=== PATIENT | female | born 1960 | race African-American/Black ===

== ENCOUNTER 2016-12-31 21:54 | Emergency (ER) | payer OTHER ==
[~2016-12-31] VITALS: Ht 167.6 cm; Wt 113.4 kg
[2016-12-31 22:03] VITALS: BP 159/115
--- NOTE | 2016-12-31 22:30 | PHYS DOC ---
Adult General Chief Complaint Chief Complaint: MECHANICAL FALL HPI HPI Patient is a 56 year old F who presents with a fall from a half-way. Patient has a history of cerebral palsy and schizophrenia and is legally blind and was up walking around without her walker trying to obtain a blanket and fell hitting the right side of her face on the ground. Patient states she had no loss of consciousness. Patient denies any chest pain or shortness breath. Patient denies any nausea/vomiting/diarrhea. Patient no other complaints. Review of Systems Review of Systems GEN: Denies fevers, chills, sweats HEENT: Denies blurred vision, sore throat CV: Denies chest pain RESP: Denies shortness of air, cough GI: Denies n/v/d NEURO: Headache MSK: Denies weakness, joint pain/swelling Allergies Allergies Allergies Coded Allergies Type Severity Reaction Last Updated Verified Penicillins Allergy Unknown HIVES 12/31/16 Yes Physical Exam Physical Exam GEN.: No apparent distress. Alert and oriented. HEENT: Head is normocephalic, atraumatic, tender to palpation over the right periorbital area with no obvious deformity NECK: Supple. LUNGS: CTAB. HEART: RRR, S1, S2 present. Peripheral pulses intact ABDOMEN: Soft, nontender. Positive bowel sounds. EXTREMITIES: Without any cyanosis. NEUROLOGIC: Normal speech, normal tone, cranial nerves II through XII are grossly intact no focal neurological deficits PSYCHIATRIC: Normal affect, normal mood. SKIN: No ulcerations EKG EKG [] Radiology/Procedures Radiology/Procedures CT scan of the head and C-spine NAD and no obvious fracture[] Course & Med Decision Making Course & Med Decision Making Pertinent Labs and Imaging studies reviewed. (See chart for details) ED course: Patient was seen and examined emergency room CT scan of the head and C-spine are ordered 2307: Updated patient on CT results and plan to discharge home. MDM: After reviewing the chart, CC/HPI/PMH, physical exam, [radiological results], I do not believe the patient has a intracranial process warranting further workup and/or admission at this time. On reexamination patient is asymptomatic. Patient has caregivers present at bedside. Patient stable for discharge. Additional verbal discharge instructions were provided to the patient and that if symptoms get worse or any new symptoms arise that are worrisome to the patient she is to return to the emergency room immediately [] [place]on Disclaimer Bebe Disclaimer This electronic medical record was generated, in whole or in part, using a voice recognition dictation system. Departure Departure Impression: Primary Impression: Closed head injury Additional Impression: Fall Disposition: 01 HOME, SELF-CARE Condition: IMPROVED Patient Instructions: Concussion and Brain Injury Additional Instructions: Please follow-up with your family physician in the next one to 2 days and return if symptoms increase Problem Qualifiers LIVIA DAWSON DO Dec 31, 2016 22:30
[2016-12-31] MEDS ORDERED: AMLO10TA2 PO (22:32)
[2016-12-31] MEDS ORDERED: TIOT18CA IH (22:33)
[2016-12-31] MEDS ORDERED: OMEP40CA5 PO (22:33)
[2016-12-31] MEDS ORDERED: SERT100T PO (22:34)
[2016-12-31] MEDS ORDERED: MULT1TAB52 PO (22:34)
[2016-12-31] MEDS ORDERED: SITA50TA PO (22:35)
[2016-12-31] MEDS ORDERED: GABA-586 PO (22:35)
[2016-12-31] MEDS ORDERED: LORA10TA68 PO (22:35)
[2016-12-31] MEDS ORDERED: LEVO125T PO (22:35)
[2016-12-31] MEDS ORDERED: DOCU100C28 PO (22:36)
[2016-12-31] MEDS ORDERED: FLUT1DIS5 IH (22:36)
[2016-12-31] MEDS ORDERED: FLUT9.9S NS (22:36)
[2016-12-31] MEDS ORDERED: HYDR50TA6 PO (22:37)
[2016-12-31] MEDS ORDERED: LAMO150T PO (22:37)
[2016-12-31] MEDS ORDERED: BRIM5DRO3 EACHEYE (22:38)
[2016-12-31] MEDS ORDERED: QUET100T4 PO (22:39)
--- NOTE | 2016-12-31 22:56 | RAD ---
CT head without intravenous contrast History: Fall, headache and neck pain. Comparison: None. Technique: Axial images are obtained of the head from the skull base through the vertex without IV contrast. Exposure: One or more of the following individualized dose reduction techniques were utilized for this examination: 1. Automated exposure control 2. Adjustment of the mA and/or kV according to patient size 3. Use of iterative reconstruction technique Findings: The ventricles are appropriate in size, shape, and location for the patient's age. No obvious intracranial mass, mass-effect, midline shift, hemorrhage or obvious acute infarction is identified. Basilar cisterns are patent. Bone windows demonstrate no acute calvarial abnormality. The visualized paranasal sinuses appear clear. Impression: 1. No acute intracranial process. CT cervical spine Technique: Noncontrast CT of the cervical spine was performed using helical technique. Axial, sagittal, coronal reconstructions were obtained. Exposure: One or more of the following individualized dose reduction techniques were utilized for this examination: 1. Automated exposure control 2. Adjustment of the mA and/or kV according to patient size 3. Use of iterative reconstruction technique Findings: There is no evidence of acute fracture or acute malalignment involving the cervical spine. No prevertebral soft tissue swelling is identified. Multilevel degeneration is seen with facet and uncovertebral hypertrophy as well as degenerative disc disease. Impression: 1. No evidence of acute traumatic injury involving the cervical spine. 2. Degeneration. Electronically signed by: Dinesh Clark MD (12/31/2016 10:53 PM) [facility]
== END 2016-12-31 23:39 | disposition home or self-care (01) ==
LOC: ER 21:54
DX: S09.90XA Unspecified injury of head, initial encounter (principal); F20.9 Schizophrenia, unspecified; Z88.0 Allergy status to penicillin; W18.09XA Striking against other object with subsequent fall, initial encounter; Y93.89 Activity, other specified; Y99.8 Other external cause status; Y92.89 Other specified places as the place of occurrence of the external cause
CPT/HCPCS: 70450; 72125; 99284-25

== ENCOUNTER 2018-12-19 13:35 | Emergency (ER) | payer MEDICAID, OTHER ==
[~2018-12-19] VITALS: Ht 149.9 cm; Wt 111.1 kg
[~2018-12-19 13:35] MED LIST: AMLO10TA8 PO; BRIM5DRO3 EACHEYE; DOCU100C28 PO; FLUT1DIS5 IH; FLUT9.9S NS; GABA300C18 PO; HYDR50TA6 PO; LAMO150T2 PO; LEVO125T PO; LORA10TA68 PO; MULT1TAB52 PO; OMEP40CA45 PO; QUET100T4 PO; SERT100T PO; SITA50TA PO; TIOT18CA IH
[2018-12-19] MEDS ORDERED: IV NORMAL SALINE 1000ML BAG 1,000 ML IV ONE (14:15)
[2018-12-19 14:50] LABS: BASO % 0 % (0-3); EOS # 0.1 x10^3/uL (0.0-0.7); EOS % 2 % (0-3); HEMATOCRIT 34.5 % (36.0-47.0); HEMOGLOBIN 11.5 g/dL (12.0-15.5); LYMPH # 0.7 x10^3/uL (1.0-4.8); LYMPH % 20 % (24-48); MEAN CORPUSCULAR HEMOGLOBIN 30 pg (25-35); MEAN CORPUSCULAR HGB CONC 33 g/dL (31-37); MEAN CORPUSCULAR VOLUME 91 fL (79-100); MONO # 0.2 x10^3/uL (0.0-1.1); MONO % 7 % (0-9); NEUT # 2.4 x10^3/uL (1.8-7.7); NEUT % 71 % (31-73); PLATELET COUNT 166 x10^3/uL (140-400); RED BLOOD COUNT 3.79 x10^6/uL (3.50-5.40); RED CELL DISTRIBUTION WIDTH 13.4 % (11.5-14.5); WHITE BLOOD COUNT 3.3 x10^3/uL (4.0-11.0)
[2018-12-19 14:58] LABS: PROTHROMBIN TIME PATIENT 14.3 SEC (11.7-14.0)
[2018-12-19 14:59] LABS: BARBITURATES NEG (NEG); BENZODIAZEPINES NEG (NEG); CANNABINOIDS NEG (NEG); COCAINE NEG (NEG); METHADONE NEG (NEG); OPIATES NEG (NEG); PHENCYCLIDINE NEG (NEG)
[2018-12-19 15:00] LABS: AMPHETAMINE/METHAMPHETAMINE NEG (NEG)
[2018-12-19 15:02] LABS: BILIRUBIN,URINE NEGATIVE (NEG); CLARITY,URINE CLOUDY; COLOR,URINE YELLOW; NITRITE,URINE POSITIVE (NEG); PH,URINE 5.5; PROTEIN,URINE NEGATIVE (NEG-TRACE)
[2018-12-19 15:06] LABS: CALCIUM 10.1 mg/dL (8.5-10.1); CREATININE 1.6 mg/dL (0.6-1.0); GFR 40.3; POTASSIUM 4.2 mmol/L (3.5-5.1)
[2018-12-19 15:13] LABS: ALBUMIN 3.9 g/dL (3.4-5.0); ALBUMIN/GLOBULIN RATIO 0.8 (1.0-1.7); MAGNESIUM 1.9 mg/dL (1.8-2.4); TOTAL BILIRUBIN 0.3 mg/dL (0.2-1.0); TOTAL PROTEIN 8.5 g/dL (6.4-8.2)
[2018-12-19 15:39] LABS: BACTERIA,URINE MANY /HPF (0-FEW); SQUAMOUS EPITHELIAL CELL,UR OCC /LPF; WBC,URINE TNTC /HPF (0-4)
--- NOTE | 2018-12-19 15:48 | PHYS DOC ---
Past Medical History Past Medical History: Anemia, Anxiety, Arthritis, Asthma, Bipolar, Bronchitis, CHF, Diabetes-Type II, Glaucoma, Hypertension, Seizure, Schizophrenia, UTI Additional Past Medical Histor: OBESITY,UNDIFF. SCHIZ, MR, LAST SEIZ 16',CHRON. RENAL FAILURE,OSTEO Additional Past Surgical Histo: CARPAL TUNNEL,RECTAL PROLAPSE REPAIR, Alcohol Use: None Drug Use: None Adult General Chief Complaint Chief Complaint: Sleeping a lot HPI HPI Patient is a 58 year old female with history of bipolar, diabetes mellitus, hypertension resident of a detention who presents via EMS with complaining of sleeping a lot. Patient states since last week she is a sleeping a lot and is not alert. Patient state she has had nasal congestion and cough without fever and chills, chest pain, shortness of breath, focal neuro deficit, head injury, nausea and vomiting, abdominal pain, urinary symptom and diarrhea and constipation. Patient denies using drugs, suicidal or homicidal ideation, hallucinations, history of the same problem. Review of Systems Review of Systems Constitutional: Denies fever or chills [] Eyes: Denies change in visual acuity, redness, or eye pain [] HENT: Denies sore throat , reports nasal congestion [] Respiratory: Denies shortness of breath, reports cough[] Cardiovascular: No additional information not addressed in HPI [] GI: Denies abdominal pain, nausea, vomiting, bloody stools or diarrhea [] : Denies dysuria or hematuria [] Musculoskeletal: Denies back pain or joint pain [] Integument: Denies rash or skin lesions [] Neurologic: Denies headache, focal weakness or sensory changes [] Endocrine: Denies polyuria or polydipsia [] All other systems were reviewed and found to be within normal limits, except as documented in this note. Current Medications Current Medications Current Medications Medications (Trade) Dose Ordered Sig/Gamal Start Time Stop Time Status Last Admin Dose Admin Ceftriaxone Sodium (Rocephin) 1 gm 1X ONCE 12/19/18 16:15 12/19/18 16:16 DC 12/19/18 17:05 1 GM Sodium Chloride 1,000 ml @ 1,000 mls/hr 1X ONCE 12/19/18 14:15 12/19/18 15:14 DC 12/19/18 16:02 1,000 MLS/HR Allergies Allergies Allergies Coded Allergies Type Severity Reaction Last Updated Verified Penicillins Allergy Unknown HIVES 12/31/16 Yes Physical Exam Physical Exam Constitutional: Well l nourished, mild distress, non-toxic appearance, lethargic with slow speech. [] HENT: Normocephalic, atraumatic. Eyes: PERRLA, EOMI, conjunctiva normal, no discharge. [] Neck: Normal range of motion, no tenderness, supple, no stridor. [] Cardiovascular:Heart rate regular rhythm, no murmur [] Lungs & Thorax: Bilateral breath sounds clear to auscultation [] Abdomen: Bowel sounds normal, soft, no tenderness, no masses, no pulsatile masses. [] Skin: Warm, dry, no erythema, no rash. [] Back: No tenderness, no CVA tenderness. [] Extremities: No tenderness, no cyanosis, no clubbing, ROM intact, no edema. [] Neurologic: Alert and oriented X 3 but lethargic, no focal deficits noted. [] Psychologic: Affect normal, mood normal. [] Current Patient Data Vital Signs Vital Signs Date Time Temp Pulse Resp B/P (MAP) Pulse Ox O2 Delivery O2 Flow Rate FiO2 12/19/18 17:08 68 20 115/98 (104) 100 Room Air 12/19/18 13:56 97.9 97.9 Lab Values Laboratory Tests Test 12/19/18 14:28 12/19/18 14:35 Urine Color Yellow Urine Clarity Cloudy Urine pH 5.5 Urine Specific [place] 1.015 Urine Protein Negative mg/dL (NEG-TRACE) Urine Glucose (UA) Negative mg/dL (NEG) Urine Ketones (Stick) Negative mg/dL (NEG) Urine Blood Moderate (NEG) Urine Nitrite Positive (NEG) Urine Bilirubin Negative (NEG) Urine Urobilinogen Dipstick 1.0 mg/dL (0.2 mg/dL) Urine Leukocyte Esterase Large (NEG) Urine RBC 3-5 /HPF (0-2) Urine WBC Tntc /HPF (0-4) Urine Squamous Epithelial Cells Occ /LPF Urine Bacteria Many /HPF (0-FEW) Urine Mucus Slight /LPF Urine Opiates Screen Neg (NEG) Urine Methadone Screen Neg (NEG) Urine Barbiturates Neg (NEG) Urine Phencyclidine Screen Neg (NEG) Urine Amphetamine/Methamphetamine Neg (NEG) Urine Benzodiazepines Screen Neg (NEG) Urine Cocaine Screen Neg (NEG) Urine Cannabinoids Screen Neg (NEG) Urine Ethyl Alcohol Neg (NEG) White Blood Count 3.3 x10^3/uL (4.0-11.0) L Red Blood Count 3.79 x10^6/uL (3.50-5.40) Hemoglobin 11.5 g/dL (12.0-15.5) L Hematocrit 34.5 % (36.0-47.0) L Mean Corpuscular Volume 91 fL (79-100) Mean Corpuscular Hemoglobin 30 pg (25-35) Mean Corpuscular Hemoglobin Concent 33 g/dL (31-37) Red Cell Distribution Width 13.4 % (11.5-14.5) Platelet Count 166 x10^3/uL (140-400) Neutrophils (%) (Auto) 71 % (31-73) Lymphocytes (%) (Auto) 20 % (24-48) L Monocytes (%) (Auto) 7 % (0-9) Eosinophils (%) (Auto) 2 % (0-3) Basophils (%) (Auto) 0 % (0-3) Neutrophils # (Auto) 2.4 x10^3/uL (1.8-7.7) Lymphocytes # (Auto) 0.7 x10^3/uL (1.0-4.8) L Monocytes # (Auto) 0.2 x10^3/uL (0.0-1.1) Eosinophils # (Auto) 0.1 x10^3/uL (0.0-0.7) Basophils # (Auto) 0.0 x10^3/uL (0.0-0.2) Prothrombin Time 14.3 SEC (11.7-14.0) H Prothrombin Time INR 1.1 (0.8-1.1) Sodium Level 145 mmol/L (136-145) Potassium Level 4.2 mmol/L (3.5-5.1) Chloride Level 106 mmol/L (98-107) Carbon Dioxide Level 28 mmol/L (21-32) Anion Gap 11 (6-14) Blood Urea Nitrogen 40 mg/dL (7-20) H Creatinine 1.6 mg/dL (0.6-1.0) H Estimated GFR (Cockcroft-Gault) 40.3 BUN/Creatinine Ratio 25 (6-20) H Glucose Level 73 mg/dL (70-99) Lactic Acid Level 0.9 mmol/L (0.4-2.0) Calcium Level 10.1 mg/dL (8.5-10.1) Magnesium Level 1.9 mg/dL (1.8-2.4) Total Bilirubin 0.3 mg/dL (0.2-1.0) Aspartate Amino Transferase (AST) 20 U/L (15-37) Alanine Aminotransferase (ALT) 16 U/L (14-59) Alkaline Phosphatase 85 U/L (46-116) Creatine Kinase 101 U/L (26-192) Troponin I Quantitative < 0.017 ng/mL (0.000-0.055) LN-Xlz-H-Type Natriuretic Peptide 279 pg/mL (0-124) H Total Protein 8.5 g/dL (6.4-8.2) H Albumin 3.9 g/dL (3.4-5.0) Albumin/Globulin Ratio 0.8 (1.0-1.7) L Ethyl Alcohol Level < 10 mg/dL (0-10) Laboratory Tests 12/19/18 14:35 Laboratory Tests 12/19/18 14:35 EKG EKG EKG interpreted by me. EKG at 1426 showed normal sinus rhythm at rate of 64, normal UT and QT interval, no acute ST and T-wave abnormalities. Radiology/Procedures Radiology/Procedures [][facility] [address] [place] [address] IMAGING REPORT Signed PATIENT: OMEGA ESQUIVEL DACCOUNT: [id number] : 1960 LOCATION: ER AGE: 58 SEX: F EXAM STATUS: REG ER ORD. PHYSICIAN: JAYSHREE HUNT MD REASON: lethargic. NOT READY FOR CT, LABS, EKG PROCEDURE: CT HEAD WO CONTRAST EXAM: Head CT without contrast. HISTORY: Lethargy. TECHNIQUE: Computed tomographic images of the head were obtained without contrast. *One or more of the following individualized dose reduction techniques were utilized for this examination: 1. Automated exposure control. 2. Adjustment of the mA and/or kV according to patient size. 3. Use of iterative reconstruction technique. COMPARISON: 12/31/2016. FINDINGS: There is no acute or subacute extra-axial or intraparenchymal hemorrhage. There is no mass effect or midline shift. There is no hydrocephalus. There are areas of decreased attenuation within the cerebral white matter, nonspecific and likely related to chronic small vessel disease. There is diffuse calvarial thickening. There is evidence of lens surgery. The visualized paranasal sinuses mastoid air cells are unremarkable. IMPRESSION: 1. No acute intracranial finding. Note is made that MRI is more sensitive for acute infarction. 2. Subtle areas of hypodensity within the cerebral white matter, the appearance of which favors changes due to chronic small vessel disease. This is advanced for patient age. Electronically signed by: Ellie Dial MD (12/19/2018 3:47 PM) [place] [id number] DICTATED and SIGNED BY: ELLIE DIAL MD DATE: 12/19/18 1547[facility] [address] [place] [address] IMAGING REPORT Signed PATIENT: OMEGA ESQUIVEL DACCOUNT: [id number] : 1960 LOCATION: ER AGE: 58 SEX: F EXAM STATUS: REG ER ORD. PHYSICIAN: JAYSHREE HUNT MD REASON: lethargic, soa PROCEDURE: PORTABLE CHEST 1V EXAM: Chest, single view. HISTORY: Lethargy. COMPARISON: 04/10/2005 FINDINGS: A frontal view of the chest is obtained. There is diffuse central predominant interstitial infiltrate. There is cardiomegaly with suspected small pleural effusions. There is no pneumothorax. There is chronic deformity of the left greater than right humeral heads and glenoid fossae. IMPRESSION: Diffuse central predominant infiltrate with small pleural effusions and cardiomegaly. The imaging appearance favors congestion. Electronically signed by: Ellie Dial MD (12/19/2018 3:45 PM) [facility] DICTATED and SIGNED BY: ELLIE DIAL MD DATE: 12/19/18 1545 Course & Med Decision Making Course & Med Decision Making Pertinent Labs and Imaging studies reviewed. (See chart for details) Evaluation of patient in ER showed 58-year-old female patient with psychiatric problem and resident of detention brought in by EMS because of . Patient caregiver presented to ER and she stated the patient usually stay awake until 0300 a.m. and asleep until late afternoon but the new caregiver today was not able to wake her up and called 911. Patient became alert and oriented while she was in ER and denied any problem. Labs showed UTI and patient treated with antibiotic. I've spoken with the patient and/or caregivers. I've explained the patient's condition, diagnosis and treatment plan based on information available to me at this time. I've answered the patient's and/or caregivers questions and addressed any concerns. The patient and/or caregivers have a good understanding the patient's diagnosis, condition and treatment plan as can be expected at this point. Vital signs have been stabilized. The patient's condition is stable for discharge from the emergency department. The patient will pursue further outpatient evaluation with her primary care provider or other designated consulting physician as outlined in the discharge instructions. Patient and/or caregivers are agreeable to this plan of care and follow-up instructions have been explained in detail. The patient and/or caregivers have received these instructions in written format and expressed understanding of these discharge instructions. The patient and her caregivers are aware that if any significant change in condition or worsening of symptoms should prompt him to immediately return to this of the closest emergency department. If an emergent department is not readily available I would enco urage him to call 911. Bebe Disclaimer Bebe Disclaimer This electronic medical record was generated, in whole or in part, using a voice recognition dictation system. Departure Departure Impression: Primary Impression: Urinary tract infection Additional Impressions: Renal insufficiency Somnolence Morbid obesity Bipolar disorder Disposition: HOME, SELF-CARE (at 1610) Condition: IMPROVED Referrals: UNKNOWN PCP NAME (PCP) Patient Instructions: Urinary Tract Infection Additional Instructions: Follow-up with your primary care physician in 3-5 days Return to ER if not getting better Scripts Ciprofloxacin Hcl (CIPRO) 250 Mg Tablet 1 TAB PO BID for infection, #14 TAB Prov: JAYSHREE HUNT MD 12/19/18 Problem Qualifiers Primary Impression: Urinary tract infection Urinary tract infection type: site unspecified Hematuria presence: without hematuria Qualified Codes: N39.0 - Urinary tract infection, site not specified Additional Impressions: Bipolar disorder Active/Remission status: remission status unspecified Qualified Codes: F31 .9 - Bipolar disorder, unspecified JAYSHREE HUNT MD Dec 19, 2018 15:48
--- NOTE | 2018-12-19 15:55 | EKG ---
[facility] [address] [place] [address] Test Date: 2018-12-19 Test Time: 14:27:28 Pat Name: OMEGA ESQUIVEL Department: Room: Gender: F Manager Training: : 1960 Requested By: JAYSHREE HUNT Order Number: [id number] Reading MD: Measurements Intervals [place] Rate: 64 P: 41 AL: 182 QRS: 31 QRSD: 84 T: 41 QT: 410 QTc: 423 Interpretive Statements SINUS RHYTHM NO SPECIFIC ECG ABNORMALITIES RI6.01 No previous ECG available for comparison
[2018-12-19] MEDS ORDERED: CIPR250T30 PO (16:13)
[2018-12-19] MEDS ORDERED: cefTRIAXone IV Push 1 GM VIAL. IVP ONE (16:15)
[2018-12-19 17:08] VITALS: BP 115/98
== END 2018-12-19 17:15 | disposition home or self-care (01) ==
LOC: ER 13:35
DX: N39.0 Urinary tract infection, site not specified (principal); F31.9 Bipolar disorder, unspecified; I13.0 Hypertensive heart and chronic kidney disease with heart failure and stage 1 through stage 4 chronic kidney disease, or unspecified chronic kidney disease; E11.22 Type 2 diabetes mellitus with diabetic chronic kidney disease; N18.9 Chronic kidney disease, unspecified; I50.9 Heart failure, unspecified; E66.01 Morbid (severe) obesity due to excess calories; Z68.42 Body mass index [BMI] 45.0-49.9, adult; R51 Headache; J45.909 Unspecified asthma, uncomplicated; F20.9 Schizophrenia, unspecified; E11.39 Type 2 diabetes mellitus with other diabetic ophthalmic complication; H40.9 Unspecified glaucoma; Z88.0 Allergy status to penicillin
CPT/HCPCS: 36415; 70450; 71045; 80053; 80307; 81001; 82550; 83605; 83735; 83880; 84484; 85025; 85610; 87086; 93005; 96374; 99285; G0480; J0696; J7030

== ENCOUNTER 2019-05-08 21:46 | Emergency (ER) | payer OTHER ==
[~2019-05-08] VITALS: Ht 157.5 cm; Wt 113.0 kg
[~2019-05-08 21:46] MED LIST changes: +CIPR250T30 PO; -LAMO150T2 PO; +LAMO150T4 PO
--- NOTE | 2019-05-08 22:11 | PHYS DOC ---
Past Medical History Past Medical History: Anemia, Anxiety, Arthritis, Asthma, Bipolar, Bronchitis, CHF, Diabetes-Type II, Glaucoma, Hypertension, Seizure, Schizophrenia, UTI Additional Past Medical Histor: OBESITY,UNDIFF. SCHIZ, MR, LAST SEIZ 16',CHRON. RENAL FAILURE,OSTEO Additional Past Surgical Histo: CARPAL TUNNEL,RECTAL PROLAPSE REPAIR, Smoking Status: Former Smoker Alcohol Use: None Drug Use: None Adult General Chief Complaint Chief Complaint: ABDOMINAL PAIN HPI HPI 58-year-old female presents to the emergency department with complaints of abdominal pain. Patient was apparently seen today by her primary care physician with reported concerns of worms in her stool. Patient had stool samples obtained. She was given medication for reflux. She has underlying history of hypertension, bipolar, schizophrenia, seizures. She complains of generalized abdominal pain on examination no focal tenderness. She as well reports nausea. Nothing makes her symptoms worse, nothing makes her symptoms better. Review of Systems Review of Systems Constitutional: Denies fever or chills [] Respiratory: Denies cough or shortness of breath [] Cardiovascular: No additional information not addressed in HPI [] GI: + abdominal pain, nausea, no vomiting, bloody stools or diarrhea [] : Denies dysuria or hematuria [] Musculoskeletal: Denies back pain or joint pain [] Integument: Denies rash or skin lesions [] Neurologic: Denies headache, focal weakness or sensory changes [] All other systems were reviewed and found to be within normal limits, except as documented in this note. Current Medications Current Medications Current Medications Medications (Trade) Dose Ordered Sig/Gamal Start Time Stop Time Status Last Admin Dose Admin Dicyclomine HCl (Bentyl) 10 mg 1X ONCE 05/08/19 23:30 05/08/19 23:31 DC 05/08/19 23:39 10 MG Sodium Chloride 1,000 ml @ 1,000 mls/hr Q1H 05/08/19 22:15 05/08/19 23:14 DC 05/08/19 23:05 1,000 MLS/HR Allergies Allergies Allergies Coded Allergies Type Severity Reaction Last Updated Verified Penicillins Allergy Unknown HIVES 12/31/16 Yes Physical Exam Physical Exam Constitutional: Well developed, well nourished, no acute distress, non-toxic a ppearance. [] HENT: Normocephalic, atraumatic, bilateral external ears normal, oropharynx moist, no oral exudates, nose normal. [] Eyes: PERRLA, EOMI, conjunctiva normal, no discharge. [] Cardiovascular:Heart rate regular rhythm, no murmur [] Lungs & Thorax: Bilateral breath sounds clear to auscultation [] Abdomen: Bowel sounds normal, soft, no tenderness, no masses, no pulsatile masses. [] Skin: Warm, dry, no erythema, no rash. [] Back: No tenderness, no CVA tenderness. [] Extremities: No tenderness, no edema. [] Neurologic: Alert and oriented X 3, no focal deficits noted. [] Psychologic: Affect normal, judgement normal, mood normal. [] Current Patient Data Vital Signs Vital Signs Date Time Temp Pulse Resp B/P (MAP) Pulse Ox O2 Delivery O2 Flow Rate FiO2 05/08/19 21:46 98.9 75 30 166/94 (118) 100 Room Air 98.9 Lab Values Laboratory Tests Test 05/08/19 23:00 05/08/19 23:12 05/08/19 23:28 White Blood Count 2.6 x10^3/uL (4.0-11.0) L Red Blood Count 3.20 x10^6/uL (3.50-5.40) L Hemoglobin 9.4 g/dL (12.0-15.5) L Hematocrit 28.3 % (36.0-47.0) L Mean Corpuscular Volume 89 fL (79-100) Mean Corpuscular Hemoglobin 29 pg (25-35) Mean Corpuscular Hemoglobin Concent 33 g/dL (31-37) Red Cell Distribution Width 13.5 % (11.5-14.5) Platelet Count 139 x10^3/uL (140-400) L Neutrophils (%) (Auto) 64 % (31-73) Lymphocytes (%) (Auto) 22 % (24-48) L Monocytes (%) (Auto) 11 % (0-9) H Eosinophils (%) (Auto) 2 % (0-3) Basophils (%) (Auto) 1 % (0-3) Neutrophils # (Auto) 1.7 x10^3/uL (1.8-7.7) L Lymphocytes # (Auto) 0.6 x10^3/uL (1.0-4.8) L Monocytes # (Auto) 0.3 x10^3/uL (0.0-1.1) Eosinophils # (Auto) 0.1 x10^3/uL (0.0-0.7) Basophils # (Auto) 0.0 x10^3/uL (0.0-0.2) Sodium Level 141 mmol/L (136-145) Potassium Level 4.3 mmol/L (3.5-5.1) Chloride Level 106 mmol/L (98-107) Carbon Dioxide Level 27 mmol/L (21-32) Anion Gap 8 (6-14) Blood Urea Nitrogen 41 mg/dL (7-20) H Creatinine 1.8 mg/dL (0.6-1.0) H Estimated GFR (Cockcroft-Gault) 35.2 BUN/Creatinine Ratio 23 (6-20) H Glucose Level 139 mg/dL (70-99) H Calcium Level 9.2 mg/dL (8.5-10.1) Total Bilirubin 0.2 mg/dL (0.2-1.0) Aspartate Amino Transferase (AST) 18 U/L (15-37) Alanine Aminotransferase (ALT) 13 U/L (14-59) L Alkaline Phosphatase 87 U/L (46-116) Troponin I Quantitative < 0.017 ng/mL (0.000-0.055) Total Protein 7.3 g/dL (6.4-8.2) Albumin 3.2 g/dL (3.4-5.0) L Albumin/Globulin Ratio 0.8 (1.0-1.7) L Lipase 167 U/L (73-393) Urine Collection Type Unknown Urine Color Yellow Urine Clarity Clear Urine pH 6.0 Urine Specific Gregory 1.010 Urine Protein Negative mg/dL (NEG-TRACE) Urine Glucose (UA) Negative mg/dL (NEG) Urine Ketones (Stick) Negative mg/dL (NEG) Urine Blood Negative (NEG) Urine Nitrite Positive (NEG) Urine Bilirubin Negative (NEG) Urine Urobilinogen Dipstick 0.2 mg/dL (0.2 mg/dL) Urine Leukocyte Esterase Large (NEG) Urine RBC Occ /HPF (0-2) Urine WBC 20-40 /HPF (0-4) Urine Squamous Epithelial Cells Few /LPF Urine Bacteria Many /HPF (0-FEW) Urine Mucus Slight /LPF Lactic Acid Level 1.6 mmol/L (0.4-2.0) Laboratory Tests 05/08/19 23:00 Laboratory Tests 05/08/19 23:00 EKG EKG EKG reviewed with NSR, 85, no STEMI, nml axis, interpretation time 2236[] Radiology/Procedures Radiology/Procedures [facility] [address] [place] [address] IMAGING REPORT Signed PATIENT: OMEGA ESQUIVEL DACCOUNT: [id number] : 1960 LOCATION: ER AGE: 58 SEX: F EXAM STATUS: REG ER ORD. PHYSICIAN: WYATT ZELAYA MD REASON: abdominal pain PROCEDURE: KUB Single view abdomen dated 05/08/2019. No comparison available. CLINICAL INDICATION: Abdominal pain. FINDINGS: 2 supine images submitted. Moderately distended gas-filled stomach. No signal small bowel dilation. There is moderate stool throughout the colon. Moderate spondylotic changes of the lumbar spine with scoliotic curvature. There is severe degenerative arthrosis of the left hip joint with mild degenerative changes at the right hip joint. IMPRESSION: 1. Nonobstructive bowel gas pattern. 2. Distended gas-filled stomach. Consider gastric outlet obstruction. 3. Degenerative changes as described. Electronically signed by: Dinesh Melendez MD (05/09/2019 12:01 AM) [id number] DICTATED and SIGNED BY: DINESH MELENDEZ MD DATE: 05/09/19 0001 [] Course & Med Decision Making Course & Med Decision Making Pertinent Labs and Imaging studies reviewed. (See chart for details) []58-year-old female presents to the emergency department with complaints of abdominal pain. Patient was apparently seen today by her primary care physician with reported concerns of worms in her stool. Patient had stool samples obtained. She was given medication for reflux. She has underlying history of hypertension, bipolar, schizophrenia, seizures. She complains of generalized abdominal pain on examination no focal tenderness. She as well reports nausea. Nothing makes her symptoms worse, nothing makes her symptoms better. Labs/Imaging reviewed Evidence of UTI KUB reviewed Rx for abx, zofran and bentyl Recommend dc home and follow up with PCP as needed Bebe Disclaimer Bebe Disclaimer This electronic medical record was generated, in whole or in part, using a voice recognition dictation system. Departure Departure Impression: Primary Impression: Abdominal pain Additional Impression: UTI (urinary tract infection) Disposition: 01 HOME, SELF-CARE Condition: IMPROVED Referrals: UNKNOWN PCP NAME (PCP) Patient Instructions: Abdominal Pain (Nonspecific), Urinary Tract Infection, [id number] Additional Instructions: Labs reviewed, evidence of UTI KUB (xray) without acute findings Recommend abx for UTI Recommend pain medication/anti-nausea medication upon discharge Return to the ER with worsening symptoms, fever, altered mental status Scripts Cephalexin (KEFLEX) 500 Mg Capsule 2 CAP PO Q12HR for 3 Days, #12 CAP Prov: WYATT ZELAYA MD 05/09/19 Dicyclomine Hcl (DICYCLOMINE HCL) 10 Mg Capsule 1 CAP PO TID PRN for PAIN for 5 Days, #15 CAP 11 Refills Prov: WYATT ZELAYA MD 05/09/19 Ondansetron Hcl (ZOFRAN) 4 Mg Tablet 1 TAB PO PRN Q6-8HRS PRN for NAUSEA, #12 TAB Prov: WYATT ZELAYA MD 05/09/19 Problem Qualifiers Primary Impression: Abdominal pain Abdominal location: generalized Qualified Codes: R10.84 - Generalized abdominal pain Additional Impression: UTI (urinary tract infection) Urinary tract infection type: site unspecified Hematuria presence: without hematuria Qualified Codes: N39.0 - Urinary tract infection, site not specified WYATT ZELAYA MD May 08, 2019 22:11
[2019-05-08] MEDS ORDERED: IV NORMAL SALINE 1000ML BAG 1,000 ML IV SCH (22:15)
[2019-05-08 23:05] LABS: BASO % 1 % (0-3); EOS # 0.1 x10^3/uL (0.0-0.7); EOS % 2 % (0-3); HEMATOCRIT 28.3 % (36.0-47.0); HEMOGLOBIN 9.4 g/dL (12.0-15.5); LYMPH # 0.6 x10^3/uL (1.0-4.8); LYMPH % 22 % (24-48); MEAN CORPUSCULAR HEMOGLOBIN 29 pg (25-35); MEAN CORPUSCULAR HGB CONC 33 g/dL (31-37); MEAN CORPUSCULAR VOLUME 89 fL (79-100); MONO # 0.3 x10^3/uL (0.0-1.1); MONO % 11 % (0-9); NEUT # 1.7 x10^3/uL (1.8-7.7); NEUT % 64 % (31-73); PLATELET COUNT 139 x10^3/uL (140-400); RED CELL DISTRIBUTION WIDTH 13.5 % (11.5-14.5); WHITE BLOOD COUNT 2.6 x10^3/uL (4.0-11.0)
[2019-05-08 23:13] LABS: CALCIUM 9.2 mg/dL (8.5-10.1); CREATININE 1.8 mg/dL (0.6-1.0); GFR 35.2; POTASSIUM 4.3 mmol/L (3.5-5.1)
[2019-05-08 23:19] LABS: BILIRUBIN,URINE NEGATIVE (NEG); CLARITY,URINE CLEAR; COLOR,URINE YELLOW; NITRITE,URINE POSITIVE (NEG); PROTEIN,URINE NEGATIVE (NEG-TRACE); UROBILINOGEN,URINE 0.2 mg/dL (0.2 mg/dL)
[2019-05-08 23:19] LABS: ALBUMIN 3.2 g/dL (3.4-5.0); ALBUMIN/GLOBULIN RATIO 0.8 (1.0-1.7); TOTAL BILIRUBIN 0.2 mg/dL (0.2-1.0); TOTAL PROTEIN 7.3 g/dL (6.4-8.2)
[2019-05-08] MEDS ORDERED: DICYCLOMINE 20 MG/2 ML VIAL. IM ONE (23:30)
[2019-05-08 23:35] LABS: SQUAMOUS EPITHELIAL CELL,UR FEW /LPF
[2019-05-08 23:36] LABS: BACTERIA,URINE MANY /HPF (0-FEW); RBC,URINE OCC /HPF (0-2); WBC,URINE 20-40 /HPF (0-4)
[2019-05-08 23:49] VITALS: BP 148/78
--- NOTE | 2019-05-09 00:04 | RAD ---
Single view abdomen dated 05/08/2019. No comparison available. CLINICAL INDICATION: Abdominal pain. FINDINGS: 2 supine images submitted. Moderately distended gas-filled stomach. No signal small bowel dilation. There is moderate stool throughout the colon. Moderate spondylotic changes of the lumbar spine with scoliotic curvature. There is severe degenerative arthrosis of the left hip joint with mild degenerative changes at the right hip joint. IMPRESSION: 1. Nonobstructive bowel gas pattern. 2. Distended gas-filled stomach. Consider gastric outlet obstruction. 3. Degenerative changes as described. Electronically signed by: Dinesh Melendez MD (05/09/2019 12:01 AM) [id number]
[2019-05-09] MEDS ORDERED: CEPH-264 PO (00:13)
[2019-05-09] MEDS ORDERED: ONDA4TAB7 PO (00:13)
[2019-05-09] MEDS ORDERED: DICY10CA3 PO (00:13)
--- NOTE | 2019-05-09 05:44 | EKG ---
[facility] [address] [place] [address] Test Date: 2019-05-08 Test Time: 22:35:06 Pat Name: OMEGA ESQUIVEL Department: Room: Gender: F Pipelaying Fitter: : 1960 Requested By: WYATT ZELAYA Order Number: [id number] Reading MD: Measurements Intervals [place] Rate: 84 P: 54 ME: 170 QRS: 23 QRSD: 86 T: -19 QT: 372 QTc: 442 Interpretive Statements SINUS RHYTHM T ABNORMALITY IN INFERIOR LEADS ABNORMAL ECG No previous ECG available for comparison
== END 2019-05-09 00:47 | disposition home or self-care (01) ==
LOC: ER 21:46
DX: N39.0 Urinary tract infection, site not specified (principal); F31.9 Bipolar disorder, unspecified; J45.909 Unspecified asthma, uncomplicated; E11.39 Type 2 diabetes mellitus with other diabetic ophthalmic complication; H40.9 Unspecified glaucoma; F20.9 Schizophrenia, unspecified; E11.22 Type 2 diabetes mellitus with diabetic chronic kidney disease; I13.0 Hypertensive heart and chronic kidney disease with heart failure and stage 1 through stage 4 chronic kidney disease, or unspecified chronic kidney disease; N18.9 Chronic kidney disease, unspecified; I50.9 Heart failure, unspecified; E66.9 Obesity, unspecified; Z68.42 Body mass index [BMI] 45.0-49.9, adult; Z87.891 Personal history of nicotine dependence
CPT/HCPCS: 36415; 74018; 80053; 81001; 83605; 83690; 84484; 85025; 87086; 93005; 96372; 99285; J0500; J7030

== ENCOUNTER 2019-05-23 00:04 | Emergency (ER) | payer OTHER ==
[~2019-05-23] VITALS: Ht 162.6 cm; Wt 77.3 kg
[~2019-05-23 00:04] MED LIST changes: +CEPH-264 PO; +DICY10CA3 PO; +ONDA4TAB7 PO
[2019-05-23] MEDS ORDERED: IPRATRPIUM/ALBUTEROL 0.5/2.5MG 3 ML NEBU. ONE (00:15)
[2019-05-23] MEDS ORDERED: IPRATRPIUM/ALBUTEROL 0.5/2.5MG 3 ML NEBU. NEB ONE (00:30)
[2019-05-23 00:44] LABS: BASO % 1 % (0-3); EOS % 1 % (0-3); HEMATOCRIT 32.9 % (36.0-47.0); LYMPH # 0.5 x10^3/uL (1.0-4.8); LYMPH % 14 % (24-48); MEAN CORPUSCULAR HEMOGLOBIN 29 pg (25-35); MEAN CORPUSCULAR HGB CONC 33 g/dL (31-37); MEAN CORPUSCULAR VOLUME 87 fL (79-100); MONO # 0.4 x10^3/uL (0.0-1.1); MONO % 12 % (0-9); NEUT # 2.8 x10^3/uL (1.8-7.7); NEUT % 74 % (31-73); PLATELET COUNT 145 x10^3/uL (140-400); RED BLOOD COUNT 3.77 x10^6/uL (3.50-5.40); RED CELL DISTRIBUTION WIDTH 13.4 % (11.5-14.5); WHITE BLOOD COUNT 3.8 x10^3/uL (4.0-11.0)
--- NOTE | 2019-05-23 00:51 | PHYS DOC ---
Past Medical History Past Medical History: Anemia, Anxiety, Arthritis, Asthma, Bipolar, Bronchitis, CHF, Diabetes-Type II, Glaucoma, Hypertension, Seizure, Schizophrenia, UTI Additional Past Medical Histor: OBESITY,UNDIFF. SCHIZ, MR, LAST SEIZ 16',CHRON. RENAL FAILURE,OSTEO Additional Past Surgical Histo: CARPAL TUNNEL,RECTAL PROLAPSE REPAIR, Smoking Status: Former Smoker Alcohol Use: None Drug Use: None Adult General Chief Complaint Chief Complaint: SHORTNESS OF BREATH HPI HPI 58-year-old female brought into the emergency department for the evaluation of generalized weakness. Patient state she has had diarrhea for the last several days. Prior arrival patient became short of breath--- Triage chief complaint of shortness breath. Caregiver transported patient to ER and states in route to hospital patient complained of shortness of breath. Prior to my examination patient received a duoneb breathing treatment. During my exam patient without any respiratory distress. Patient denies any abdominal pain nausea or vomiting. Review of Systems Review of Systems Constitutional: Denies fever or chills [] Eyes: Denies change in visual acuity, redness, or eye pain [] HENT: Denies nasal congestion or sore throat [] Respiratory: Denies cough or shortness of breath [] Cardiovascular: No additional information not addressed in HPI [] GI: Denies abdominal pain, nausea, vomiting, bloody stools positive diarrhea : Denies dysuria or hematuria [] Musculoskeletal: Denies back pain or joint pain [] Integument: Denies rash or skin lesions [] Neurologic: Denies headache, focal weakness or sensory changes [] Endocrine: Denies polyuria or polydipsia [] All other systems were reviewed and found to be within normal limits, except as documented in this note. Current Medications Current Medications Current Medications Medications (Trade) Dose Ordered Sig/Gamal Start Time Stop Time Status Last Admin Dose Admin Albuterol/ Ipratropium (Duoneb) 3 ml 1X ONCE 05/23/19 00:30 05/23/19 00:31 DC 05/23/19 00:20 3 ML Allergies Allergies Allergies Coded Allergies Type Severity Reaction Last Updated Verified Penicillins Allergy Intermediate HIVES 05/15/19 Yes I S O L A T I O N *CONTACT* Allergy Unknown 05/15/19 Yes Physical Exam Physical Exam Constitutional: Well developed, well nourished, no acute distress, non-toxic appearance. [] HENT: Normocephalic, atraumatic, bilateral external ears normal, oropharynx moist, no oral exudates, nose normal. [] Eyes: PERRLA, EOMI, conjunctiva normal, no discharge. [] Neck: Normal range of motion, no tenderness, supple, no stridor. [] Cardiovascular:Heart rate regular rhythm, no murmur [] Lungs & Thorax: Bilateral breath sounds clear to auscultation [] Abdomen: Bowel sounds normal, soft, no tenderness, no masses, no pulsatile masses. [] Skin: Warm, dry, no erythema, no rash. [] Back: No tenderness, no CVA tenderness. [] Extremities: No tenderness, no cyanosis, no clubbing, ROM intact, no edema. [] Neurologic: Alert and oriented X 3, normal motor function, normal sensory function, no focal deficits noted. [] Psychologic: Affect normal, judgement normal, mood normal. [] Current Patient Data Vital Signs Vital Signs Date Time Temp Pulse Resp B/P (MAP) Pulse Ox O2 Delivery O2 Flow Rate FiO2 05/23/19 00:17 99 Nasal Cannula 2.0 Lab Values Laboratory Tests Test 05/23/19 00:40 05/23/19 01:19 White Blood Count 3.8 x10^3/uL (4.0-11.0) L Red Blood Count 3.77 x10^6/uL (3.50-5.40) Hemoglobin 11.0 g/dL (12.0-15.5) L Hematocrit 32.9 % (36.0-47.0) L Mean Corpuscular Volume 87 fL (79-100) Mean Corpuscular Hemoglobin 29 pg (25-35) Mean Corpuscular Hemoglobin Concent 33 g/dL (31-37) Red Cell Distribution Width 13.4 % (11.5-14.5) Platelet Count 145 x10^3/uL (140-400) Neutrophils (%) (Auto) 74 % (31-73) H Lymphocytes (%) (Auto) 14 % (24-48) L Monocytes (%) (Auto) 12 % (0-9) H Eosinophils (%) (Auto) 1 % (0-3) Basophils (%) (Auto) 1 % (0-3) Neutrophils # (Auto) 2.8 x10^3/uL (1.8-7.7) Lymphocytes # (Auto) 0.5 x10^3/uL (1.0-4.8) L Monocytes # (Auto) 0.4 x10^3/uL (0.0-1.1) Eosinophils # (Auto) 0.0 x10^3/uL (0.0-0.7) Basophils # (Auto) 0.0 x10^3/uL (0.0-0.2) Sodium Level 136 mmol/L (136-145) Potassium Level 3.6 mmol/L (3.5-5.1) Chloride Level 103 mmol/L (98-107) Carbon Dioxide Level 23 mmol/L (21-32) Anion Gap 10 (6-14) Blood Urea Nitrogen 30 mg/dL (7-20) H Creatinine 1.6 mg/dL (0.6-1.0) H Estimated GFR (Cockcroft-Gault) 40.3 BUN/Creatinine Ratio 19 (6-20) Glucose Level 95 mg/dL (70-99) Calcium Level 9.1 mg/dL (8.5-10.1) Total Bilirubin 0.4 mg/dL (0.2-1.0) Aspartate Amino Transferase (AST) 24 U/L (15-37) Alanine Aminotransferase (ALT) 21 U/L (14-59) Alkaline Phosphatase 67 U/L (46-116) Troponin I Quantitative < 0.017 ng/mL (0.000-0.055) GL-Exc-I-Type Natriuretic Peptide 391 pg/mL (0-124) H Total Protein 8.1 g/dL (6.4-8.2) Albumin 3.5 g/dL (3.4-5.0) Albumin/Globulin Ratio 0.8 (1.0-1.7) L Laboratory Tests 05/23/19 00:40 Laboratory Tests 05/23/19 01:19 EKG EKG [] Radiology/Procedures Radiology/Procedures [] Course & Med Decision Making Course & Med Decision Making Pertinent Labs and Imaging studies reviewed. (See chart for details) [] Dragon Disclaimer Dragon Disclaimer This electronic medical record was generated, in whole or in part, using a voice recognition dictation system. Departure Departure Impression: Primary Impression: Diarrhea Additional Impressions: Dehydration Generalized weakness Disposition: HOME, SELF-CARE Condition: STABLE Referrals: UNKNOWN PCP NAME (PCP) Patient Instructions: Diarrhea Problem Qualifiers LAURA WHEELER DO May 23, 2019 00:51
--- NOTE | 2019-05-23 00:54 | RAD ---
AP chest. HISTORY: Short of breath AP view was taken of the chest. There is severe arthritis in both shoulders. Heart is mildly enlarged. Patient's taken a poor inspiration. There is no pleural effusion. There are no confluent infiltrates. IMPRESSION: 1. Poor inspiration. 2. No acute infiltrates. Electronically signed by: Alireza Castrejon MD (05/23/2019 12:51 AM) [id number]
[2019-05-23 01:40] LABS: CALCIUM 9.1 mg/dL (8.5-10.1); CREATININE 1.6 mg/dL (0.6-1.0); GFR 40.3; POTASSIUM 3.6 mmol/L (3.5-5.1)
[2019-05-23 01:46] LABS: ALBUMIN 3.5 g/dL (3.4-5.0); ALBUMIN/GLOBULIN RATIO 0.8 (1.0-1.7); TOTAL BILIRUBIN 0.4 mg/dL (0.2-1.0); TOTAL PROTEIN 8.1 g/dL (6.4-8.2)
[2019-05-23 06:34] VITALS: BP 176/112
== END 2019-05-23 04:00 | disposition home or self-care (01) ==
LOC: ER 00:04
DX: R19.7 Diarrhea, unspecified (principal); E86.0 Dehydration; R53.1 Weakness; R06.02 Shortness of breath; J45.909 Unspecified asthma, uncomplicated; F31.9 Bipolar disorder, unspecified; I13.0 Hypertensive heart and chronic kidney disease with heart failure and stage 1 through stage 4 chronic kidney disease, or unspecified chronic kidney disease; E11.22 Type 2 diabetes mellitus with diabetic chronic kidney disease; N18.9 Chronic kidney disease, unspecified; I50.9 Heart failure, unspecified; E11.39 Type 2 diabetes mellitus with other diabetic ophthalmic complication; H40.9 Unspecified glaucoma; F20.9 Schizophrenia, unspecified; E66.9 Obesity, unspecified; Z68.29 Body mass index [BMI] 29.0-29.9, adult; Z87.891 Personal history of nicotine dependence
CPT/HCPCS: 36415; 71045; 80053; 83880; 84484; 85025; 94640; 99284-25

== ENCOUNTER 2019-09-30 12:06 | Emergency (ER) | payer OTHER ==
[~2019-09-30] VITALS: Ht 157.5 cm; Wt 90.0 kg
[~2019-09-30 12:06] MED LIST changes: +MULT-445 PO; -MULT1TAB52 PO
--- NOTE | 2019-09-30 12:54 | PHYS DOC ---
Past Medical History Past Medical History: Anemia, Anxiety, Arthritis, Asthma, Bipolar, Bronchitis, CHF, Diabetes-Type II, Glaucoma, Hypertension, Seizure, Schizophrenia, UTI Additional Past Medical Histor: OBESITY,UNDIFF. SCHIZ, MR, LAST SEIZ 16',CHRON. RENAL FAILURE,OSTEO Additional Past Surgical Histo: CARPAL TUNNEL,RECTAL PROLAPSE REPAIR, Smoking Status: Former Smoker Alcohol Use: None Drug Use: None General Adult EDM: Chief Complaint: VAGINAL PROBLEM HPI: HPI: Patient is a 58 year old female who presents with patient is here from [facility] where she has 6 other house mates. Patient complains of low abdominal pain. She does have blood in her breif as she is incontinent. She is here with a health care personell from the [facility]. She states it hurt when she urinates. Patient rates her pain at a 10. Denies nausea, vomiting, fever, diarrhea, chest pain or soa. Review of Systems: Review of Systems: Constitutional: Denies fever or chills. [] Eyes: Denies change in visual acuity. [] HENT: Denies nasal congestion or sore throat. [] Respiratory: Denies cough or shortness of breath. [] Cardiovascular: Denies chest pain or edema. [] GI: Low mid abdominal pain, denies nausea, vomiting, bloody stools or diarrhea. [] : dysuria. Hematuria. [] Musculoskeletal: Denies back pain or joint pain. [] Integument: Denies rash. [] Neurologic: Denies headache, focal weakness or sensory changes. [] Endocrine: Denies polyuria or polydipsia. [] Lymphatic: Denies swollen glands. [] Psychiatric: Denies depression or anxiety. [] Heart Score: Risk Factors: Risk Factors: DM, Current or recent (<one month) smoker, HTN, HLP, family history of CAD, obesity. Risk Scores: Score 0 - 3: 2.5% MACE over next 6 weeks - Discharge Home Score 4 - 6: 20.3% MACE over next 6 weeks - Admit for Clinical Observation Score 7 - 10: 72.7% MACE over next 6 weeks - Early Invasive Strategies Allergies: Allergies: Allergies Coded Allergies Type Severity Reaction Last Updated Verified Penicillins Allergy Intermediate HIVES 05/15/19 Yes I S O L A T I O N *CONTACT* Allergy Unknown 05/15/19 Yes Physical Exam: PE: Constitutional: Well developed, well nourished, no acute distress, non-toxic appearance. [] HENT: Normocephalic, atraumatic, bilateral external ears normal, oropharynx moist, no oral exudates, nose normal. [] Eyes: PERRLA, EOMI, conjunctiva normal, no discharge. [] Neck: Normal range of motion, no tenderness, supple, no stridor. [] Cardiovascular:Heart rate regular rhythm, no murmur [] Lungs & Thorax: Bilateral breath sounds clear to auscultation [] Abdomen: Bowel sounds normal, soft, low mid tenderness, no masses, no pulsatile masses. [] Skin: Warm, dry, no erythema, no rash. vaginal yeast. [] Back: No tenderness, no CVA tenderness. [] Extremities: No tenderness, no cyanosis, no clubbing, ROM intact, no edema. [] Neurologic: Alert and oriented X 3, normal motor function, normal sensory function, no focal deficits noted. [] Psychologic: Affect normal, judgement normal, mood normal. [] EKG: EKG: [] Radiology/Procedures: Radiology/Procedures: [] Course & Med Decision Making: Course & Med Decision Making Pertinent Labs and Imaging studies reviewed. (See chart for details) Patient has never had sexual intercourse in her life time so I did not do a speculum exam as the patient would not tolerate it well. I did look at the exterior vaginal area and there is yeast present but no excoriation or sores. Patient denies itching or abdnormal discharge. Low mid abdomen pain. Patient is unable to tell me the quality of pain due to her mental health history. She states it just "hurts right there", pointing to low mid abdomen and states it hurts with urination. Abdomen is otherwise soft and nontender. No CVA tenderness. Patient has a history of chronic renal insufficiency, schizophrenia, diabetes type 2, CHF, bipolar, asthma, glaucoma, hypertension, seizures, UTI. She has a UTI and is given Rocephin. She will follow-up with her primary care provider. I will send her home with Keflex antibiotic. Afebrile and hemodynamically stable. [] Bebe Disclaimer: Bebe Disclaimer: This electronic medical record was generated, in whole or in part, using a voice recognition dictation system. Departure Departure Impression: Primary Impression: Urinary tract infection Qualified Codes: N39.0 - Urinary tract infection, site not specified; R31.9 - Hematuria, unspecified Additional Impression: Yeast infection Disposition: 01 HOME, SELF-CARE Condition: STABLE Referrals: THOMAS AGUILERA MD (PCP) Patient Instructions: Urinary Tract Infection, Yeast Infection of the Skin, [id number] Additional Instructions: Follow-up with your primary care physician in the next week. Take medication as prescribed and with food. Scripts Phenazopyridine Hcl (PYRIDIUM) 100 Mg Tablet 1 TAB PO TID for urinary discomfort for 2 Days, #6 TAB 0 Refills Prov: VIRAJ CRAVEN APRN 09/30/19 Cephalexin (KEFLEX) 500 Mg Capsule 1 CAP PO BID for 7 Days, #14 CAP 0 Refills Prov: VIRAJ CRAVEN APRN 09/30/19 Justicifation of Admission Dx: Justifications for Admission: Justification of Admission Dx: N/A VIRAJ CRAVEN APRN Sep 30, 2019 12:54
[2019-09-30 13:04] LABS: BILIRUBIN,URINE NEGATIVE (NEG); CLARITY,URINE TURBID; COLOR,URINE YELLOW; NITRITE,URINE NEGATIVE (NEG); PH,URINE 6.5 (<5.0-8.0); PROTEIN,URINE >=300 mg/dL (NEG-TRACE); UROBILINOGEN,URINE 0.2 mg/dL (0.2 mg/dL)
[2019-09-30 13:11] LABS: RBC,URINE 20-40 /HPF (0-2); SQUAMOUS EPITHELIAL CELL,UR FEW /LPF; WBC,URINE TNTC /HPF (0-4)
[2019-09-30 13:12] LABS: AMORPHOUS SEDIMENT,UR PRESENT /HPF; BACTERIA,URINE 0 /HPF (0-FEW)
[2019-09-30] MEDS ORDERED: fentaNYL PF VIAL 100 MCG/2 ML VIAL IVP ONE (13:15)
[2019-09-30 13:43] LABS: BASO % 0 % (0-3); EOS # 0.1 x10^3/uL (0.0-0.7); EOS % 1 % (0-3); HEMATOCRIT 30.9 % (36.0-47.0); HEMOGLOBIN 10.3 g/dL (12.0-15.5); LYMPH # 0.6 x10^3/uL (1.0-4.8); LYMPH % 11 % (24-48); MEAN CORPUSCULAR HEMOGLOBIN 29 pg (25-35); MEAN CORPUSCULAR HGB CONC 33 g/dL (31-37); MEAN CORPUSCULAR VOLUME 86 fL (79-100); MONO # 0.3 x10^3/uL (0.0-1.1); MONO % 5 % (0-9); NEUT # 4.6 x10^3/uL (1.8-7.7); NEUT % 82 % (31-73); PLATELET COUNT 175 x10^3/uL (140-400); RED BLOOD COUNT 3.58 x10^6/uL (3.50-5.40); RED CELL DISTRIBUTION WIDTH 15.3 % (11.5-14.5); WHITE BLOOD COUNT 5.6 x10^3/uL (4.0-11.0)
[2019-09-30 13:55] LABS: CALCIUM 9.3 mg/dL (8.5-10.1); CREATININE 1.7 mg/dL (0.6-1.0); GFR 37.6; POTASSIUM 4.9 mmol/L (3.5-5.1)
[2019-09-30] MEDS ORDERED: cefTRIAXone IV Push 1 GM VIAL. IVP ONE (14:00)
[2019-09-30 14:01] LABS: ALBUMIN 3.2 g/dL (3.4-5.0); ALBUMIN/GLOBULIN RATIO 0.7 (1.0-1.7); TOTAL BILIRUBIN 0.3 mg/dL (0.2-1.0)
[2019-09-30] MEDS ORDERED: PHEN100T82 PO (14:25)
[2019-09-30] MEDS ORDERED: CEPH-264 PO (14:25)
[2019-09-30] MEDS ORDERED: FLUCONAZOLE 100 MG TABLET. PO ONE (14:30)
[2019-09-30 14:32] VITALS: BP 169/116
== END 2019-09-30 15:05 | disposition home or self-care (01) ==
LOC: ER 12:06
DX: N39.0 Urinary tract infection, site not specified (principal); R31.9 Hematuria, unspecified; B37.3 Candidiasis of vulva and vagina; J45.909 Unspecified asthma, uncomplicated; F31.9 Bipolar disorder, unspecified; I11.0 Hypertensive heart disease with heart failure; I50.9 Heart failure, unspecified; F20.9 Schizophrenia, unspecified; E11.39 Type 2 diabetes mellitus with other diabetic ophthalmic complication; H40.9 Unspecified glaucoma; Z87.891 Personal history of nicotine dependence; Z88.0 Allergy status to penicillin; Z91.041 Radiographic dye allergy status
CPT/HCPCS: 36415; 80053; 81001; 83690; 85025; 87086; 96374; 96375; 99284; J0696; J3010

== ENCOUNTER 2020-01-03 20:57 | Emergency (ER) | payer OTHER ==
[~2020-01-03] VITALS: Ht 152.4 cm; Wt 90.1 kg
[~2020-01-03 20:57] MED LIST changes: +AMLO-187 PO; -AMLO10TA8 PO; +PHEN100T82 PO
--- NOTE | 2020-01-03 21:26 | PHYS DOC ---
Past Medical History Past Medical History: Asthma, Bipolar, GERD, Glaucoma, Hypertension, Hypo thyroid Additional Past Medical Histor: OBESITY,UNDIFF. SUJEY, , LAST SEIZ 16',CHRON. RENAL FAILURE,OSTEO Past Surgical History: Other Additional Past Surgical Histo: CARPAL TUNNEL,RECTAL PROLAPSE REPAIR, Smoking Status: Never Smoker Alcohol Use: None Drug Use: None General Adult EDM: Chief Complaint: NAUSEA/VOMITING/DIARRHA HPI: HPI: History obtained from patient. Patient is a 59-year-old female with history of schizophrenia, chronic kidney disease, obesity who presents with chief complaint of vomiting. Patient states her vomiting began 30 minutes prior to arrival after eating spaghetti dinner. She notes multiple signs of nonbloody nonbilious emesis. She also notes loose stool began at the same time. Denies any blood in stool. States she did receive a flu vaccine in her right upper extremity earlier today. Does note some mild diffuse abdominal discomfort. Does note some sore throat discomfort after vomiting. Denies fevers. Denies any previous abdominal surgeries. She denies dysuria, hematuria, or polyuria. Denies any recent antibiotics. Denies any recent travel, history of C. difficile colitis, exposure to well water. Denies any pets at home. Denies any known history of gastroparesis. No other complaints. Review of Systems: Review of Systems: Constitutional: Denies fever or chills. [] Eyes: Denies change in visual acuity. [] HENT: Denies nasal congestion or sore throat. [] Respiratory: Denies cough or shortness of breath. [] Cardiovascular: Denies chest pain or edema. [] GI: D positive for vomiting, diarrhea, abdominal pain : Denies dysuria. [] Musculoskeletal: Denies back pain or joint pain. [] Integument: Denies rash. [] Neurologic: Denies headache, focal weakness or sensory changes. [] Endocrine: Denies polyuria or polydipsia. [] Lymphatic: Denies swollen glands. [] Psychiatric: Denies depression or anxiety. [] Heart Score: Risk Factors: Risk Factors: DM, Current or recent (<one month) smoker, HTN, HLP, family history of CAD, obesity. Risk Scores: Score 0 - 3: 2.5% MACE over next 6 weeks - Discharge Home Score 4 - 6: 20.3% MACE over next 6 weeks - Admit for Clinical Observation Score 7 - 10: 72.7% MACE over next 6 weeks - Early Invasive Strategies Allergies: Allergies: Allergies Coded Allergies Type Severity Reaction Last Updated Verified Penicillins Allergy Intermediate HIVES 05/15/19 Yes I S O L A T I O N *CONTACT* Allergy Unknown 05/15/19 Yes Physical Exam: PE: Constitutional: Well developed, well nourished, no acute distress, non-toxic appearance. [] HENT: Normocephalic, atraumatic, bilateral external ears normal, oropharynx moist, no oral exudates, nose normal. [] Eyes: PERRLA, EOMI, conjunctiva normal, no discharge. [] Neck: Normal range of motion, no tenderness, supple, no stridor. [] Cardiovascular:Heart rate regular rhythm, no murmur [] Lungs & Thorax: Bilateral breath sounds clear to auscultation [] Abdomen: Bowel sounds normal, soft, no tenderness, no masses, no pulsatile masses. [] Skin: Warm, dry, no erythema, no rash. [] Back: No tenderness, no CVA tenderness. [] Extremities: No tenderness, no cyanosis, no clubbing, ROM intact, no edema. [] Neurologic: Alert and oriented X 3, normal motor function, normal sensory function, no focal deficits noted. [] Psychologic: Affect normal, judgement normal, mood normal. [] Current Patient Data: Labs: Laboratory Tests Test 01/03/20 21:36 01/03/20 22:45 01/03/20 22:54 White Blood Count 3.9 x10^3/uL Red Blood Count 3.80 x10^6/uL Hemoglobin 10.3 g/dL Hematocrit 32.1 % Mean Corpuscular Volume 85 fL Mean Corpuscular Hemoglobin 27 pg Mean Corpuscular Hemoglobin Concent 32 g/dL Red Cell Distribution Width 15.0 % Platelet Count 172 x10^3/uL Neutrophils (%) (Auto) 74 % Lymphocytes (%) (Auto) 15 % Monocytes (%) (Auto) 8 % Eosinophils (%) (Auto) 3 % Basophils (%) (Auto) 0 % Neutrophils # (Auto) 2.9 x10^3/uL Lymphocytes # (Auto) 0.6 x10^3/uL Monocytes # (Auto) 0.3 x10^3/uL Eosinophils # (Auto) 0.1 x10^3/uL Basophils # (Auto) 0.0 x10^3/uL Sodium Level 141 mmol/L Potassium Level 4.6 mmol/L Chloride Level 106 mmol/L Carbon Dioxide Level 22 mmol/L Anion Gap 13 Blood Urea Nitrogen 30 mg/dL Creatinine 1.6 mg/dL Estimated GFR (Cockcroft-Gault) 40.2 BUN/Creatinine Ratio 19 Glucose Level 120 mg/dL Calcium Level 9.4 mg/dL Magnesium Level 2.0 mg/dL Total Bilirubin 0.2 mg/dL Aspartate Amino Transf (AST/SGOT) 25 U/L Alanine Aminotransferase (ALT/SGPT) 18 U/L Alkaline Phosphatase 86 U/L Troponin I Quantitative < 0.017 ng/mL Total Protein 8.3 g/dL Albumin 3.3 g/dL Albumin/Globulin Ratio 0.7 Lipase 134 U/L Urine Collection Type U cath Urine Color Yellow Urine Clarity Clear Urine pH 5.5 Urine Specific [place] 1.010 Urine Protein Negative mg/dL Urine Glucose (UA) Negative mg/dL Urine Ketones (Stick) Negative mg/dL Urine Blood Trace Urine Nitrite Positive Urine Bilirubin Negative Urine Urobilinogen Dipstick 0.2 mg/dL Urine Leukocyte Esterase Large Urine RBC 1-2 /HPF Urine WBC 5-10 /HPF Urine Squamous Epithelial Cells Mod /LPF Urine Bacteria Many /HPF Urine Mucus Slight /LPF Bedside Urine HCG, Qualitative Hcg negative Current Medications Medications (Trade) Dose Ordered Sig/Gamal Route PRN Reason Start Time Stop Time Status Last Admin Dose Admin Iohexol (Omnipaque 300 Mg/ml) 60 ml 1X ONCE IV 01/03/20 22:30 01/03/20 22:31 DC Info (CONTRAST GIVEN -- Rx MONITORING) 1 each PRN DAILY PRN MC SEE COMMENTS 01/03/20 22:15 01/05/20 22:14 EKG: EKG: [] EKG consistent with normal sinus rhythm. Ventricular rate of 83 bpm. [place] normal. Intervals normal. Slight artifact noted. No acute ischemic changes identified. Radiology/Procedures: Radiology/Procedures: [facility] [address] [place], [place] [id number] IMAGING REPORT Signed PATIENT: OMEGA ESQUIVEL DACCOUNT: [id number] : 1960 LOCATION: ER AGE: 59 SEX: F EXAM STATUS: REG ER ORD. PHYSICIAN: SHIRLEY FAULKNER DO REASON: abdominal pain with vomiting PROCEDURE: CT ABDOMEN PELVIS WO CONTRAST Exam: CT of abdomen and pelvis without contrast INDICATION: Abdominal pain with vomiting TECHNIQUE: Sequential axial images through the abdomen and pelvis obtained without IV contrast. Sagittal and coronal reformatted images were reconstructed from the axial data and reviewed. Comparisons: None FINDINGS: Heart size is normal. No pericardial. Numerous calcified nodules noted at the lung bases. No pleural effusion. Evaluation of solid organs is limited secondary to noncontrast technique. Liver, spleen, pancreas and adrenals are unremarkable. Gallstones are within the gallbladder. No renal or ureteral calculi are identified. No perinephric inflammation or hydronephrosis. Bladder is partially distended and not well evaluated. Uterus is not enlarged. No abnormal adnexal mass. Large and small bowel are unremarkable. No free intra-abdominal air or fluid. No obstruction. Abdominal aorta has a normal course and caliber. No enlarged abdominal lymph nodes are identified. No suspicious osseous lesions or acute fractures. IMPRESSION: No acute process identified within the abdomen or pelvis. Exposure: One or more of the following in the visualized dose reduction techniques were utilized for this examination: 1. Automated exposure control 2. Adjustment of the MA and/or KV according to patient size 3. Use of iterative of reconstructive technique Electronically signed by: Jocy Arrieta MD (01/03/2020 10:31 PM) [facility] DICTATED and SIGNED BY: JOCY ARRIETA MD DATE: 01/03/202230 [] Course & Med Decision Making: Course & Med Decision Making Pertinent Labs and Imaging studies reviewed. (See chart for details) [] Patient is a well-appearing 59-year-old female who presents with complaint of nausea and vomiting that began 30 minutes prior to arrival. CT imaging grossly unremarkable. Laboratory analysis unremarkable. Urinalysis does show evidence of infection. She was given IV fluids and antiemetics. She did tolerate her first dose of oral antibiotics in the emergency department. Repeat examination she is sleeping comfortably. I do feel she is appropriate for discharge home. She will be given a short course of oral Keflex. Return precautions discussed and understood. Struck to follow-up with her primary care physician in the next 2 to 3 days. She is stable for discharge home. I provided verbal discharge instructions regarding their emergency department diagnosis. If you had any diagnostic studies ( Labs or Xray's, CAT scan, Ultrasound ) have your PCP (Primary Care Physician) review them with you since there may be results that require further follow up or investigation. Prognosis, expected clinical course, and return precautions were reviewed. I answered the patients questions and instructed them to return if any new or worsening symptoms develop. The patient expressed understanding of the instructions and reported that all of their questions had been answered. Dragon Disclaimer: [place] Disclaimer: This electronic medical record was generated, in whole or in part, using a voice recognition dictation system. Departure Departure Impression: Primary Impression: Urinary tract infection Qualified Codes: N39.0 - Urinary tract infection, site not specified Additional Impression: Nausea & vomiting Qualified Codes: R11.2 - Nausea with vomiting, unspecified Disposition: 01 DC HOME SELF CARE/HOMELESS Condition: STABLE Referrals: THOMAS AGUILERA MD (PCP) Patient Instructions: Urinary Tract Infection Additional Instructions: Discharge Abdominal Pain Re-Check Precautions: I'm unsure of the specific cause of your abdominal pain. However, at this point I feel that you are low risk for a life threatening emergency and that discharge from the Emergency Department is safe. There is a very small possibility that you are just too early in your clinical course for our physical exam/labs/imaging to ascertain whether or not you have an emergent condition that could potentially cause permanent disability or be life threatening. As such, it is very important that you follow up with your primary doctor or return to the Emergency Department in 12-24 hours for re-assessment and further fred luation if clinically indicated. If you develop new or worsening symptoms then you should return to the Emergency Department immediately. Home Care Instructions: Abdominal Pain Many things may cause abdominal pain. Your ER visit might not show the exact reason you are having pain. In some cases, additional time is needed to determine if the cause is serious. Therefore you may be told to go home and watch for any changes or worsening in your condition. Before that, we may not know if you need more testing, or if hospitalization or surgery is necessary. If its not something serious, the pain may go away without treatment or get better with simple things like avoiding certain foods or medications. In the ER, your doctor asks you questions, examines you and in some cases, may order tests. These help doctors decide if the pain is from something serious. Tests are not always done and may not provide a definite answer. There can still be a problem, even with normal test results. Abdominal pain may be caused by something serious (like appendicitis), which is not obvious right away. Because of this, another checkup is needed to make sure you are OK. It is VERY IMPORTANT to follow up for a repeat exam, especially if you have any symptoms that are not going away or are getting worse. We recommend that you RETURN TO THE EMERGENCY ROOM IN 8-12 HOURS to be rechecked. If you cannot, you may follow up with your primary care doctor or clinic. It is important that you follow all of the instructions below. RETURN TO THE EMERGENCY ROOM IMMEDIATELY IF: The pain does not go away or gets worse. You have a fever. You keep throwing up and cannot keep anything down. You pass bloody or black stools. You develop new symptoms. HOME CARE INSTRUCTIONS Come back to the ER (or see your doctor) in 8-12 hours. DO NOT take laxatives unless directed by your doctor. Avoid the use of alcohol Take pain medicine only as directed by your doctor. Only take [id number] or prescription medicine as directed by your doctor. Try a clear liquid diet (broth, tea, jello, water) for the next 12-24 hours. Slowly move to a bland diet as tolerated. Do not eat greasy, fatty or spicy foods. Once you start getting better, go back to a normal, healthy diet, slowly over a few days. DISCHARGE PT INSTRUCTIONS: YOU HAVE BEEN EVALUATED FOR ABDOMINAL PAIN. HOWEVER, WE ARE UNABLE TO PROVIDE A DEFINITE CAUSE OF YOUR SYMPTOMS. EVEN THOUGH YOUR TESTS MAY HAVE BEEN NORMAL, YOU STILL COULD HAVE A SERIOUS CAUSE FOR YOUR ABDOMINAL PAIN, INCLUDING APPENDICITIS. THE BEST TEST TO DETERMINE IF YOU HAVE A SERIOUS CAUSE IS RE-EXAMINATION OVER TIME. WE USED TO ADMIT PATIENTS TO THE HOSPITAL FOR THIS, BUT CAN NOW ALLOW YOU TO GO HOME, & RETURN TO OUR ER THE NEXT DAY FOR RE- EXAMINATION. THUS, WE WOULD LIKE YOU TO RETURN TO OUR ER TOMORROW FOR YOUR RE- EVALUATION. (IF YOUR SYMPTOMS HAVE GONE AWAY, THEN YOU DO NOT NEED TO RETURN.) IF YOUR SYMPTOMS GET WORSE BETWEEN NOW & THEN, YOU SHOULD RETURN IMMEDIATELY & NOT WAIT UNTIL TOMORROW. SYMPTOMS TO LOOK FOR WORSENING PAIN, HIGH FEVER, PERSISTENT VOMITING [NOT CONTROLLED BY MEDICINE], AND/OR OVERALL WORSENING OF YOUR CONDITION. Scripts Ondansetron Hcl (ZOFRAN) 4 Mg Tablet 4 MG PO PRN TID PRN for NAUSEA, #9 nausea/vomiting Prov: SHIRLEY FAULKNER DO 01/03/20 Cephalexin (KEFLEX) 500 Mg Capsule 1 CAP PO BID for 5 Days, #10 CAP 0 Refills Prov: SHIRLEY FAULKNER DO 01/03/20 SHIRLEY FAULKNER DO Jan 03, 2020 21:26
[2020-01-03 21:51] LABS: BASO % 0 % (0-3); EOS # 0.1 x10^3/uL (0.0-0.7); EOS % 3 % (0-3); HEMATOCRIT 32.1 % (36.0-47.0); HEMOGLOBIN 10.3 g/dL (12.0-15.5); LYMPH # 0.6 x10^3/uL (1.0-4.8); LYMPH % 15 % (24-48); MEAN CORPUSCULAR HEMOGLOBIN 27 pg (25-35); MEAN CORPUSCULAR HGB CONC 32 g/dL (31-37); MEAN CORPUSCULAR VOLUME 85 fL (79-100); MONO # 0.3 x10^3/uL (0.0-1.1); MONO % 8 % (0-9); NEUT # 2.9 x10^3/uL (1.8-7.7); NEUT % 74 % (31-73); PLATELET COUNT 172 x10^3/uL (140-400); WHITE BLOOD COUNT 3.9 x10^3/uL (4.0-11.0)
[2020-01-03 21:57] LABS: CALCIUM 9.4 mg/dL (8.5-10.1); CREATININE 1.6 mg/dL (0.6-1.0); GFR 40.2; POTASSIUM 4.6 mmol/L (3.5-5.1)
[2020-01-03 22:03] LABS: ALBUMIN 3.3 g/dL (3.4-5.0); ALBUMIN/GLOBULIN RATIO 0.7 (1.0-1.7); TOTAL BILIRUBIN 0.2 mg/dL (0.2-1.0); TOTAL PROTEIN 8.3 g/dL (6.4-8.2)
[2020-01-03] MEDS ORDERED: CONTRAST GIVEN. MC PRN (22:15)
[2020-01-03] MEDS ORDERED: IOHEXOL 300 MG/ML 100ML VIAL. IV ONE (22:30)
--- NOTE | 2020-01-03 22:34 | RAD ---
Exam: CT of abdomen and pelvis without contrast INDICATION: Abdominal pain with vomiting TECHNIQUE: Sequential axial images through the abdomen and pelvis obtained without IV contrast. Sagittal and coronal reformatted images were reconstructed from the axial data and reviewed. Comparisons: None FINDINGS: Heart size is normal. No pericardial. Numerous calcified nodules noted at the lung bases. No pleural effusion. Evaluation of solid organs is limited secondary to noncontrast technique. Liver, spleen, pancreas and adrenals are unremarkable. Gallstones are within the gallbladder. No renal or ureteral calculi are identified. No perinephric inflammation or hydronephrosis. Bladder is partially distended and not well evaluated. Uterus is not enlarged. No abnormal adnexal mass. Large and small bowel are unremarkable. No free intra-abdominal air or fluid. No obstruction. Abdominal aorta has a normal course and caliber. No enlarged abdominal lymph nodes are identified. No suspicious osseous lesions or acute fractures. IMPRESSION: No acute process identified within the abdomen or pelvis. Exposure: One or more of the following in the visualized dose reduction techniques were utilized for this examination: 1. Automated exposure control 2. Adjustment of the MA and/or KV according to patient size 3. Use of iterative of reconstructive technique Electronically signed by: Jocy Tucker MD (01/03/2020 10:31 PM) [facility]
[2020-01-03 22:55] LABS: BILIRUBIN,URINE NEGATIVE (NEG); CLARITY,URINE CLEAR; COLOR,URINE YELLOW; NITRITE,URINE POSITIVE (NEG); PH,URINE 5.5 (<5.0-8.0); PROTEIN,URINE NEGATIVE (NEG-TRACE); UROBILINOGEN,URINE 0.2 mg/dL (0.2 mg/dL)
[2020-01-03 23:04] LABS: BACTERIA,URINE MANY /HPF (0-FEW)
[2020-01-03] MEDS ORDERED: ONDA4TAB7 PO (23:15)
[2020-01-03] MEDS ORDERED: CEPH-264 PO (23:15)
[2020-01-03] MEDS ORDERED: CEPHALEXIN 250 MG CAPSULE. PO ONE (23:30)
[2020-01-04 00:30] VITALS: BP 172/78
== END 2020-01-04 01:21 | disposition home or self-care (01) ==
LOC: ER 20:57
DX: N39.0 Urinary tract infection, site not specified (principal); R11.2 Nausea with vomiting, unspecified; R19.7 Diarrhea, unspecified; K21.9 Gastro-esophageal reflux disease without esophagitis; I12.9 Hypertensive chronic kidney disease with stage 1 through stage 4 chronic kidney disease, or unspecified chronic kidney disease; N18.9 Chronic kidney disease, unspecified; J45.909 Unspecified asthma, uncomplicated; E03.9 Hypothyroidism, unspecified; F31.9 Bipolar disorder, unspecified; E66.9 Obesity, unspecified; Z68.38 Body mass index [BMI] 38.0-38.9, adult; Z88.0 Allergy status to penicillin; Z91.041 Radiographic dye allergy status
CPT/HCPCS: 36415; 74176; 80053; 81001; 81025; 83690; 83735; 84484; 85025; 87086; 93005; 99285-25

== ENCOUNTER 2020-06-29 05:39 | Inpatient (IN) | payer OTHER ==
[~2020-06-29] VITALS: Ht 162.6 cm; Wt 115.8 kg
[~2020-06-29 05:39] MED LIST changes: -HYDR50TA6 PO; +HYDR50TA9 PO
--- NOTE | 2020-06-29 06:28 | EKG ---
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
[2020-06-29 06:38] LABS: BASO % 0 % (0-3); EOS % 1 % (0-3); HEMATOCRIT 26.7 % (36.0-47.0); HEMOGLOBIN 8.2 g/dL (12.0-15.5); LYMPH # 0.4 x10^3/uL (1.0-4.8); LYMPH % 15 % (24-48); MEAN CORPUSCULAR HEMOGLOBIN 24 pg (25-35); MEAN CORPUSCULAR HGB CONC 31 g/dL (31-37); MEAN CORPUSCULAR VOLUME 78 fL (79-100); MONO # 0.2 x10^3/uL (0.0-1.1); MONO % 9 % (0-9); NEUT % 74 % (31-73); PLATELET COUNT 160 x10^3/uL (140-400); RED BLOOD COUNT 3.43 x10^6/uL (3.50-5.40); RED CELL DISTRIBUTION WIDTH 19.1 % (11.5-14.5); WHITE BLOOD COUNT 2.7 x10^3/uL (4.0-11.0)
[2020-06-29 06:55] LABS: CALCIUM 9.1 mg/dL (8.5-10.1); CREATININE 1.3 mg/dL (0.6-1.0); GFR 51.1; INFLUENZA A PATIENT NEGATIVE (NEGATIVE); INFLUENZA B PATIENT NEGATIVE (NEGATIVE); POTASSIUM 4.3 mmol/L (3.5-5.1)
--- NOTE | 2020-06-29 07:01 | RAD ---
XR CHEST 1V Clinical History: Reason: SHORTNESS OF BREATH / Spl. Instructions: / History: Technique: AP view of the chest was obtained at 06/29/2020 6:47 AM. Comparison: May 23, 2019. Findings: The heart is moderate to markedly enlarged. The pulmonary vessels are top normal limits in size. The study somewhat underpenetrated secondary large body habitus. The pleural margins are clear. Impression: Cardiomegaly. Stable appearance of the chest. Electronically signed by: Titus Mann III, MD (06/29/2020 6:59 AM) [facility]
[2020-06-29 07:03] LABS: ALBUMIN 3.2 g/dL (3.4-5.0); ALBUMIN/GLOBULIN RATIO 0.7 (1.0-1.7); TOTAL BILIRUBIN 0.2 mg/dL (0.2-1.0); TOTAL PROTEIN 7.6 g/dL (6.4-8.2)
[2020-06-29] MEDS ORDERED: MAGNESIUM SULFATE 2GM 50 ML IV ONE (07:30)
--- NOTE | 2020-06-29 08:40 | PHYS DOC ---
Past Medical History Past Medical History: Asthma, Bipolar, GERD, Glaucoma, Hypertension, Hypothyroid Additional Past Medical Histor: OBESITY,UNDIFF. SUJEY, , LAST SEIZ 16',CHRON. RENAL FAILURE,OSTEO Past Surgical History: Other Additional Past Surgical Histo: CARPAL TUNNEL,RECTAL PROLAPSE REPAIR, Smoking Status: Never Smoker Alcohol Use: None Drug Use: None General Adult EDM: Chief Complaint: SHORTNESS OF BREATH HPI: HPI: Patient is a 59 year old female who was brought here by EMS from home due to trouble breathing. Patient has history of sleep apnea, she somehow forgot to put her CPAP on last night. She woke up with trouble breathing, EMS were called. EMS report that M arrival to the home patient was found to be breathing labored sleeping with oxygen saturation 90% on room air. She had audible wheezing at the time, patient was given a DuoNeb treatment by EMS, patient feel much better, her oxygen saturation improved to 100%. Patient denies any cough or fever. Patient denies any chest pain. Patient had Covid vaccine in April of this year. Review of Systems: Review of Systems: Constitutional: Denies fever or chills. [] Eyes: Denies change in visual acuity. [] HENT: Denies nasal congestion or sore throat. [] Respiratory: Positive for trouble breathing, no cough Cardiovascular: Denies chest pain or edema. [] GI: Denies abdominal pain, nausea, vomiting, bloody stools or diarrhea. [] : Denies dysuria. [] Musculoskeletal: Denies back pain or joint pain. [] Integument: Denies rash. [] Neurologic: Denies headache, focal weakness or sensory changes. [] Endocrine: Denies polyuria or polydipsia. [] Lymphatic: Denies swollen glands. [] Psychiatric: Denies depression or anxiety. [] Heart Score: C/O Chest Pain: N/A Risk Factors: Risk Factors: DM, Current or recent (<one month) smoker, HTN, HLP, family history of CAD, obesity. Risk Scores: Score 0 - 3: 2.5% MACE over next 6 weeks - Discharge Home Score 4 - 6: 20.3% MACE over next 6 weeks - Admit for Clinical Observation Score 7 - 10: 72.7% MACE over next 6 weeks - Early Invasive Strategies Current Medications: Current Medications Medications (Trade) Dose Ordered Sig/Gamal Start Time Stop Time Status Last Admin Dose Admin Magnesium Sulfate 50 ml @ 25 mls/hr 1X ONCE 06/29/20 07:30 06/29/20 09:29 06/29/20 07:40 25 MLS/HR Allergies: Allergies: Allergies Coded Allergies Type Severity Reaction Last Updated Verified Penicillins Allergy Intermediate HIVES 05/15/19 Yes I S O L A T I O N *CONTACT* Allergy Unknown 05/15/19 Yes Physical Exam: PE: Constitutional: Well developed, well nourished, no acute distress, non-toxic appearance. [] HENT: Normocephalic, atraumatic, bilateral external ears normal, oropharynx moist, no oral exudates, nose normal. [] Eyes: PERRLA, EOMI, conjunctiva normal, no discharge. [] Neck: Normal range of motion, no tenderness, supple, no stridor. [] Cardiovascular:Heart rate regular rhythm, no murmur [] Lungs & Thorax: Bilateral breath sounds clear to auscultation [] Abdomen: Bowel sounds normal, soft, no tenderness, no masses, no pulsatile masses. [] Skin: Warm, dry, no erythema, no rash. [] Back: No tenderness, no CVA tenderness. [] Extremities: No tenderness, no cyanosis, no clubbing, ROM intact, no edema. [] Neurologic: Alert and oriented X 3, normal motor function, normal sensory function, no focal deficits noted. [] Psychologic: Affect normal, judgement normal, mood normal. [] Current Patient Data: Labs: Laboratory Tests Test 06/29/20 05:55 White Blood Count 2.7 x10^3/uL (4.0-11.0) L Red Blood Count 3.43 x10^6/uL (3.50-5.40) L Hemoglobin 8.2 g/dL (12.0-15.5) L Hematocrit 26.7 % (36.0-47.0) L Mean Corpuscular Volume 78 fL (79-100) L Mean Corpuscular Hemoglobin 24 pg (25-35) L Mean Corpuscular Hemoglobin Concent 31 g/dL (31-37) Red Cell Distribution Width 19.1 % (11.5-14.5) H Platelet Count 160 x10^3/uL (140-400) Neutrophils (%) (Auto) 74 % (31-73) H Lymphocytes (%) (Auto) 15 % (24-48) L Monocytes (%) (Auto) 9 % (0-9) Eosinophils (%) (Auto) 1 % (0-3) Basophils (%) (Auto) 0 % (0-3) Neutrophils # (Auto) 2.0 x10^3/uL (1.8-7.7) Lymphocytes # (Auto) 0.4 x10^3/uL (1.0-4.8) L Monocytes # (Auto) 0.2 x10^3/uL (0.0-1.1) Eosinophils # (Auto) 0.0 x10^3/uL (0.0-0.7) Basophils # (Auto) 0.0 x10^3/uL (0.0-0.2) Sodium Level 144 mmol/L (136-145) Potassium Level 4.3 mmol/L (3.5-5.1) Chloride Level 108 mmol/L (98-107) H Carbon Dioxide Level 32 mmol/L (21-32) Anion Gap 4 (6-14) L Blood Urea Nitrogen 15 mg/dL (7-20) Creatinine 1.3 mg/dL (0.6-1.0) H Estimated GFR (Cockcroft-Gault) 51.1 BUN/Creatinine Ratio 12 (6-20) Glucose Level 93 mg/dL (70-99) Calcium Level 9.1 mg/dL (8.5-10.1) Magnesium Level 1.7 mg/dL (1.8-2.4) L Total Bilirubin 0.2 mg/dL (0.2-1.0) Aspartate Amino Transferase (AST) 19 U/L (15-37) Alanine Aminotransferase (ALT) 16 U/L (14-59) Alkaline Phosphatase 53 U/L (46-116) Creatine Kinase 72 U/L (26-192) Troponin I Quantitative 0.021 ng/mL (0.000-0.055) AY-Yno-Z-Type Natriuretic Peptide 805 pg/mL (0-124) H Total Protein 7.6 g/dL (6.4-8.2) Albumin 3.2 g/dL (3.4-5.0) L Albumin/Globulin Ratio 0.7 (1.0-1.7) L Influenza Type A Antigen Negative (NEGATIVE) Influenza Type B Antigen Negative (NEGATIVE) Laboratory Tests 06/29/20 05:55 Laboratory Tests 06/29/20 05:55 Vital Signs: Vital Signs Date Time Temp Pulse Resp B/P (MAP) Pulse Ox O2 Delivery O2 Flow Rate FiO2 06/29/20 05:41 98.1 81 19 189/80 (116) 98 Room Air 98.1 EKG: EKG: EKG was done at 553, heart rate 84 bpm, sinus rhythm, no ST segment elevation, atrial premature complexes. Radiology/Procedures: Radiology/Procedures: [][facility] [address] [place] [address] IMAGING REPORT Signed PATIENT: OMEGA ESQUIVEL DACCOUNT: [id number] : 1960 LOCATION: ER AGE: 59 SEX: F EXAM STATUS: PRE ER ORD. PHYSICIAN: KARLY PATEL MD REASON: SHORTNESS OF BREATH PROCEDURE: PORTABLE CHEST 1V XR CHEST 1V Clinical History: Reason: SHORTNESS OF BREATH / Spl. Instructions: / History: Technique: AP view of the chest was obtained at 06/29/2020 6:47 AM. Comparison: May 23, 2019. Findings: The heart is moderate to markedly enlarged. The pulmonary vessels are top normal limits in size. The study somewhat underpenetrated secondary large body habitus. The pleural margins are clear. Impression: Cardiomegaly. Stable appearance of the chest. Electronically signed by: Makayla Liz III, MD (06/29/2020 6:59 AM) [facility] DICTATED and SIGNED BY: MAKAYLA LIZ III, MD DATE: 06/29/20 [id number] Course & Med Decision Making: Course & Med Decision Making Pertinent Labs and Imaging studies reviewed. (See chart for details) Patient is a 59-year-old female who was brought here by EMS from home due to trouble breathing. Patient was supposed to use her CPAP to sleep at night but she did not. Chest x-ray showed cardiomegaly, patient is doing much better now, her cardiac enzyme is trending up, still normal. We will admit her for observation Bebe Disclaimer: Bebe Disclaimer: This electronic medical record was generated, in whole or in part, using a voice recognition dictation system. Departure Departure Impression: Primary Impression: Acute dyspnea Additional Impression: Hypomagnesemia syndrome Disposition: ADMITTED INPATIENT Admitting Physician: BO (Dr. Key) Condition: STABLE Referrals: THOMAS AGUILERA MD (PCP) LARISSA DELATORRE DO Jun 29, 2020 08:40
[2020-06-29] MEDS ORDERED: IPRATRPIUM/ALBUTEROL 0.5/2.5MG 3 ML NEBU. NEB PRN (09:30)
[2020-06-29] MEDS ORDERED: ONDANSETRON PF 4 MG/2 ML VIAL. IV PRN ×2 (09:30→10:00)
--- NOTE | 2020-06-29 09:49 | PDOC1 ---
History and Physical Date of Admission Date of Admission DATE: 06/29/20 TIME: 09:48 Identification/Chief Complaint Chief Complaint SOA, WHEEZING, FORGOT TO USE CPAP LAST NIGHT History of Present Illness History of Present Illness seen in er with acute hypoxia, wheezing 59 year old female who was brought here by EMS from home due to trouble breathing. // history of sleep apnea, she somehow forgot to put her CPAP on last night. She woke up with trouble breathing, EMS were called. EMS report that prior arrival to the home patient was found to be breathing labored sleeping with oxygen saturation 90% on room air. had audible wheezing at the time, patient was given a DuoNeb treatment by EMS, patient feel much better, her oxygen saturation improved to 100%. Patient denie s any cough or fever. Past Medical History Past Medical History Past Medical History Past Medical History Past Medical History: Asthma, Bipolar, GERD, Glaucoma, Hypertension, Hypothyroid Additional Past Medical Histor: OBESITY,UNDIFF. SCHIZ, MR, LAST SEIZ 16',CHRON. RENAL FAILURE,OSTEO Past Surgical History: Other Additional Past Surgical Histo: CARPAL TUNNEL,RECTAL PROLAPSE REPAIR, Smoking Status: Never Smoker Alcohol Use: None Drug Use: None FHX OBESITY, HTN Cardiovascular: HTN, Hyperlipidemia Musculoskeletal: Osteoarthritis Family History Family History: Hypertension Social History Smoke: No ALCOHOL: none Drugs: None Current Problem List Problem List Problems Medical Problems: (1) Acute dyspnea Status: Acute (2) Hypomagnesemia syndrome Status: Acute Current Medications Current Medications Current Medications Magnesium Sulfate 50 ml @ 25 mls/hr 1X ONCE IV Last administered on 06/29/20at 07:40; Start 06/29/20 at 07:30; Stop 06/29/20 at 09:29; Status DC Ondansetron HCl (Zofran) 4 mg PRN Q8HRS PRN IV NAUSEA/VOMITING; Start 06/29/20 at 09:30; Stop 06/30/20 at 09:29 Albuterol/ Ipratropium (Duoneb) 3 ml PRN Q6HRS PRN NEB SHORTNESS OF AIR; Start 06/29/20 at 09:30 Active Scripts Active Zofran (Ondansetron Hcl) 4 Mg Tablet 4 Mg PO PRN TID PRN nausea/vomiting Keflex (Cephalexin) 500 Mg Capsule 1 Cap PO BID 5 Days Pyridium (Phenazopyridine Hcl) 100 Mg Tablet 1 Tab PO TID 2 Days Keflex (Cephalexin) 500 Mg Capsule 1 Cap PO BID 7 Days Keflex (Cephalexin) 500 Mg Capsule 2 Cap PO Q12HR 3 Days Dicyclomine Hcl 10 Mg Capsule 1 Cap PO TID PRN 5 Days Zofran (Ondansetron Hcl) 4 Mg Tablet 1 Tab PO PRN Q6-8HRS PRN Cipro (Ciprofloxacin Hcl) 250 Mg Tablet 1 Tab PO BID Reported Seroquel (Quetiapine Fumarate) 100 Mg Tablet 150 Mg PO HS Alphagan P (Brimonidine Tartrate) 5 Ml Drops 1 Drop EACHEYE BID Hydrochlorothiazide Tablet (Hydrochlorothiazide) 50 Mg Tablet 1 Tab PO DAILY Lamotrigine 150 Mg Tablet 1 Tab PO BID Docusate Sodium 100 Mg Capsule 100 Mg PO Advair 500-50 Diskus (Fluticasone/Salmeterol) 1 Each Disk.w.dev 1 Puff IH BID Flonase Allergy Relief (Fluticasone Propionate) 9.9 Ml [place].susp 2 Sprays NS DAILY Gabapentin (Gabapentin) 300 Mg Capsule 300 Mg PO TID Claritin (Loratadine) 10 Mg Tablet 1 Tab PO DAILY Januvia (Sitagliptin Phosphate) 50 Mg Tablet 1 Tab PO DAILY Synthroid (Levothyroxine Sodium) 125 Mcg Tablet 1 Tab PO DAILY Zoloft (Sertraline Hcl) 100 Mg Tablet 1 Tab PO DAILY Multivitamins (Multivitamin) 1 Each Tablet 1 Tab PO DAILY Spiriva (Tiotropium [place]) 18 Mcg Cap.w.dev 2 Inh IH DAILY Omeprazole 40 Mg Capsule.dr 1 Cap PO DAILY Amlodipine Besylate 10 Mg Tablet 10 Mg PO DAILY Allergies Allergies: Coded Allergies: Penicillins (Verified Allergy, Intermediate, HIVES, 05/15/19) I S O L A T I O N *CONTACT* (Verified Allergy, Unknown, 05/15/19) ESBL ROS Review of System 14 PT ROS OTHERWISE NEG General: YES: Fatigue, Malaise; No: Chills, Night Sweats, Appetite, Other PSYCHOLOGICAL ROS: YES: Anxiety, Depression, Irritablity; No: Behavioral Disorder, Concentration difficultie, Decreased libido, Disorientation, Hallucinations, Hostility, Memory difficulties, Mood Swings, Obsessive thoughts, Physical abuse, Sexual abuse, Sleep disturbances, Suicidal ideation, Other Eyes: Yes Decreased vision; No Blurry vision, No Double vision, No Dry eyes, No Excessive tearing, No Eye Pain, No Itchy Eyes, No Loss of vision, No Photophobia, No Scotomata, No Uses contacts, No Uses glasses, No Other HEENT: No: Heacaches, Visual Changes, Hearing change, Nasal congestion, Nasal discharge, Oral lesions, Sinus pain, Sore Throat, Epistaxis, Sneezing, Snoring, Tinnitus, Vertigo, Vocal changes, Other ALLERGY AND IMMUNOLOGY: YES: Hives; No: Insect Bite Sensitivity, Itchy/Watery Eyes, Nasal Congestion, Post Nasal Drip, Seasonal Allergies, Other Hematological and Lymphatic: No: Bleeding Problems, Blood Clots, Blood Transfusions, Brusing, Night Sweats, Pallor, Swollen Lymph Nodes, Other ENDOCRINE: No: Breast Changes, Galactorrhea, Hair Pattern Changes, Hot Flashes, Malaise/lethargy, Mood Swings, Palpitations, Polydipsia/polyuria, Skin Changes, Temperature Intolerance, Unexpected Weight Changes, Other Breast: No New/Changing Breast Lumps, No Nipple changes, No Nipple discharge, No Other Respiratory: YES: Shortness of breath, SOB with excertion; No: Cough, Hemoptysis, Orthopnea, Pleuritic Pain, Sputum Changes, Stridor, Tachypnea, Wheezing, Other Cardiovascular: yes Orthopnea, yes Paroxysmal Noc. Dyspnea; No Chest Pain, No Palpitations, No Edema, No Lt Headedness, No Other Gastrointestinal: No Nausea, No Vomiting, No Abdominal Pain, No Diarrhea, No Constipation, No Melena, No Hematochezia, No Other Genitourinary: No Dysuria, No Frequency, No Incontinence, No Hematuria, No Retention, No Discharge, No Urgency, No Pain, No Flank Pain, No Other, No , No , No , No , No , No , No Musculoskeletal: Yes Joint Stiffness; No Gait Disturbance, No Joint Pain, No Joint Swelling, No Muscle Pain, No Muscular Weakness, No Pain In:, No Swelling In:, No Other Neurological: No Behavorial Changes, No Bowel/Bladder ControlChng, No Confusion, No Dizziness, No Gait Disturbance, No Headaches, No Impaired Coord/balance, No Memory Loss, No Numbness/Tingling, No Seizures, No Speech Problems, No Tremors, No Visual Changes, No Weakness, No Other Skin: No Dry Skin, No Eczema, No Hair Changes, No Lumps, No Mole Changes, No Mottling, No Nail Changes, No Pruritus, No Rash, No Skin Lesion Changes, No Other, No Acne Physical Exam General: Alert, Oriented X3, Cooperative, No acute distress, mild distress HEENT: EOMI, Mucous membr. moist/pink Lungs: Other (EXP WHEEZING ) Heart: RRR Breasts: Not examined Abdomen: Normal bowel sounds, Soft, No tenderness, Other (VERY OBESE) Rectal Exam: not examined PELVIC: Examination not indicated Extremities: No cyanosis Skin: No breakdown Neuro: Strength at 5/5 X4 ext, Sensation intact, Cranial nerves 3-12 NL Psych/Mental Status: Mental status NL, Mood NL Vitals Vitals Vital Signs Date Time Temp Pulse Resp B/P (MAP) Pulse Ox O2 Delivery O2 Flow Rate FiO2 06/29/20 05:41 98.1 81 19 189/80 (116) 98 Room Air 98.1 Labs Labs Laboratory Tests Test 06/29/20 05:55 06/29/20 08:42 White Blood Count 2.7 x10^3/uL (4.0-11.0) Red Blood Count 3.43 x10^6/uL (3.50-5.40) Hemoglobin 8.2 g/dL (12.0-15.5) Hematocrit 26.7 % (36.0-47.0) Mean Corpuscular Volume 78 fL (79-100) Mean Corpuscular Hemoglobin 24 pg (25-35) Mean Corpuscular Hemoglobin Concent 31 g/dL (31-37) Red Cell Distribution Width 19.1 % (11.5-14.5) Platelet Count 160 x10^3/uL (140-400) Neutrophils (%) (Auto) 74 % (31-73) Lymphocytes (%) (Auto) 15 % (24-48) Monocytes (%) (Auto) 9 % (0-9) Eosinophils (%) (Auto) 1 % (0-3) Basophils (%) (Auto) 0 % (0-3) Neutrophils # (Auto) 2.0 x10^3/uL (1.8-7.7) Lymphocytes # (Auto) 0.4 x10^3/uL (1.0-4.8) Monocytes # (Auto) 0.2 x10^3/uL (0.0-1.1) Eosinophils # (Auto) 0.0 x10^3/uL (0.0-0.7) Basophils # (Auto) 0.0 x10^3/uL (0.0-0.2) Sodium Level 144 mmol/L (136-145) Potassium Level 4.3 mmol/L (3.5-5.1) Chloride Level 108 mmol/L (98-107) Carbon Dioxide Level 32 mmol/L (21-32) Anion Gap 4 (6-14) Blood Urea Nitrogen 15 mg/dL (7-20) Creatinine 1.3 mg/dL (0.6-1.0) Estimated GFR (Cockcroft-Gault) 51.1 BUN/Creatinine Ratio 12 (6-20) Glucose Level 93 mg/dL (70-99) Calcium Level 9.1 mg/dL (8.5-10.1) Magnesium Level 1.7 mg/dL (1.8-2.4) Total Bilirubin 0.2 mg/dL (0.2-1.0) Aspartate Amino Transf (AST/SGOT) 19 U/L (15-37) Alanine Aminotransferase (ALT/SGPT) 16 U/L (14-59) Alkaline Phosphatase 53 U/L (46-116) Creatine Kinase 72 U/L (26-192) Troponin I Quantitative 0.021 ng/mL (0.000-0.055) 0.026 ng/mL (0.000-0.055) UI-Tom-I-Type Natriuretic Peptide 805 pg/mL (0-124) Total Protein 7.6 g/dL (6.4-8.2) Albumin 3.2 g/dL (3.4-5.0) Albumin/Globulin Ratio 0.7 (1.0-1.7) Influenza Type A Antigen Negative (NEGATIVE) Influenza Type B Antigen Negative (NEGATIVE) Laboratory Tests Test 06/29/20 05:55 06/29/20 08:42 White Blood Count 2.7 x10^3/uL (4.0-11.0) Red Blood Count 3.43 x10^6/uL (3.50-5.40) Hemoglobin 8.2 g/dL (12.0-15.5) Hematocrit 26.7 % (36.0-47.0) Mean Corpuscular Volume 78 fL (79-100) Mean Corpuscular Hemoglobin 24 pg (25-35) Mean Corpuscular Hemoglobin Concent 31 g/dL (31-37) Red Cell Distribution Width 19.1 % (11.5-14.5) Platelet Count 160 x10^3/uL (140-400) Neutrophils (%) (Auto) 74 % (31-73) Lymphocytes (%) (Auto) 15 % (24-48) Monocytes (%) (Auto) 9 % (0-9) Eosinophils (%) (Auto) 1 % (0-3) Basophils (%) (Auto) 0 % (0-3) Neutrophils # (Auto) 2.0 x10^3/uL (1.8-7.7) Lymphocytes # (Auto) 0.4 x10^3/uL (1.0-4.8) Monocytes # (Auto) 0.2 x10^3/uL (0.0-1.1) Eosinophils # (Auto) 0.0 x10^3/uL (0.0-0.7) Basophils # (Auto) 0.0 x10^3/uL (0.0-0.2) Sodium Level 144 mmol/L (136-145) Potassium Level 4.3 mmol/L (3.5-5.1) Chloride Level 108 mmol/L (98-107) Carbon Dioxide Level 32 mmol/L (21-32) Anion Gap 4 (6-14) Blood Urea Nitrogen 15 mg/dL (7-20) Creatinine 1.3 mg/dL (0.6-1.0) Estimated GFR (Cockcroft-Gault) 51.1 BUN/Creatinine Ratio 12 (6-20) Glucose Level 93 mg/dL (70-99) Calcium Level 9.1 mg/dL (8.5-10.1) Magnesium Level 1.7 mg/dL (1.8-2.4) Total Bilirubin 0.2 mg/dL (0.2-1.0) Aspartate Amino Transf (AST/SGOT) 19 U/L (15-37) Alanine Aminotransferase (ALT/SGPT) 16 U/L (14-59) Alkaline Phosphatase 53 U/L (46-116) Creatine Kinase 72 U/L (26-192) Troponin I Quantitative 0.021 ng/mL (0.000-0.055) 0.026 ng/mL (0.000-0.055) LC-Mis-M-Type Natriuretic Peptide 805 pg/mL (0-124) Total Protein 7.6 g/dL (6.4-8.2) Albumin 3.2 g/dL (3.4-5.0) Albumin/Globulin Ratio 0.7 (1.0-1.7) Influenza Type A Antigen Negative (NEGATIVE) Influenza Type B Antigen Negative (NEGATIVE) Images Images Exam: CT of abdomen and pelvis without contrast INDICATION: Abdominal pain with vomiting TECHNIQUE: Sequential axial images through the abdomen and pelvis obtained without IV contrast. Sagittal and coronal reformatted images were reconstructed from the axial data and reviewed. Comparisons: None FINDINGS: Heart size is normal. No pericardial. Numerous calcified nodules noted at the lung bases. No pleural effusion. Evaluation of solid organs is limited secondary to noncontrast technique. Liver, spleen, pancreas and adrenals are unremarkable. Gallstones are within the gallbladder. No renal or ureteral calculi are identified. No perinephric inflammation or hydronephrosis. Bladder is partially distended and not well evaluated. Uterus is not enlarged. No abnormal adnexal mass. Large and small bowel are unremarkable. No free intra-abdominal air or fluid. No obstruction. Abdominal aorta has a normal course and caliber. No enlarged abdominal lymph nodes are identified. No suspicious osseous lesions or acute fractures. IMPRESSION: No acute process identified within the abdomen or pelvis. Exposure: One or more of the following in the visualized dose reduction techniques were utilized for this examination: 1. Automated exposure control 2. Adjustment of the MA and/or KV according to patient size 3. Use of iterative of reconstructive technique Electronically signed by: Jocy Arrieta MD (01/03/2020 10:31 PM) [facility] DICTATED and SIGNED BY: JOCY ARRIETA MD DATE: 01/03/202230 PATIENT: OMEGA ESQUIVELCOUNT: [id number] : 1960 LOCATION: ER AGE: 59 SEX: F EXAM STATUS: PRE ER ORD. PHYSICIAN: KARLY PATEL MD REASON: SHORTNESS OF BREATH PROCEDURE: PORTABLE CHEST 1V XR CHEST 1V Clinical History: Reason: SHORTNESS OF BREATH / Spl. Instructions: / History: Technique: AP view of the chest was obtained at 06/29/2020 6:47 AM. Comparison: May 23, 2019. Findings: The heart is moderate to markedly enlarged. The pulmonary vessels are top normal limits in size. The study somewhat underpenetrated secondary large body habitus. The pleural margins are clear. Impression: Cardiomegaly. Stable appearance of the chest. Electronically signed by: Makayla Liz III, MD (06/29/2020 6:59 AM) [facility] DICTATED and SIGNED BY: MAKAYLA LIZ III, MD DATE: 06/29/20 [id number] VTE Prophylaxis Ordered VTE Prophylaxis Devices: Contraindicated VTE Pharmacological Prophylaxi: Yes Assessment/Plan Assessment/Plan Impression: Cardiomegaly. SEVERE Morbid obesity Acute hypoxic resp failure JYOTI with noncompliance with CPAP Microcytic anemia, SUSPECT FE deficiency hypertension hx Schizoaffective disorder Diabetes Hypomagnesemia syndrome CKD STAGE 3 GERD reactive airway disease PLAN ADMIT CONSULT PULMONARY consult cardiology, abnormal cxr o2 support trend troponin i cvc bed dvt prophylaxis, SQ HEPARIN Home meds IV MG 1 GM FE PANEL CPAP HS Guiac stools t4 GI CONSULT retic 74 min pt exam, chart review, > 50% of time spent with exam, chart review, pt care coordination Justifications for Admission Other Justification SHANNAN WILDER MD Jun 29, 2020 09:49
[2020-06-29] MEDS ORDERED: ACETAMINOPHEN 650 MG SUPP.RECT. PR PRN (10:00)
[2020-06-29] MEDS ORDERED: guaiFENesin ORAL 200 MG/10 ML LIQUID. PO PRN (10:00)
[2020-06-29] MEDS ORDERED: 0.9 % SODIUM CHLORIDE 10 ML DISP.SYRIN. IV PRN (10:00)
[2020-06-29] MEDS ORDERED: ALBUTEROL SULFATE 2.5 MG/3 ML NEBU. NEB PRN (10:00)
[2020-06-29] MEDS ORDERED: MAG HYDROX/ALUMINUM HYD/SIMETH 30 ML ORAL.SUSP PO PRN (10:00)
[2020-06-29] MEDS ORDERED: DOCUSATE SODIUM 100 MG CAPSULE. PO PRN (10:00)
[2020-06-29] MEDS ORDERED: SODIUM PHOSPHATES 19/7GM 133 ML ENEMA. PR PRN (10:00)
[2020-06-29] MEDS ORDERED: ACETAMINOPHEN 325 MG TABLET. PO PRN (10:00)
[2020-06-29] MEDS ORDERED: MAGNESIUM SULFATE 1GM 100 ML IV ONE (10:15)
[2020-06-29] MEDS ORDERED: hydrALAZINE 20 MG/ML VIAL. IVP PRN (11:00)
[2020-06-29] MEDS: HEPARIN for SUB-Q USE 5,000 UNIT/ML VIAL. SQ SCH ×2 (14:12→22:14)
[2020-06-29 18:00] VITALS: BP 152/81
[2020-06-29 19:00] VITALS: BP 157/76
--- NOTE | 2020-06-29 19:38 | NUR ---
Verified with Dr Key to not give Mg 1 gm IV, already had 2 gms today.
[2020-06-29] MEDS: QUEtiapine 100 MG TABLET. PO SCH (20:27)
[2020-06-29] MEDS: lamoTRIgine 100 MG TABLET. PO SCH (20:27)
[2020-06-29] MEDS: GABAPENTIN 300 MG CAPSULE. PO SCH (20:27)
[2020-06-29] MEDS: DOCUSATE SODIUM 100 MG CAPSULE. PO SCH (20:28)
[2020-06-29] MEDS: IPRATRPIUM/ALBUTEROL 0.5/2.5MG 3 ML NEBU. NEB SCH (20:38)
[2020-06-29] MEDS: BUDESONIDE 0.5 MG/2 ML NEBU. NEB SCH (20:39)
[2020-06-29] MEDS: BRIMONIDINE 0.2% OPHTH SOLUTION 5ML BOTTLE. OU SCH (22:04)
[2020-06-29 23:07] VITALS: BP 142/59
[2020-06-30] VITALS (8 sets, daily range): BP systolic 109–183; BP diastolic 43–91
[2020-06-30 04:08] LABS: BASO % 0 % (0-3); EOS # 0.1 x10^3/uL (0.0-0.7); EOS % 2 % (0-3); HEMATOCRIT 25.1 % (36.0-47.0); HEMOGLOBIN 7.7 g/dL (12.0-15.5); LYMPH # 0.4 x10^3/uL (1.0-4.8); LYMPH % 14 % (24-48); MEAN CORPUSCULAR HEMOGLOBIN 24 pg (25-35); MEAN CORPUSCULAR HGB CONC 31 g/dL (31-37); MEAN CORPUSCULAR VOLUME 78 fL (79-100); MONO # 0.3 x10^3/uL (0.0-1.1); MONO % 11 % (0-9); NEUT % 73 % (31-73); PLATELET COUNT 155 x10^3/uL (140-400); RED BLOOD COUNT 3.21 x10^6/uL (3.50-5.40); RED CELL DISTRIBUTION WIDTH 19.1 % (11.5-14.5); WHITE BLOOD COUNT 2.8 x10^3/uL (4.0-11.0)
[2020-06-30 04:32] LABS: ALBUMIN 2.8 g/dL (3.4-5.0); ALBUMIN/GLOBULIN RATIO 0.7 (1.0-1.7); CALCIUM 8.7 mg/dL (8.5-10.1); CREATININE 1.2 mg/dL (0.6-1.0); TOTAL BILIRUBIN 0.2 mg/dL (0.2-1.0); TOTAL PROTEIN 6.7 g/dL (6.4-8.2)
[2020-06-30] MEDS: HEPARIN for SUB-Q USE 5,000 UNIT/ML VIAL. SQ SCH ×3 (05:46→21:40)
[2020-06-30] MEDS: IPRATRPIUM/ALBUTEROL 0.5/2.5MG 3 ML NEBU. NEB SCH ×4 (07:13→20:39)
[2020-06-30] MEDS: BUDESONIDE 0.5 MG/2 ML NEBU. NEB SCH ×2 (07:14→20:39)
--- NOTE | 2020-06-30 08:31 | PDOC2 ---
CONSULT Date of Consult Date of Consult DATE: 06/30/20 TIME: 08:31 Reason for Consult Reason for Consult: Cardiomegaly noted on chest x-ray Referring Physician Referring Physician: Dr. Key Identification/Chief Complaint Chief Complaint Shortness of breath Source Source: Chart review, Patient History of Present Illness Reason for Visit: 59-year-old female presented with shortness of breath and was found to be hypoxic and admitted for further management. She apparently has a history of sleep apnea and forgot to put her CPAP last night and woke up with dyspnea. Her symptoms improved significantly after she was given nebulizers upon admission. She denied any chest pain, palpitations or syncope. Chest x-ray showed cardiomegaly prompting cardiology consultation. Past Medical History Cardiovascular: HTN, Hyperlipidemia Musculoskeletal: Osteoarthritis Family History Family History: Hypertension Social History No ALCOHOL: none Drugs: None Current Problem List Problem List Problems Medical Problems: (1) Acute dyspnea Status: Acute (2) Hypomagnesemia syndrome Status: Acute Current Medications Current Medications Current Medications Magnesium Sulfate 50 ml @ 25 mls/hr 1X ONCE IV Last administered on 06/29/20at 07:40; Start 06/29/20 at 07:30; Stop 06/29/20 at 09:29; Status DC Ondansetron HCl (Zofran) 4 mg PRN Q8HRS PRN IV NAUSEA/VOMITING; Start 06/29/20 at 09:30; Stop 06/29/20 at 16:51; Status DC Albuterol/ Ipratropium (Duoneb) 3 ml PRN Q6HRS PRN NEB SHORTNESS OF AIR Last administered on 06/29/20at 12:45; Start 06/29/20 at 09:30; Stop 06/29/20 at 16:50; Status DC Amlodipine Besylate (Norvasc) 10 mg DAILY PO ; Start 06/30/20 at 09:00 Docusate Sodium (Colace) 100 mg BID PO Last administered on 06/29/20at 20:28; Start 06/29/20 at 21:00 Gabapentin (Neurontin) 300 mg TID PO Last administered on 06/29/20at 20:27; Start 06/29/20 at 14:00 Levothyroxine Sodium (Synthroid) 125 mcg DAILY PO ; Start 06/30/20 at 09:00 Quetiapine Fumarate (SEROquel) 150 mg HS PO Last administered on 06/29/20at 20:27; Start 06/29/20 at 21:00 Brimonidine Tartrate (Alphagan) 1 drop BID OU Last administered on 06/29/20at 22:04; Start 06/29/20 at 21:00 Fluticasone Propionate (Flonase) 2 spray DAILY NS ; Start 06/30/20 at 09:00 Budesonide (Pulmicort) 0.5 mg RTBID NEB Last administered on 06/30/20at 07:14; Start 06/29/20 at 20:00 Hydrochlorothiazide (Hydrodiuril) 50 mg DAILY PO ; Start 06/30/20 at 09:00 Lamotrigine (LaMICtal) 150 mg BID PO Last administered on 06/29/20at 20:27; Start 06/29/20 at 21:00 Cetirizine HCl (ZyrTEC) 10 mg DAILY PO ; Start 06/30/20 at 09:00 Multivitamins (Thera M Plus) 1 tab DAILY PO ; Start 06/30/20 at 09:00 Pantoprazole Sodium (Protonix) 40 mg DAILYAC PO ; Start 06/30/20 at 07:30 Sertraline HCl (Zoloft) 100 mg DAILY PO ; Start 06/30/20 at 09:00 Linagliptin (Tradjenta) 5 mg DAILY PO ; Start 06/30/20 at 09:00 Albuterol/ Ipratropium (Duoneb) 3 ml RTQID NEB Last administered on 06/30/20at 07:13; Start 06/29/20 at 20:00 Sodium Chloride (Normal Saline Flush) 3 ml QSHIFT PRN IV AFTER MEDS AND BLOOD DRAWS; Start 06/29/20 at 10:00 Ondansetron HCl (Zofran) 4 mg PRN Q4HRS PRN IV NAUSEA/VOMITING; Start 06/29/20 at 10:00 Acetaminophen (Tylenol) 650 mg PRN Q4HRS PRN PO TEMP OVER 100.4F OR MILD PAIN; Start 06/29/20 at 10:00 Acetaminophen (Tylenol Supp) 650 mg PRN Q4HRS PRN TX TEMP OVER 100.4F OR MILD PAIN; Start 06/29/20 at 10:00 Al Hydroxide/Mg Hydroxide (Mylanta Plus Xs) 30 ml PRN DAILY PRN PO HEARTBURN / GAS; Start 06/29/20 at 10:00 Sodium Monofluorophosphate (Fleet Adult) 133 ml PRN DAILY PRN TX CONSTIPATION; Start 06/29/20 at 10:00 Docusate Sodium (Colace) 100 mg PRN BID PRN PO HARD STOOLS; Start 06/29/20 at 10:00 Albuterol Sulfate (Ventolin Neb Soln) 2.5 mg PRN Q4HRS PRN NEB SHORTNESS OF BREATH; Start 06/29/20 at 10:00 Guaifenesin (Robitussin) 200 mg PRN Q4HRS PRN PO COUGH; Start 06/29/20 at 10:00 Heparin Sodium (Porcine) (Heparin Sodium) 5,000 unit Q8HRS SQ Last administered on 06/30/20at 05:46; Start 06/29/20 at 14:00 Magnesium Sulfate/ Dextrose 100 ml @ 100 mls/hr 1X ONCE IV ; Start 06/29/20 at 10:15; Stop 06/29/20 at 11:14; Status DC Hydralazine HCl (Apresoline Inj) 10 mg PRN Q4HRS PRN IVP ELEVATED BP, SEE COMMENTS; Start 06/29/20 at 11:00 Active Scripts Active Zofran (Ondansetron Hcl) 4 Mg Tablet 4 Mg PO PRN TID PRN nausea/vomiting Keflex (Cephalexin) 500 Mg Capsule 1 Cap PO BID 5 Days Pyridium (Phenazopyridine Hcl) 100 Mg Tablet 1 Tab PO TID 2 Days Keflex (Cephalexin) 500 Mg Capsule 1 Cap PO BID 7 Days Keflex (Cephalexin) 500 Mg Capsule 2 Cap PO Q12HR 3 Days Dicyclomine Hcl 10 Mg Capsule 1 Cap PO TID PRN 5 Days Zofran (Ondansetron Hcl) 4 Mg Tablet 1 Tab PO PRN Q6-8HRS PRN Cipro (Ciprofloxacin Hcl) 250 Mg Tablet 1 Tab PO BID Reported Seroquel (Quetiapine Fumarate) 100 Mg Tablet 150 Mg PO HS Alphagan P (Brimonidine Tartrate) 5 Ml Drops 1 Drop EACHEYE BID Hydrochlorothiazide Tablet (Hydrochlorothiazide) 50 Mg Tablet 1 Tab PO DAILY Lamotrigine 150 Mg Tablet 1 Tab PO BID Docusate Sodium 100 Mg Capsule 100 Mg PO Advair 500-50 Diskus (Fluticasone/Salmeterol) 1 Each Disk.w.dev 1 Puff IH BID Flonase Allergy Relief (Fluticasone Propionate) 9.9 Ml Eldena.susp 2 Sprays NS DAILY Gabapentin (Gabapentin) 300 Mg Capsule 300 Mg PO TID Claritin (Loratadine) 10 Mg Tablet 1 Tab PO DAILY Januvia (Sitagliptin Phosphate) 50 Mg Tablet 1 Tab PO DAILY Synthroid (Levothyroxine Sodium) 125 Mcg Tablet 1 Tab PO DAILY Zoloft (Sertraline Hcl) 100 Mg Tablet 1 Tab PO DAILY Multivitamins (Multivitamin) 1 Each Tablet 1 Tab PO DAILY Spiriva (Tiotropium Logan) 18 Mcg Cap.w.dev 2 Inh IH DAILY Omeprazole 40 Mg Capsule.dr 1 Cap PO DAILY Amlodipine Besylate 10 Mg Tablet 10 Mg PO DAILY Allergies Allergies: Coded Allergies: Penicillins (Verified Allergy, Intermediate, HIVES, 05/15/19) I S O L A T I O N *CONTACT* (Verified Allergy, Unknown, 05/15/19) ESBL ROS PSYCHOLOGICAL ROS: No: Hallucinations Eyes: No Loss of vision HEENT: No: Epistaxis Respiratory: YES: Shortness of breath; No: Hemoptysis Cardiovascular: No Chest Pain Gastrointestinal: No Vomiting, No Diarrhea Genitourinary: No Hematuria Neurological: No Seizures Skin: No Rash Physical Exam General: Other (Somnolent but comfortable) HEENT: Atraumatic Lungs: Clear to auscultation Heart: Regular rate Abdomen: Soft Extremities: No edema Neuro: Normal speech Psych/Mental Status: Mood NL Vitals VITALS Vital Signs Date Time Temp Pulse Resp B/P (MAP) Pulse Ox O2 Delivery O2 Flow Rate FiO2 06/30/20 07:14 100 Nasal Cannula 2.0 06/30/20 03:10 98.7 78 20 117/91 (100) 98.7 Labs Labs Laboratory Tests Test 06/29/20 05:55 06/29/20 08:42 06/29/20 16:50 06/30/20 03:00 White Blood Count 2.7 x10^3/uL (4.0-11.0) 2.8 x10^3/uL (4.0-11.0) Red Blood Count 3.43 x10^6/uL (3.50-5.40) 3.21 x10^6/uL (3.50-5.40) Hemoglobin 8.2 g/dL (12.0-15.5) 7.7 g/dL (12.0-15.5) Hematocrit 26.7 % (36.0-47.0) 25.1 % (36.0-47.0) Mean Corpuscular Volume 78 fL (79-100) 78 fL (79-100) Mean Corpuscular Hemoglobin 24 pg (25-35) 24 pg (25-35) Mean Corpuscular Hemoglobin Concent 31 g/dL (31-37) 31 g/dL (31-37) Red Cell Distribution Width 19.1 % (11.5-14.5) 19.1 % (11.5-14.5) Platelet Count 160 x10^3/uL (140-400) 155 x10^3/uL (140-400) Neutrophils (%) (Auto) 74 % (31-73) 73 % (31-73) Lymphocytes (%) (Auto) 15 % (24-48) 14 % (24-48) Monocytes (%) (Auto) 9 % (0-9) 11 % (0-9) Eosinophils (%) (Auto) 1 % (0-3) 2 % (0-3) Basophils (%) (Auto) 0 % (0-3) 0 % (0-3) Neutrophils # (Auto) 2.0 x10^3/uL (1.8-7.7) 2.0 x10^3/uL (1.8-7.7) Lymphocytes # (Auto) 0.4 x10^3/uL (1.0-4.8) 0.4 x10^3/uL (1.0-4.8) Monocytes # (Auto) 0.2 x10^3/uL (0.0-1.1) 0.3 x10^3/uL (0.0-1.1) Eosinophils # (Auto) 0.0 x10^3/uL (0.0-0.7) 0.1 x10^3/uL (0.0-0.7) Basophils # (Auto) 0.0 x10^3/uL (0.0-0.2) 0.0 x10^3/uL (0.0-0.2) Sodium Level 144 mmol/L (136-145) 148 mmol/L (136-145) Potassium Level 4.3 mmol/L (3.5-5.1) 5.0 mmol/L (3.5-5.1) Chloride Level 108 mmol/L (98-107) 108 mmol/L (98-107) Carbon Dioxide Level 32 mmol/L (21-32) 33 mmol/L (21-32) Anion Gap 4 (6-14) 7 (6-14) Blood Urea Nitrogen 15 mg/dL (7-20) 14 mg/dL (7-20) Creatinine 1.3 mg/dL (0.6-1.0) 1.2 mg/dL (0.6-1.0) Estimated GFR (Cockcroft-Gault) 51.1 56.0 BUN/Creatinine Ratio 12 (6-20) 12 (6-20) Glucose Level 93 mg/dL (70-99) 77 mg/dL (70-99) Calcium Level 9.1 mg/dL (8.5-10.1) 8.7 mg/dL (8.5-10.1) Magnesium Level 1.7 mg/dL (1.8-2.4) Iron Level 21 ug/dL (50-170) 25 ug/dL (50-170) Total Iron Binding Capacity 304 ug/dL (250-450) 282 ug/dL (250-450) Iron Saturation 7 % (15-34) 9 % (15-34) Total Bilirubin 0.2 mg/dL (0.2-1.0) 0.2 mg/dL (0.2-1.0) Aspartate Amino Transf (AST/SGOT) 19 U/L (15-37) 11 U/L (15-37) Alanine Aminotransferase (ALT/SGPT) 16 U/L (14-59) 15 U/L (14-59) Alkaline Phosphatase 53 U/L (46-116) 50 U/L (46-116) Creatine Kinase 72 U/L (26-192) Troponin I Quantitative 0.021 ng/mL (0.000-0.055) 0.026 ng/mL (0.000-0.055) 0.018 ng/mL (0.000-0.055) JC-Veo-S-Type Natriuretic Peptide 805 pg/mL (0-124) Total Protein 7.6 g/dL (6.4-8.2) 6.7 g/dL (6.4-8.2) Albumin 3.2 g/dL (3.4-5.0) 2.8 g/dL (3.4-5.0) Albumin/Globulin Ratio 0.7 (1.0-1.7) 0.7 (1.0-1.7) Free Thyroxine 0.79 ng/dL (0.76-1.46) Influenza Type A Antigen Negative (NEGATIVE) Influenza Type B Antigen Negative (NEGATIVE) Laboratory Tests Test 06/29/20 08:42 06/29/20 16:50 06/30/20 03:00 Troponin I Quantitative 0.026 ng/mL (0.000-0.055) 0.018 ng/mL (0.000-0.055) White Blood Count 2.8 x10^3/uL (4.0-11.0) Red Blood Count 3.21 x10^6/uL (3.50-5.40) Hemoglobin 7.7 g/dL (12.0-15.5) Hematocrit 25.1 % (36.0-47.0) Mean Corpuscular Volume 78 fL (79-100) Mean Corpuscular Hemoglobin 24 pg (25-35) Mean Corpuscular Hemoglobin Concent 31 g/dL (31-37) Red Cell Distribution Width 19.1 % (11.5-14.5) Platelet Count 155 x10^3/uL (140-400) Neutrophils (%) (Auto) 73 % (31-73) Lymphocytes (%) (Auto) 14 % (24-48) Monocytes (%) (Auto) 11 % (0-9) Eosinophils (%) (Auto) 2 % (0-3) Basophils (%) (Auto) 0 % (0-3) Neutrophils # (Auto) 2.0 x10^3/uL (1.8-7.7) Lymphocytes # (Auto) 0.4 x10^3/uL (1.0-4.8) Monocytes # (Auto) 0.3 x10^3/uL (0.0-1.1) Eosinophils # (Auto) 0.1 x10^3/uL (0.0-0.7) Basophils # (Auto) 0.0 x10^3/uL (0.0-0.2) Sodium Level 148 mmol/L (136-145) Potassium Level 5.0 mmol/L (3.5-5.1) Chloride Level 108 mmol/L (98-107) Carbon Dioxide Level 33 mmol/L (21-32) Anion Gap 7 (6-14) Blood Urea Nitrogen 14 mg/dL (7-20) Creatinine 1.2 mg/dL (0.6-1.0) Estimated GFR (Cockcroft-Gault) 56.0 BUN/Creatinine Ratio 12 (6-20) Glucose Level 77 mg/dL (70-99) Calcium Level 8.7 mg/dL (8.5-10.1) Iron Level 25 ug/dL (50-170) Total Iron Binding Capacity 282 ug/dL (250-450) Iron Saturation 9 % (15-34) Total Bilirubin 0.2 mg/dL (0.2-1.0) Aspartate Amino Transf (AST/SGOT) 11 U/L (15-37) Alanine Aminotransferase (ALT/SGPT) 15 U/L (14-59) Alkaline Phosphatase 50 U/L (46-116) Total Protein 6.7 g/dL (6.4-8.2) Albumin 2.8 g/dL (3.4-5.0) Albumin/Globulin Ratio 0.7 (1.0-1.7) Assessment/Plan Assessment/Plan 1. Acute hypoxic respiratory failure secondary to acute asthma exacerbation and untreated obstructive sleep apnea/hypopnea syndrome per pulmonary team. Symptoms improved after she received nebulizers. Her BNP level is slightly elevated but clinically she does not seem to be in congestive heart failure. Cardiac enzymes are negative. Chest x-ray showed cardiomegaly. We will check 2D echo to assess LV systolic function. 2. Hypertension: Better controlled since admission 3. Hypothyroidism: On levothyroxine 4. Diabetes mellitus type 2: Treat per IM 5. Morbid obesity, schizoaffective disorder, GERD: Per IM Thank you for your consultation ELMER CASTRO MD Jun 30, 2020 08:31
--- NOTE | 2020-06-30 09:16 | PDOC ---
[employer] PROGRESS NOTE Date of Service DOS: DATE: 06/30/20 TIME: 09:09 Chief Complaint Chief Complaint Cardiomegaly. SEVERE Morbid obesity Acute hypoxic resp failure JYOTI with noncompliance with CPAP Microcytic anemia, SUSPECT FE deficiency hypertension hx Schizoaffective disorder Diabetes Hypomagnesemia syndrome CKD STAGE 3 GERD reactive airway disease Plan: ADMIT CONSULT PULMONARY consult cardiology, abnormal cxr o2 support trend troponin i cvc bed dvt prophylaxis, SQ HEPARIN Home meds IV MG 1 GM FE PANEL CPAP HS Guiac stools t4 GI CONSULT retic History of Present Illness History of Present Illness seen in er with acute hypoxia, wheezing 59 year old female who was brought here by EMS from home due to trouble breathing. // history of sleep apnea, she somehow forgot to put her CPAP on last night. She woke up with trouble breathing, EMS were called. EMS report that prior arrival to the home patient was found to be breathing labored sleeping with oxygen saturation 90% on room air. had audible wheezing at the time, patient was given a DuoNeb treatment by EMS, patient feel much better, her oxygen saturation improved to 100%. Patient denies any cough or fever. 06/30/2020 Patient seen and evaluated. Afebrile, currently breathing on 2 L nasal cannula. Chest x-ray reviewed and essentially clear. Still complains of shortness of breath, worse with exertion. She is supposed to be wearing CPAP at night, and when asked why she is not wearing it she states that "they do not put it on me". I will order a 6-minute walk to assess for home oxygen requirement and plan for discharge tomorrow. Vitals/I&O Vitals/I&O: Vital Signs Date Time Temp Pulse Resp B/P (MAP) Pulse Ox O2 Delivery O2 Flow Rate FiO2 06/30/20 07:14 100 Nasal Cannula 2.0 06/30/20 03:10 98.7 78 20 117/91 (100) 98.7 I & O 06/29/20 06/29/20 06/30/20 15:00 23:00 07:00 Intake Total 50 ml Balance 50 ml Physical Exam General: Alert, Oriented X3, Cooperative, No acute distress Heart: Regular rate Lungs: Clear Abdomen: Normal bowel sounds, Soft, No tenderness, Other (VERY OBESE) Extremities: No cyanosis Skin: No breakdown Labs Labs: Laboratory Tests Test 06/29/20 16:50 06/30/20 03:00 Troponin I Quantitative 0.018 ng/mL (0.000-0.055) White Blood Count 2.8 x10^3/uL (4.0-11.0) Red Blood Count 3.21 x10^6/uL (3.50-5.40) Hemoglobin 7.7 g/dL (12.0-15.5) Hematocrit 25.1 % (36.0-47.0) Mean Corpuscular Volume 78 fL (79-100) Mean Corpuscular Hemoglobin 24 pg (25-35) Mean Corpuscular Hemoglobin Concent 31 g/dL (31-37) Red Cell Distribution Width 19.1 % (11.5-14.5) Platelet Count 155 x10^3/uL (140-400) Neutrophils (%) (Auto) 73 % (31-73) Lymphocytes (%) (Auto) 14 % (24-48) Monocytes (%) (Auto) 11 % (0-9) Eosinophils (%) (Auto) 2 % (0-3) Basophils (%) (Auto) 0 % (0-3) Neutrophils # (Auto) 2.0 x10^3/uL (1.8-7.7) Lymphocytes # (Auto) 0.4 x10^3/uL (1.0-4.8) Monocytes # (Auto) 0.3 x10^3/uL (0.0-1.1) Eosinophils # (Auto) 0.1 x10^3/uL (0.0-0.7) Basophils # (Auto) 0.0 x10^3/uL (0.0-0.2) Sodium Level 148 mmol/L (136-145) Potassium Level 5.0 mmol/L (3.5-5.1) Chloride Level 108 mmol/L (98-107) Carbon Dioxide Level 33 mmol/L (21-32) Anion Gap 7 (6-14) Blood Urea Nitrogen 14 mg/dL (7-20) Creatinine 1.2 mg/dL (0.6-1.0) Estimated GFR (Cockcroft-Gault) 56.0 BUN/Creatinine Ratio 12 (6-20) Glucose Level 77 mg/dL (70-99) Calcium Level 8.7 mg/dL (8.5-10.1) Iron Level 25 ug/dL (50-170) Total Iron Binding Capacity 282 ug/dL (250-450) Iron Saturation 9 % (15-34) Total Bilirubin 0.2 mg/dL (0.2-1.0) Aspartate Amino Transf (AST/SGOT) 11 U/L (15-37) Alanine Aminotransferase (ALT/SGPT) 15 U/L (14-59) Alkaline Phosphatase 50 U/L (46-116) Total Protein 6.7 g/dL (6.4-8.2) Albumin 2.8 g/dL (3.4-5.0) Albumin/Globulin Ratio 0.7 (1.0-1.7) Assessment and Plan Assessmemt and Plan Problems Medical Problems: (1) Acute dyspnea Status: Acute (2) Hypomagnesemia syndrome Status: Acute Goals of Care: Advance Care Planning: Total time spent [id number] with patient greater than 16 minutes in discussion with goals of care, comfort care, end-of-life care, pain management, code status Comment Review of Relevant I have reviewed the following items [email or web address] (where applicable) has been applied. Medications: Current Medications Medications (Trade) Dose Ordered Sig/Gamal Route PRN Reason Start Time Stop Time Status Last Admin Dose Admin Albuterol/ Ipratropium (Duoneb) 3 ml PRN Q6HRS PRN NEB SHORTNESS OF AIR 06/29/20 09:30 06/29/20 16:50 DC 06/29/20 12:45 Docusate Sodium (Colace) 100 mg BID PO 06/29/20 21:00 06/29/20 20:28 Gabapentin (Neurontin) 300 mg TID PO 06/29/20 14:00 06/29/20 20:27 Quetiapine Fumarate (SEROquel) 150 mg HS PO 06/29/20 21:00 06/29/20 20:27 Brimonidine Tartrate (Alphagan) 1 drop BID OU 06/29/20 21:00 06/29/20 22:04 Budesonide (Pulmicort) 0.5 mg RTBID NEB 06/29/20 20:00 06/30/20 07:14 Lamotrigine (LaMICtal) 150 mg BID PO 06/29/20 21:00 4/17/21 20:27 Albuterol/ Ipratropium (Duoneb) 3 ml RTQID NEB 06/29/20 20:00 06/30/20 07:13 Heparin Sodium (Porcine) (Heparin Sodium) 5,000 unit Q8HRS SQ 06/29/20 14:00 06/30/20 05:46 Justifications for Admission Other Justification acute hypoxic resp failure ODELL TAMEZ MD Jun 30, 2020 09:16
--- NOTE | 2020-06-30 10:10 | CONS ---
DATE OF CONSULTATION: 06/30/2020 I was asked to see this 59-year-old lady for asthma, obstructive sleep apnea-hypopnea syndrome. HISTORY OF PRESENT ILLNESS: Past medical history, she is a lifelong nonsmoker. She was brought to the Emergency Room via EMS due to shortness of breath. She does have sleep apnea. She did receive her CPAP machine on Wednesday, I am not sure she was able to use it, but she woke up with trouble breathing. EMS was called. She was given nebulizer treatment as she had wheezing, she improved. Her O2 saturation in the Emergency Room was 100%. She denies fever or chills. She has occasional cough. PAST MEDICAL HISTORY: Asthma, gastroesophageal reflux disease, glaucoma, hypertension, hypothyroidism, obstructive sleep apnea-hypopnea, carpal tunnel release. ALLERGIES: PENICILLIN. MEDICATIONS: Currently, she is on Tradjenta, Zoloft, Zyrtec, hydrochlorothiazide, Flonase, Synthroid, Norvasc, Protonix, Lamictal, Alphagan, Seroquel, Colace, DuoNeb, Pulmicort, heparin subQ. SOCIAL HISTORY: She is a lifelong nonsmoker. FAMILY HISTORY: Hypertension. REVIEW OF SYSTEMS: As mentioned as above, other systems are otherwise negative. PHYSICAL EXAMINATION: GENERAL: This is an obese lady. VITAL SIGNS: Her O2 saturation on 2 liters of oxygen is 100%, respiratory rate 20, heart rate 68, blood pressure 180/74, temperature 97.3. HEENT: Normocephalic, atraumatic. Pupils equal, round, reactive to light. Shallow oropharynx. Nose is clear. NECK: Short and thick. CARDIOVASCULAR: Regular rate and rhythm. CHEST: Inspection is normal. There is bilateral diminished breath sounds. ABDOMEN: Obese. LOWER EXTREMITIES: There is no edema. LYMPHATICS: There is no lymphadenopathy. SKIN: Chronic changes. NEUROLOGIC: She is alert. LABORATORY DATA: Chest x-ray shows increased vascular marking. Sodium 148, potassium 5, chloride 108, CO2 of 33, BUN 14, creatinine 1.2. Troponin 0.026, 0.018. BNP 805. WBC 2.8, hemoglobin 7.7, platelet 155. Influenza A and B negative. IMPRESSION: 1. Acute respiratory failure secondary to acute exacerbation of asthma, acute congestive heart failure, suspect diastolic, untreated obstructive sleep apnea-hypopnea syndrome. 2. Abnormal chest x-ray. 3. Acute exacerbation of asthma. 4. Acute diastolic congestive heart failure. 5. Obstructive sleep apnea-hypopnea syndrome. 6. Obesity. 7. Hypertension. 8. Hypothyroidism. PLAN AND RECOMMENDATIONS: 1. Titrate FiO2 to keep O2 saturation 92%. 2. Continue bronchodilator. 3. Continue inhaled corticosteroid. 4. May require systemic steroid. 5. I will start on CPAP during sleep. 6. Heparin for DVT prophylaxis. 7. Cardiology is consulted. 8. I do recommend an echocardiogram. 9. I have advised her to lose weight. 10. 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 Thank you very much for allowing me to participate in care of this very nice lady. BONITA ROA M.D. DR: Nura JOB#: [id number] / [id number]
[2020-06-30] MEDS: LINAGLIPTIN 5 MG TABLET PO SCH (10:28)
[2020-06-30] MEDS: LEVOTHYROXINE 125 MCG TABLET PO SCH (10:28)
[2020-06-30] MEDS: PANTOPRAZOLE 40 MG TABLET.DR. PO SCH (10:29)
[2020-06-30] MEDS: DOCUSATE SODIUM 100 MG CAPSULE. PO SCH ×2 (10:29→20:56)
[2020-06-30] MEDS: GABAPENTIN 300 MG CAPSULE. PO SCH ×3 (10:29→20:56)
[2020-06-30] MEDS: SERTRALINE 50 MG TABLET. PO SCH (10:29)
[2020-06-30] MEDS: MULTIVITAMIN with MINERAL TABLET. PO SCH (10:29)
[2020-06-30] MEDS: CETIRIZINE HCL 10 MG TABLET. PO SCH (10:30)
[2020-06-30] MEDS: hydroCHLOROthiazide 25 MG TABLET PO SCH (10:30)
[2020-06-30] MEDS: amLODIPine BESYLATE 10 MG TABLET PO SCH (10:30)
[2020-06-30] MEDS: lamoTRIgine 100 MG TABLET. PO SCH ×2 (10:30→20:56)
[2020-06-30] MEDS: BRIMONIDINE 0.2% OPHTH SOLUTION 5ML BOTTLE. OU SCH ×2 (10:36→20:55)
--- NOTE | 2020-06-30 12:44 | PDOC2 ---
GI CONSULT Reason For Consult: anemia HPI: HPI: 59 year old female who was brought here by EMS from home due to trouble breathing. // history of sleep apnea, she somehow forgot to put her CPAP on last night. She woke up with trouble breathing, EMS were called. EMS report that prior arrival to the home patient was found to be breathing labored sleeping with oxygen saturation 90% on room air. Her Hgb is 7.7 with MCV 78. Inron is low at 25, and percent saturation is low at 9 She thinks that she has had an EGD/Colon in the past when she was in the alf PMH: PMH: Past Medical History: Asthma, Bipolar, GERD, Glaucoma, Hypertension, Hypothyroid Additional Past Medical Histor: OBESITY,UNDIFF. SCHIZ, MR, LAST SEIZ 16',CHRON. RENAL FAILURE,OSTEO Past Surgical History: Other Additional Past Surgical Histo: CARPAL TUNNEL,RECTAL PROLAPSE REPAIR, Smoking Status: Never Smoker Alcohol Use: None Drug Use: None FHX OBESITY, HTN Cardiovascular: HTN, Hyperlipidemia Musculoskeletal: Osteoarthritis Family History Family History: Hypertension Social History Smoke: No ALCOHOL: none Drugs: None C Current Medications Current Medications Current Medications Magnesium Sulfate 50 ml @ 25 mls/hr 1X ONCE IV Last administered on 06/29/20at 07:40; Start 06/29/20 at 07:30; Stop 06/29/20 at 09:29; Status DC Ondansetron HCl (Zofran) 4 mg PRN Q8HRS PRN IV NAUSEA/VOMITING; Start 06/29/20 at 09:30; Stop 06/30/20 at 09:29 Albuterol/ Ipratropium (Duoneb) 3 ml PRN Q6HRS PRN NEB SHORTNESS OF AIR; Start 06/29/20 at 09:30 Active Scripts Active Zofran (Ondansetron Hcl) 4 Mg Tablet 4 Mg PO PRN TID PRN nausea/vomiting Keflex (Cephalexin) 500 Mg Capsule 1 Cap PO BID 5 Days Pyridium (Phenazopyridine Hcl) 100 Mg Tablet 1 Tab PO TID 2 Days Keflex (Cephalexin) 500 Mg Capsule 1 Cap PO BID 7 Days Keflex (Cephalexin) 500 Mg Capsule 2 Cap PO Q12HR 3 Days Dicyclomine Hcl 10 Mg Capsule 1 Cap PO TID PRN 5 Days Zofran (Ondansetron Hcl) 4 Mg Tablet 1 Tab PO PRN Q6-8HRS PRN Cipro (Ciprofloxacin Hcl) 250 Mg Tablet 1 Tab PO BID Reported Seroquel (Quetiapine Fumarate) 100 Mg Tablet 150 Mg PO HS Alphagan P (Brimonidine Tartrate) 5 Ml Drops 1 Drop EACHEYE BID Hydrochlorothiazide Tablet (Hydrochlorothiazide) 50 Mg Tablet 1 Tab PO DAILY Lamotrigine 150 Mg Tablet 1 Tab PO BID Docusate Sodium 100 Mg Capsule 100 Mg PO Advair 500-50 Diskus (Fluticasone/Salmeterol) 1 Each Disk.w.dev 1 Puff IH BID Flonase Allergy Relief (Fluticasone Propionate) 9.9 Ml [place].susp 2 Sprays NS DAILY Gabapentin (Gabapentin) 300 Mg Capsule 300 Mg PO TID Claritin (Loratadine) 10 Mg Tablet 1 Tab PO DAILY Januvia (Sitagliptin Phosphate) 50 Mg Tablet 1 Tab PO DAILY Synthroid (Levothyroxine Sodium) 125 Mcg Tablet 1 Tab PO DAILY Zoloft (Sertraline Hcl) 100 Mg Tablet 1 Tab PO DAILY Multivitamins (Multivitamin) 1 Each Tablet 1 Tab PO DAILY Spiriva (Tiotropium [place]) 18 Mcg Cap.w.dev 2 Inh IH DAILY Omeprazole 40 Mg Capsule.dr 1 Cap PO DAILY Amlodipine Besylate 10 Mg Tablet 10 Mg PO DAILY Allergies Allergies: Coded Allergies: Penicillins (Verified Allergy, Intermediate, HIVES, 05/15/19) I S O L A T I O N *CONTACT* (Verified Allergy, Unknown, 05/15/19) ESBL Social History: Smoke: No ALCOHOL: none Drugs: None ROS: General: YES: Fatigue, Malaise; No: Chills, Night Sweats, Appetite, Other PSYCHOLOGICAL ROS: YES: Anxiety, Depression, Irritablity; No: Behavioral Disorder, Concentration difficultie, Decreased libido, Disorientation, Hallucinations, Hostility, Memory difficulties, Mood Swings, Obsessive thoughts, Physical abuse, Sexual abuse, Sleep disturbances, Suicidal ideation, Other Eyes: Yes Decreased vision; No Blurry vision, No Double vision, No Dry eyes, No Excessive tearing, No Eye Pain, No Itchy Eyes, No Loss of vision, No Photophobia, No Scotomata, No Uses contacts, No Uses glasses, No Other HEENT: No: Heacaches, Visual Changes, Hearing change, Nasal congestion, Nasal discharge, Oral lesions, Sinus pain, Sore Throat, Epistaxis, Sneezing, Snoring, Tinnitus, Vertigo, Vocal changes, Other ALLERGY AND IMMUNOLOGY: YES: Hives; No: Insect Bite Sensitivity, Itchy/Watery Eyes, Nasal Congestion, Post Nasal Drip, Seasonal Allergies, Other Hematological and Lymphatic: No: Bleeding Problems, Blood Clots, Blood Transfusions, Brusing, Night Sweats, Pallor, Swollen Lymph Nodes, Other ENDOCRINE: No: Breast Changes, Galactorrhea, Hair Pattern Changes, Hot Flashes, Malaise/lethargy, Mood Swings, Palpitations, Polydipsia/polyuria, Skin Changes, Temperature Intolerance, Unexpected Weight Changes, Other Breast: No New/Changing Breast Lumps, No Nipple changes, No Nipple discharge, No Other Respiratory: YES: Shortness of breath, SOB with excertion; No: Cough, Hemoptysis, Orthopnea, Pleuritic Pain, Sputum Changes, Stridor, Tachypnea, Wheezing, Other Cardiovascular: yes Orthopnea, yes Paroxysmal Noc. Dyspnea; No Chest Pain, No Palpitations, No Edema, No Lt Headedness, No Other Gastrointestinal: No Nausea, No Vomiting, No Abdominal Pain, No Diarrhea, No Constipation, No Melena, No Hematochezia, No Other Genitourinary: No Dysuria, No Frequency, No Incontinence, No Hematuria, No R etention, No Discharge, No Urgency, No Pain, No Flank Pain, No Other, No , No , No , No , No , No , No Musculoskeletal: Yes Joint Stiffness; No Gait Disturbance, No Joint Pain, No Joint Swelling, No Muscle Pain, No Muscular Weakness, No Pain In:, No Swelling In:, No Other Neurological: No Behavorial Changes, No Bowel/Bladder ControlChng, No Confusion, No Dizziness, No Gait Disturbance, No Headaches, No Impaired Coord/balance, No Memory Loss, No Numbness/Tingling, No Seizures, No Speech Problems, No Tremors, No Visual Changes, No Weakness, No Other Skin: No Dry Skin, No Eczema, No Hair Changes, No Lumps, No Mole Changes, No Mottling, No Nail Changes, No Pruritus, No Rash, No Skin Lesion Changes, No Other, No Acne VItals: Vitals: Vital Signs Date Time Temp Pulse Resp B/P (MAP) Pulse Ox O2 Delivery O2 Flow Rate FiO2 06/30/20 11:13 100 Nasal Cannula 2.0 06/30/20 11:00 97.7 75 20 154/74 (100) 97.7 Labs: Labs: Laboratory Tests Test 06/29/20 16:50 06/30/20 03:00 Troponin I Quantitative 0.018 ng/mL (0.000-0.055) White Blood Count 2.8 x10^3/uL (4.0-11.0) Red Blood Count 3.21 x10^6/uL (3.50-5.40) Hemoglobin 7.7 g/dL (12.0-15.5) Hematocrit 25.1 % (36.0-47.0) Mean Corpuscular Volume 78 fL (79-100) Mean Corpuscular Hemoglobin 24 pg (25-35) Mean Corpuscular Hemoglobin Concent 31 g/dL (31-37) Red Cell Distribution Width 19.1 % (11.5-14.5) Platelet Count 155 x10^3/uL (140-400) Neutrophils (%) (Auto) 73 % (31-73) Lymphocytes (%) (Auto) 14 % (24-48) Monocytes (%) (Auto) 11 % (0-9) Eosinophils (%) (Auto) 2 % (0-3) Basophils (%) (Auto) 0 % (0-3) Neutrophils # (Auto) 2.0 x10^3/uL (1.8-7.7) Lymphocytes # (Auto) 0.4 x10^3/uL (1.0-4.8) Monocytes # (Auto) 0.3 x10^3/uL (0.0-1.1) Eosinophils # (Auto) 0.1 x10^3/uL (0.0-0.7) Basophils # (Auto) 0.0 x10^3/uL (0.0-0.2) Sodium Level 148 mmol/L (136-145) Potassium Level 5.0 mmol/L (3.5-5.1) Chloride Level 108 mmol/L (98-107) Carbon Dioxide Level 33 mmol/L (21-32) Anion Gap 7 (6-14) Blood Urea Nitrogen 14 mg/dL (7-20) Creatinine 1.2 mg/dL (0.6-1.0) Estimated GFR (Cockcroft-Gault) 56.0 BUN/Creatinine Ratio 12 (6-20) Glucose Level 77 mg/dL (70-99) Calcium Level 8.7 mg/dL (8.5-10.1) Iron Level 25 ug/dL (50-170) Total Iron Binding Capacity 282 ug/dL (250-450) Iron Saturation 9 % (15-34) Total Bilirubin 0.2 mg/dL (0.2-1.0) Aspartate Amino Transf (AST/SGOT) 11 U/L (15-37) Alanine Aminotransferase (ALT/SGPT) 15 U/L (14-59) Alkaline Phosphatase 50 U/L (46-116) Total Protein 6.7 g/dL (6.4-8.2) Albumin 2.8 g/dL (3.4-5.0) Albumin/Globulin Ratio 0.7 (1.0-1.7) Imaging: Imaging: [facility] [address] [place] [address] IMAGING REPORT Signed PATIENT: OMEGA ESQUIVEL DACCOUNT: [id number] : 1960 LOCATION: ER AGE: 59 SEX: F EXAM STATUS: PRE ER ORD. PHYSICIAN: KARLY PATEL MD REASON: SHORTNESS OF BREATH PROCEDURE: PORTABLE CHEST 1V XR CHEST 1V Clinical History: Reason: SHORTNESS OF BREATH / Spl. Instructions: / History: Technique: AP view of the chest was obtained at 06/29/2020 6:47 AM. Comparison: May 23, 2019. Findings: The heart is moderate to markedly enlarged. The pulmonary vessels are top normal limits in size. The study somewhat underpenetrated secondary large body habitus. The pleural margins are clear. Impression: Cardiomegaly. Stable appearance of the chest. Electronically signed by: Makayla Liz III, MD (06/29/2020 6:59 AM) [facility] DICTATED and SIGNED BY: MAKAYLA LIZ III, MD DATE: 06/29/20 [id number] PE: Physical Exam General: Alert, Oriented X3, Cooperative, No acute distress, mild distress HEENT: EOMI, Mucous membr. moist/pink Lungs: Other (EXP WHEEZING ) Heart: RRR Breasts: Not examined Abdomen: Normal bowel sounds, Soft, No tenderness, Other (VERY OBESE) Rectal Exam: not examined PELVIC: Examination not indicated Extremities: No cyanosis Skin: No breakdown Neuro: Strength at 5/5 X4 ext, Sensation intact, Cranial nerves 3-12 NL Psych/Mental Status: Mental status NL, Mood NL A/P: A/P: A&P 1) Iron deficiency anemia: Favor iron infusion. Consider CT A/P. DEZ PEDERSON MD Jun 30, 2020 12:44
[2020-06-30] MEDS ORDERED: IOHEXOL 240 MG/ML 50ML VIAL. PO ONE (13:15)
[2020-06-30] MEDS ORDERED: IOHEXOL 300 MG/ML 100ML VIAL. IV ONE (13:15)
[2020-06-30] MEDS ORDERED: IRON SUCROSE COMPLEX 200 MG in IV NORMAL SALINE 100ML 100 ML IV ONE (14:00)
[2020-06-30] MEDS: FLUTICASONE 50MCG/NASAL SPRAY 16GM BOTTLE. NS SCH (14:56)
[2020-06-30] MEDS: QUEtiapine 100 MG TABLET. PO SCH (20:56)
[2020-07-01 03:00] VITALS: BP 150/68
[2020-07-01] MEDS: HEPARIN for SUB-Q USE 5,000 UNIT/ML VIAL. SQ SCH ×3 (05:27→21:06)
--- NOTE | 2020-07-01 05:47 | RAD ---
Study: CT abdomen/pelvis with intravenous contrast Indication: Iron deficiency anemia. Comparison: 01/03/2020 Technique: Helical CT imaging performed of the abdomen and pelvis after the intravenous administratio n of 60 cc Omnipaque 300 contrast. 50 cc oral Omnipaque 240 administered as well. Sagittal and pepper l reformats were obtained. One or more of the following individualized dose reduction techniques were utilized for this examinat ion: 1. Automated exposure control 2. Adjustment of the mA and/or kV according to patient size 3. Use of iterative reconstruction technique. Findings: Limited exam on account of patient body habitus. Unchanged small/moderate hiatal hernia. There is again circumferential thickening of the distal esoph ageal wall. It is difficult to discern if reticulonodular densities at both lung bases are entirely o n account of atelectasis or relayed in part to infiltrates. Presumed hepatic steatosis. Limited assessment for any focal parenchymal abnormality. Gallstone fille d gallbladder. The gallbladder wall appears to be mildly thickened and there is faint haziness of the pericholecystic fat at the fundal region however similar findings were present previously. No appare nt biliary ductal dilatation. No peripancreatic inflammation. Incomplete assessment of the parenchyma . No adrenal gland mass. Upper limits of normal size of the spleen measuring just over 13 cm cranioca udal. Areas of renal cortical scarring bilaterally with kidney morphology unchanged from the prior. No hydr onephrosis. Circumferential wall thickening of the urinary bladder. Unchanged uterus. No adnexal mass . No localized colonic wall thickening or pericolonic inflammation. Mild degree of constipation. Normal appendix. Distended stomach with ingested material and gas. No gastric wall emphysema. No definitive mucosal mass. Nonobstructed small bowel. Scattered calcific atherosclerosis with particularly dense calcifications at the celiac origin but un changed. Similar mild enlargement of inguinal lymph nodes. No free fluid or pneumoperitoneum. Scatter ed body wall edema. No complex body wall hernia. Probable injection-related changes at the ventral lo wer abdomen. End-stage arthrosis at the left hip. Moderate arthrosis at the right hip. Lumbar levocurvature. Fusio n across the right aspect of the L4-L5 disc space. Transitional lumbosacral anatomy with partial lumb arization of S1. The most pronounced osseous neural foraminal stenosis is on the right at L4-L5. Poor ly evaluated central canal by both technique and related to patient body habitus. No acute abnormalit y is apparent. Impression: 1. Limited study due to patient body habitus. 2. No abnormality seen to involve the small or large bowel to explain the patient's anemia. [place] tration of a small/moderate hiatal hernia as well as circumferential wall thickening of the distal es ophagus. Recommend correlation for a history of reflux. 3. Gallstone filled gallbladder. The gallbladder wall appears mildly thickened but a similar appeara nce was seen on the 01/03/2020 comparison. Recommend correlation for any right upper quadrant pain. 4. Circumferential wall thickening of the urinary bladder. This may be chronic but urinalysis could be performed to exclude cystitis. 5. Reticulonodular densities at the lower lungs indeterminant for atelectasis or potentially mild in fectious or inflammatory infiltrates. 6. Hepatic steatosis. Mild enlargement of the spleen. 7. End-stage left hip arthrosis. Multilevel thoracolumbar spondylosis with the greatest degree of ne ural foraminal stenosis on the right at L4-L5. Presumed central canal stenosis at the lower lumbar sp ine but incompletely characterized. Electronically signed by: MISHEL SCHAEFFER MD (07/01/2020 5:44 AM) [facility]
[2020-07-01 07:00] VITALS: BP 176/85
--- NOTE | 2020-07-01 07:24 | NUR ---
IP: Pt has a hx of EXBL in urine on 05/08/19. P to be in contact precautions until urine culture is negative.
[2020-07-01] MEDS: IPRATRPIUM/ALBUTEROL 0.5/2.5MG 3 ML NEBU. NEB SCH ×4 (07:34→19:48)
[2020-07-01] MEDS: BUDESONIDE 0.5 MG/2 ML NEBU. NEB SCH ×2 (07:35→19:49)
--- NOTE | 2020-07-01 08:40 | PDOC ---
PULMONARY PROGRESS NOTES DATE: 07/01/20 TIME: 08:40 Subjective Patient feels "not too good" no wheezing Vitals Vital Signs Date Time Temp Pulse Resp B/P (MAP) Pulse Ox O2 Delivery O2 Flow Rate FiO2 07/01/20 07:35 100 Nasal Cannula 1.0 07/01/20 03:00 97.8 68 18 150/68 (95) 97.8 ROS: No Nausea, No Chest Pain, No Abdominal Pain, No Increase Cough General: Alert Lungs: Clear Cardiovascular: S1, S2 Abdomen: Soft, Other (Obese) Neuro Exam: Alert Extremities: No Edema Skin: Warm Labs Laboratory Tests Test 06/29/20 08:42 06/29/20 16:50 06/30/20 03:00 Troponin I Quantitative 0.026 ng/mL (0.000-0.055) 0.018 ng/mL (0.000-0.055) White Blood Count 2.8 x10^3/uL (4.0-11.0) Red Blood Count 3.21 x10^6/uL (3.50-5.40) Hemoglobin 7.7 g/dL (12.0-15.5) Hematocrit 25.1 % (36.0-47.0) Mean Corpuscular Volume 78 fL (79-100) Mean Corpuscular Hemoglobin 24 pg (25-35) Mean Corpuscular Hemoglobin Concent 31 g/dL (31-37) Red Cell Distribution Width 19.1 % (11.5-14.5) Platelet Count 155 x10^3/uL (140-400) Neutrophils (%) (Auto) 73 % (31-73) Lymphocytes (%) (Auto) 14 % (24-48) Monocytes (%) (Auto) 11 % (0-9) Eosinophils (%) (Auto) 2 % (0-3) Basophils (%) (Auto) 0 % (0-3) Neutrophils # (Auto) 2.0 x10^3/uL (1.8-7.7) Lymphocytes # (Auto) 0.4 x10^3/uL (1.0-4.8) Monocytes # (Auto) 0.3 x10^3/uL (0.0-1.1) Eosinophils # (Auto) 0.1 x10^3/uL (0.0-0.7) Basophils # (Auto) 0.0 x10^3/uL (0.0-0.2) Sodium Level 148 mmol/L (136-145) Potassium Level 5.0 mmol/L (3.5-5.1) Chloride Level 108 mmol/L (98-107) Carbon Dioxide Level 33 mmol/L (21-32) Anion Gap 7 (6-14) Blood Urea Nitrogen 14 mg/dL (7-20) Creatinine 1.2 mg/dL (0.6-1.0) Estimated GFR (Cockcroft-Gault) 56.0 BUN/Creatinine Ratio 12 (6-20) Glucose Level 77 mg/dL (70-99) Calcium Level 8.7 mg/dL (8.5-10.1) Iron Level 25 ug/dL (50-170) Total Iron Binding Capacity 282 ug/dL (250-450) Iron Saturation 9 % (15-34) Total Bilirubin 0.2 mg/dL (0.2-1.0) Aspartate Amino Transf (AST/SGOT) 11 U/L (15-37) Alanine Aminotransferase (ALT/SGPT) 15 U/L (14-59) Alkaline Phosphatase 50 U/L (46-116) Total Protein 6.7 g/dL (6.4-8.2) Albumin 2.8 g/dL (3.4-5.0) Albumin/Globulin Ratio 0.7 (1.0-1.7) Medications Active Scripts Medications Dose Route/Sig Max Daily Dose Days Date Category Dose Instructions Zofran (Ondansetron Hcl) 4 Mg Tablet 4 Mg PO PRN TID PRN 01/03/20 Rx nausea/vomiting Keflex (Cephalexin) 500 Mg Capsule 1 Cap PO BID 5 01/03/20 Rx Pyridium (Phenazopyridine Hcl) 100 Mg Tablet 1 Tab PO TID 2 09/30/19 Rx Keflex (Cephalexin) 500 Mg Capsule 1 Cap PO BID 7 09/30/19 Rx Keflex (Cephalexin) 500 Mg Capsule 2 Cap PO Q12HR 3 05/09/19 Rx Dicyclomine Hcl 10 Mg Capsule 1 Cap PO TID PRN 5 05/09/19 Rx Zofran (Ondansetron Hcl) 4 Mg Tablet 1 Tab PO PRN Q6-8HRS PRN 05/09/19 Rx Cipro (Ciprofloxacin Hcl) 250 Mg Tablet 1 Tab PO BID 10/7/19 Rx Seroquel (Quetiapine Fumarate) 100 Mg Tablet 150 Mg PO HS 12/31/16 Reported Alphagan P (Brimonidine Tartrate) 5 Ml Drops 1 Drop EACHEYE BID 12/31/16 Reported Hydrochlorothiazide Tablet (Hydrochlorothiazide) 50 Mg Tablet 1 Tab PO DAILY 12/31/16 Reported Lamotrigine 150 Mg Tablet 1 Tab PO BID 12/31/16 Reported Docusate Sodium 100 Mg Capsule 100 Mg PO 12/31/16 Reported Advair 500-50 Diskus (Fluticasone/Salmeterol) 1 Each Disk.w.dev 1 Puff IH BID 12/31/16 Reported Flonase Allergy Relief (Fluticasone Propionate) 9.9 Ml [place].susp 2 Sprays NS DAILY 12/31/16 Reported Gabapentin (Gabapentin) 300 Mg Capsule 300 Mg PO TID 12/31/16 Reported Claritin (Loratadine) 10 Mg Tablet 1 Tab PO DAILY 12/31/16 Reported Januvia (Sitagliptin Phosphate) 50 Mg Tablet 1 Tab PO DAILY 12/31/16 Reported Synthroid (Levothyroxine Sodium) 125 Mcg Tablet 1 Tab PO DAILY 12/31/16 Reported Zoloft (Sertraline Hcl) 100 Mg Tablet 1 Tab PO DAILY 12/31/16 Reported Multivitamins (Multivitamin) 1 Each Tablet 1 Tab PO DAILY 12/31/16 Reported Spiriva (Tiotropium [place]) 18 Mcg Cap.w.dev 2 Inh IH DAILY 12/31/16 Reported Omeprazole 40 Mg Capsule.dr 1 Cap PO DAILY 12/31/16 Reported Amlodipine Besylate 10 Mg Tablet 10 Mg PO DAILY 12/31/16 Reported Impression . IMPRESSION: 1. Acute respiratory failure secondary to acute exacerbation of asthma, acute congestive heart failure, suspect diastolic, untreated obstructive sleep apnea-hypopnea syndrome. 2. Abnormal chest x-ray. 3. Acute exacerbation of asthma. 4. Acute diastolic congestive heart failure. 5. Obstructive sleep apnea-hypopnea syndrome. 6. Obesity. 7. Hypertension. 8. Hypothyroidism. 9. Bacteremia, cultures pending. Plan . UPDATED 07/01 Continue oxygen to maintain sats above 92% Continue nebulized steroids Antibiotics per ID, final cultures on blood cultures are pending PLAN AND RECOMMENDATIONS: 1. Titrate FiO2 to keep O2 saturation 92%. 2. Continue bronchodilator. 3. Continue inhaled corticosteroid. 4. May require systemic steroid. 5. I will start on CPAP during sleep. 6. Heparin for DVT prophylaxis. 7. Cardiology is consulted. 8. I do recommend an echocardiogram. 9. I have advised her to lose weight. 10. I have discussed obstructive sleep apnea-hypopnea syndrome, the importance of treatment, if untreated increased cardiovascular and [employer] morbidity or mortality. SYBIL ALVAREZ MD Jul 01, 2020 08:40
--- NOTE | 2020-07-01 08:42 | PDOC ---
PROGRESS NOTES Date of Service: DATE: 07/01/20 TIME: 08:42 Chief Complaint Chief Complaint impression Cardiomegaly. SEVERE Morbid obesity Acute hypoxic resp failure SEVERE HYPERCAPNIC RESP FAILURE JYOTI with noncompliance with CPAP Microcytic anemia, SUSPECT FE deficiency hypertension hx Schizoaffective disorder Diabetes Hypomagnesemia syndrome CKD STAGE 3 GERD reactive airway disease Plan: ADMIT CONSULT PULMONARY consult cardiology, abnormal cxr o2 support trend troponin i cvc bed dvt prophylaxis, SQ HEPARIN Home meds IV MG 1 GM x 1 FE PANEL CPAP HS Guiac stools t4 GI CONSULT Should consider schroeder-endoscopy pending improvement. retic BLOOD CULTURE Final GRAM POSITIVE COCCI IN CLUSTERS, SUGGESTIVE OF STAPH, IN 1 OF 4 BOTTLES, TWO SETS DRAWN. 38 MIN PT EXAM, CHART REVIEW, > 50% OF TIME SPENT WITH EXAM, CHART REVIEW, PT CARE COORDINATION History of Present Illness History of Present Illness seen in er with acute hypoxia, wheezing 59 year old female who was brought here by EMS from home due to trouble breathing. // history of sleep apnea, she somehow forgot to put her CPAP on last night. She woke up with trouble breathing, EMS were called. EMS report that prior arrival to the home patient was found to be breathing labored sleeping with oxygen saturation 90% on room air. had audible wheezing at the time, patient was given a DuoNeb treatment by EMS, patient feel much better, her oxygen saturation improved to 100%. Patient denies any cough or fever. Gallstone filled gallbladder. The gallbladder wall appears mildly thickened 07/01/2020 small/moderate hiatal hernia as well as circumferential wall thickening of the distal esophagus. correlation for a history of reflux. Patient seen and evaluated. Afebrile, currently breathing on 2 L nasal cannula. Chest x-ray reviewed and essentially clear. Still complains of shortness of breath, worse with exertion. She is supposed to be wearing CPAP at night, and when asked why she is not wearing it she states that "they do not put it on me". 6-minute walk to assess for home oxygen requirement on d/c gi consulted Should consider schroeder-endoscopy pending improvement. repeat blood cult, ID CONSULT, IV DAPTOMYCIN START 07-01 BLOOD CULTURE Final GRAM POSITIVE COCCI IN CLUSTERS, SUGGESTIVE OF STAPH, IN 1 OF 4 BOTTLES, TWO SETS DRAWN. BLOOD CULTURE Final GRAM POSITIVE COCCI IN CLUSTERS, SUGGESTIVE OF STAPH, IN 1 OF 4 BOTTLES, TWO SETS DRAWN. 38 MIN PT EXAM, CHART REVIEW, > 50% OF TIME SPENT WITH EXAM, CHART REVIEW, PT CARE COORDINATION 06/30/2020 Patient seen and evaluated. Afebrile, currently breathing on 2 L nasal cannula. Chest x-ray reviewed and essentially clear. Still complains of shortness of breath, worse with exertion. She is supposed to be wearing CPAP at night, and when asked why she is not wearing it she states that "they do not put it on me". I will order a 6-minute walk to assess for home oxygen requirement and plan for discharge tomorrow. Vitals Vitals Vital Signs Date Time Temp Pulse Resp B/P (MAP) Pulse Ox O2 Delivery O2 Flow Rate FiO2 07/01/20 07:35 100 Nasal Cannula 1.0 07/01/20 03:00 97.8 68 18 150/68 (95) 97.8 Physical Exam Physical Exam General: Alert, Oriented X3, Cooperative, No acute distress Heart: Regular rate Lungs: Clear Abdomen: Normal bowel sounds, Soft, No tenderness, Other (VERY OBESE) Extremities: No cyanosis Skin: No breakdown General: Cooperative, No acute distress, Other (Somnolent but comfortable) Heart: Regular rate Lungs: Clear Abdomen: Normal bowel sounds, Soft Extremities: No edema Skin: No breakdown Labs LABS LARISSA DELATORRE DO ORDERED: BCULT Procedure Result - BLOOD CULTURE Final GRAM POSITIVE COCCI IN CLUSTERS, SUGGESTIVE OF STAPH, IN 1 OF 4 BOTTLES, TWO SETS DRAWN. CALLED TO ANTONIO POOLE RN ON 6S AT 8:10 ON 07/01/20 DW MT SENT TO [facility] FOR FURTHER WORKUP. Study: CT abdomen/pelvis with intravenous contrast Indication: Iron deficiency anemia. Comparison: 01/03/2020 Technique: Helical CT imaging performed of the abdomen and pelvis after the intravenous administration of 60 cc Omnipaque 300 contrast. 50 cc oral Omnipaque 240 administered as well. Sagittal and coronal reformats were obtained. One or more of the following individualized dose reduction techniques were utilized for this examination: 1. Automated exposure control 2. Adjustment of the mA and/or kV according to patient size 3. Use of iterative reconstruction technique. Findings: Limited exam on account of patient body habitus. Unchanged small/moderate hiatal hernia. There is again circumferential thickening of the distal esophageal wall. It is difficult to discern if reticulonodular densities at both lung bases are entirely on account of atelectasis or relayed in part to infiltrates. Presumed hepatic steatosis. Limited assessment for any focal parenchymal abnormality. Gallstone filled gallbladder. The gallbladder wall appears to be mildly thickened and there is faint haziness of the pericholecystic fat at the fundal region however similar findings were present previously. No apparent biliary ductal dilatation. No peripancreatic inflammation. Incomplete assessment of the parenchyma. No adrenal gland mass. Upper limits of normal size of the spleen measuring just over 13 cm craniocaudal. Areas of renal cortical scarring bilaterally with kidney morphology unchanged from the prior. No hydronephrosis. Circumferential wall thickening of the urinary bladder. Unchanged uterus. No adnexal mass. No localized colonic wall thickening or pericolonic inflammation. Mild degree of constipation. Normal appendix. Distended stomach with ingested material and gas. No gastric wall emphysema. No definitive mucosal mass. Nonobstructed small bowel. Scattered calcific atherosclerosis with particularly dense calcifications at the celiac origin but unchanged. Similar mild enlargement of inguinal lymph nodes. No free fluid or pneumoperitoneum. Scattered body wall edema. No complex body wall hernia. Probable injection-related changes at the ventral lower abdomen. End-stage arthrosis at the left hip. Moderate arthrosis at the right hip. Lumbar levocurvature. Fusion across the right aspect of the L4-L5 disc space. Transitional lumbosacral anatomy with partial lumbarization of S1. The most pronounced osseous neural foraminal stenosis is on the right at L4-L5. Poorly evaluated central canal by both technique and related to patient body habitus. No acute abnormality is apparent. Impression: 1. Limited study due to patient body habitus. 2. No abnormality seen to involve the small or large bowel to explain the patient's anemia. Redemonstration of a small/moderate hiatal hernia as well as circumferential wall thickening of the distal esophagus. Recommend correlation for a history of reflux. 3. Gallstone filled gallbladder. The gallbladder wall appears mildly thickened but a similar appearance was seen on the 01/03/2020 comparison. Recommend correlation for any right upper quadrant pain. 4. Circumferential wall thickening of the urinary bladder. This may be chronic but urinalysis could be performed to exclude cystitis. 5. Reticulonodular densities at the lower lungs indeterminant for atelectasis or potentially mild infectious or inflammatory infiltrates. 6. Hepatic steatosis. Mild enlargement of the spleen. 7. End-stage left hip arthrosis. Multilevel thoracolumbar spondylosis with the greatest degree of neural foraminal stenosis on the right at L4-L5. Presumed central canal stenosis at the lower lumbar spine but incompletely characterized. Electronically signed by: MISHEL SCHAEFFER MD (07/01/2020 5:44 AM) [facility] DICTATED and SIGNED BY: MISHEL SCHAEFFER MD DATE: 07/01/20 [id number] Assessment and Plan Assessmemt and Plan Problems Medical Problems: (1) Acute dyspnea Status: Acute (2) Hypomagnesemia syndrome Status: Acute Comment Review of Relevant I have reviewed the following items joseluis (where applicable) has been applied. Labs Laboratory Tests Test 06/29/20 16:50 06/30/20 03:00 Troponin I Quantitative 0.018 ng/mL (0.000-0.055) White Blood Count 2.8 x10^3/uL (4.0-11.0) Red Blood Count 3.21 x10^6/uL (3.50-5.40) Hemoglobin 7.7 g/dL (12.0-15.5) Hematocrit 25.1 % (36.0-47.0) Mean Corpuscular Volume 78 fL (79-100) Mean Corpuscular Hemoglobin 24 pg (25-35) Mean Corpuscular Hemoglobin Concent 31 g/dL (31-37) Red Cell Distribution Width 19.1 % (11.5-14.5) Platelet Count 155 x10^3/uL (140-400) Neutrophils (%) (Auto) 73 % (31-73) Lymphocytes (%) (Auto) 14 % (24-48) Monocytes (%) (Auto) 11 % (0-9) Eosinophils (%) (Auto) 2 % (0-3) Basophils (%) (Auto) 0 % (0-3) Neutrophils # (Auto) 2.0 x10^3/uL (1.8-7.7) Lymphocytes # (Auto) 0.4 x10^3/uL (1.0-4.8) Monocytes # (Auto) 0.3 x10^3/uL (0.0-1.1) Eosinophils # (Auto) 0.1 x10^3/uL (0.0-0.7) Basophils # (Auto) 0.0 x10^3/uL (0.0-0.2) Sodium Level 148 mmol/L (136-145) Potassium Level 5.0 mmol/L (3.5-5.1) Chloride Level 108 mmol/L (98-107) Carbon Dioxide Level 33 mmol/L (21-32) Anion Gap 7 (6-14) Blood Urea Nitrogen 14 mg/dL (7-20) Creatinine 1.2 mg/dL (0.6-1.0) Estimated GFR (Cockcroft-Gault) 56.0 BUN/Creatinine Ratio 12 (6-20) Glucose Level 77 mg/dL (70-99) Calcium Level 8.7 mg/dL (8.5-10.1) Iron Level 25 ug/dL (50-170) Total Iron Binding Capacity 282 ug/dL (250-450) Iron Saturation 9 % (15-34) Total Bilirubin 0.2 mg/dL (0.2-1.0) Aspartate Amino Transf (AST/SGOT) 11 U/L (15-37) Alanine Aminotransferase (ALT/SGPT) 15 U/L (14-59) Alkaline Phosphatase 50 U/L (46-116) Total Protein 6.7 g/dL (6.4-8.2) Albumin 2.8 g/dL (3.4-5.0) Albumin/Globulin Ratio 0.7 (1.0-1.7) Microbiology 06/29/20 Blood Culture - Preliminary, Resulted NO GROWTH AFTER 1 DAY Medications Current Medications Magnesium Sulfate 50 ml @ 25 mls/hr 1X ONCE IV Last administered on 06/29/20at 07:40; Start 06/29/20 at 07:30; Stop 06/29/20 at 09:29; Status DC Ondansetron HCl (Zofran) 4 mg PRN Q8HRS PRN IV NAUSEA/VOMITING; Start 06/29/20 at 09:30; Stop 06/29/20 at 16:51; Status DC Albuterol/ Ipratropium (Duoneb) 3 ml PRN Q6HRS PRN NEB SHORTNESS OF AIR Last administered on 06/29/20at 12:45; Start 06/29/20 at 09:30; Stop 06/29/20 at 16:50; Status DC Amlodipine Besylate (Norvasc) 10 mg DAILY PO Last administered on 06/30/20at 10:30; Start 06/30/20 at 09:00 Docusate Sodium (Colace) 100 mg BID PO Last administered on 06/30/20at 20:56; Start 06/29/20 at 21:00 Gabapentin (Neurontin) 300 mg TID PO Last administered on 06/30/20at 20:56; Start 06/29/20 at 14:00 Levothyroxine Sodium (Synthroid) 125 mcg DAILY PO Last administered on 06/30/20at 10:28; Start 06/30/20 at 09:00 Quetiapine Fumarate (SEROquel) 150 mg HS PO Last administered on 06/30/20at 20:56; Start 06/29/20 at 21:00 Brimonidine Tartrate (Alphagan) 1 drop BID OU Last administered on 06/30/20at 20:55; Start 06/29/20 at 21:00 Fluticasone Propionate (Flonase) 2 spray DAILY NS Last administered on 06/30/20at 14:56; Start 06/30/20 at 09:00 Budesonide (Pulmicort) 0.5 mg RTBID NEB Last administered on 07/01/20at 07:35; Start 06/29/20 at 20:00 Hydrochlorothiazide (Hydrodiuril) 50 mg DAILY PO Last administered on 06/30/20at 10:30; Start 06/30/20 at 09:00 Lamotrigine (LaMICtal) 150 mg BID PO Last administered on 06/30/20at 20:56; Start 06/29/20 at 21:00 Cetirizine HCl (ZyrTEC) 10 mg DAILY PO Last administered on 06/30/20at 10:30; Start 06/30/20 at 09:00 Multivitamins (Thera M Plus) 1 tab DAILY PO Last administered on 06/30/20at 1 0:29; Start 06/30/20 at 09:00 Pantoprazole Sodium (Protonix) 40 mg DAILYAC PO Last administered on 06/30/20at 10:29; Start 06/30/20 at 07:30 Sertraline HCl (Zoloft) 100 mg DAILY PO Last administered on 06/30/20at 10:29; Start 06/30/20 at 09:00 Linagliptin (Tradjenta) 5 mg DAILY PO Last administered on 06/30/20at 10:28; Start 06/30/20 at 09:00 Albuterol/ Ipratropium (Duoneb) 3 ml RTQID NEB Last administered on 07/01/20at 07:34; Start 06/29/20 at 20:00 Sodium Chloride (Normal Saline Flush) 3 ml QSHIFT PRN IV AFTER MEDS AND BLOOD DRAWS; Start 06/29/20 at 10:00 Ondansetron HCl (Zofran) 4 mg PRN Q4HRS PRN IV NAUSEA/VOMITING; Start 06/29/20 at 10:00 Acetaminophen (Tylenol) 650 mg PRN Q4HRS PRN PO TEMP OVER 100.4F OR MILD PAIN; Start 06/29/20 at 10:00 Acetaminophen (Tylenol Supp) 650 mg PRN Q4HRS PRN [place] TEMP OVER 100.4F OR MILD PAIN; Start 06/29/20 at 10:00 Al Hydroxide/Mg Hydroxide (Mylanta Plus Xs) 30 ml PRN DAILY PRN PO HEARTBURN / GAS; Start 06/29/20 at 10:00 Sodium Monofluorophosphate (Fleet Adult) 133 ml PRN DAILY PRN [place] CONSTIPATION; Start 06/29/20 at 10:00 Docusate Sodium (Colace) 100 mg PRN BID PRN PO HARD STOOLS; Start 06/29/20 at 10:00 Albuterol Sulfate (Ventolin Neb Soln) 2.5 mg PRN Q4HRS PRN NEB SHORTNESS OF BREATH; Start 06/29/20 at 10:00 Guaifenesin (Robitussin) 200 mg PRN Q4HRS PRN PO COUGH; Start 06/29/20 at 10:00 Heparin Sodium (Porcine) (Heparin Sodium) 5,000 unit Q8HRS SQ Last administered on 07/01/20at 05:27; Start 06/29/20 at 14:00 Magnesium Sulfate/ Dextrose 100 ml @ 100 mls/hr 1X ONCE IV ; Start 06/29/20 at 10:15; Stop 06/29/20 at 11:14; Status DC Hydralazine HCl (Apresoline Inj) 10 mg PRN Q4HRS PRN IVP ELEVATED BP, SEE COMMENTS; Start 06/29/20 at 11:00 Iron Sucrose 200 mg/Sodium Chloride 110 ml @ 55 mls/hr 1X ONCE IV Last admini stered on 06/30/20at 17:08; Start 06/30/20 at 14:00; Stop 06/30/20 at 15:59; Status DC Iohexol (Omnipaque 300 Mg/ml) 75 ml 1X ONCE IV Last administered on 06/30/20at 13:15; Start 06/30/20 at 13:15; Stop 06/30/20 at 13:29; Status DC Iohexol (Omnipaque 240 Mg/ml) 50 ml 1X ONCE PO Last administered on 06/30/20at 13:15; Start 06/30/20 at 13:15; Stop 06/30/20 at 13:29; Status DC Levofloxacin/ Dextrose 100 ml @ 100 mls/hr 1X ONCE IV ; Start 07/01/20 at 09:00; Stop 07/01/20 at 09:59 Active Scripts Active Zofran (Ondansetron Hcl) 4 Mg Tablet 4 Mg PO PRN TID PRN nausea/vomiting Keflex (Cephalexin) 500 Mg Capsule 1 Cap PO BID 5 Days Pyridium (Phenazopyridine Hcl) 100 Mg Tablet 1 Tab PO TID 2 Days Keflex (Cephalexin) 500 Mg Capsule 1 Cap PO BID 7 Days Keflex (Cephalexin) 500 Mg Capsule 2 Cap PO Q12HR 3 Days Dicyclomine Hcl 10 Mg Capsule 1 Cap PO TID PRN 5 Days Zofran (Ondansetron Hcl) 4 Mg Tablet 1 Tab PO PRN Q6-8HRS PRN Cipro (Ciprofloxacin Hcl) 250 Mg Tablet 1 Tab PO BID Reported Seroquel (Quetiapine Fumarate) 100 Mg Tablet 150 Mg PO HS Alphagan P (Brimonidine Tartrate) 5 Ml Drops 1 Drop EACHEYE BID Hydrochlorothiazide Tablet (Hydrochlorothiazide) 50 Mg Tablet 1 Tab PO DAILY Lamotrigine 150 Mg Tablet 1 Tab PO BID Docusate Sodium 100 Mg Capsule 100 Mg PO Advair 500-50 Diskus (Fluticasone/Salmeterol) 1 Each Disk.w.dev 1 Puff IH BID Flonase Allergy Relief (Fluticasone Propionate) 9.9 Ml Mccune.susp 2 Sprays NS DAILY Gabapentin (Gabapentin) 300 Mg Capsule 300 Mg PO TID Claritin (Loratadine) 10 Mg Tablet 1 Tab PO DAILY Januvia (Sitagliptin Phosphate) 50 Mg Tablet 1 Tab PO DAILY Synthroid (Levothyroxine Sodium) 125 Mcg Tablet 1 Tab PO DAILY Zoloft (Sertraline Hcl) 100 Mg Tablet 1 Tab PO DAILY Multivitamins (Multivitamin) 1 Each Tablet 1 Tab PO DAILY Spiriva (Tiotropium Delcambre) 18 Mcg Cap.w.dev 2 Inh IH DAILY Omeprazole 40 Mg Capsule.dr 1 Cap PO DAILY Amlodipine Besylate 10 Mg Tablet 10 Mg PO DAILY Vitals/I & O Vital Sign - Last 24 Hours 06/30/20 06/30/20 06/30/20 06/30/20 10:30 11:00 11:13 15:00 Temp 97.7 98.0 97.7 98.0 Pulse 68 75 71 Resp 20 18 B/P (MAP) 183/74 154/74 (100) 183/91 (121) Pulse Ox 100 100 100 O2 Delivery Nasal Cannula Nasal Cannula Nasal Cannula O2 Flow Rate 3.0 2.0 3.0 06/30/20 06/30/20 06/30/20 06/30/20 17:12 17:27 19:00 20:00 Temp 97.2 97.0 97.1 97.2 97.0 97.1 Pulse 73 71 70 Resp 20 20 18 B/P (MAP) 144/60 (88) 132/72 (92) 126/46 (72) Pulse Ox 98 97 100 O2 Delivery Nasal Cannula Nasal Cannula Nasal Cannula Nasal Cannula O2 Flow Rate 2.0 2.0 2.0 2.0 06/30/20 06/30/20 06/30/20 07/01/20 20:41 23:00 23:53 00:29 Temp 98.3 98.3 Pulse 66 Resp 20 B/P (MAP) 109/43 (65) Pulse Ox 96 98 92 95 O2 Delivery Nasal Cannula Nasal Cannula BiPAP/CPAP BiPAP/CPAP O2 Flow Rate 1.0 1.0 07/01/20 07/01/20 07/01/20 07/01/20 03:00 03:16 05:23 07:35 Temp 97.8 97.8 Pulse 68 Resp 18 B/P (MAP) 150/68 (95) Pulse Ox 96 92 99 100 O2 Delivery Nasal Cannula BiPAP/CPAP BiPAP/CPAP Nasal Cannula O2 Flow Rate 1.0 1.0 Intake and Output 06/30/20 06/30/20 07/01/20 15:00 23:00 07:00 Intake Total 120 ml Balance 120 ml Justicifation of Admission Dx: Justifications for Admission: Justification of Admission Dx: N/A SHANNAN WILDER MD Jul 01, 2020 08:42
[2020-07-01] MEDS: BRIMONIDINE 0.2% OPHTH SOLUTION 5ML BOTTLE. OU SCH ×2 (09:33→21:04)
[2020-07-01] MEDS: LINAGLIPTIN 5 MG TABLET PO SCH (09:34)
[2020-07-01] MEDS: FLUTICASONE 50MCG/NASAL SPRAY 16GM BOTTLE. NS SCH (09:34)
[2020-07-01] MEDS: LEVOTHYROXINE 125 MCG TABLET PO SCH (09:34)
[2020-07-01] MEDS: MULTIVITAMIN with MINERAL TABLET. PO SCH (09:34)
[2020-07-01] MEDS: CETIRIZINE HCL 10 MG TABLET. PO SCH (09:34)
[2020-07-01] MEDS: SERTRALINE 50 MG TABLET. PO SCH (09:35)
[2020-07-01] MEDS: PANTOPRAZOLE 40 MG TABLET.DR. PO SCH (09:35)
[2020-07-01] MEDS: GABAPENTIN 300 MG CAPSULE. PO SCH ×3 (09:35→21:04)
[2020-07-01] MEDS: lamoTRIgine 100 MG TABLET. PO SCH ×2 (09:35→21:04)
[2020-07-01] MEDS: hydroCHLOROthiazide 25 MG TABLET PO SCH (09:36)
[2020-07-01] MEDS: DOCUSATE SODIUM 100 MG CAPSULE. PO SCH ×2 (09:36→21:04)
[2020-07-01] MEDS: amLODIPine BESYLATE 10 MG TABLET PO SCH (09:36)
--- NOTE | 2020-07-01 10:40 | PDOC ---
Date of Service: DATE: 07/01/20 TIME: 10:33 Subjective: Subjective: Staff present - ate breakfast by herself but now needing help drinking coffee? Pt denies abd pain, hasn't stooled in a couple days. No n/v. Tells me she doesn't know if she had scopes. Breathing is "like it always is." Objective: Vital Signs: Vital Signs Date Time Temp Pulse Resp B/P (MAP) Pulse Ox O2 Delivery O2 Flow Rate FiO2 07/01/20 09:36 63 176/85 07/01/20 07:35 100 Nasal Cannula 1.0 07/01/20 07:00 96.1 26 96.1 Imaging: CT A/P Impression: 1. Limited study due to patient body habitus. 2. No abnormality seen to involve the small or large bowel to explain the patient's anemia. Redemonstration of a small/moderate hiatal hernia as well as circumferential wall thickening of the distal esophagus. Recommend correlation for a history of reflux. 3. Gallstone filled gallbladder. The gallbladder wall appears mildly thickened but a similar appearance was seen on the 01/03/2020 comparison. Recommend correlation for any right upper quadrant pain. 4. Circumferential wall thickening of the urinary bladder. This may be chronic but urinalysis could be performed to exclude cystitis. 5. Reticulonodular densities at the lower lungs indeterminant for atelectasis or potentially mild infectious or inflammatory infiltrates. 6. Hepatic steatosis. Mild enlargement of the spleen. 7. End-stage left hip arthrosis. Multilevel thoracolumbar spondylosis with the greatest degree of neural foraminal stenosis on the right at L4-L5. Presumed central canal stenosis at the lower lumbar spine but incompletely characterized. PE: GEN: NAD LUNGS: coarse, NC 1L HEART: RRR ABD: quiet BS, soft, non-tender, large NEURO/PSYCH: A & O, forgetful A/P: Resp failure, ?GPC bacteremia Leukopenia, DAYNE (received IV iron) Hiatal hernia, thickening of distal esophagus Cholelithiasis Hepatic steatosis, mild splenomegaly -- Agree w/ PPI. Continue iron in some form. Monitor Hgb. Monitor stooling. Not an ideal endoscopy candidate - ?done in past? - could consider as outpt. Justicifation of Admission Dx: Justifications for Admission: Justification of Admission Dx: N/A LAXMI KAMINSKI Jul 01, 2020 10:40
[2020-07-01 11:00] VITALS: BP 144/76
[2020-07-01] MEDS ORDERED: DAPTOmycin (GENERIC) IVPB 480 MG in IV NORMAL SALINE 50ML 50 ML IV SCH (12:15)
--- NOTE | 2020-07-01 12:24 | PDOC2 ---
CONSULT Date of Consult Date of Consult DATE: 07/01/20 TIME: 12:14 Reason for Consult Reason for Consult: GPC bacteremia Referring Physician Referring Physician: Dr Kinsey Identification/Chief Complaint Chief Complaint 59 year old female who was brought here by EMS to [facility] ED for trouble breathing. She has history of JYOTI and forgot to put her CPAP at night prior to admission. She woke up with trouble breathing. EMS was called. Patient was hypoxic and had wheezing.. Patient remained afebrile. White count was low at 2.7. Creatinine was 1.3...She was given nebulizer treatment She denies fever or chills. She has occasional cough. She denies any chest pain, nausea, vomiting, headache, sore throat, difficulty swallowing, symptoms. Cultures revealed 1 out of 4 bottles for GPC. So ID consultation has been requested for antibiotic management. Past Medical History Cardiovascular: HTN, Hyperlipidemia Pulmonary: Asthma Heme/Onc: Anemia NOS Musculoskeletal: Osteoarthritis Renal/: Chronic renal insuff Family History Family History: Hypertension Social History No ALCOHOL: none Drugs: None Current Problem List Problem List Problems Medical Problems: (1) Acute dyspnea Status: Acute (2) Hypomagnesemia syndrome Status: Acute Current Medications Current Medications Current Medications Magnesium Sulfate 50 ml @ 25 mls/hr 1X ONCE IV Last administered on 06/29/20at 07:40; Start 06/29/20 at 07:30; Stop 06/29/20 at 09:29; Status DC Ondansetron HCl (Zofran) 4 mg PRN Q8HRS PRN IV NAUSEA/VOMITING; Start 06/29/20 at 09:30; Stop 06/29/20 at 16:51; Status DC Albuterol/ Ipratropium (Duoneb) 3 ml PRN Q6HRS PRN NEB SHORTNESS OF AIR Last administered on 06/29/20at 12:45; Start 06/29/20 at 09:30; Stop 06/29/20 at 16:50; Status DC Amlodipine Besylate (Norvasc) 10 mg DAILY PO Last administered on 07/01/20at 09:36; Start 06/30/20 at 09:00 Docusate Sodium (Colace) 100 mg BID PO Last administered on 07/01/20at 09:36; Start 06/29/20 at 21:00 Gabapentin (Neurontin) 300 mg TID PO Last administered on 07/01/20 09:35; Start 06/29/20 at 14:00 Levothyroxine Sodium (Synthroid) 125 mcg DAILY PO Last administered on 07/01/20 09:34; Start 06/30/20 at 09:00 Quetiapine Fumarate (SEROquel) 150 mg HS PO Last administered on 06/30/20 20:56; Start 06/29/20 at 21:00 Brimonidine Tartrate (Alphagan) 1 drop BID OU Last administered on 07/01/20 09:33; Start 06/29/20 at 21:00 Fluticasone Propionate (Flonase) 2 spray DAILY NS Last administered on 07/01/20 09:34; Start 06/30/20 at 09:00 Budesonide (Pulmicort) 0.5 mg RTBID NEB Last administered on 07/01/20 07:35; Start 06/29/20 at 20:00 Hydrochlorothiazide (Hydrodiuril) 50 mg DAILY PO Last administered on 07/01/20 09:36; Start 06/30/20 at 09:00 Lamotrigine (LaMICtal) 150 mg BID PO Last administered on 07/01/20 09:35; Start 06/29/20 at 21:00 Cetirizine HCl (ZyrTEC) 10 mg DAILY PO Last administered on 07/01/20 09:34; Start 06/30/20 at 09:00 Multivitamins (Thera M Plus) 1 tab DAILY PO Last administered on 07/01/20 09 :34; Start 06/30/20 at 09:00 Pantoprazole Sodium (Protonix) 40 mg DAILYAC PO Last administered on 07/01/20 09:35; Start 06/30/20 at 07:30 Sertraline HCl (Zoloft) 100 mg DAILY PO Last administered on 07/01/20 09:35; Start 06/30/20 at 09:00 Linagliptin (Tradjenta) 5 mg DAILY PO Last administered on 07/01/20 09:34; Start 06/30/20 at 09:00 Albuterol/ Ipratropium (Duoneb) 3 ml RTQID NEB Last administered on 4/19/21at 12:11; Start 06/29/20 at 20:00 Sodium Chloride (Normal Saline Flush) 3 ml QSHIFT PRN IV AFTER MEDS AND BLOOD DRAWS; Start 06/29/20 at 10:00 Ondansetron HCl (Zofran) 4 mg PRN Q4HRS PRN IV NAUSEA/VOMITING; Start 06/29/20 at 10:00 Acetaminophen (Tylenol) 650 mg PRN Q4HRS PRN PO TEMP OVER 100.4F OR MILD PAIN; Start 06/29/20 at 10:00 Acetaminophen (Tylenol Supp) 650 mg PRN Q4HRS PRN IN TEMP OVER 100.4F OR MILD PAIN; Start 06/29/20 at 10:00 Al Hydroxide/Mg Hydroxide (Mylanta Plus Xs) 30 ml PRN DAILY PRN PO HEARTBURN / GAS; Start 06/29/20 at 10:00 Sodium Monofluorophosphate (Fleet Adult) 133 ml PRN DAILY PRN IN CONSTIPATION; Start 06/29/20 at 10:00 Docusate Sodium (Colace) 100 mg PRN BID PRN PO HARD STOOLS; Start 06/29/20 at 10:00 Albuterol Sulfate (Ventolin Neb Soln) 2.5 mg PRN Q4HRS PRN NEB SHORTNESS OF BREATH; Start 06/29/20 at 10:00 Guaifenesin (Robitussin) 200 mg PRN Q4HRS PRN PO COUGH; Start 06/29/20 at 10:00 Heparin Sodium (Porcine) (Heparin Sodium) 5,000 unit Q8HRS SQ Last administered on 07/01/20at 05:27; Start 06/29/20 at 14:00 Magnesium Sulfate/ Dextrose 100 ml @ 100 mls/hr 1X ONCE IV ; Start 06/29/20 at 10:15; Stop 06/29/20 at 11:14; Status DC Hydralazine HCl (Apresoline Inj) 10 mg PRN Q4HRS PRN IVP ELEVATED BP, SEE COMMENTS; Start 06/29/20 at 11:00 Iron Sucrose 200 mg/Sodium Chloride 110 ml @ 55 mls/hr 1X ONCE IV Last administered on 06/30/20at 17:08; Start 06/30/20 at 14:00; Stop 06/30/20 at 15:59; Status DC Iohexol (Omnipaque 300 Mg/ml) 75 ml 1X ONCE IV Last administered on 06/30/20at 13:15; Start 06/30/20 at 13:15; Stop 06/30/20 at 13:29; Status DC Iohexol (Omnipaque 240 Mg/ml) 50 ml 1X ONCE PO Last administered on 06/30/20at 13:15; Start 06/30/20 at 13:15; Stop 06/30/20 at 13:29; Status DC Levofloxacin/ Dextrose 100 ml @ 100 mls/hr 1X ONCE IV Last administered on 07/01/20at 10:25; Start 07/01/20 at 09:00; Stop 07/01/20 at 09:59; Status DC Active Scripts Active Zofran (Ondansetron Hcl) 4 Mg Tablet 4 Mg PO PRN TID PRN nausea/vomiting Keflex (Cephalexin) 500 Mg Capsule 1 Cap PO BID 5 Days Pyridium (Phenazopyridine Hcl) 100 Mg Tablet 1 Tab PO TID 2 Days Keflex (Cephalexin) 500 Mg Capsule 1 Cap PO BID 7 Days Keflex (Cephalexin) 500 Mg Capsule 2 Cap PO Q12HR 3 Days Dicyclomine Hcl 10 Mg Capsule 1 Cap PO TID PRN 5 Days Zofran (Ondansetron Hcl) 4 Mg Tablet 1 Tab PO PRN Q6-8HRS PRN Cipro (Ciprofloxacin Hcl) 250 Mg Tablet 1 Tab PO BID Reported Seroquel (Quetiapine Fumarate) 100 Mg Tablet 150 Mg PO HS Alphagan P (Brimonidine Tartrate) 5 Ml Drops 1 Drop EACHEYE BID Hydrochlorothiazide Tablet (Hydrochlorothiazide) 50 Mg Tablet 1 Tab PO DAILY Lamotrigine 150 Mg Tablet 1 Tab PO BID Docusate Sodium 100 Mg Capsule 100 Mg PO Advair 500-50 Diskus (Fluticasone/Salmeterol) 1 Each Disk.w.dev 1 Puff IH BID Flonase Allergy Relief (Fluticasone Propionate) 9.9 Ml [place].susp 2 Sprays NS DAILY Gabapentin (Gabapentin) 300 Mg Capsule 300 Mg PO TID Claritin (Loratadine) 10 Mg Tablet 1 Tab PO DAILY Januvia (Sitagliptin Phosphate) 50 Mg Tablet 1 Tab PO DAILY Synthroid (Levothyroxine Sodium) 125 Mcg Tablet 1 Tab PO DAILY Zoloft (Sertraline Hcl) 100 Mg Tablet 1 Tab PO DAILY Multivitamins (Multivitamin) 1 Each Tablet 1 Tab PO DAILY Spiriva (Tiotropium [place]) 18 Mcg Cap.w.dev 2 Inh IH DAILY Omeprazole 40 Mg Capsule.dr 1 Cap PO DAILY Amlodipine Besylate 10 Mg Tablet 10 Mg PO DAILY Allergies Allergies: Coded Allergies: Penicillins (Verified Allergy, Intermediate, HIVES, 05/15/19) I S O L A T I O N *CONTACT* (Verified Allergy, Unknown, 05/15/19) ESBL Physical Exam Physical Exam General morbidly obese alert oriented x3 female appears weak in no acute distress on O2 HEENT normocephalic atraumatic anicteric Neck supple Lungs wheezing present Heart S1-S2 no murmurs Abdomen morbidly obese bowel sounds present nontender nondistended Extremities no edema no cyanosis Derm warm dry no generalized rash DIRECTOR SPECIALTY alert oriented x3 grossly nonfocal has weakness Peripheral IV looks clean Vitals VITALS Vital Signs Date Time Temp Pulse Resp B/P (MAP) Pulse Ox O2 Delivery O2 Flow Rate FiO2 07/01/20 09:36 63 176/85 07/01/20 07:35 100 Nasal Cannula 1.0 07/01/20 07:00 96.1 26 96.1 Labs Labs Laboratory Tests Test 06/29/20 16:50 06/30/20 03:00 07/01/20 09:15 Troponin I Quantitative 0.018 ng/mL (0.000-0.055) White Blood Count 2.8 x10^3/uL (4.0-11.0) Red Blood Count 3.21 x10^6/uL (3.50-5.40) Hemoglobin 7.7 g/dL (12.0-15.5) Hematocrit 25.1 % (36.0-47.0) Mean Corpuscular Volume 78 fL (79-100) Mean Corpuscular Hemoglobin 24 pg (25-35) Mean Corpuscular Hemoglobin Concent 31 g/dL (31-37) Red Cell Distribution Width 19.1 % (11.5-14.5) Platelet Count 155 x10^3/uL (140-400) Neutrophils (%) (Auto) 73 % (31-73) Lymphocytes (%) (Auto) 14 % (24-48) Monocytes (%) (Auto) 11 % (0-9) Eosinophils (%) (Auto) 2 % (0-3) Basophils (%) (Auto) 0 % (0-3) Neutrophils # (Auto) 2.0 x10^3/uL (1.8-7.7) Lymphocytes # (Auto) 0.4 x10^3/uL (1.0-4.8) Monocytes # (Auto) 0.3 x10^3/uL (0.0-1.1) Eosinophils # (Auto) 0.1 x10^3/uL (0.0-0.7) Basophils # (Auto) 0.0 x10^3/uL (0.0-0.2) Sodium Level 148 mmol/L (136-145) Potassium Level 5.0 mmol/L (3.5-5.1) Chloride Level 108 mmol/L (98-107) Carbon Dioxide Level 33 mmol/L (21-32) Anion Gap 7 (6-14) Blood Urea Nitrogen 14 mg/dL (7-20) Creatinine 1.2 mg/dL (0.6-1.0) Estimated GFR (Cockcroft-Gault) 56.0 BUN/Creatinine Ratio 12 (6-20) Glucose Level 77 mg/dL (70-99) Calcium Level 8.7 mg/dL (8.5-10.1) Iron Level 25 ug/dL (50-170) Total Iron Binding Capacity 282 ug/dL (250-450) Iron Saturation 9 % (15-34) Total Bilirubin 0.2 mg/dL (0.2-1.0) Aspartate Amino Transf (AST/SGOT) 11 U/L (15-37) Alanine Aminotransferase (ALT/SGPT) 15 U/L (14-59) Alkaline Phosphatase 50 U/L (46-116) Total Protein 6.7 g/dL (6.4-8.2) Albumin 2.8 g/dL (3.4-5.0) Albumin/Globulin Ratio 0.7 (1.0-1.7) Lactic Acid Level 0.8 mmol/L (0.4-2.0) Laboratory Tests Test 07/01/20 09:15 Lactic Acid Level 0.8 mmol/L (0.4-2.0) Images Images PATIENT: OMEGA ESQUIVELUNT: [id number] : 1960 LOCATION: ER AGE: 59 SEX: F EXAM STATUS: PRE ER ORD. PHYSICIAN: KARLY PATEL MD REASON: SHORTNESS OF BREATH PROCEDURE: PORTABLE CHEST 1V XR CHEST 1V Clinical History: Reason: SHORTNESS OF BREATH / Spl. Instructions: / History: Technique: AP view of the chest was obtained at 06/29/2020 6:47 AM. Comparison: May 23, 2019. Findings: The heart is moderate to markedly enlarged. The pulmonary vessels are top normal limits in size. The study somewhat underpenetrated secondary large body habitus. The pleural margins are clear. Impression: Cardiomegaly. Stable appearance of the chest. CT A/P Findings: Limited exam on account of patient body habitus. Unchanged small/moderate hiatal hernia. There is again circumferential thickening of the distal esophageal wall. It is difficult to discern if reticulonodular densities at both lung bases are entirely on account of atelectasis or relayed in part to infiltrates. Presumed hepatic steatosis. Limited assessment for any focal parenchymal abnormality. Gallstone filled gallbladder. The gallbladder wall appears to be mildly thickened and there is faint haziness of the pericholecystic fat at the fundal region however similar findings were present previously. No apparent biliary ductal dilatation. No peripancreatic inflammation. Incomplete assessment of the parenchyma. No adrenal gland mass. Upper limits of normal size of the spleen measuring just over 13 cm craniocaudal. Areas of renal cortical scarring bilaterally with kidney morphology unchanged from the prior. No hydronephrosis. Circumferential wall thickening of the urinary bladder. Unchanged uterus. No adnexal mass. No localized colonic wall thickening or pericolonic inflammation. Mild degree of constipation. Normal appendix. Distended stomach with ingested material and gas. No gastric wall emphysema. No definitive mucosal mass. Nonobstructed small bowel. CT abdomen and pelvis Scattered calcific atherosclerosis with particularly dense calcifications at the celiac origin but unchanged. Similar mild enlargement of inguinal lymph nodes. No free fluid or pneumoperitoneum. Scattered body wall edema. No complex body wall hernia. Probable injection-related changes at the ventral lower abdomen. End-stage arthrosis at the left hip. Moderate arthrosis at the right hip. Lumbar levocurvature. Fusion across the right aspect of the L4-L5 disc space. Transitional lumbosacral anatomy with partial lumbarization of S1. The most pronounced osseous neural foraminal stenosis is on the right at L4-L5. Poorly evaluated central canal by both technique and related to patient body habitus. No acute abnormality is apparent. Impression: 1. Limited study due to patient body habitus. 2. No abnormality seen to involve the small or large bowel to explain the patient's anemia. Redemonstration of a small/moderate hiatal hernia as well as circumferential wall thickening of the distal esophagus. Recommend correlation for a history of reflux. 3. Gallstone filled gallbladder. The gallbladder wall appears mildly thickened but a similar appearance was seen on the 01/03/2020 comparison. Recommend correlation for any right upper quadrant pain. 4. Circumferential wall thickening of the urinary bladder. This may be chronic but urinalysis could be performed to exclude cystitis. 5. Reticulonodular densities at the lower lungs indeterminant for atelectasis or potentially mild infectious or inflammatory infiltrates. 6. Hepatic steatosis. Mild enlargement of the spleen. 7. End-stage left hip arthrosis. Multilevel thoracolumbar spondylosis with the greatest degree of neural foraminal stenosis on the right at L4-L5. Presumed central canal stenosis at the lower lumbar spine but incompletely characterized. Assessment/Plan Assessment/Plan Acute hypoxic respiratory failure JYOTI on CPAP at home History of asthma Bacteremia present on admission 1 out of 4 bottles could be a contaminant Leukopenia Anemia Gallstones CR Morbid obesity Bipolar disorder Recommendations Dose Dapto once today Follow-up blood culture results Continue aspiration precaution Continue supportive care Thank you Dr. Key for consulting infectious disease to participate in this patient's care. If you have any questions do not hesitate to contact me. Discussed with nursing staff SISI MITCHELL MD Jul 01, 2020 12:24
[2020-07-01] MEDS ORDERED: DAPTOmycin (GENERIC) IVPB 480 MG in IV NORMAL SALINE 50ML 50 ML IV ONE ×2 (12:30→14:00)
[2020-07-01 12:54] LABS: BASE EXCESS ABG 7 mmol/L (-3-3); HCO3 ABG 33 mmol/L (21-28); PO2 ABG 61 mmHg (75-108); SAT O2 ABG 91 % (92-99)
[2020-07-01 13:04] LABS: PCO2 ABG 62 mmHg (35-46)
[2020-07-01 13:05] LABS: FIO2 ABG Room Air
--- NOTE | 2020-07-01 13:16 | PDOC ---
LUIS ARMANDO MCKEON SENIOR INFORMATICA DEVELOPER 07/01/20 1316: CARDIO Progress Notes Date and Time Date of Service 07/01/20 Time of Evaluation 1315 Subjective Subjective: No Chest Pain, No shortness of breath, No Palpitations Vitals Vitals Vital Signs Date Time Temp Pulse Resp B/P (MAP) Pulse Ox O2 Delivery O2 Flow Rate FiO2 07/01/20 12:11 100 Nasal Cannula 1.0 07/01/20 11:00 97.3 71 24 144/76 (98) 97.3 Weight Weight [ ] Input and Output Intake and Output Intake and Output 07/01/20 06:59 Intake Total 120 ml Balance 120 ml Intake Oral 120 ml # Voids 2 Laboratory Labs Laboratory Tests Test 07/01/20 09:15 07/01/20 13:00 Lactic Acid Level 0.8 mmol/L (0.4-2.0) O2 Saturation 91 % (92-99) Arterial Blood pH 7.35 (7.35-7.45) Arterial Blood pCO2 at Patient Temp 62 mmHg (35-46) Arterial Blood pO2 at Patient Temp 61 mmHg (75-108) Arterial Blood HCO3 33 mmol/L (21-28) Arterial Blood Base Excess 7 mmol/L (-3-3) FiO2 Room air Microbiology Micro Microbiology 06/29/20 Blood Culture - Preliminary, Resulted NO GROWTH AFTER 1 DAY Physical Exam HEENT: Neck Supple W Full Motion Chest: Symmetric LUNGS: Other (diminished bases) Heart: RRR Abdomen: Soft N/T, Other (obese) Extremities: No Edema Neurology: alert, follow commands Assessment Assessment 1. Acute hypoxic respiratory failure secondary to acute asthma exacerbation and untreated obstructive sleep apnea/hypopnea syndrome Symptoms improved after she received nebulizers. Her BNP level is slightly elevated but clinically she does not seem to be in congestive heart failure. Cardiac enzymes are negative. Chest x-ray showed cardiomegaly. We will check 2D echo to assess LV systolic function. 2. Hypertension; controlled 3. Hypothyroidism: On levothyroxine 4. Diabetes mellitus type 2: Treat per IM 5. Morbid obesity, schizoaffective disorder, GERD: Per IM Justicifation of Admission Dx: Justifications for Admission: Justification of Admission Dx: N/A ELMER CASTRO MD 07/02/20 1006: CARDIO Progress Notes Assessment Assessment Patient seen and examined 07/01/2020. Agree with SCHEDULING ADMINISTRATOR's assessment and plan. Acute respiratory failure secondary to acute asthma exacerbation, improved with nebulizers No clinical evidence for congestive heart failure Check 2D echo to further evaluate cardiomegaly noted on chest x-ray LUIS ARMANDO MCKEON APRN Jul 01, 2020 13:16 ELMER CASTRO MD Jul 02, 2020 10:06
--- NOTE | 2020-07-01 14:01 | NUR ---
NANETTE following for discharge planning. Spoke with RN and reviewed chart. SW consulted as pt stating she does not want to go back to her [place] [facility]. Pt from [facility] in . NANETTE coordinated care with pt's medical coordinator Trudy Chu ([phone]) and pt's CM Nicole Wheeler ([phone]). NANETTE faxed records to [facility] ([phone]) to coordinate care. Pt has [place] [employer]. PT recommendation is SNU. Pt on 1l 02. 6 min walk ordered. Spoke with RT. Pt not able to participate in 6 min walk, blood gas ordered. SW reviewed results of blood gas which were not below 55 to qualify for 02. NANETTE met with pt. Pt requesting referral for SNU to [facility] at [place], (phone), (fax). Pt choice of vendor form completed. Referral faxed. ID consulted per positive blood cultures. Pt not ready for discharge. SW following.
[2020-07-01 15:00] VITALS: BP 131/80
[2020-07-01 19:50] VITALS: BP 154/71
[2020-07-01] MEDS: QUEtiapine 100 MG TABLET. PO SCH (21:04)
[2020-07-01] MEDS: LACTOBACILLUS RHAMNOSUS GG 1 CAPSULE. PO SCH (21:04)
[2020-07-01 23:13] VITALS: BP 137/65
[2020-07-02 03:25] VITALS: BP 139/71
[2020-07-02 04:47] LABS: HEMATOCRIT 25.3 % (36.0-47.0); HEMOGLOBIN 7.7 g/dL (12.0-15.5); RED BLOOD COUNT 3.19 x10^6/uL (3.50-5.40); RED CELL DISTRIBUTION WIDTH 19.2 % (11.5-14.5); WHITE BLOOD COUNT 2.9 x10^3/uL (4.0-11.0)
[2020-07-02] MEDS: HEPARIN for SUB-Q USE 5,000 UNIT/ML VIAL. SQ SCH ×3 (05:59→20:54)
[2020-07-02 07:00] VITALS: BP 146/71
[2020-07-02] MEDS: BUDESONIDE 0.5 MG/2 ML NEBU. NEB SCH ×2 (07:33→19:43)
[2020-07-02] MEDS: IPRATRPIUM/ALBUTEROL 0.5/2.5MG 3 ML NEBU. NEB SCH ×4 (07:33→19:43)
--- NOTE | 2020-07-02 08:26 | PDOC ---
PROGRESS NOTES Date of Service: DATE: 07/02/20 TIME: 08:25 Chief Complaint Chief Complaint impression Cardiomegaly. SEVERE Morbid obesity Acute hypoxic resp failure SEVERE HYPERCAPNIC RESP FAILURE JYOTI with noncompliance with CPAP Microcytic anemia, SUSPECT FE deficiency hypertension hx Schizoaffective disorder Diabetes Hypomagnesemia syndrome CKD STAGE 3 GERD reactive airway disease Bacteremia present on admission 1 out of 4 bottles could be a contaminant Leukopenia Plan: ADMIT CONSULT PULMONARY consult cardiology, abnormal cxr o2 support trend troponin i cvc bed dvt prophylaxis, SQ HEPARIN Home meds IV MG 1 GM x 1 FE PANEL CPAP HS Guiac stools t4 GI CONSULT Should consider schroeder-endoscopy pending improvement. retic HEMATOLOGY CONSULT BLOOD CULTURE Final GRAM POSITIVE COCCI IN CLUSTERS, SUGGESTIVE OF STAPH, IN 1 OF 4 BOTTLES, TWO SETS DRAWN. 38 MIN PT EXAM, CHART REVIEW, > 50% OF TIME SPENT WITH EXAM, CHART REVIEW, PT CARE COORDINATION History of Present Illness History of Present Illness seen in er with acute hypoxia, wheezing 59 year old female who was brought here by EMS from home due to trouble breathing. // history of sleep apnea, she somehow forgot to put her CPAP on last night. She woke up with trouble breathing, EMS were called. EMS report that prior arrival to the home patient was found to be breathing labored sleeping with oxygen saturation 90% on room air. had audible wheezing at the time, patient was given a DuoNeb treatment by EMS, patient feel much better, her oxygen saturation improved to 100%. Patient denies any cough or fever. Gallstone filled gallbladder. The gallbladder wall appears mildly thickened 07/02 small/moderate hiatal hernia as well as circumferential wall thickening of the distal esophagus. correlation for a history of reflux. Patient seen and evaluated. Afebrile, currently breathing on 2 L nasal cannula. Chest x-ray reviewed and essentially clear. Still complains of shortness of breath, worse with exertion. She is supposed to be wearing CPAP at night, and when asked why she is not wearing it she states that "they do not put it on me". 6-minute walk to assess for home oxygen requirement on d/c gi consulted Should consider schroeder-endoscopy pending improvement. repeat blood cult, ID CONSULT, IV DAPTOMYCIN START 4-19 chk procalcitonin BLOOD CULTURE Final GRAM POSITIVE COCCI IN CLUSTERS, SUGGESTIVE OF STAPH, IN 1 OF 4 BOTTLES, TWO SETS DRAWN. BLOOD CULTURE Final GRAM POSITIVE COCCI IN CLUSTERS, SUGGESTIVE OF STAPH, IN 1 OF 4 BOTTLES, TWO SETS DRAWN. 38 MIN PT EXAM, CHART REVIEW, > 50% OF TIME SPENT WITH EXAM, CHART REVIEW, PT CARE COORDINATION Gallstone filled gallbladder. The gallbladder wall appears mildly thickened 07/01/2020 small/moderate hiatal hernia as well as circumferential wall thickening of the distal esophagus. correlation for a history of reflux. Patient seen and evaluated. Afebrile, currently breathing on 2 L nasal cannula. Chest x-ray reviewed and essentially clear. Still complains of shortness of breath, worse with exertion. She is supposed to be wearing CPAP at night, and when asked why she is not wearing it she states that "they do not put it on me". 6-minute walk to assess for home oxygen requirement on d/c gi consulted Should consider schroeder-endoscopy pending improvement. repeat blood cult, ID CONSULT, IV DAPTOMYCIN START 07-01 BLOOD CULTURE Final GRAM POSITIVE COCCI IN CLUSTERS, SUGGESTIVE OF STAPH, IN 1 OF 4 BOTTLES, TWO SETS DRAWN. BLOOD CULTURE Final GRAM POSITIVE COCCI IN CLUSTERS, SUGGESTIVE OF STAPH, IN 1 OF 4 BOTTLES, TWO SETS DRAWN. 38 MIN PT EXAM, CHART REVIEW, > 50% OF TIME SPENT WITH EXAM, CHART REVIEW, PT CARE COORDINATION 06/30/2020 Patient seen and evaluated. Afebrile, currently breathing on 2 L nasal cannula. Chest x-ray reviewed and essentially clear. Still complains of shortness of breath, worse with exertion. She is supposed to be wearing CPAP at night, and when asked why she is not wearing it she states that "they do not put it on me". I will order a 6-minute walk to assess for home oxygen requirement and plan for discharge tomorrow. Vitals Vitals Vital Signs Date Time Temp Pulse Resp B/P (MAP) Pulse Ox O2 Delivery O2 Flow Rate FiO2 07/02/20 07:36 93 Room Air 07/02/20 03:25 69 18 139/71 (93) 07/01/20 20:00 1.0 07/01/20 19:50 98.8 98.8 Physical Exam Physical Exam General: Alert, Oriented X3, Cooperative, No acute distress Heart: Regular rate Lungs: Clear Abdomen: Normal bowel sounds, Soft, No tenderness, Other (VERY OBESE) Extremities: No cyanosis Skin: No breakdown General: Alert, Oriented X3, Cooperative, No acute distress, Other (Somnolent but comfortable) Heart: Regular rate, No murmurs Lungs: Clear Abdomen: Normal bowel sounds, Soft Extremities: No edema Skin: No breakdown Labs LABS SPEC #: [id number] MARY: 06/29/20 STATUS: RES REQ #: [id number] RECD: 06/29/[address]: SHANNAN WILDER MD SOURCE: BLOOD ENTR: 06/29/[address]: THOMAS AGUILERA MD SPDESC: BONITA ROA MD, VENKAT R MD PHAN, PETER T DO ORDERED: BCULT Procedure Result BLOOD CULTURE Preliminary NO GROWTH AFTER 2 DAYS Procedure Result BLOOD CULTURE LC Final Final GRAM POSITIVE COCCI FINAL ID= [STAPHYLOCOCCUS EPIDERMIDIS] Growth of organism in only one of multiple sets; isolation does not necessarily indicate infection. Contact Microbiology Lab if further testing is clinically warranted. STAPHYLOCOCCUS EPIDERMIDIS Unless otherwise specified, Testing Performed by: [address] [address] For Inquires, the Physician may contact the Microbiology department at [phone] Laboratory Tests Test 07/01/20 09:15 07/01/20 13:00 07/02/20 04:00 Lactic Acid Level 0.8 mmol/L (0.4-2.0) O2 Saturation 91 % (92-99) Arterial Blood pH 7.35 (7.35-7.45) Arterial Blood pCO2 at Patient Temp 62 mmHg (35-46) Arterial Blood pO2 at Patient Temp 61 mmHg (75-108) Arterial Blood HCO3 33 mmol/L (21-28) Arterial Blood Base Excess 7 mmol/L (-3-3) FiO2 Room air White Blood Count 2.9 x10^3/uL (4.0-11.0) Red Blood Count 3.19 x10^6/uL (3.50-5.40) Hemoglobin 7.7 g/dL (12.0-15.5) Hematocrit 25.3 % (36.0-47.0) Mean Corpuscular Volume 79 fL (79-100) Mean Corpuscular Hemoglobin 24 pg (25-35) Mean Corpuscular Hemoglobin Concent 30 g/dL (31-37) Red Cell Distribution Width 19.2 % (11.5-14.5) Platelet Count 148 x10^3/uL (140-400) Assessment and Plan Assessmemt and Plan Problems Medical Problems: (1) Acute dyspnea Status: Acute (2) Hypomagnesemia syndrome Status: Acute Comment Review of Relevant I have reviewed the following items joseluis (where applicable) has been applied. Labs Laboratory Tests Test 07/01/20 09:15 07/01/20 13:00 07/02/20 04:00 Lactic Acid Level 0.8 mmol/L (0.4-2.0) O2 Saturation 91 % (92-99) Arterial Blood pH 7.35 (7.35-7.45) Arterial Blood pCO2 at Patient Temp 62 mmHg (35-46) Arterial Blood pO2 at Patient Temp 61 mmHg (75-108) Arterial Blood HCO3 33 mmol/L (21-28) Arterial Blood Base Excess 7 mmol/L (-3-3) FiO2 Room air White Blood Count 2.9 x10^3/uL (4.0-11.0) Red Blood Count 3.19 x10^6/uL (3.50-5.40) Hemoglobin 7.7 g/dL (12.0-15.5) Hematocrit 25.3 % (36.0-47.0) Mean Corpuscular Volume 79 fL (79-100) Mean Corpuscular Hemoglobin 24 pg (25-35) Mean Corpuscular Hemoglobin Concent 30 g/dL (31-37) Red Cell Distribution Width 19.2 % (11.5-14.5) Platelet Count 148 x10^3/uL (140-400) Laboratory Tests Test 07/01/20 09:15 07/01/20 13:00 07/02/20 04:00 Lactic Acid Level 0.8 mmol/L (0.4-2.0) O2 Saturation 91 % (92-99) Arterial Blood pH 7.35 (7.35-7.45) Arterial Blood pCO2 at Patient Temp 62 mmHg (35-46) Arterial Blood pO2 at Patient Temp 61 mmHg (75-108) Arterial Blood HCO3 33 mmol/L (21-28) Arterial Blood Base Excess 7 mmol/L (-3-3) FiO2 Room air White Blood Count 2.9 x10^3/uL (4.0-11.0) Red Blood Count 3.19 x10^6/uL (3.50-5.40) Hemoglobin 7.7 g/dL (12.0-15.5) Hematocrit 25.3 % (36.0-47.0) Mean Corpuscular Volume 79 fL (79-100) Mean Corpuscular Hemoglobin 24 pg (25-35) Mean Corpuscular Hemoglobin Concent 30 g/dL (31-37) Red Cell Distribution Width 19.2 % (11.5-14.5) Platelet Count 148 x10^3/uL (140-400) Microbiology 06/29/20 Blood Culture - Preliminary, Resulted NO GROWTH AFTER 2 DAYS Medications Current Medications Magnesium Sulfate 50 ml @ 25 mls/hr 1X ONCE IV Last administered on 06/29/20at 07:40; Start 06/29/20 at 07:30; Stop 06/29/20 at 09:29; Status DC Ondansetron HCl (Zofran) 4 mg PRN Q8HRS PRN IV NAUSEA/VOMITING; Start 06/29/20 at 09:30; Stop 06/29/20 at 16:51; Status DC Albuterol/ Ipratropium (Duoneb) 3 ml PRN Q6HRS PRN NEB SHORTNESS OF AIR Last administered on 06/29/20at 12:45; Start 06/29/20 at 09:30; Stop 06/29/20 at 16:50; Status DC Amlodipine Besylate (Norvasc) 10 mg DAILY PO Last administered on 07/01/20at 09:36; Start 06/30/20 at 09:00 Docusate Sodium (Colace) 100 mg BID PO Last administered on 07/01/20at 21:04; Start 06/29/20 at 21:00 Gabapentin (Neurontin) 300 mg TID PO Last administered on 07/01/20at 21:04; Start 06/29/20 at 14:00 Levothyroxine Sodium (Synthroid) 125 mcg DAILY PO Last administered on 1at 09:34; Start 06/30/20 at 09:00 Quetiapine Fumarate (SEROquel) 150 mg HS PO Last administered on 07/01/20 21:04; Start 06/29/20 at 21:00 Brimonidine Tartrate (Alphagan) 1 drop BID OU Last administered on 07/01/20 21:04; Start 06/29/20 at 21:00 Fluticasone Propionate (Flonase) 2 spray DAILY NS Last administered on 07/01/20 09:34; Start 06/30/20 at 09:00 Budesonide (Pulmicort) 0.5 mg RTBID NEB Last administered on 07/02/20 07:33; Start 06/29/20 at 20:00 Hydrochlorothiazide (Hydrodiuril) 50 mg DAILY PO Last administered on 07/01/20 09:36; Start 06/30/20 at 09:00 Lamotrigine (LaMICtal) 150 mg BID PO Last administered on 07/01/20 21:04; Start 06/29/20 at 21:00 Cetirizine HCl (ZyrTEC) 10 mg DAILY PO Last administered on 07/01/20 09:34; Start 06/30/20 at 09:00 Multivitamins (Thera M Plus) 1 tab DAILY PO Last administered on 07/01/20 09:34; Start 06/30/20 at 09:00 Pantoprazole Sodium (Protonix) 40 mg DAILYAC PO Last administered on 07/01/20 09:35; Start 06/30/20 at 07:30 Sertraline HCl (Zoloft) 100 mg DAILY PO Last administered on 07/01/20 09:35; Start 06/30/20 at 09:00 Linagliptin (Tradjenta) 5 mg DAILY PO Last administered on 07/01/20 09:34; Start 06/30/20 at 09:00 Albuterol/ Ipratropium (Duoneb) 3 ml RTQID NEB Last administered on 07/02/20at 07:33; Start 06/29/20 at 20:00 Sodium Chloride (Normal Saline Flush) 3 ml QSHIFT PRN IV AFTER MEDS AND BLOOD DRAWS; Start 06/29/20 at 10:00 Ondansetron HCl (Zofran) 4 mg PRN Q4HRS PRN IV NAUSEA/VOMITING; Start 06/29/20 at 10:00 Acetaminophen (Tylenol) 650 mg PRN Q4HRS PRN PO TEMP OVER 100.4F OR MILD PAIN; Start 06/29/20 at 10:00 Acetaminophen (Tylenol Supp) 650 mg PRN Q4HRS PRN VT TEMP OVER 100.4F OR MILD PAIN; Start 06/29/20 at 10:00 Al Hydroxide/Mg Hydroxide (Mylanta Plus Xs) 30 ml PRN DAILY PRN PO HEARTBURN / GAS; Start 06/29/20 at 10:00 Sodium Monofluorophosphate (Fleet Adult) 133 ml PRN DAILY PRN VT CONSTIPATION; Start 06/29/20 at 10:00 Docusate Sodium (Colace) 100 mg PRN BID PRN PO HARD STOOLS; Start 06/29/20 at 10:00 Albuterol Sulfate (Ventolin Neb Soln) 2.5 mg PRN Q4HRS PRN NEB SHORTNESS OF BREATH; Start 06/29/20 at 10:00 Guaifenesin (Robitussin) 200 mg PRN Q4HRS PRN PO COUGH; Start 06/29/20 at 10:00 Heparin Sodium (Porcine) (Heparin Sodium) 5,000 unit Q8HRS SQ Last administered on 07/02/20at 05:59; Start 06/29/20 at 14:00 Magnesium Sulfate/ Dextrose 100 ml @ 100 mls/hr 1X ONCE IV ; Start 06/29/20 at 10:15; Stop 06/29/20 at 11:14; Status DC Hydralazine HCl (Apresoline Inj) 10 mg PRN Q4HRS PRN IVP ELEVATED BP, SEE COMMENTS; Start 06/29/20 at 11:00 Iron Sucrose 200 mg/Sodium Chloride 110 ml @ 55 mls/hr 1X ONCE IV Last administered on 06/30/20at 17:08; Start 06/30/20 at 14:00; Stop 06/30/20 at 15:59; Status DC Iohexol (Omnipaque 300 Mg/ml) 75 ml 1X ONCE IV Last administered on 06/30/20at 13:15; Start 06/30/20 at 13:15; Stop 06/30/20 at 13:29; Status DC Iohexol (Omnipaque 240 Mg/ml) 50 ml 1X ONCE PO Last administered on 06/30/20at 13:15; Start 06/30/20 at 13:15; Stop 06/30/20 at 13:29; Status DC Levofloxacin/ Dextrose 100 ml @ 100 mls/hr 1X ONCE IV Last administered on 07/01/20at 10:25; Start 07/01/20 at 09:00; Stop 07/01/20 at 09:59; Status DC Daptomycin 480 mg/ Sodium Chloride 50 ml @ 100 mls/hr ONCE IV ; Start 07/01/20 at 12:15; Stop 07/01/20 at 12:25; Status DC Daptomycin 480 mg/ Sodium Chloride 50 ml @ 100 mls/hr ONCE ONCE IV ; Start 07/01/20 at 12:30; Stop 07/01/20 at 12:59; Status Cancel Daptomycin 480 mg/ Sodium Chloride 50 ml @ 100 mls/hr ONCE ONCE IV Last administered on 07/01/20at 14:58; Start 07/01/20 at 14:00; Stop 07/01/20 at 14:29; Status DC Lactobacillus Rhamnosus (Culturelle) 1 cap BID PO Last administered on 07/01/20at 21:04; Start 07/01/20 at 21:00 Active Scripts Active Zofran (Ondansetron Hcl) 4 Mg Tablet 4 Mg PO PRN TID PRN nausea/vomiting Keflex (Cephalexin) 500 Mg Capsule 1 Cap PO BID 5 Days Pyridium (Phenazopyridine Hcl) 100 Mg Tablet 1 Tab PO TID 2 Days Keflex (Cephalexin) 500 Mg Capsule 1 Cap PO BID 7 Days Keflex (Cephalexin) 500 Mg Capsule 2 Cap PO Q12HR 3 Days Dicyclomine Hcl 10 Mg Capsule 1 Cap PO TID PRN 5 Days Zofran (Ondansetron Hcl) 4 Mg Tablet 1 Tab PO PRN Q6-8HRS PRN Cipro (Ciprofloxacin Hcl) 250 Mg Tablet 1 Tab PO BID Reported Seroquel (Quetiapine Fumarate) 100 Mg Tablet 150 Mg PO HS Alphagan P (Brimonidine Tartrate) 5 Ml Drops 1 Drop EACHEYE BID Hydrochlorothiazide Tablet (Hydrochlorothiazide) 50 Mg Tablet 1 Tab PO DAILY Lamotrigine 150 Mg Tablet 1 Tab PO BID Docusate Sodium 100 Mg Capsule 100 Mg PO Advair 500-50 Diskus (Fluticasone/Salmeterol) 1 Each Disk.w.dev 1 Puff IH BID Flonase Allergy Relief (Fluticasone Propionate) 9.9 Ml [place].susp 2 Sprays NS DAILY Gabapentin (Gabapentin) 300 Mg Capsule 300 Mg PO TID Claritin (Loratadine) 10 Mg Tablet 1 Tab PO DAILY Januvia (Sitagliptin Phosphate) 50 Mg Tablet 1 Tab PO DAILY Synthroid (Levothyroxine Sodium) 125 Mcg Tablet 1 Tab PO DAILY Zoloft (Sertraline Hcl) 100 Mg Tablet 1 Tab PO DAILY Multivitamins (Multivitamin) 1 Each Tablet 1 Tab PO DAILY Spiriva (Tiotropium [place]) 18 Mcg Cap.w.dev 2 Inh IH DAILY Omeprazole 40 Mg Capsule.dr 1 Cap PO DAILY Amlodipine Besylate 10 Mg Tablet 10 Mg PO DAILY Vitals/I & O Vital Sign - Last 24 Hours 07/01/20 07/01/20 07/01/20 07/01/20 09:36 11:00 12:11 15:00 Temp 97.3 97.8 97.3 97.8 Pulse 63 71 75 Resp 24 24 B/P (MAP) 176/85 144/76 (98) 131/80 (97) Pulse Ox 100 100 92 O2 Delivery Nasal Cannula Nasal Cannula Nasal Cannula O2 Flow Rate 1.0 1.0 1.0 07/01/20 07/01/20 07/01/20 07/01/20 15:53 19:50 19:52 20:00 Temp 98.8 98.8 Pulse 90 Resp 16 B/P (MAP) 154/71 (98) Pulse Ox 91 93 92 O2 Delivery Room Air Room Air Room Air Nasal Cannula O2 Flow Rate 1.0 07/01/20 07/01/20 07/02/20 07/02/20 22:57 23:13 01:22 03:00 Pulse 76 Resp 20 B/P (MAP) 137/65 (89) Pulse Ox 100 98 95 100 O2 Delivery BiPAP/CPAP BiPAP/CPAP BiPAP/CPAP BiPAP/CPAP 07/02/20 07/02/20 07/02/20 07/02/20 03:25 05:00 07:33 07:36 Pulse 69 Resp 18 B/P (MAP) 139/71 (93) Pulse Ox 100 100 93 93 O2 Delivery BiPAP/CPAP BiPAP/CPAP Room Air Room Air Intake and Output 07/01/20 07/01/20 07/02/20 15:00 23:00 07:00 Intake Total 100 ml 0 ml Output Total 1210 ml 700 ml 1200 ml Balance -1210 ml -600 ml -1200 ml Justicifation of Admission Dx: Justifications for Admission: Justification of Admission Dx: N/A SHANNAN WILDER MD Jul 02, 2020 08:26
--- NOTE | 2020-07-02 08:47 | PDOC ---
Infectious Disease Note Subjective: Subjective Patient feels better Shortness of breath and cough are improved Currently on room air Denies fever, nausea, vomiting, diarrhea Per team still has weakness Vital Signs: Vital Signs Vital Signs Date Time Temp Pulse Resp B/P (MAP) Pulse Ox O2 Delivery O2 Flow Rate FiO2 07/02/20 07:36 93 Room Air 07/02/20 03:25 69 18 139/71 (93) 07/01/20 20:00 1.0 07/01/20 19:50 98.8 98.8 Physical Exam: PHYSICAL EXAM General: Alert, Oriented X3, Cooperative, No acute distress Heart: Regular rate Lungs: Clear Abdomen: Normal bowel sounds, Soft, No tenderness, Other (VERY OBESE) Extremities: No cyanosis Skin: No breakdown Medications: Inpatient Meds: Medications reviewed. Labs: Lab Laboratory Tests Test 07/01/20 09:15 07/01/20 13:00 07/02/20 04:00 Lactic Acid Level 0.8 mmol/L (0.4-2.0) O2 Saturation 91 % (92-99) Arterial Blood pH 7.35 (7.35-7.45) Arterial Blood pCO2 at Patient Temp 62 mmHg (35-46) Arterial Blood pO2 at Patient Temp 61 mmHg (75-108) Arterial Blood HCO3 33 mmol/L (21-28) Arterial Blood Base Excess 7 mmol/L (-3-3) FiO2 Room air White Blood Count 2.9 x10^3/uL (4.0-11.0) Red Blood Count 3.19 x10^6/uL (3.50-5.40) Hemoglobin 7.7 g/dL (12.0-15.5) Hematocrit 25.3 % (36.0-47.0) Mean Corpuscular Volume 79 fL (79-100) Mean Corpuscular Hemoglobin 24 pg (25-35) Mean Corpuscular Hemoglobin Concent 30 g/dL (31-37) Red Cell Distribution Width 19.2 % (11.5-14.5) Platelet Count 148 x10^3/uL (140-400) Objective: Assessment: Acute hypoxic respiratory failure JYOTI on CPAP at home History of asthma Bacteremia present on admission 1 out of 4 bottles could be a contaminant, ID still pending Leukopenia Anemia Gallstones CR Morbid obesity Bipolar disorder Generalized weakness Plan: Plan of Care Dose Dapto once today pending blood culture results Follow-up blood culture results Continue aspiration precaution Continue supportive care Discussed with SISI AU MD Jul 02, 2020 08:47
--- NOTE | 2020-07-02 08:52 | PDOC ---
CARDIO Progress Notes Date and Time Date of Service 07/02/20 Time of Evaluation 1300 Subjective Subjective: No Chest Pain, No Palpitations, Other (wheezy this am- improved with breathing treatment ) Vitals Vitals Vital Signs Date Time Temp Pulse Resp B/P (MAP) Pulse Ox O2 Delivery O2 Flow Rate FiO2 07/02/20 07:36 93 Room Air 07/02/20 03:25 69 18 139/71 (93) 07/01/20 20:00 1.0 07/01/20 19:50 98.8 98.8 Weight Weight [ ] Input and Output Intake and Output Intake and Output 07/02/20 07:00 Intake Total 100 ml Output Total 3110 ml Balance -3010 ml Intake Oral 100 ml Output Urine Total 3110 ml # Voids 2 Laboratory Labs Laboratory Tests Test 07/01/20 09:15 07/01/20 13:00 07/02/20 04:00 Lactic Acid Level 0.8 mmol/L (0.4-2.0) O2 Saturation 91 % (92-99) Arterial Blood pH 7.35 (7.35-7.45) Arterial Blood pCO2 at Patient Temp 62 mmHg (35-46) Arterial Blood pO2 at Patient Temp 61 mmHg (75-108) Arterial Blood HCO3 33 mmol/L (21-28) Arterial Blood Base Excess 7 mmol/L (-3-3) FiO2 Room air White Blood Count 2.9 x10^3/uL (4.0-11.0) Red Blood Count 3.19 x10^6/uL (3.50-5.40) Hemoglobin 7.7 g/dL (12.0-15.5) Hematocrit 25.3 % (36.0-47.0) Mean Corpuscular Volume 79 fL (79-100) Mean Corpuscular Hemoglobin 24 pg (25-35) Mean Corpuscular Hemoglobin Concent 30 g/dL (31-37) Red Cell Distribution Width 19.2 % (11.5-14.5) Platelet Count 148 x10^3/uL (140-400) Microbiology Micro Microbiology 06/29/20 Blood Culture - Preliminary, Resulted NO GROWTH AFTER 2 DAYS Physical Exam HEENT: Neck Supple W Full Motion Chest: Symmetric LUNGS: Other (diminished bases) Heart: RRR Abdomen: Soft N/T, Other (obese) Extremities: No Edema Neurology: alert, oriented, follow commands Assessment Assessment 1. Acute hypoxic respiratory failure secondary with acute asthma exacerbation and untreated JYOTI/hypopnea syndrome. Symptoms improve with nebulizers. NT Pro BNP mildly elevated, but CXR without vascular congestion. Echo pending. 2. Hypertension; controlled 3. Hypothyroidism; on levothyroxine 4. Diabetes, II 5. Schizoaffective disorder; as per IM 6. Morbid obesity, 7. Leukopenia Justicifation of Admission Dx: Justifications for Admission: Justification of Admission Dx: N/A LUIS ARMANDO MCKEON APRN Jul 02, 2020 08:52
[2020-07-02] MEDS: FLUTICASONE 50MCG/NASAL SPRAY 16GM BOTTLE. NS SCH (09:05)
[2020-07-02] MEDS: PANTOPRAZOLE 40 MG TABLET.DR. PO SCH (09:06)
[2020-07-02] MEDS: hydroCHLOROthiazide 25 MG TABLET PO SCH (09:06)
[2020-07-02] MEDS: LINAGLIPTIN 5 MG TABLET PO SCH (09:06)
[2020-07-02] MEDS: SERTRALINE 50 MG TABLET. PO SCH (09:06)
[2020-07-02] MEDS: LACTOBACILLUS RHAMNOSUS GG 1 CAPSULE. PO SCH ×2 (09:06→20:52)
[2020-07-02] MEDS: BRIMONIDINE 0.2% OPHTH SOLUTION 5ML BOTTLE. OU SCH ×2 (09:06→20:53)
[2020-07-02] MEDS: DOCUSATE SODIUM 100 MG CAPSULE. PO SCH ×2 (09:07→20:52)
[2020-07-02] MEDS: CETIRIZINE HCL 10 MG TABLET. PO SCH (09:07)
[2020-07-02] MEDS: GABAPENTIN 300 MG CAPSULE. PO SCH ×3 (09:07→20:52)
[2020-07-02] MEDS: amLODIPine BESYLATE 10 MG TABLET PO SCH (09:07)
--- NOTE | 2020-07-02 09:21 | PDOC ---
PULMONARY PROGRESS NOTES DATE: 07/02/20 TIME: 09:21 Subjective PT. feeling better today no increased SOA or cough remains on 3 liters Vitals Vital Signs Date Time Temp Pulse Resp B/P (MAP) Pulse Ox O2 Delivery O2 Flow Rate FiO2 07/02/20 09:07 69 139/71 07/02/20 07:36 93 Room Air 07/02/20 03:25 18 07/01/20 20:00 1.0 07/01/20 19:50 98.8 98.8 ROS: No Nausea, No Chest Pain, No Abdominal Pain, No Increase Cough General: Alert, Oriented X4 Lungs: Clear Cardiovascular: S1, S2 Abdomen: Soft, Other (Obese) Neuro Exam: Alert Extremities: No Edema Skin: Warm Labs Laboratory Tests Test 07/01/20 09:15 07/01/20 13:00 07/02/20 04:00 Lactic Acid Level 0.8 mmol/L (0.4-2.0) O2 Saturation 91 % (92-99) Arterial Blood pH 7.35 (7.35-7.45) Arterial Blood pCO2 at Patient Temp 62 mmHg (35-46) Arterial Blood pO2 at Patient Temp 61 mmHg (75-108) Arterial Blood HCO3 33 mmol/L (21-28) Arterial Blood Base Excess 7 mmol/L (-3-3) FiO2 Room air White Blood Count 2.9 x10^3/uL (4.0-11.0) Red Blood Count 3.19 x10^6/uL (3.50-5.40) Hemoglobin 7.7 g/dL (12.0-15.5) Hematocrit 25.3 % (36.0-47.0) Mean Corpuscular Volume 79 fL (79-100) Mean Corpuscular Hemoglobin 24 pg (25-35) Mean Corpuscular Hemoglobin Concent 30 g/dL (31-37) Red Cell Distribution Width 19.2 % (11.5-14.5) Platelet Count 148 x10^3/uL (140-400) Laboratory Tests Test 07/01/20 13:00 07/02/20 04:00 O2 Saturation 91 % (92-99) Arterial Blood pH 7.35 (7.35-7.45) Arterial Blood pCO2 at Patient Temp 62 mmHg (35-46) Arterial Blood pO2 at Patient Temp 61 mmHg (75-108) Arterial Blood HCO3 33 mmol/L (21-28) Arterial Blood Base Excess 7 mmol/L (-3-3) FiO2 Room air White Blood Count 2.9 x10^3/uL (4.0-11.0) Red Blood Count 3.19 x10^6/uL (3.50-5.40) Hemoglobin 7.7 g/dL (12.0-15.5) Hematocrit 25.3 % (36.0-47.0) Mean Corpuscular Volume 79 fL (79-100) Mean Corpuscular Hemoglobin 24 pg (25-35) Mean Corpuscular Hemoglobin Concent 30 g/dL (31-37) Red Cell Distribution Width 19.2 % (11.5-14.5) Platelet Count 148 x10^3/uL (140-400) Medications Active Scripts Medications Dose Route/Sig Max Daily Dose Days Date Category Dose Instructions Zofran (Ondansetron Hcl) 4 Mg Tablet 4 Mg PO PRN TID PRN 01/03/20 Rx nausea/vomiting Keflex (Cephalexin) 500 Mg Capsule 1 Cap PO BID 5 01/03/20 Rx Pyridium (Phenazopyridine Hcl) 100 Mg Tablet 1 Tab PO TID 2 09/30/19 Rx Keflex (Cephalexin) 500 Mg Capsule 1 Cap PO BID 7 09/30/19 Rx Keflex (Cephalexin) 500 Mg Capsule 2 Cap PO Q12HR 3 05/09/19 Rx Dicyclomine Hcl 10 Mg Capsule 1 Cap PO TID PRN 5 05/09/19 Rx Zofran (Ondansetron Hcl) 4 Mg Tablet 1 Tab PO PRN Q6-8HRS PRN 05/09/19 Rx Cipro (Ciprofloxacin Hcl) 250 Mg Tablet 1 Tab PO BID 12/19/18 Rx Seroquel (Quetiapine Fumarate) 100 Mg Tablet 150 Mg PO HS 12/31/16 Reported Alphagan P (Brimonidine Tartrate) 5 Ml Drops 1 Drop EACHEYE BID 12/31/16 Reported Hydrochlorothiazide Tablet (Hydrochlorothiazide) 50 Mg Tablet 1 Tab PO DAILY 12/31/16 Reported Lamotrigine 150 Mg Tablet 1 Tab PO BID 12/31/16 Reported Docusate Sodium 100 Mg Capsule 100 Mg PO 12/31/16 Reported Advair 500-50 Diskus (Fluticasone/Salmeterol) 1 Each Disk.w.dev 1 Puff IH BID 12/31/16 Reported Flonase Allergy Relief (Fluticasone Propionate) 9.9 Ml [place].susp 2 Sprays NS DAILY 12/31/16 Reported Gabapentin (Gabapentin) 300 Mg Capsule 300 Mg PO TID 12/31/16 Reported Claritin (Loratadine) 10 Mg Tablet 1 Tab PO DAILY 12/31/16 Reported Januvia (Sitagliptin Phosphate) 50 Mg Tablet 1 Tab PO DAILY 12/31/16 Reported Synthroid (Levothyroxine Sodium) 125 Mcg Tablet 1 Tab PO DAILY 12/31/16 Reported Zoloft (Sertraline Hcl) 100 Mg Tablet 1 Tab PO DAILY 12/31/16 Reported Multivitamins (Multivitamin) 1 Each Tablet 1 Tab PO DAILY 12/31/16 Reported Spiriva (Tiotropium [place]) 18 Mcg Cap.w.dev 2 Inh IH DAILY 12/31/16 Reported Omeprazole 40 Mg Capsule.dr 1 Cap PO DAILY 12/31/16 Reported Amlodipine Besylate 10 Mg Tablet 10 Mg PO DAILY 12/31/16 Reported Impression . IMPRESSION: 1. Acute respiratory failure secondary to acute exacerbation of asthma, acute congestive heart failure, suspect diastolic, untreated obstructive sleep apnea-hypopnea syndrome. 2. Abnormal chest x-ray. 3. Acute exacerbation of asthma. 4. Acute diastolic congestive heart failure. 5. Obstructive sleep apnea-hypopnea syndrome. 6. Obesity. 7. Hypertension. 8. Hypothyroidism. 9. Bacteremia, cultures pending. Plan . Updated 07/02 Continue oxygen to maintain sats above 92%, currently on 3 liters NC Continue NEB sand pulmicort Antibiotics per ID, bacteremia on admit, contamination? repeat BC NGTD Continue CPAP at HS Follow Cardiology rec-- ECHO pending DVT/GI PPX D/W RN UPDATED 07/01 Continue oxygen to maintain sats above 92% Continue nebulized steroids Antibiotics per ID, final cultures on blood cultures are pending PLAN AND RECOMMENDATIONS: 1. Titrate FiO2 to keep O2 saturation 92%. 2. Continue bronchodilator. 3. Continue inhaled corticosteroid. 4. May require systemic steroid. 5. I will start on CPAP during sleep. 6. Heparin for DVT prophylaxis. 7. Cardiology is consulted. 8. I do recommend an echocardiogram. 9. I have advised her to lose weight. 10. I have discussed obstructive sleep apnea-hypopnea syndrome, the importance of treatment, if untreated increased cardiovascular and [employer] morbidity or mortality. SYBIL ALVAREZ MD Jul 02, 2020 09:21
--- NOTE | 2020-07-02 10:01 | NUR ---
NANETTE following for discharge planning. Spoke with RN and reviewed chart. Pt continues to use BIPAP at night. Pt on IV Daptomycin. Positive blood cultures. Not ready for discharge. Spoke with Emili from [facility] and they are reviewing referral but won't accept pt on either IV daptomycin or IV Micafungin. NANETTE informed ID of the 2 abx that [facility] will not accept per cost. Possible discharge tomorrow, 07/03. NANETTE following. Addendum: 07/02/20 at 1448 by MERLY FITZPATRICK NANETTE called Emili back this afternoon to check on status of referral. Pt denied per insurance. Pt has [employer]. NANETTE confirmed with Nicole from pt's intermediate that pt's only insurance is [employer]. NANETTE met with pt. Pt stated she wants a referral sent to a SNU provider in [facility] and stated no preference in provider. Referral phoned and faxed to Emerita at [facility]. Patient choice of vendor form completed. NANETTE tried to explain to pt that with [employer] as her only insurance that SNU placement might not be an option. Pt's sister called ([phone]) and pt gave SW permission to talk with her. Pt's sister asked about 24 hour care in pt's home through Medicaid HCBS. SW explained that HCBS is not usually approved for 24 hour care and that she would need to call [facility] to ask about increasing pt's PD hours. Pt's sister was emphatic that she knows people who have 24 hour care in the home through HCBS. NANETTE again directed her to call [facility] [employer] as they would be the ones to authorize any increase in PD hours. SW also tried to explain to pt's sister that SNU might not be possible since pt's only insurance is [employer]. Pt's sister stated pt recently discharged from [facility]. SW explained twice that a referral was sent and pt was declined per Emili. Pt's sister asked that this SW call Anthony Raymundo at [phone]. SW called and the voicemail box said the number was for a Debora Brown and SW unable to leave VM as the VM box full. SW also not sure who Debora Brown is so no VM left.
[2020-07-02] MEDS: lamoTRIgine 100 MG TABLET. PO SCH ×2 (10:21→20:55)
[2020-07-02] MEDS: MULTIVITAMIN with MINERAL TABLET. PO SCH (10:21)
[2020-07-02] MEDS: LEVOTHYROXINE 125 MCG TABLET PO SCH (10:21)
[2020-07-02 11:00] VITALS: BP 134/80
[2020-07-02] MEDS ORDERED: DAPTOmycin (GENERIC) IVPB 480 MG in IV NORMAL SALINE 50ML 50 ML IV ONE (12:00)
[2020-07-02 12:26] LABS: LACTATE DEHYDROGENASE 197 U/L (81-234)
--- NOTE | 2020-07-02 13:11 | PDOC ---
Date of Service: DATE: 07/02/20 TIME: 13:06 Subjective: Subjective: Wants to lay down in bed, is tired. No GI complaints. Objective: Vital Signs: Vital Signs Date Time Temp Pulse Resp B/P (MAP) Pulse Ox O2 Delivery O2 Flow Rate FiO2 07/02/20 11:43 96 Room Air 07/02/20 11:00 98.1 82 19 134/80 (98) 3.0 98.1 Labs: Laboratory Tests Test 07/02/20 04:00 White Blood Count 2.9 x10^3/uL Red Blood Count 3.21 x10^6/uL Hemoglobin 7.7 g/dL Hematocrit 25.3 % Mean Corpuscular Volume 79 fL Mean Corpuscular Hemoglobin 24 pg Mean Corpuscular Hemoglobin Concent 30 g/dL Red Cell Distribution Width 19.2 % Platelet Count 148 x10^3/uL Absolute Reticulocyte Count 0.057 x10^6/uL Percent Reticulocyte Count 1.8 % Immature Reticulocyte Fraction 0.54 Iron Level 145 ug/dL Total Iron Binding Capacity 286 ug/dL Iron Saturation 51 % Ferritin 142 ng/mL Lactate Dehydrogenase 197 U/L PE: GEN: NAD LUNGS: wet/coarse HEART: RRR ABD:S/ND/NT NEURO/PSYCH: awake and alert A/P: Resp failure, GPC bacteremia DAYNE (received IV iron) Hiatal hernia, thickening of distal esophagus on CT - on PPI -- IV out and on the floor - alerted nursing. Continue iron and PPI. Outpt scopes. Justicifation of Admission Dx: Justifications for Admission: Justification of Admission Dx: N/A LAXMI KAMINSKI Jul 02, 2020 13:11
[2020-07-02 15:00] VITALS: BP 172/69
[2020-07-02 19:00] VITALS: BP 142/66
[2020-07-02] MEDS: QUEtiapine 100 MG TABLET. PO SCH (20:52)
[2020-07-02 23:03] VITALS: BP 127/56
[2020-07-03 02:32] VITALS: BP 106/52
[2020-07-03] MEDS: HEPARIN for SUB-Q USE 5,000 UNIT/ML VIAL. SQ SCH ×3 (06:37→22:13)
[2020-07-03] MEDS: IPRATRPIUM/ALBUTEROL 0.5/2.5MG 3 ML NEBU. NEB SCH ×3 (07:50→15:22)
[2020-07-03] MEDS: BUDESONIDE 0.5 MG/2 ML NEBU. NEB SCH (07:50)
[2020-07-03 07:52] VITALS: BP 166/75
--- NOTE | 2020-07-03 07:55 | PDOC ---
Infectious Disease Note Subjective: Subjective Patient feels better Shortness of breath and cough are improved Currently on room air, eating breakfast Vital Signs: Vital Signs Vital Signs Date Time Temp Pulse Resp B/P (MAP) Pulse Ox O2 Delivery O2 Flow Rate FiO2 07/03/20 07:52 98.0 68 20 166/75 (105) 97 Nasal Cannula 3.0 98.0 Physical Exam: PHYSICAL EXAM General: Alert, Oriented X3, Cooperative, No acute distress Heart: Regular rate Lungs: Clear Abdomen: Normal bowel sounds, Soft, No tenderness, Other (VERY OBESE) Extremities: No cyanosis Skin: No breakdown Medications: Inpatient Meds: Medications reviewed. Labs: Lab Laboratory Tests Test 07/02/20 12:55 Haptoglobin 196 mg/dL (33-346) Procalcitonin < 0.10 ng/mL (0.00-0.10) Objective: Assessment: Acute hypoxic respiratory failure improved JYOTI on CPAP at home History of asthma Coagulase-negative staph bacteremia present on admission 1 out of 4 bottles likely contaminant Leukopenia Anemia Gallstones CR Morbid obesity Bipolar disorder Generalized weakness Plan: Plan of Care Patient does not need any further antimicrobial therapy Follow-up blood culture results negative so far Patient can be discharged from ID standpoint Discussed with SISI AU MD Jul 03, 2020 07:55
[2020-07-03] MEDS: hydroCHLOROthiazide 25 MG TABLET PO SCH (08:53)
[2020-07-03] MEDS: SERTRALINE 50 MG TABLET. PO SCH (08:53)
[2020-07-03] MEDS: lamoTRIgine 100 MG TABLET. PO SCH ×2 (08:53→22:05)
[2020-07-03] MEDS: MULTIVITAMIN with MINERAL TABLET. PO SCH (08:53)
[2020-07-03] MEDS: BRIMONIDINE 0.2% OPHTH SOLUTION 5ML BOTTLE. OU SCH ×2 (08:54→22:05)
[2020-07-03] MEDS: PANTOPRAZOLE 40 MG TABLET.DR. PO SCH (08:54)
[2020-07-03] MEDS: LACTOBACILLUS RHAMNOSUS GG 1 CAPSULE. PO SCH ×2 (08:54→22:04)
[2020-07-03] MEDS: DOCUSATE SODIUM 100 MG CAPSULE. PO SCH ×2 (08:54→22:04)
[2020-07-03] MEDS: CETIRIZINE HCL 10 MG TABLET. PO SCH (08:54)
[2020-07-03] MEDS: FLUTICASONE 50MCG/NASAL SPRAY 16GM BOTTLE. NS SCH (08:54)
[2020-07-03] MEDS: GABAPENTIN 300 MG CAPSULE. PO SCH ×3 (08:54→22:04)
[2020-07-03] MEDS: LEVOTHYROXINE 125 MCG TABLET PO SCH (08:55)
[2020-07-03] MEDS: amLODIPine BESYLATE 10 MG TABLET PO SCH (08:55)
[2020-07-03] MEDS: LINAGLIPTIN 5 MG TABLET PO SCH (08:55)
--- NOTE | 2020-07-03 09:20 | PDOC ---
PULMONARY PROGRESS NOTES DATE: 07/03/20 TIME: 09:20 Subjective Patient awake, on not complaining of being short of breath. Vitals Vital Signs Date Time Temp Pulse Resp B/P (MAP) Pulse Ox O2 Delivery O2 Flow Rate FiO2 07/03/20 08:55 68 166/75 07/03/20 07:52 98.0 20 97 Nasal Cannula 3.0 98.0 ROS: No Nausea, No Chest Pain, No Abdominal Pain, No Increase Cough General: Alert, Oriented X4 Lungs: Clear Cardiovascular: S1, S2 Abdomen: Soft, Other (Obese) Neuro Exam: Alert Extremities: No Edema Skin: Warm Labs Laboratory Tests Test 07/01/20 13:00 07/02/20 04:00 07/02/20 12:55 O2 Saturation 91 % (92-99) Arterial Blood pH 7.35 (7.35-7.45) Arterial Blood pCO2 at Patient Temp 62 mmHg (35-46) Arterial Blood pO2 at Patient Temp 61 mmHg (75-108) Arterial Blood HCO3 33 mmol/L (21-28) Arterial Blood Base Excess 7 mmol/L (-3-3) FiO2 Room air White Blood Count 2.9 x10^3/uL (4.0-11.0) Red Blood Count 3.21 x10^6/uL (3.50-5.70) Hemoglobin 7.7 g/dL (12.0-15.5) Hematocrit 25.3 % (36.0-47.0) Mean Corpuscular Volume 79 fL (79-100) Mean Corpuscular Hemoglobin 24 pg (25-35) Mean Corpuscular Hemoglobin Concent 30 g/dL (31-37) Red Cell Distribution Width 19.2 % (11.5-14.5) Platelet Count 148 x10^3/uL (140-400) Absolute Reticulocyte Count 0.057 x10^6/uL (0.020-0.120) Percent Reticulocyte Count 1.8 % (0.5-2.3) Immature Reticulocyte Fraction 0.54 (0.20-0.60) Iron Level 145 ug/dL (50-170) Total Iron Binding Capacity 286 ug/dL (250-450) Iron Saturation 51 % (15-34) Ferritin 142 ng/mL (8-252) Lactate Dehydrogenase 197 U/L (81-234) Haptoglobin 196 mg/dL (33-346) Procalcitonin < 0.10 ng/mL (0.00-0.10) Laboratory Tests Test 07/02/20 12:55 Haptoglobin 196 mg/dL (33-346) Procalcitonin < 0.10 ng/mL (0.00-0.10) Medications Active Scripts Medications Dose Route/Sig Max Daily Dose Days Date Category Dose Instructions Zofran (Ondansetron Hcl) 4 Mg Tablet 4 Mg PO PRN TID PRN 01/03/20 Rx nausea/vomiting Keflex (Cephalexin) 500 Mg Capsule 1 Cap PO BID 5 01/03/20 Rx Pyridium (Phenazopyridine Hcl) 100 Mg Tablet 1 Tab PO TID 2 09/30/19 Rx Keflex (Cephalexin) 500 Mg Capsule 1 Cap PO BID 7 09/30/19 Rx Keflex (Cephalexin) 500 Mg Capsule 2 Cap PO Q12HR 3 05/09/19 Rx Dicyclomine Hcl 10 Mg Capsule 1 Cap PO TID PRN 5 05/09/19 Rx Zofran (Ondansetron Hcl) 4 Mg Tablet 1 Tab PO PRN Q6-8HRS PRN 05/09/19 Rx Cipro (Ciprofloxacin Hcl) 250 Mg Tablet 1 Tab PO BID 12/19/18 Rx Seroquel (Quetiapine Fumarate) 100 Mg Tablet 150 Mg PO HS 12/31/16 Reported Alphagan P (Brimonidine Tartrate) 5 Ml Drops 1 Drop EACHEYE BID 12/31/16 Reported Hydrochlorothiazide Tablet (Hydrochlorothiazide) 50 Mg Tablet 1 Tab PO DAILY 12/31/16 Reported Lamotrigine 150 Mg Tablet 1 Tab PO BID 12/31/16 Reported Docusate Sodium 100 Mg Capsule 100 Mg PO 12/31/16 Reported Advair 500-50 Diskus (Fluticasone/Salmeterol) 1 Each Disk.w.dev 1 Puff IH BID 12/31/16 Reported Flonase Allergy Relief (Fluticasone Propionate) 9.9 Ml [place].susp 2 Sprays NS DAILY 12/31/16 Reported Gabapentin (Gabapentin) 300 Mg Capsule 300 Mg PO TID 12/31/16 Reported Claritin (Loratadine) 10 Mg Tablet 1 Tab PO DAILY 12/31/16 Reported Januvia (Sitagliptin Phosphate) 50 Mg Tablet 1 Tab PO DAILY 12/31/16 Reported Synthroid (Levothyroxine Sodium) 125 Mcg Tablet 1 Tab PO DAILY 12/31/16 Reported Zoloft (Sertraline Hcl) 100 Mg Tablet 1 Tab PO DAILY 12/31/16 Reported Multivitamins (Multivitamin) 1 Each Tablet 1 Tab PO DAILY 12/31/16 Reported Spiriva (Tiotropium [place]) 18 Mcg Cap.w.dev 2 Inh IH DAILY 12/31/16 Reported Omeprazole 40 Mg Capsule.dr 1 Cap PO DAILY 12/31/16 Reported Amlodipine Besylate 10 Mg Tablet 10 Mg PO DAILY 12/31/16 Reported Impression . IMPRESSION: 1. Acute respiratory failure secondary to acute exacerbation of asthma, acute congestive heart failure, suspect diastolic, untreated obstructive sleep apnea-hypopnea syndrome. 2. Abnormal chest x-ray. 3. Acute exacerbation of asthma. 4. Acute diastolic congestive heart failure. 5. Obstructive sleep apnea-hypopnea syndrome. 6. Obesity. 7. Hypertension. 8. Hypothyroidism. 9. Bacteremia, cultures pending. Plan . Updated 07/03 Continue oxygen supplementation Antibiotics per ID PT OT updated 07/02 Continue oxygen to maintain sats above 92%, currently on 3 liters NC Continue NEB sand pulmicort Antibiotics per ID, bacteremia on admit, contamination? repeat BC NGTD Continue CPAP at HS Follow Cardiology rec-- ECHO pending DVT/GI PPX D/W RN UPDATED 07/01 Continue oxygen to maintain sats above 92% Continue nebulized steroids Antibiotics per ID, final cultures on blood cultures are pending SYBIL ALVAREZ MD Jul 03, 2020 09:20
--- NOTE | 2020-07-03 10:01 | PDOC ---
Date of Service: DATE: 07/03/20 TIME: 09:58 Objective: Vital Signs: Vital Signs Date Time Temp Pulse Resp B/P (MAP) Pulse Ox O2 Delivery O2 Flow Rate FiO2 07/03/20 08:55 68 166/75 07/03/20 07:52 98.0 20 97 Nasal Cannula 3.0 98.0 Labs: Laboratory Tests Test 07/02/20 12:55 Haptoglobin 196 mg/dL Erythropoietin Pending Total Protein (PEP) Pending Albumin (PEP) Pending Globulin Pending Albumin/Globulin Ratio Pending [id number] Pending [id number] Pending Beta Globulins Pending Gamma Globulins Pending Protein Electrophoresis M-Ranjan Pending Protein Electrophoresis Comment Pending Procalcitonin < 0.10 ng/mL Immunoglobulin [place]/Lambda Ratio Pending Free [place] Light Chains Pending Free L[place] Light Chains Pending BLOOD CULTURE Preliminary NO GROWTH AFTER 3 DAYS PE: GEN: chronically ill - shaquille crackers and peanut butter all over bedside table LUNGS: NC 3L HEART: RR ABD obese NEURO/PSYCH: sleeping, not awakened A/P: Resp failure, GPC bacteremia DAYNE (received IV iron) - looks like hematology following as well Hiatal hernia, thickening of distal esophagus on CT - on PPI -- Continue PPI. Outpt scopes. Justicifation of Admission Dx: Justifications for Admission: Justification of Admission Dx: N/A LAXMI KAMINSKI Jul 03, 2020 10:00
--- NOTE | 2020-07-03 10:19 | PDOC ---
PROGRESS NOTES Date of Service: DATE: 07/03/20 TIME: 10:19 Chief Complaint Chief Complaint impression Cardiomegaly. SEVERE Morbid obesity Acute hypoxic resp failure SEVERE HYPERCAPNIC RESP FAILURE JYOTI with noncompliance with CPAP Microcytic anemia, SUSPECT FE deficiency hypertension hx Schizoaffective disorder Diabetes Hypomagnesemia syndrome CKD STAGE 3 GERD reactive airway disease Bacteremia present on admission 1 out of 4 bottles could be a contaminant Leukopenia Plan: ADMIT CONSULT PULMONARY consult cardiology, abnormal cxr o2 support trend troponin i cvc bed dvt prophylaxis, SQ HEPARIN Home meds IV MG 1 GM x 1 FE PANEL CPAP HS Guiac stools t4 GI CONSULT Should consider schroeder-endoscopy pending improvement. retic HEMATOLOGY CONSULT BLOOD CULTURE Final GRAM POSITIVE COCCI IN CLUSTERS, SUGGESTIVE OF STAPH, IN 1 OF 4 BOTTLES, TWO SETS DRAWN. 38 MIN PT EXAM, CHART REVIEW, > 50% OF TIME SPENT WITH EXAM, CHART REVIEW, PT CARE COORDINATION History of Present Illness History of Present Illness seen in er with acute hypoxia, wheezing 59 year old female who was brought here by EMS from home due to trouble breathing. // history of sleep apnea, she somehow forgot to put her CPAP on last night. She woke up with trouble breathing, EMS were called. EMS report that prior arrival to the home patient was found to be breathing labored sleeping with oxygen saturation 90% on room air. had audible wheezing at the time, patient was given a DuoNeb treatment by EMS, patient feel much better, her oxygen saturation improved to 100%. Patient denies any cough or fever. Gallstone filled gallbladder. The gallbladder wall appears mildly thickened 07/02 small/moderate hiatal hernia as well as circumferential wall thickening of the distal esophagus. correlation for a history of reflux. Patient seen and evaluated. Afebrile, currently breathing on 2 L nasal cannula. Chest x-ray reviewed and essentially clear. Still complains of shortness of breath, worse with exertion. She is supposed to be wearing CPAP at night, and when asked why she is not wearing it she states that "they do not put it on me". 6-minute walk to assess for home oxygen requirement on d/c gi consulted Should consider schroeder-endoscopy pending improvement. repeat blood cult, ID CONSULT, IV DAPTOMYCIN START 4-19 chk procalcitonin BLOOD CULTURE Final GRAM POSITIVE COCCI IN CLUSTERS, SUGGESTIVE OF STAPH, IN 1 OF 4 BOTTLES, TWO SETS DRAWN. BLOOD CULTURE Final GRAM POSITIVE COCCI IN CLUSTERS, SUGGESTIVE OF STAPH, IN 1 OF 4 BOTTLES, TWO SETS DRAWN. 38 MIN PT EXAM, CHART REVIEW, > 50% OF TIME SPENT WITH EXAM, CHART REVIEW, PT CARE COORDINATION Gallstone filled gallbladder. The gallbladder wall appears mildly thickened 07/01/2020 small/moderate hiatal hernia as well as circumferential wall thickening of the distal esophagus. correlation for a history of reflux. Patient seen and evaluated. Afebrile, currently breathing on 2 L nasal cannula. Chest x-ray reviewed and essentially clear. Still complains of shortness of breath, worse with exertion. She is supposed to be wearing CPAP at night, and when asked why she is not wearing it she states that "they do not put it on me". 6-minute walk to assess for home oxygen requirement on d/c gi consulted Should consider schroeder-endoscopy pending improvement. repeat blood cult, ID CONSULT, IV DAPTOMYCIN START 07-01 BLOOD CULTURE Final GRAM POSITIVE COCCI IN CLUSTERS, SUGGESTIVE OF STAPH, IN 1 OF 4 BOTTLES, TWO SETS DRAWN. BLOOD CULTURE Final GRAM POSITIVE COCCI IN CLUSTERS, SUGGESTIVE OF STAPH, IN 1 OF 4 BOTTLES, TWO SETS DRAWN. 38 MIN PT EXAM, CHART REVIEW, > 50% OF TIME SPENT WITH EXAM, CHART REVIEW, PT CARE COORDINATION 06/30/2020 Patient seen and evaluated. Afebrile, currently breathing on 2 L nasal cannula. Chest x-ray reviewed and essentially clear. Still complains of shortness of breath, worse with exertion. She is supposed to be wearing CPAP at night, and when asked why she is not wearing it she states that "they do not put it on me". I will order a 6-minute walk to assess for home oxygen requirement and plan for discharge tomorrow. Vitals Vitals Vital Signs Date Time Temp Pulse Resp B/P (MAP) Pulse Ox O2 Delivery O2 Flow Rate FiO2 07/03/20 08:55 68 166/75 07/03/20 07:52 98.0 20 97 Nasal Cannula 3.0 98.0 Physical Exam Physical Exam General: Alert, Oriented X3, Cooperative, No acute distress Heart: Regular rate Lungs: Clear Abdomen: Normal bowel sounds, Soft, No tenderness, Other (VERY OBESE) Extremities: No cyanosis Skin: No breakdown General: Alert, Oriented X3, Cooperative, No acute distress, Other (Somnolent but comfortable) Heart: Regular rate, No murmurs Lungs: Clear Abdomen: Normal bowel sounds, Soft Extremities: No edema Skin: No breakdown Labs LABS Laboratory Tests Test 07/02/20 12:55 Haptoglobin 196 mg/dL (33-346) Procalcitonin < 0.10 ng/mL (0.00-0.10) Assessment and Plan Assessmemt and Plan Problems Medical Problems: (1) Acute dyspnea Status: Acute (2) Hypomagnesemia syndrome Status: Acute Comment Review of Relevant I have reviewed the following items joseluis (where applicable) has been applied. Labs Laboratory Tests Test 07/01/20 13:00 07/02/20 04:00 07/02/20 12:55 O2 Saturation 91 % (92-99) Arterial Blood pH 7.35 (7.35-7.45) Arterial Blood pCO2 at Patient Temp 62 mmHg (35-46) Arterial Blood pO2 at Patient Temp 61 mmHg (75-108) Arterial Blood HCO3 33 mmol/L (21-28) Arterial Blood Base Excess 7 mmol/L (-3-3) FiO2 Room air White Blood Count 2.9 x10^3/uL (4.0-11.0) Red Blood Count 3.21 x10^6/uL (3.50-5.70) Hemoglobin 7.7 g/dL (12.0-15.5) Hematocrit 25.3 % (36.0-47.0) Mean Corpuscular Volume 79 fL (79-100) Mean Corpuscular Hemoglobin 24 pg (25-35) Mean Corpuscular Hemoglobin Concent 30 g/dL (31-37) Red Cell Distribution Width 19.2 % (11.5-14.5) Platelet Count 148 x10^3/uL (140-400) Absolute Reticulocyte Count 0.057 x10^6/uL (0.020-0.120) Percent Reticulocyte Count 1.8 % (0.5-2.3) Immature Reticulocyte Fraction 0.54 (0.20-0.60) Iron Level 145 ug/dL (50-170) Total Iron Binding Capacity 286 ug/dL (250-450) Iron Saturation 51 % (15-34) Ferritin 142 ng/mL (8-252) Lactate Dehydrogenase 197 U/L (81-234) Haptoglobin 196 mg/dL (33-346) Procalcitonin < 0.10 ng/mL (0.00-0.10) Laboratory Tests Test 07/02/20 12:55 Haptoglobin 196 mg/dL (33-346) Procalcitonin < 0.10 ng/mL (0.00-0.10) Microbiology 07/01/20 Blood Culture - Preliminary, Resulted NO GROWTH AFTER 2 DAYS Medications Current Medications Magnesium Sulfate 50 ml @ 25 mls/hr 1X ONCE IV Last administered on 06/29/20at 07:40; Start 06/29/20 at 07:30; Stop 06/29/20 at 09:29; Status DC Ondansetron HCl (Zofran) 4 mg PRN Q8HRS PRN IV NAUSEA/VOMITING; Start 06/29/20 at 09:30; Stop 06/29/20 at 16:51; Status DC Albuterol/ Ipratropium (Duoneb) 3 ml PRN Q6HRS PRN NEB SHORTNESS OF AIR Last administered on 06/29/20at 12:45; Start 06/29/20 at 09:30; Stop 06/29/20 at 16:50; Status DC Amlodipine Besylate (Norvasc) 10 mg DAILY PO Last administered on 07/03/20at 08:55; Start 06/30/20 at 09:00 Docusate Sodium (Colace) 100 mg BID PO Last administered on 07/03/20at 08:54; Start 06/29/20 at 21:00 Gabapentin (Neurontin) 300 mg TID PO Last administered on 07/03/20at 08:54; Start 06/29/20 at 14:00 Levothyroxine Sodium (Synthroid) 125 mcg DAILY PO Last administered on 07/03/20at 08:55; Start 06/30/20 at 09:00 Quetiapine Fumarate (SEROquel) 150 mg HS PO Last administered on 07/02/20at 20:52; Start 06/29/20 at 21:00 Brimonidine Tartrate (Alphagan) 1 drop BID OU Last administered on 07/03/20at 08:54; Start 06/29/20 at 21:00 Fluticasone Propionate (Flonase) 2 spray DAILY NS Last administered on 07/03/20at 08:54; Start 06/30/20 at 09:00 Budesonide (Pulmicort) 0.5 mg RTBID NEB Last administered on 07/03/20at 07:50; Start 06/29/20 at 20:00 Hydrochlorothiazide (Hydrodiuril) 50 mg DAILY PO Last administered on 07/03/20 08:53; Start 06/30/20 at 09:00 Lamotrigine (LaMICtal) 150 mg BID PO Last administered on 07/03/20 08:53; Start 06/29/20 at 21:00 Cetirizine HCl (ZyrTEC) 10 mg DAILY PO Last administered on 07/03/20 08:54; Start 06/30/20 at 09:00 Multivitamins (Thera M Plus) 1 tab DAILY PO Last administered on 07/03/20 08: 53; Start 06/30/20 at 09:00 Pantoprazole Sodium (Protonix) 40 mg DAILYAC PO Last administered on 07/03/20at 08:54; Start 06/30/20 at 07:30 Sertraline HCl (Zoloft) 100 mg DAILY PO Last administered on 07/03/20 08:53; Start 06/30/20 at 09:00 Linagliptin (Tradjenta) 5 mg DAILY PO Last administered on 07/03/20at 08:55; Start 06/30/20 at 09:00 Albuterol/ Ipratropium (Duoneb) 3 ml RTQID NEB Last administered on 07/03/20at 07:50; Start 06/29/20 at 20:00 Sodium Chloride (Normal Saline Flush) 3 ml QSHIFT PRN IV AFTER MEDS AND BLOOD DRAWS; Start 06/29/20 at 10:00 Ondansetron HCl (Zofran) 4 mg PRN Q4HRS PRN IV NAUSEA/VOMITING; Start 06/29/20 at 10:00 Acetaminophen (Tylenol) 650 mg PRN Q4HRS PRN PO TEMP OVER 100.4F OR MILD PAIN; Start 06/29/20 at 10:00 Acetaminophen (Tylenol Supp) 650 mg PRN Q4HRS PRN SD TEMP OVER 100.4F OR MILD PAIN; Start 06/29/20 at 10:00 Al Hydroxide/Mg Hydroxide (Mylanta Plus Xs) 30 ml PRN DAILY PRN PO HEARTBURN / GAS; Start 06/29/20 at 10:00 Sodium Monofluorophosphate (Fleet Adult) 133 ml PRN DAILY PRN SD CONSTIPATION; Start 06/29/20 at 10:00 Docusate Sodium (Colace) 100 mg PRN BID PRN PO HARD STOOLS; Start 06/29/20 at 10:00 Albuterol Sulfate (Ventolin Neb Soln) 2.5 mg PRN Q4HRS PRN NEB SHORTNESS OF BREATH; Start 06/29/20 at 10:00 Guaifenesin (Robitussin) 200 mg PRN Q4HRS PRN PO COUGH; Start 06/29/20 at 10:00 Heparin Sodium (Porcine) (Heparin Sodium) 5,000 unit Q8HRS SQ Last administered on 07/03/20at 06:37; Start 06/29/20 at 14:00 Magnesium Sulfate/ Dextrose 100 ml @ 100 mls/hr 1X ONCE IV ; Start 06/29/20 at 10:15; Stop 06/29/20 at 11:14; Status DC Hydralazine HCl (Apresoline Inj) 10 mg PRN Q4HRS PRN IVP ELEVATED BP, SEE COMMENTS; Start 06/29/20 at 11:00 Iron Sucrose 200 mg/Sodium Chloride 110 ml @ 55 mls/hr 1X ONCE IV Last administered on 06/30/20at 17:08; Start 06/30/20 at 14:00; Stop 06/30/20 at 15:59; Status DC Iohexol (Omnipaque 300 Mg/ml) 75 ml 1X ONCE IV Last administered on 06/30/20at 13:15; Start 06/30/20 at 13:15; Stop 06/30/20 at 13:29; Status DC Iohexol (Omnipaque 240 Mg/ml) 50 ml 1X ONCE PO Last administered on 06/30/20at 13:15; Start 06/30/20 at 13:15; Stop 06/30/20 at 13:29; Status DC Levofloxacin/ Dextrose 100 ml @ 100 mls/hr 1X ONCE IV Last administered on 07/01/20at 10:25; Start 07/01/20 at 09:00; Stop 07/01/20 at 09:59; Status DC Daptomycin 480 mg/ Sodium Chloride 50 ml @ 100 mls/hr ONCE IV ; Start 07/01/20 at 12:15; Stop 07/01/20 at 12:25; Status DC Daptomycin 480 mg/ Sodium Chloride 50 ml @ 100 mls/hr ONCE ONCE IV ; Start 07/01/20 at 12:30; Stop 07/01/20 at 12:59; Status Cancel Daptomycin 480 mg/ Sodium Chloride 50 ml @ 100 mls/hr ONCE ONCE IV Last administered on 07/01/20at 14:58; Start 07/01/20 at 14:00; Stop 07/01/20 at 14:29; Status DC Lactobacillus Rhamnosus (Culturelle) 1 cap BID PO Last administered on 07/03/20at 08:54; Start 07/01/20 at 21:00 Daptomycin 480 mg/ Sodium Chloride 50 ml @ 100 mls/hr 1X ONCE IV Last admi nistered on 07/02/20at 11:59; Start 07/02/20 at 12:00; Stop 07/02/20 at 12:29; Status DC Active Scripts Active Zofran (Ondansetron Hcl) 4 Mg Tablet 4 Mg PO PRN TID PRN nausea/vomiting Keflex (Cephalexin) 500 Mg Capsule 1 Cap PO BID 5 Days Pyridium (Phenazopyridine Hcl) 100 Mg Tablet 1 Tab PO TID 2 Days Keflex (Cephalexin) 500 Mg Capsule 1 Cap PO BID 7 Days Keflex (Cephalexin) 500 Mg Capsule 2 Cap PO Q12HR 3 Days Dicyclomine Hcl 10 Mg Capsule 1 Cap PO TID PRN 5 Days Zofran (Ondansetron Hcl) 4 Mg Tablet 1 Tab PO PRN Q6-8HRS PRN Cipro (Ciprofloxacin Hcl) 250 Mg Tablet 1 Tab PO BID Reported Seroquel (Quetiapine Fumarate) 100 Mg Tablet 150 Mg PO HS Alphagan P (Brimonidine Tartrate) 5 Ml Drops 1 Drop EACHEYE BID Hydrochlorothiazide Tablet (Hydrochlorothiazide) 50 Mg Tablet 1 Tab PO DAILY Lamotrigine 150 Mg Tablet 1 Tab PO BID Docusate Sodium 100 Mg Capsule 100 Mg PO Advair 500-50 Diskus (Fluticasone/Salmeterol) 1 Each Disk.w.dev 1 Puff IH BID Flonase Allergy Relief (Fluticasone Propionate) 9.9 Ml [place].susp 2 Sprays NS DAILY Gabapentin (Gabapentin) 300 Mg Capsule 300 Mg PO TID Claritin (Loratadine) 10 Mg Tablet 1 Tab PO DAILY Januvia (Sitagliptin Phosphate) 50 Mg Tablet 1 Tab PO DAILY Synthroid (Levothyroxine Sodium) 125 Mcg Tablet 1 Tab PO DAILY Zoloft (Sertraline Hcl) 100 Mg Tablet 1 Tab PO DAILY Multivitamins (Multivitamin) 1 Each Tablet 1 Tab PO DAILY Spiriva (Tiotropium Plaza) 18 Mcg Cap.w.dev 2 Inh IH DAILY Omeprazole 40 Mg Capsule.dr 1 Cap PO DAILY Amlodipine Besylate 10 Mg Tablet 10 Mg PO DAILY Vitals/I & O Vital Sign - Last 24 Hours 07/02/20 07/02/20 07/02/20 07/02/20 11:00 11:43 15:00 15:18 Temp 98.1 98.0 98.1 98.0 Pulse 82 82 Resp 19 19 B/P (MAP) 134/80 (98) 172/69 (103) Pulse Ox 91 96 94 93 O2 Delivery Nasal Cannula Room Air Nasal Cannula Room Air O2 Flow Rate 3.0 3.0 07/02/20 07/02/20 07/02/20 07/02/20 19:00 19:45 20:00 23:03 Temp 98.3 98.5 98.3 98.5 Pulse 92 80 Resp 20 18 B/P (MAP) 142/66 (91) 127/56 (79) Pulse Ox 91 93 94 O2 Delivery Nasal Cannula Room Air Room Air Nasal Cannula O2 Flow Rate 3.0 3.0 3.0 07/03/20 07/03/20 07/03/20 07/03/20 00:20 02:29 02:32 05:30 Temp 97.2 97.2 Pulse 73 Resp 18 B/P (MAP) 106/52 (70) Pulse Ox 100 100 100 100 O2 Delivery BiPAP/CPAP BiPAP/CPAP BiPAP/CPAP BiPAP/CPAP 07/03/20 07/03/20 07/03/20 07:50 07:52 08:55 Temp 98.0 98.0 Pulse 68 68 Resp 20 B/P (MAP) 166/75 (105) 166/75 Pulse Ox 94 97 O2 Delivery Room Air Nasal Cannula O2 Flow Rate 3.0 Intake and Output 07/02/20 07/02/20 07/03/20 15:00 23:00 07:00 Intake Total 1300 ml 600 ml 100 ml Output Total 1550 ml 2700 ml 900 ml Balance -250 ml -2100 ml -800 ml Justicifation of Admission Dx: Justifications for Admission: Justification of Admission Dx: N/A SHANNAN WILDER MD Jul 03, 2020 10:19
[2020-07-03 11:36] VITALS: BP 124/65
[2020-07-03 15:34] VITALS: BP 165/72
--- NOTE | 2020-07-03 15:56 | NUR ---
SW following for discharge planning. Spoke with RN and reviewed chart. SW met with pt who continues to report that SW can coordinate care with her sister Karishma. SW coordinated care with Karishma today, 07/03 ([phone]). Karishma gets off work around 1500 daily per her report. Pt and pt's sister requesting referral to [facility] for acute rehab as pt was there last month. Patient choice of vendor form completed. Referral phoned and faxed. Waldo from [facility] to come assess patient. Pt was denied at [facility]. Pt's sister would like [facility] to send referrals to [place] providers in the [facility] area. Karishma stated she lives near [place] and does not want pt at this facility. Referrals faxed to [facility], [facility], and [facility]. Davina from [facility] to come assess patient tomorrow, 07/04, Blood cultures remain pending, not ready for discharge. Pt on IV Micafungin. SW following.
[2020-07-03 16:15] LABS: KAPPA FREE 80.4 mg/L (3.3-19.4); KAPPA LAMBDA RATIO 2.13 (0.26-1.65); LAMBDA FREE 37.8 mg/L (5.7-26.3)
[2020-07-03 19:00] VITALS: BP 101/47
[2020-07-03] MEDS: QUEtiapine 100 MG TABLET. PO SCH (22:05)
[2020-07-03 23:24] VITALS: BP 134/58
[2020-07-04 03:20] VITALS: BP 136/45
[2020-07-04] MEDS: HEPARIN for SUB-Q USE 5,000 UNIT/ML VIAL. SQ SCH ×3 (05:39→21:13)
[2020-07-04 07:00] VITALS: BP 163/67
[2020-07-04] MEDS: IPRATRPIUM/ALBUTEROL 0.5/2.5MG 3 ML NEBU. NEB SCH ×4 (07:31→19:30)
[2020-07-04] MEDS: BUDESONIDE 0.5 MG/2 ML NEBU. NEB SCH ×3 (07:31→19:30)
[2020-07-04] MEDS: PANTOPRAZOLE 40 MG TABLET.DR. PO SCH (07:51)
--- NOTE | 2020-07-04 08:54 | PDOC ---
PROGRESS NOTES Date of Service: DATE: 07/04/20 TIME: 08:53 Chief Complaint Chief Complaint impression Cardiomegaly. SEVERE Morbid obesity Acute hypoxic resp failure SEVERE HYPERCAPNIC RESP FAILURE JYOTI with noncompliance with CPAP Microcytic anemia, SUSPECT FE deficiency hypertension hx Schizoaffective disorder Diabetes Hypomagnesemia syndrome CKD STAGE 3 GERD reactive airway disease Bacteremia present on admission 1 out of 4 bottles could be a contaminant Leukopenia Plan: ADMIT CONSULT PULMONARY consult cardiology, abnormal cxr o2 support trend troponin i cvc bed dvt prophylaxis, SQ HEPARIN Home meds IV MG 1 GM x 1 FE PANEL CPAP HS Guiac stools t4 GI CONSULT Should consider schroeder-endoscopy pending improvement. retic HEMATOLOGY CONSULT Patient does not need further antimicrobial therapy Follow-up blood culture results negative so far d/c to snf BLOOD CULTURE Final GRAM POSITIVE COCCI IN CLUSTERS, SUGGESTIVE OF STAPH, IN 1 OF 4 BOTTLES, TWO SETS DRAWN. 38 MIN PT EXAM, CHART REVIEW, > 50% OF TIME SPENT WITH EXAM, CHART REVIEW, PT CARE COORDINATION History of Present Illness History of Present Illness seen in er with acute hypoxia, wheezing 59 year old female who was brought here by EMS from home due to trouble breathing. // history of sleep apnea, she somehow forgot to put her CPAP on last night. She woke up with trouble breathing, EMS were called. EMS report that prior arrival to the home patient was found to be breathing labored sleeping with oxygen saturation 90% on room air. had audible wheezing at the time, patient was given a DuoNeb treatment by EMS, patient feel much better, her oxygen saturation improved to 100%. Patient denies any cough or fever. 07-04 d/c to snf bed Patient seen and evaluated. Afebrile, currently breathing on 2 L nasal cannula. Chest x-ray reviewed and essentially clear. d/c planning 33 min Gallstone filled gallbladder. The gallbladder wall appears mildly thickened 07/02 small/moderate hiatal hernia as well as circumferential wall thickening of the distal esophagus. correlation for a history of reflux. Patient seen and evaluated. Afebrile, currently breathing on 2 L nasal cannula. Chest x-ray reviewed and essentially clear. Still complains of shortness of breath, worse with exertion. She is supposed to be wearing CPAP at night, and when asked why she is not wearing it she states that "they do not put it on me". 6-minute walk to assess for home oxygen requirement on d/c gi consulted Should consider schroeder-endoscopy pending improvement. repeat blood cult, ID CONSULT, IV DAPTOMYCIN START 4-19 chk procalcitonin BLOOD CULTURE Final GRAM POSITIVE COCCI IN CLUSTERS, SUGGESTIVE OF STAPH, IN 1 OF 4 BOTTLES, TWO SETS DRAWN. BLOOD CULTURE Final GRAM POSITIVE COCCI IN CLUSTERS, SUGGESTIVE OF STAPH, IN 1 OF 4 BOTTLES, TWO SETS DRAWN. 38 MIN PT EXAM, CHART REVIEW, > 50% OF TIME SPENT WITH EXAM, CHART REVIEW, PT CARE COORDINATION Gallstone filled gallbladder. The gallbladder wall appears mildly thickened 07/01/2020 small/moderate hiatal hernia as well as circumferential wall thickening of the distal esophagus. correlation for a history of reflux. Patient seen and evaluated. Afebrile, currently breathing on 2 L nasal cannula. Chest x-ray reviewed and essentially clear. Still complains of shortness of breath, worse with exertion. She is supposed to be wearing CPAP at night, and when asked why she is not wearing it she states that "they do not put it on me". 6-minute walk to assess for home oxygen requirement on d/c gi consulted Should consider schroeder-endoscopy pending improvement. repeat blood cult, ID CONSULT, IV DAPTOMYCIN START 07-01 BLOOD CULTURE Final GRAM POSITIVE COCCI IN CLUSTERS, SUGGESTIVE OF STAPH, IN 1 OF 4 BOTTLES, TWO SETS DRAWN. BLOOD CULTURE Final GRAM POSITIVE COCCI IN CLUSTERS, SUGGESTIVE OF STAPH, IN 1 OF 4 BOTTLES, TWO SETS DRAWN. 38 MIN PT EXAM, CHART REVIEW, > 50% OF TIME SPENT WITH EXAM, CHART REVIEW, PT CARE COORDINATION 06/30/2020 Patient seen and evaluated. Afebrile, currently breathing on 2 L nasal cannula. Chest x-ray reviewed and essentially clear. Still complains of shortness of breath, worse with exertion. She is supposed to be wearing CPAP at night, and when asked why she is not wearing it she states that "they do not put it on me". I will order a 6-minute walk to assess for home oxygen requirement and plan for discharge tomorrow. Vitals Vitals Vital Signs Date Time Temp Pulse Resp B/P (MAP) Pulse Ox O2 Delivery O2 Flow Rate FiO2 07/04/20 08:00 Nasal Cannula 2.0 07/04/20 07:33 100 07/04/20 07:00 98.4 73 18 163/67 (99) 98.4 Physical Exam Physical Exam General: Alert, Oriented X3, Cooperative, No acute distress Heart: Regular rate Lungs: Clear Abdomen: Normal bowel sounds, Soft, No tenderness, Other (VERY OBESE) Extremities: No cyanosis Skin: No breakdown General: Alert, Oriented X3, Cooperative, No acute distress, Other (Somnolent but comfortable) Heart: Regular rate, Normal S1, No murmurs Lungs: Clear Abdomen: Normal bowel sounds, Soft Extremities: No cyanosis, No edema Skin: No breakdown Assessment and Plan Assessmemt and Plan Problems Medical Problems: (1) Acute dyspnea Status: Acute (2) Hypomagnesemia syndrome Status: Acute Comment Review of Relevant I have reviewed the following items joseluis (where applicable) has been applied. Labs Laboratory Tests Test 07/02/20 12:55 Haptoglobin 196 mg/dL (33-346) Erythropoietin 114.8 mIU/mL (2.6-18.5) Procalcitonin < 0.10 ng/mL (0.00-0.10) Immunoglobulin [place]/Lambda Ratio 2.13 (0.26-1.65) Free [place] Light Chains 80.4 mg/L (3.3-19.4) Free [place] Light Chains 37.8 mg/L (5.7-26.3) Microbiology 07/01/20 Blood Culture - Preliminary, Resulted NO GROWTH AFTER 2 DAYS Medications Current Medications Magnesium Sulfate 50 ml @ 25 mls/hr 1X ONCE IV Last administered on 06/29/20at 07:40; Start 06/29/20 at 07:30; Stop 06/29/20 at 09:29; Status DC Ondansetron HCl (Zofran) 4 mg PRN Q8HRS PRN IV NAUSEA/VOMITING; Start 06/29/20 at 09:30; Stop 06/29/20 at 16:51; Status DC Albuterol/ Ipratropium (Duoneb) 3 ml PRN Q6HRS PRN NEB SHORTNESS OF AIR Last administered on 06/29/20at 12:45; Start 06/29/20 at 09:30; Stop 06/29/20 at 16:50; Status DC Amlodipine Besylate (Norvasc) 10 mg DAILY PO Last administered on 07/03/20 08:55; Start 06/30/20 at 09:00 Docusate Sodium (Colace) 100 mg BID PO Last administered on 07/03/20 22:04; S tart 06/29/20 at 21:00 Gabapentin (Neurontin) 300 mg TID PO Last administered on 07/03/20 22:04; Start 06/29/20 at 14:00 Levothyroxine Sodium (Synthroid) 125 mcg DAILY PO Last administered on 07/03/20 08:55; Start 06/30/20 at 09:00 Quetiapine Fumarate (SEROquel) 150 mg HS PO Last administered on 07/03/20 22:05; Start 06/29/20 at 21:00 Brimonidine Tartrate (Alphagan) 1 drop BID OU Last administered on 07/03/20 22:05; Start 06/29/20 at 21:00 Fluticasone Propionate (Flonase) 2 spray DAILY NS Last administered on 07/03/20 08:54; Start 06/30/20 at 09:00 Budesonide (Pulmicort) 0.5 mg RTBID NEB Last administered on 07/04/20 07:31; Start 06/29/20 at 20:00 Hydrochlorothiazide (Hydrodiuril) 50 mg DAILY PO Last administered on 07/03/20 08:53; Start 06/30/20 at 09:00 Lamotrigine (LaMICtal) 150 mg BID PO Last administered on 07/03/20 22:05; Start 06/29/20 at 21:00 Cetirizine HCl (ZyrTEC) 10 mg DAILY PO Last administered on 07/03/20 08:54; Start 06/30/20 at 09:00 Multivitamins (Thera M Plus) 1 tab DAILY PO Last administered on 07/03/20 08:53; Start 06/30/20 at 09:00 Pantoprazole Sodium (Protonix) 40 mg DAILYAC PO Last administered on 07/04/20 07:51; Start 06/30/20 at 07:30 Sertraline HCl (Zoloft) 100 mg DAILY PO Last administered on 07/03/20 08:53; Start 06/30/20 at 09:00 Linagliptin (Tradjenta) 5 mg DAILY PO Last administered on 07/03/20at 08:55; Start 06/30/20 at 09:00 Albuterol/ Ipratropium (Duoneb) 3 ml RTQID NEB Last administered on 07/04/20at 07:31; Start 06/29/20 at 20:00 Sodium Chloride (Normal Saline Flush) 3 ml QSHIFT PRN IV AFTER MEDS AND BLOOD DRAWS; Start 06/29/20 at 10:00 Ondansetron HCl (Zofran) 4 mg PRN Q4HRS PRN IV NAUSEA/VOMITING; Start 06/29/20 at 10:00 Acetaminophen (Tylenol) 650 mg PRN Q4HRS PRN PO TEMP OVER 100.4F OR MILD PAIN; Start 06/29/20 at 10:00 Acetaminophen (Tylenol Supp) 650 mg PRN Q4HRS PRN NE TEMP OVER 100.4F OR MILD PAIN; Start 06/29/20 at 10:00 Al Hydroxide/Mg Hydroxide (Mylanta Plus Xs) 30 ml PRN DAILY PRN PO HEARTBURN / GAS; Start 06/29/20 at 10:00 Sodium Monofluorophosphate (Fleet Adult) 133 ml PRN DAILY PRN NE CONSTIPATION; Start 06/29/20 at 10:00 Docusate Sodium (Colace) 100 mg PRN BID PRN PO HARD STOOLS; Start 06/29/20 at 10:00 Albuterol Sulfate (Ventolin Neb Soln) 2.5 mg PRN Q4HRS PRN NEB SHORTNESS OF BREATH; Start 06/29/20 at 10:00 Guaifenesin (Robitussin) 200 mg PRN Q4HRS PRN PO COUGH; Start 06/29/20 at 10:00 Heparin Sodium (Porcine) (Heparin Sodium) 5,000 unit Q8HRS SQ Last administered on 07/04/20at 05:39; Start 06/29/20 at 14:00 Magnesium Sulfate/ Dextrose 100 ml @ 100 mls/hr 1X ONCE IV ; Start 06/29/20 at 10:15; Stop 06/29/20 at 11:14; Status DC Hydralazine HCl (Apresoline Inj) 10 mg PRN Q4HRS PRN IVP ELEVATED BP, SEE COMMENTS; Start 06/29/20 at 11:00 Iron Sucrose 200 mg/Sodium Chloride 110 ml @ 55 mls/hr 1X ONCE IV Last administered on 06/30/20at 17:08; Start 06/30/20 at 14:00; Stop 06/30/20 at 15:59; Status DC Iohexol (Omnipaque 300 Mg/ml) 75 ml 1X ONCE IV Last administered on 06/30/20at 13:15; Start 06/30/20 at 13:15; Stop 06/30/20 at 13:29; Status DC Iohexol (Omnipaque 240 Mg/ml) 50 ml 1X ONCE PO Last administered on 06/30/20at 13:15; Start 06/30/20 at 13:15; Stop 06/30/20 at 13:29; Status DC Levofloxacin/ Dextrose 100 ml @ 100 mls/hr 1X ONCE IV Last administered on 07/01/20at 10:25; Start 07/01/20 at 09:00; Stop 07/01/20 at 09:59; Status DC Daptomycin 480 mg/ Sodium Chloride 50 ml @ 100 mls/hr ONCE IV ; Start 07/01/20 at 12:15; Stop 07/01/20 at 12:25; Status DC Daptomycin 480 mg/ Sodium Chloride 50 ml @ 100 mls/hr ONCE ONCE IV ; Start 07/01/20 at 12:30; Stop 07/01/20 at 12:59; Status Cancel Daptomycin 480 mg/ Sodium Chloride 50 ml @ 100 mls/hr ONCE ONCE IV Last administered on 07/01/20at 14:58; Start 07/01/20 at 14:00; Stop 07/01/20 at 14:29; Status DC Lactobacillus Rhamnosus (Culturelle) 1 cap BID PO Last administered on 07/03/20at 22:04; Start 07/01/20 at 21:00 Daptomycin 480 mg/ Sodium Chloride 50 ml @ 100 mls/hr 1X ONCE IV Last administered on 07/02/20at 11:59; Start 07/02/20 at 12:00; Stop 07/02/20 at 12:29; Status DC Active Scripts Active Zofran (Ondansetron Hcl) 4 Mg Tablet 4 Mg PO PRN TID PRN nausea/vomiting Keflex (Cephalexin) 500 Mg Capsule 1 Cap PO BID 5 Days Pyridium (Phenazopyridine Hcl) 100 Mg Tablet 1 Tab PO TID 2 Days Keflex (Cephalexin) 500 Mg Capsule 1 Cap PO BID 7 Days Keflex (Cephalexin) 500 Mg Capsule 2 Cap PO Q12HR 3 Days Dicyclomine Hcl 10 Mg Capsule 1 Cap PO TID PRN 5 Days Zofran (Ondansetron Hcl) 4 Mg Tablet 1 Tab PO PRN Q6-8HRS PRN Cipro (Ciprofloxacin Hcl) 250 Mg Tablet 1 Tab PO BID Reported Seroquel (Quetiapine Fumarate) 100 Mg Tablet 150 Mg PO HS Alphagan P (Brimonidine Tartrate) 5 Ml Drops 1 Drop EACHEYE BID Hydrochlorothiazide Tablet (Hydrochlorothiazide) 50 Mg Tablet 1 Tab PO DAILY Lamotrigine 150 Mg Tablet 1 Tab PO BID Docusate Sodium 100 Mg Capsule 100 Mg PO Advair 500-50 Diskus (Fluticasone/Salmeterol) 1 Each Disk.w.dev 1 Puff IH BID Flonase Allergy Relief (Fluticasone Propionate) 9.9 Ml [place].susp 2 Sprays NS DAILY Gabapentin (Gabapentin) 300 Mg Capsule 300 Mg PO TID Claritin (Loratadine) 10 Mg Tablet 1 Tab PO DAILY Januvia (Sitagliptin Phosphate) 50 Mg Tablet 1 Tab PO DAILY Synthroid (Levothyroxine Sodium) 125 Mcg Tablet 1 Tab PO DAILY Zoloft (Sertraline Hcl) 100 Mg Tablet 1 Tab PO DAILY Multivitamins (Multivitamin) 1 Each Tablet 1 Tab PO DAILY Spiriva (Tiotropium [place]) 18 Mcg Cap.w.dev 2 Inh IH DAILY Omeprazole 40 Mg Capsule.dr 1 Cap PO DAILY Amlodipine Besylate 10 Mg Tablet 10 Mg PO DAILY Vitals/I & O Vital Sign - Last 24 Hours 07/03/20 07/03/20 07/03/20 07/03/20 08:55 11:34 11:36 15:23 Temp 98.6 98.6 Pulse 68 84 Resp 18 B/P (MAP) 166/75 124/65 (84) Pulse Ox 97 O2 Delivery Room Air Nasal Cannula Room Air O2 Flow Rate 3.0 07/03/20 07/03/20 07/03/20 07/03/20 15:34 19:00 20:00 23:24 Temp 98.8 98.8 98.9 98.8 98.8 98.9 Pulse 90 98 93 Resp 20 20 20 B/P (MAP) 165/72 (103) 101/47 (65) 134/58 (83) Pulse Ox 94 90 92 O2 Delivery Nasal Cannula Nasal Cannula Room Air Nasal Cannula O2 Flow Rate 3.0 3.0 3.0 07/04/20 07/04/20 07/04/20 07/04/20 00:37 02:02 03:20 04:40 Temp 98.5 98.5 Pulse 77 Resp 20 B/P (MAP) 136/45 (75) Pulse Ox 100 100 98 97 O2 Delivery BiPAP/CPAP BiPAP/CPAP BiPAP/CPAP BiPAP/CPAP 07/04/20 07/04/20 07/04/20 07:00 07:33 08:00 Temp 98.4 98.4 Pulse 73 Resp 18 B/P (MAP) 163/67 (99) Pulse Ox 100 100 O2 Delivery Nasal Cannula Room Air Nasal Cannula O2 Flow Rate 3.0 2.0 Intake and Output 07/03/20 07/03/20 07/04/20 15:00 23:00 07:00 Intake Total 500 ml 500 ml 0 ml Output Total 1000 ml Balance 500 ml -500 ml 0 ml Justicifation of Admission Dx: Justifications for Admission: Justification of Admission Dx: N/A SHANNAN WILDER MD Jul 04, 2020 08:54
[2020-07-04] MEDS: BRIMONIDINE 0.2% OPHTH SOLUTION 5ML BOTTLE. OU SCH ×2 (09:22→20:50)
[2020-07-04] MEDS: FLUTICASONE 50MCG/NASAL SPRAY 16GM BOTTLE. NS SCH (09:23)
[2020-07-04] MEDS: LACTOBACILLUS RHAMNOSUS GG 1 CAPSULE. PO SCH ×2 (09:23→20:49)
[2020-07-04] MEDS: GABAPENTIN 300 MG CAPSULE. PO SCH ×3 (09:24→20:49)
[2020-07-04] MEDS: lamoTRIgine 100 MG TABLET. PO SCH ×2 (09:24→20:49)
[2020-07-04] MEDS: hydroCHLOROthiazide 25 MG TABLET PO SCH (09:24)
[2020-07-04] MEDS: CETIRIZINE HCL 10 MG TABLET. PO SCH (09:24)
[2020-07-04] MEDS: MULTIVITAMIN with MINERAL TABLET. PO SCH (09:24)
[2020-07-04] MEDS: DOCUSATE SODIUM 100 MG CAPSULE. PO SCH ×2 (09:25→20:49)
[2020-07-04] MEDS: SERTRALINE 50 MG TABLET. PO SCH (09:25)
[2020-07-04] MEDS: amLODIPine BESYLATE 10 MG TABLET PO SCH (09:25)
[2020-07-04] MEDS: LINAGLIPTIN 5 MG TABLET PO SCH (09:25)
[2020-07-04] MEDS: LEVOTHYROXINE 125 MCG TABLET PO SCH (09:25)
--- NOTE | 2020-07-04 09:43 | PDOC ---
Infectious Disease Note Subjective: Subjective Patient feels better Shortness of breath and cough have improved Back on nasal O2 Vital Signs: Vital Signs Vital Signs Date Time Temp Pulse Resp B/P (MAP) Pulse Ox O2 Delivery O2 Flow Rate FiO2 07/04/20 09:25 73 163/67 07/04/20 08:00 Nasal Cannula 2.0 07/04/20 07:33 100 07/04/20 07:00 98.4 18 98.4 Physical Exam: PHYSICAL EXAM General: Alert, Oriented X3, Cooperative, No acute distress Heart: Regular rate Lungs: Clear Abdomen: Normal bowel sounds, Soft, No tenderness, Other (VERY OBESE) Extremities: No cyanosis Skin: No breakdown Medications: Inpatient Meds: Medications reviewed. Objective: Assessment: Acute hypoxic respiratory failure improved JYOTI on CPAP at home History of asthma Coagulase-negative staph bacteremia present on admission 1 out of 4 bottles likely contaminant Leukopenia Anemia Gallstones CR Morbid obesity Bipolar disorder Generalized weakness Plan: Plan of Care Patient does not need any further antimicrobial therapy Follow-up blood culture results negative so far Discussed with SISI AU MD Jul 04, 2020 09:43
--- NOTE | 2020-07-04 09:44 | PDOC ---
PULMONARY PROGRESS NOTES DATE: 07/04/20 TIME: 09:44 Subjective Patient utilizing BiPAP at nighttime Not short of air. Vitals Vital Signs Date Time Temp Pulse Resp B/P (MAP) Pulse Ox O2 Delivery O2 Flow Rate FiO2 07/04/20 09:25 73 163/67 07/04/20 08:00 Nasal Cannula 2.0 07/04/20 07:33 100 07/04/20 07:00 98.4 18 98.4 ROS: No Nausea, No Chest Pain, No Abdominal Pain, No Increase Cough General: Alert, Oriented X4 Lungs: Clear Cardiovascular: S1, S2 Abdomen: Soft, Other (Obese) Neuro Exam: Alert Extremities: No Edema Skin: Warm Labs Laboratory Tests Test 07/02/20 12:55 Haptoglobin 196 mg/dL (33-346) Erythropoietin 114.8 mIU/mL (2.6-18.5) Procalcitonin < 0.10 ng/mL (0.00-0.10) Immunoglobulin [place]/Lambda Ratio 2.13 (0.26-1.65) Free [place] Light Chains 80.4 mg/L (3.3-19.4) Free [place] Light Chains 37.8 mg/L (5.7-26.3) Medications Active Scripts Medications Dose Route/Sig Max Daily Dose Days Date Category Dose Instructions Zofran (Ondansetron Hcl) 4 Mg Tablet 4 Mg PO PRN TID PRN 01/03/20 Rx nausea/vomiting Keflex (Cephalexin) 500 Mg Capsule 1 Cap PO BID 5 01/03/20 Rx Pyridium (Phenazopyridine Hcl) 100 Mg Tablet 1 Tab PO TID 2 09/30/19 Rx Keflex (Cephalexin) 500 Mg Capsule 1 Cap PO BID 7 09/30/19 Rx Keflex (Cephalexin) 500 Mg Capsule 2 Cap PO Q12HR 3 05/09/19 Rx Dicyclomine Hcl 10 Mg Capsule 1 Cap PO TID PRN 5 05/09/19 Rx Zofran (Ondansetron Hcl) 4 Mg Tablet 1 Tab PO PRN Q6-8HRS PRN 05/09/19 Rx Cipro (Ciprofloxacin Hcl) 250 Mg Tablet 1 Tab PO BID 12/19/18 Rx Seroquel (Quetiapine Fumarate) 100 Mg Tablet 150 Mg PO HS 12/31/16 Reported Alphagan P (Brimonidine Tartrate) 5 Ml Drops 1 Drop EACHEYE BID 12/31/16 Reported Hydrochlorothiazide Tablet (Hydrochlorothiazide) 50 Mg Tablet 1 Tab PO DAILY 12/31/16 Reported Lamotrigine 150 Mg Tablet 1 Tab PO BID 12/31/16 Reported Docusate Sodium 100 Mg Capsule 100 Mg PO 12/31/16 Reported Advair 500-50 Diskus (Fluticasone/Salmeterol) 1 Each Disk.w.dev 1 Puff IH BID 12/31/16 Reported Flonase Allergy Relief (Fluticasone Propionate) 9.9 Ml [place].susp 2 Sprays NS DAILY 12/31/16 Reported Gabapentin (Gabapentin) 300 Mg Capsule 300 Mg PO TID 12/31/16 Reported Claritin (Loratadine) 10 Mg Tablet 1 Tab PO DAILY 12/31/16 Reported Januvia (Sitagliptin Phosphate) 50 Mg Tablet 1 Tab PO DAILY 12/31/16 Reported Synthroid (Levothyroxine Sodium) 125 Mcg Tablet 1 Tab PO DAILY 12/31/16 Reported Zoloft (Sertraline Hcl) 100 Mg Tablet 1 Tab PO DAILY 12/31/16 Reported Multivitamins (Multivitamin) 1 Each Tablet 1 Tab PO DAILY 12/31/16 Reported Spiriva (Tiotropium [place]) 18 Mcg Cap.w.dev 2 Inh IH DAILY 12/31/16 Reported Omeprazole 40 Mg Capsule.dr 1 Cap PO DAILY 12/31/16 Reported Amlodipine Besylate 10 Mg Tablet 10 Mg PO DAILY 12/31/16 Reported Impression . IMPRESSION: 1. Acute respiratory failure secondary to acute exacerbation of asthma, acute congestive heart failure, suspect diastolic, untreated obstructive sleep apnea-hypopnea syndrome. 2. Abnormal chest x-ray. 3. Acute exacerbation of asthma. 4. Acute diastolic congestive heart failure. 5. Obstructive sleep apnea-hypopnea syndrome. 6. Obesity. 7. Hypertension. 8. Hypothyroidism. 9. Bacteremia, per ID Plan . Updated 07/04 Respiratory status compensated, okay to discharge updated 07/03 Continue oxygen supplementation Antibiotics per ID PT OT updated 07/02 Continue oxygen to maintain sats above 92%, currently on 3 liters [place] Continue NEB sand pulmicort Antibiotics per ID, bacteremia on admit, contamination? repeat BC NGTD Continue CPAP at HS Follow Cardiology rec-- ECHO pending DVT/GI PPX D/W SYBIL PADILAL MD Jul 04, 2020 09:44
--- NOTE | 2020-07-04 10:14 | PDOC2 ---
CONSULT Date of Consult Date of Consult DATE: 07/04/20 TIME: 10:00 Reason for Consult Reason for Consult: Anemia Referring Physician Referring Physician: Dr. Key Identification/Chief Complaint Chief Complaint Shortness of breath Source Source: Chart review, Patient History of Present Illness Reason for Visit: Nilsa Gutierrez is a 59 year-old female who presented to the hospital with shortness of breath. Patient has a medical history that is pertinent for obesity and associated obstructive sleep apnea and obesity hypoventilation. She typically uses CPAP at bedtime but had apparently forgotten to use it and subsequently developed shortness of breath. She came into the hospital for further evaluation and management. Her breathing improved significantly with use of supplemental oxygen, bronchodilator nebulization. Blood cultures were drawn at the time of her hospital admission and 1/4 bottles has grown GPC. ID consultation has been sought. The patient blood work during her hospital stay has also shown microcytic anemia. Hematology consultation has been requested for further evaluation and management. Patient has no clinical evidence of bleeding. Past Medical History Cardiovascular: HTN, Hyperlipidemia Pulmonary: Asthma Heme/Onc: Anemia NOS Musculoskeletal: Osteoarthritis Renal/: Chronic renal insuff Family History Family History: Hypertension Social History No ALCOHOL: none Drugs: None Current Problem List Problem List Problems Medical Problems: (1) Acute dyspnea Status: Acute (2) Hypomagnesemia syndrome Status: Acute Current Medications Current Medications Current Medications Magnesium Sulfate 50 ml @ 25 mls/hr 1X ONCE IV Last administered on 06/29/20at 07:40; Start 06/29/20 at 07:30; Stop 06/29/20 at 09:29; Status DC Ondansetron HCl (Zofran) 4 mg PRN Q8HRS PRN IV NAUSEA/VOMITING; Start 06/29/20 at 09:30; Stop 06/29/20 at 16:51; Status DC Albuterol/ Ipratropium (Duoneb) 3 ml PRN Q6HRS PRN NEB SHORTNESS OF AIR Last administered on 06/29/20at 12:45; Start 06/29/20 at 09:30; Stop 06/29/20 at 16:50; Status DC Amlodipine Besylate (Norvasc) 10 mg DAILY PO Last administered on 07/04/20at 09:25; Start 06/30/20 at 09:00 Docusate Sodium (Colace) 100 mg BID PO Last administered on 07/04/20 09:25; Start 06/29/20 at 21:00 Gabapentin (Neurontin) 300 mg TID PO Last administered on 07/04/20 09:24; Start 06/29/20 at 14:00 Levothyroxine Sodium (Synthroid) 125 mcg DAILY PO Last administered on 07/04/20 09:25; Start 06/30/20 at 09:00 Quetiapine Fumarate (SEROquel) 150 mg HS PO Last administered on 07/03/20 22 :05; Start 06/29/20 at 21:00 Brimonidine Tartrate (Alphagan) 1 drop BID OU Last administered on 07/04/20 09:22; Start 06/29/20 at 21:00 Fluticasone Propionate (Flonase) 2 spray DAILY NS Last administered on 07/04/20 09:23; Start 06/30/20 at 09:00 Budesonide (Pulmicort) 0.5 mg RTBID NEB Last administered on 07/04/20 07:31; Start 06/29/20 at 20:00 Hydrochlorothiazide (Hydrodiuril) 50 mg DAILY PO Last administered on 07/04/20 09:24; Start 06/30/20 at 09:00 Lamotrigine (LaMICtal) 150 mg BID PO Last administered on 07/04/20 09:24; Start 06/29/20 at 21:00 Cetirizine HCl (ZyrTEC) 10 mg DAILY PO Last administered on 07/04/20 09:24; Start 06/30/20 at 09:00 Multivitamins (Thera M Plus) 1 tab DAILY PO Last administered on 07/04/20 09:24; Start 06/30/20 at 09:00 Pantoprazole Sodium (Protonix) 40 mg DAILYAC PO Last administered on 07/04/20 07:51; Start 06/30/20 at 07:30 Sertraline HCl (Zoloft) 100 mg DAILY PO Last administered on 07/04/20 09:25; Start 06/30/20 at 09:00 Linagliptin (Tradjenta) 5 mg DAILY PO Last administered on 07/04/20 09:25; Start 06/30/20 at 09:00 Albuterol/ Ipratropium (Duoneb) 3 ml RTQID NEB Last administered on 07/04/20at 07:31; Start 06/29/20 at 20:00 Sodium Chloride (Normal Saline Flush) 3 ml QSHIFT PRN IV AFTER MEDS AND BLOOD D RAWS; Start 06/29/20 at 10:00 Ondansetron HCl (Zofran) 4 mg PRN Q4HRS PRN IV NAUSEA/VOMITING; Start 06/29/20 at 10:00 Acetaminophen (Tylenol) 650 mg PRN Q4HRS PRN PO TEMP OVER 100.4F OR MILD PAIN; Start 06/29/20 at 10:00 Acetaminophen (Tylenol Supp) 650 mg PRN Q4HRS PRN AR TEMP OVER 100.4F OR MILD PAIN; Start 06/29/20 at 10:00 Al Hydroxide/Mg Hydroxide (Mylanta Plus Xs) 30 ml PRN DAILY PRN PO HEARTBURN / GAS; Start 06/29/20 at 10:00 Sodium Monofluorophosphate (Fleet Adult) 133 ml PRN DAILY PRN AR CONSTIPATION; Start 06/29/20 at 10:00 Docusate Sodium (Colace) 100 mg PRN BID PRN PO HARD STOOLS; Start 06/29/20 at 10:00 Albuterol Sulfate (Ventolin Neb Soln) 2.5 mg PRN Q4HRS PRN NEB SHORTNESS OF BREATH; Start 06/29/20 at 10:00 Guaifenesin (Robitussin) 200 mg PRN Q4HRS PRN PO COUGH; Start 06/29/20 at 10:00 Heparin Sodium (Porcine) (Heparin Sodium) 5,000 unit Q8HRS SQ Last administered on 07/04/20at 05:39; Start 06/29/20 at 14:00 Magnesium Sulfate/ Dextrose 100 ml @ 100 mls/hr 1X ONCE IV ; Start 06/29/20 at 10:15; Stop 06/29/20 at 11:14; Status DC Hydralazine HCl (Apresoline Inj) 10 mg PRN Q4HRS PRN IVP ELEVATED BP, SEE COMMENTS; Start 06/29/20 at 11:00 Iron Sucrose 200 mg/Sodium Chloride 110 ml @ 55 mls/hr 1X ONCE IV Last administered on 06/30/20at 17:08; Start 06/30/20 at 14:00; Stop 06/30/20 at 15:59; Status DC Iohexol (Omnipaque 300 Mg/ml) 75 ml 1X ONCE IV Last administered on 06/30/20at 13:15; Start 06/30/20 at 13:15; Stop 06/30/20 at 13:29; Status DC Iohexol (Omnipaque 240 Mg/ml) 50 ml 1X ONCE PO Last administered on 06/30/20at 13:15; Start 06/30/20 at 13:15; Stop 06/30/20 at 13:29; Status DC Levofloxacin/ Dextrose 100 ml @ 100 mls/hr 1X ONCE IV Last administered on 07/01/20at 10:25; Start 07/01/20 at 09:00; Stop 07/01/20 at 09:59; Status DC Daptomycin 480 mg/ Sodium Chloride 50 ml @ 100 mls/hr ONCE IV ; Start 07/01/20 at 12:15; Stop 07/01/20 at 12:25; Status DC Daptomycin 480 mg/ Sodium Chloride 50 ml @ 100 mls/hr ONCE ONCE IV ; Start 07/01/20 at 12:30; Stop 07/01/20 at 12:59; Status Cancel Daptomycin 480 mg/ Sodium Chloride 50 ml @ 100 mls/hr ONCE ONCE IV Last administered on 07/01/20at 14:58; Start 07/01/20 at 14:00; Stop 07/01/20 at 14:29; Status DC Lactobacillus Rhamnosus (Culturelle) 1 cap BID PO Last administered on 07/04/20at 09:23; Start 07/01/20 at 21:00 Daptomycin 480 mg/ Sodium Chloride 50 ml @ 100 mls/hr 1X ONCE IV Last administered on 07/02/20at 11:59; Start 07/02/20 at 12:00; Stop 07/02/20 at 12:29; Status DC Active Scripts Active Zofran (Ondansetron Hcl) 4 Mg Tablet 4 Mg PO PRN TID PRN nausea/vomiting Keflex (Cephalexin) 500 Mg Capsule 1 Cap PO BID 5 Days Pyridium (Phenazopyridine Hcl) 100 Mg Tablet 1 Tab PO TID 2 Days Keflex (Cephalexin) 500 Mg Capsule 1 Cap PO BID 7 Days Keflex (Cephalexin) 500 Mg Capsule 2 Cap PO Q12HR 3 Days Dicyclomine Hcl 10 Mg Capsule 1 Cap PO TID PRN 5 Days Zofran (Ondansetron Hcl) 4 Mg Tablet 1 Tab PO PRN Q6-8HRS PRN Cipro (Ciprofloxacin Hcl) 250 Mg Tablet 1 Tab PO BID Reported Seroquel (Quetiapine Fumarate) 100 Mg Tablet 150 Mg PO HS Alphagan P (Brimonidine Tartrate) 5 Ml Drops 1 Drop EACHEYE BID Hydrochlorothiazide Tablet (Hydrochlorothiazide) 50 Mg Tablet 1 Tab PO DAILY Lamotrigine 150 Mg Tablet 1 Tab PO BID Docusate Sodium 100 Mg Capsule 100 Mg PO Advair 500-50 Diskus (Fluticasone/Salmeterol) 1 Each Disk.w.dev 1 Puff IH BID Flonase Allergy Relief (Fluticasone Propionate) 9.9 Ml [place].susp 2 Sprays NS DAILY Gabapentin (Gabapentin) 300 Mg Capsule 300 Mg PO TID Claritin (Loratadine) 10 Mg Tablet 1 Tab PO DAILY Januvia (Sitagliptin Phosphate) 50 Mg Tablet 1 Tab PO DAILY Synthroid (Levothyroxine Sodium) 125 Mcg Tablet 1 Tab PO DAILY Zoloft (Sertraline Hcl) 100 Mg Tablet 1 Tab PO DAILY Multivitamins (Multivitamin) 1 Each Tablet 1 Tab PO DAILY Spiriva (Tiotropium [place]) 18 Mcg Cap.w.dev 2 Inh IH DAILY Omeprazole 40 Mg Capsule.dr 1 Cap PO DAILY Amlodipine Besylate 10 Mg Tablet 10 Mg PO DAILY Allergies Allergies: Coded Allergies: Penicillins (Verified Allergy, Intermediate, HIVES, 05/15/19) I S O L A T I O N *CONTACT* (Verified Allergy, Unknown, 05/15/19) ESBL ROS Review of System Negative unless stated otherwise Physical Exam Physical Exam General: Awake, alert, no distress, obese body habitus Head: Atraumatic, no conjunctival icterus, normal oral cavity mucosa Neck: Supple, no lymphadenopathy Chest: No trauma noted Cardiovascular: Regular rhythm, normal rate, no murmurs Respiratory: Bilateral air entry noted, lungs clear to auscultation bilaterally. No accessory muscle use Abdominal: Abdomen is soft, nontender, nondistended. Bowel sounds were normal. No hepatomegaly or splenomegaly Musculoskeletal: No deformity noted Extremities: No edema noted Skin: No rash or lesions Neurologic: Alert and oriented x3, no grossly evident neurologic deficits noted. Full neurological exam was not performed Psychiatric: Appropriate mood and affect Vitals VITALS Vital Signs Date Time Temp Pulse Resp B/P (MAP) Pulse Ox O2 Delivery O2 Flow Rate FiO2 07/04/20 09:25 73 163/67 07/04/20 08:00 Nasal Cannula 2.0 07/04/20 07:33 100 07/04/20 07:00 98.4 18 98.4 Labs Labs Laboratory Tests Test 07/02/20 12:55 Haptoglobin 196 mg/dL (33-346) Erythropoietin 114.8 mIU/mL (2.6-18.5) Procalcitonin < 0.10 ng/mL (0.00-0.10) Immunoglobulin [place]/Lambda Ratio 2.13 (0.26-1.65) Free [place] Light Chains 80.4 mg/L (3.3-19.4) Free Lambda Light Chains 37.8 mg/L (5.7-26.3) Assessment/Plan Assessment/Plan Assessment: Microcytic anemia, secondary to iron deficiency Acute respiratory failure Asthma exacerbation Obstructive sleep apnea Obesity hypoventilation syndrome Obesity GPC bacteremia Acute diastolic heart failure Recommendations: -Recommended and requested iron studies, B12, reticulocyte count, LDH, haptoglobin, SPEP and free light chains for further evaluation of anemia -Iron studies iron deficiency anemia. Recommend IV iron replacement while inpatient -Recommend GI evaluation bleeding. Can be pursued as outpatient -We will arrange outpatient follow-up for additional intravenous iron treatments -Management of acute respiratory failure per pulmonology service. -Management of suspected GPC bacteremia per infectious diseases service -Rest per Dr. Shahid Orozco MD Medical Oncology/Hematology Ph: [phone] LIAM OROZCO MD Jul 04, 2020 10:13
[2020-07-04] MEDS ORDERED: PERFLUTREN PROTEIN-A MICROSPHR 0.22 MG/ML 3 ML VIAL. IV ONE ×2 (10:29→11:00)
[2020-07-04 11:00] VITALS: BP 134/66
--- NOTE | 2020-07-04 11:18 | PDOC ---
Date of Service: DATE: 07/04/20 TIME: 11:15 Subjective: Subjective: Feels better. Objective: Objective: No GI concerns per nurse - was constipated but resolved - possible DC soon. Vital Signs: Vital Signs Date Time Temp Pulse Resp B/P (MAP) Pulse Ox O2 Delivery O2 Flow Rate FiO2 07/04/20 09:25 73 163/67 07/04/20 08:00 Nasal Cannula 2.0 07/04/20 07:33 100 07/04/20 07:00 98.4 18 98.4 Labs: BLOOD CULTURE Preliminary NO GROWTH AFTER 4 DAYS PE: GEN: NAD LUNGS: NC 2L HEART: RRR ABD: obese, non-tender NEURO/PSYCH: was asleep again w/ snack on tray - did awaken but drowsy A/P: Resp failure (better), ?GPC bacteremia DAYNE Hiatal hernia, thickening of distal esophagus on CT -- DC per primary on PPI and iron. Outpt scopes. Justicifation of Admission Dx: Justifications for Admission: Justification of Admission Dx: N/A LAXMI KAMINSKI Jul 04, 2020 11:18
--- NOTE | 2020-07-04 11:45 | NUR ---
NANETTE following for discharge planning. Spoke with RN and reviewed chart. Pt remains on room air. Blood cultures back, negative. No further abx treatment needed per ID. Umesh with [facility] submitted insurance authorization early this morning, 07/04. NANETTE met with Davina from [facility] who came to [facility] to meet with pt today. Possible discharge today. NANETTE updated pt's sister. NANETTE following. Addendum: 07/04/20 at 1329 by MERLY FITZPATRICK Discharge orders faxed. Awaiting insurance authorization. Addendum: 07/04/20 at 1406 by MERLY FITZPATRICK Met with pt again today. Pt hoping for insurance approval to [facility]. NANETTE also sent referral with discharge orders to [facility] for LTC at request of patient. Pt's sister had declined referral to [facility] prior. Pt able to make her own decisions. Pt accepted at [facility] but pt would really prefer [facility]. 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 Addendum: 07/04/20 at 1619 by MERLY FITZPATRICK Spoke with Majo from [facility] and they are reviewing the clinicals but can't accept pt today. Majo to complete onsite assessment tomorrow, 07/05. Spoke with pt's sister. Authorization for acute rehab remains pending. Pt's sister hoping pt will be accepted at [facility] with the plan to then transition to [facility].
--- NOTE | 2020-07-04 12:06 | PDOC3 ---
Discharge Summary Date of Admission: Jun 29, 2020 Date of Discharge: Jul 04, 2020 Follow-Up: 1-2 days Admitting Diagnosis comment: Chief Complaint Chief Complaint [facility] HPI History of Present Illness History of Present Illness seen in er with acute hypoxia, wheezing 59 year old female who was brought here by EMS from home due to trouble breathing. // history of sleep apnea, she somehow forgot to put her CPAP on last night. She woke up with trouble breathing, EMS were called. EMS report that prior arrival to the home patient was found to be breathing labored sleeping with oxygen saturation 90% on room air. had audible wheezing at the time, patient was given a DuoNeb treatment by EMS, patient feel much better, her oxygen saturation improved to 100%. Patient denies any cough or fever. D/C MEDS SEE MAY D/C CONDITION GOOD COMPLICATIONS NONE CONSULTS PULM, ID, GI F/U PCP AT [facility] TODAY PROGNOSIS GUARDED, NEEDS TO USE CPAP Q HS DISCHARGE DX untreated obstructive sleep apnea-hypopnea syndrome. Cardiomegaly. SEVERE Morbid obesity Acute hypoxic resp failure SEVERE HYPERCAPNIC RESP FAILURE JYOTI with noncompliance with CPAP Microcytic anemia, SUSPECT FE deficiency hypertension hx Schizoaffective disorder Diabetes Hypomagnesemia syndrome CKD STAGE 3 GERD reactive airway disease Bacteremia present on admission 1 out of 4 bottles could be a contaminant Leukopenia Hiatal hernia, thickening of distal esophagus on CT Plan: ADMIT CONSULT PULMONARY consult cardiology, abnormal cxr o2 support trend troponin i cvc bed dvt prophylaxis, SQ HEPARIN Home meds IV MG 1 GM x 1 FE PANEL CPAP HS Guiac stools t4 GI CONSULT Should consider schroeder-endoscopy pending improvement. retic HEMATOLOGY CONSULT Patient does not need further antimicrobial therapy Follow-up blood culture results negative so far cpap with all sleep d/c to snf BLOOD CULTURE Final GRAM POSITIVE COCCI IN CLUSTERS, SUGGESTIVE OF STAPH, IN 1 OF 4 BOTTLES, TWO SETS DRAWN. 38 MIN PT EXAM, CHART REVIEW, > 50% OF TIME SPENT WITH EXAM, CHART REVIEW, PT CARE COORDINATION History of Present Illness History of Present Illness seen in er with acute hypoxia, wheezing 59 year old female who was brought here by EMS from home due to trouble breathing. // history of sleep apnea, she somehow forgot to put her CPAP on last night. She woke up with trouble breathing, EMS were called. EMS report that prior arrival to the home patient was found to be breathing labored sleeping with oxygen saturation 90% on room air. had audible wheezing at the time, patient was given a DuoNeb treatment by EMS, patient feel much better, her oxygen saturation improved to 100%. Patient d enies any cough or fever. Hiatal hernia, thickening of distal esophagus on CT - d/c to snf bed Patient seen and evaluated. Afebrile, currently breathing on 2 L nasal cannula. Chest x-ray reviewed and essentially clear. Hiatal hernia, thickening of distal esophagus on CT d/c planning 33 min Gallstone filled gallbladder. The gallbladder wall appears mildly thickened 07/02 small/moderate hiatal hernia as well as circumferential wall thickening of the distal esophagus. correlation for a history of reflux. Patient seen and evaluated. Afebrile, currently breathing on 2 L nasal cannula. Chest x-ray reviewed and essentially clear. Still complains of shortness of breath, worse with exertion. She is supposed to be wearing CPAP at night, and when asked why she is not wearing it she states that "they do not put it on me". 6-minute walk to assess for home oxygen requirement on d/c gi consulted Should consider schroeder-endoscopy pending improvement. repeat blood cult, ID CONSULT, IV DAPTOMYCIN START 4-19 chk procalcitonin BLOOD CULTURE Final GRAM POSITIVE COCCI IN CLUSTERS, SUGGESTIVE OF STAPH, IN 1 OF 4 BOTTLES, TWO SETS DRAWN. BLOOD CULTURE Final GRAM POSITIVE COCCI IN CLUSTERS, SUGGESTIVE OF STAPH, IN 1 OF 4 BOTTLES, TWO SETS DRAWN. 38 MIN PT EXAM, CHART REVIEW, > 50% OF TIME SPENT WITH EXAM, CHART REVIEW, PT CARE COORDINATION Gallstone filled gallbladder. The gallbladder wall appears mildly thickened 07/01/2020 small/moderate hiatal hernia as well as circumferential wall thickening of the distal esophagus. correlation for a history of reflux. Patient seen and evaluated. Afebrile, currently breathing on 2 L nasal cannula. Chest x-ray reviewed and essentially clear. Still complains of shortness of breath, worse with exertion. She is supposed to be wearing CPAP at night, and when asked why she is not wearing it she states that "they do not put it on me". 6-minute walk to assess for home oxygen requirement on d/c gi consulted Should consider schroeder-endoscopy pending improvement. repeat blood cult, ID CONSULT, IV DAPTOMYCIN START 07-01 BLOOD CULTURE Final GRAM POSITIVE COCCI IN CLUSTERS, SUGGESTIVE OF STAPH, IN 1 OF 4 BOTTLES, TWO SETS DRAWN. BLOOD CULTURE Final GRAM POSITIVE COCCI IN CLUSTERS, SUGGESTIVE OF STAPH, IN 1 OF 4 BOTTLES, TWO SETS DRAWN. 38 MIN PT EXAM, CHART REVIEW, > 50% OF TIME SPENT WITH EXAM, CHART REVIEW, PT CARE COORDINATION 06/30/2020 Patient seen and evaluated. Afebrile, currently breathing on 2 L nasal cannula. Chest x-ray reviewed and essentially clear. Still complains of shortness of breath, worse with exertion. She is supposed to be wearing CPAP at night, and when asked why she is not wearing it she states that "they do not put it on me". I will order a 6-minute walk to assess for home oxygen requirement and plan for discharge tomorrow. Vitals Vitals Vital Signs Date Time Temp Pulse Resp B/P (MAP) Pulse Ox O2 Delivery O2 Flow Rate FiO2 07/04/20 08:00 Nasal Cannula 2.0 07/04/20 07:33 100 07/04/20 07:00 98.4 73 18 163/67 (99) 98.4 Physical Exam Physical Exam General: Alert, Oriented X3, Cooperative, No acute distress Heart: Regular rate Lungs: Clear Abdomen: Normal bowel sounds, Soft, No tenderness, Other (VERY OBESE) Extremities: No cyanosis Skin: No breakdown General: Alert, Oriented X3, Cooperative, No acute distress, Other (Somnolent but comfortable) Heart: Regular rate, Normal S1, No murmurs Lungs: Clear Abdomen: Normal bowel sounds, Soft Extremities: No cyanosis, No edema Skin: No breakdown FINAL DIAGNOSIS Problems Medical Problems: (1) Acute dyspnea Status: Acute (2) Hypomagnesemia syndrome Status: Acute Brief Hospital Course Ms. Gutierrez is a 59 old [sex] who presented with [ ] Discharge Medications Current Medications Magnesium Sulfate 50 ml @ 25 mls/hr 1X ONCE IV Last administered on 06/29/20at 07:40; Start 06/29/20 at 07:30; Stop 06/29/20 at 09:29; Status DC Ondansetron HCl (Zofran) 4 mg PRN Q8HRS PRN IV NAUSEA/VOMITING; Start 06/29/20 at 09:30; Stop 06/29/20 at 16:51; Status DC Albuterol/ Ipratropium (Duoneb) 3 ml PRN Q6HRS PRN NEB SHORTNESS OF AIR Last administered on 06/29/20at 12:45; Start 06/29/20 at 09:30; Stop 06/29/20 at 16:50; Status DC Amlodipine Besylate (Norvasc) 10 mg DAILY PO Last administered on 07/04/20 09:25; Start 06/30/20 at 09:00 Docusate Sodium (Colace) 100 mg BID PO Last administered on 07/04/20 09:25; Start 06/29/20 at 21:00 Gabapentin (Neurontin) 300 mg TID PO Last administered on 07/04/20 09:24; Start 06/29/20 at 14:00 Levothyroxine Sodium (Synthroid) 125 mcg DAILY PO Last administered on 07/04/20 09:25; Start 06/30/20 at 09:00 Quetiapine Fumarate (SEROquel) 150 mg HS PO Last administered on 07/03/20 22:05; Start 06/29/20 at 21:00 Brimonidine Tartrate (Alphagan) 1 drop BID OU Last administered on 07/04/20 09:22; Start 06/29/20 at 21:00 Fluticasone Propionate (Flonase) 2 spray DAILY NS Last administered on 07/04/20 09:23; Start 06/30/20 at 09:00 Budesonide (Pulmicort) 0.5 mg RTBID NEB Last administered on 07/04/20 07:33; Start 06/29/20 at 20:00 Hydrochlorothiazide (Hydrodiuril) 50 mg DAILY PO Last administered on 07/04/20 09:24; Start 06/30/20 at 09:00 Lamotrigine (LaMICtal) 150 mg BID PO Last administered on 07/04/20 09:24; Start 06/29/20 at 21:00 Cetirizine HCl (ZyrTEC) 10 mg DAILY PO Last administered on 07/04/20 09:24; Start 06/30/20 at 09:00 Multivitamins (Thera M Plus) 1 tab DAILY PO Last administered on 07/04/20at 09:24; Start 06/30/20 at 09:00 Pantoprazole Sodium (Protonix) 40 mg DAILYAC PO Last administered on 07/04/20at 07:51; Start 06/30/20 at 07:30 Sertraline HCl (Zoloft) 100 mg DAILY PO Last administered on 07/04/20at 09:25; Start 06/30/20 at 09:00 Linagliptin (Tradjenta) 5 mg DAILY PO Last administered on 07/04/20at 09:25; Start 06/30/20 at 09:00 Albuterol/ Ipratropium (Duoneb) 3 ml RTQID NEB Last administered on 07/04/20at 11:35; Start 06/29/20 at 20:00 Sodium Chloride (Normal Saline Flush) 3 ml QSHIFT PRN IV AFTER MEDS AND BLOOD DRAWS; Start 06/29/20 at 10:00 Ondansetron HCl (Zofran) 4 mg PRN Q4HRS PRN IV NAUSEA/VOMITING; Start 06/29/20 at 10:00 Acetaminophen (Tylenol) 650 mg PRN Q4HRS PRN PO TEMP OVER 100.4F OR MILD PAIN; Start 06/29/20 at 10:00 Acetaminophen (Tylenol Supp) 650 mg PRN Q4HRS PRN MI TEMP OVER 100.4F OR MILD PAIN; Start 06/29/20 at 10:00 Al Hydroxide/Mg Hydroxide (Mylanta Plus Xs) 30 ml PRN DAILY PRN PO HEARTBURN / GAS; Start 06/29/20 at 10:00 Sodium Monofluorophosphate (Fleet Adult) 133 ml PRN DAILY PRN MI CONSTIPATION; Start 06/29/20 at 10:00 Docusate Sodium (Colace) 100 mg PRN BID PRN PO HARD STOOLS; Start 06/29/20 at 10:00 Albuterol Sulfate (Ventolin Neb Soln) 2.5 mg PRN Q4HRS PRN NEB SHORTNESS OF BREATH; Start 06/29/20 at 10:00 Guaifenesin (Robitussin) 200 mg PRN Q4HRS PRN PO COUGH; Start 06/29/20 at 10:00 Heparin Sodium (Porcine) (Heparin Sodium) 5,000 unit Q8HRS SQ Last administered on 07/04/20at 05:39; Start 06/29/20 at 14:00 Magnesium Sulfate/ Dextrose 100 ml @ 100 mls/hr 1X ONCE IV ; Start 06/29/20 at 10:15; Stop 06/29/20 at 11:14; Status DC Hydralazine HCl (Apresoline Inj) 10 mg PRN Q4HRS PRN IVP ELEVATED BP, SEE COMMENTS; Start 06/29/20 at 11:00 Iron Sucrose 200 mg/Sodium Chloride 110 ml @ 55 mls/hr 1X ONCE IV Last administered on 06/30/20at 17:08; Start 06/30/20 at 14:00; Stop 06/30/20 at 15:59; Status DC Iohexol (Omnipaque 300 Mg/ml) 75 ml 1X ONCE IV Last administered on 06/30/20at 13:15; Start 06/30/20 at 13:15; Stop 06/30/20 at 13:29; Status DC Iohexol (Omnipaque 240 Mg/ml) 50 ml 1X ONCE PO Last administered on 06/30/20at 13:15; Start 06/30/20 at 13:15; Stop 06/30/20 at 13:29; Status DC Levofloxacin/ Dextrose 100 ml @ 100 mls/hr 1X ONCE IV Last administered on 07/01/20at 10:25; Start 07/01/20 at 09:00; Stop 07/01/20 at 09:59; Status DC Daptomycin 480 mg/ Sodium Chloride 50 ml @ 100 mls/hr ONCE IV ; Start 07/01/20 at 12:15; Stop 07/01/20 at 12:25; Status DC Daptomycin 480 mg/ Sodium Chloride 50 ml @ 100 mls/hr ONCE ONCE IV ; Start 07/01/20 at 12:30; Stop 07/01/20 at 12:59; Status Cancel Daptomycin 480 mg/ Sodium Chloride 50 ml @ 100 mls/hr ONCE ONCE IV Last administered on 07/01/20at 14:58; Start 07/01/20 at 14:00; Stop 07/01/20 at 14:29; Status DC Lactobacillus Rhamnosus (Culturelle) 1 cap BID PO Last administered on 07/04/20at 09:23; Start 07/01/20 at 21:00 Daptomycin 480 mg/ Sodium Chloride 50 ml @ 100 mls/hr 1X ONCE IV Last administered on 07/02/20at 11:59; Start 07/02/20 at 12:00; Stop 07/02/20 at 12:29; Status DC Perflutren Protein Type A Microsphe (Optison) 0.66 mg STK-MED ONCE IV ; Start 07/04/20 at 10:29; Stop 07/04/20 at 10:29; Status DC Perflutren Protein Type A Microsphe (Optison) 0.66 mg 1X ONCE IV Last administered on 07/04/20at 11:00; Start 07/04/20 at 11:00; Stop 07/04/20 at 11:01; Status DC Active Scripts Active Zofran (Ondansetron Hcl) 4 Mg Tablet 4 Mg PO PRN TID PRN nausea/vomiting Keflex (Cephalexin) 500 Mg Capsule 1 Cap PO BID 5 Days Pyridium (Phenazopyridine Hcl) 100 Mg Tablet 1 Tab PO TID 2 Days Keflex (Cephalexin) 500 Mg Capsule 1 Cap PO BID 7 Days Keflex (Cephalexin) 500 Mg Capsule 2 Cap PO Q12HR 3 Days Dicyclomine Hcl 10 Mg Capsule 1 Cap PO TID PRN 5 Days Zofran (Ondansetron Hcl) 4 Mg Tablet 1 Tab PO PRN Q6-8HRS PRN Cipro (Ciprofloxacin Hcl) 250 Mg Tablet 1 Tab PO BID Reported Seroquel (Quetiapine Fumarate) 100 Mg Tablet 150 Mg PO HS Alphagan P (Brimonidine Tartrate) 5 Ml Drops 1 Drop EACHEYE BID Hydrochlorothiazide Tablet (Hydrochlorothiazide) 50 Mg Tablet 1 Tab PO DAILY Lamotrigine 150 Mg Tablet 1 Tab PO BID Docusate Sodium 100 Mg Capsule 100 Mg PO Advair 500-50 Diskus (Fluticasone/Salmeterol) 1 Each Disk.w.dev 1 Puff IH BID Flonase Allergy Relief (Fluticasone Propionate) 9.9 Ml [place].susp 2 Sprays NS DAILY Gabapentin (Gabapentin) 300 Mg Capsule 300 Mg PO TID Claritin (Loratadine) 10 Mg Tablet 1 Tab PO DAILY Januvia (Sitagliptin Phosphate) 50 Mg Tablet 1 Tab PO DAILY Synthroid (Levothyroxine Sodium) 125 Mcg Tablet 1 Tab PO DAILY Zoloft (Sertraline Hcl) 100 Mg Tablet 1 Tab PO DAILY Multivitamins (Multivitamin) 1 Each Tablet 1 Tab PO DAILY Spiriva (Tiotropium [place]) 18 Mcg Cap.w.dev 2 Inh IH DAILY Omeprazole 40 Mg Capsule.dr 1 Cap PO DAILY Amlodipine Besylate 10 Mg Tablet 10 Mg PO DAILY Vital Signs Vital Signs Date Time Temp Pulse Resp B/P (MAP) Pulse Ox O2 Delivery O2 Flow Rate FiO2 07/04/20 11:36 100 Room Air 07/04/20 09:25 73 163/67 07/04/20 08:00 2.0 07/04/20 07:00 98.4 18 98.4 Labs Laboratory Tests Test 07/02/20 12:55 Haptoglobin 196 mg/dL (33-346) Erythropoietin 114.8 mIU/mL (2.6-18.5) Procalcitonin < 0.10 ng/mL (0.00-0.10) Immunoglobulin [place]/Lambda Ratio 2.13 (0.26-1.65) Free [place] Light Chains 80.4 mg/L (3.3-19.4) Free Lambda Light Chains 37.8 mg/L (5.7-26.3) Allergies Allergies Coded Allergies Type Severity Reaction Last Updated Verified Penicillins Allergy Intermediate HIVES 05/15/19 Yes I S O L A T I O N *CONTACT* Allergy Unknown 05/15/19 Yes Disposition/Orders: Other (D/C TO SNF REHAB) Justicifation of Admission Dx: Justifications for Admission: Justification of Admission Dx: N/A SHANNAN WILDER MD Jul 04, 2020 12:06
[2020-07-04] MEDS ORDERED: ALBU2.5V8 NEB (12:14)
[2020-07-04] MEDS ORDERED: MAG30ORA2 PO (12:14)
[2020-07-04] MEDS ORDERED: ACET325T21 PO (12:14)
[2020-07-04] MEDS ORDERED: LACT1CAP19 PO (12:14)
--- NOTE | 2020-07-04 12:15 | SNU/HH DC ---
DISCHARGE ORDERS DISCHARGE INFORMATION: DISCHARGE DATE: Jul 04, 2020 FINAL DIAGNOSIS Problems Medical Problems: (1) Acute dyspnea Status: Acute (2) Hypomagnesemia syndrome Status: Acute CONDITION ON DISCHARGE: Stable CODE STATUS: Code Status: Full CARE HOME: SNF STAY <30 DAYS: Yes HOSPICE: HOSPICE: No HOSPICE EVAL & TREAT: No LTAC: ADMIT TO LTAC: No POST DISCHARGE ORDERS: ACTIVITY ORDERS: Activity as tolerated DIET AFTER DISCHARGE: ADA CHECKS AFTER DISCHARGE: CHECKS AFTER DISCHARGE: Check blood press - daily FOLLOW-UP: PHYSICIAN FOLLOW-UP: pcp at snf today TREATMENT/EQUIPMENT ORDERS: ADAPTIVE EQUIPMENT NEEDED: Front wheeled walker RESPIRATORY EQUIPMENT NEEDED: Oxygen, Nebulizer, CPAP Physical Therapy For: Evalulation/Treatment Occupational Therapy For: Evaluation/Treatment Speech Language Pathology For: Evaluation/Treatment DISCHARGE MEDICATIONS: Home Meds Active Scripts Lactobacillus Rhamnosus Gg (CULTURELLE) 1 Each Cap.sprink, 1 CAP PO BID for supplement for 30 Days, #60 CAP Prov:SHANNAN WILDER MD 07/04/20 Mag Hydrox/Al Hydrox/Simeth (MAG-AL PLUS XS SUSPENSION) 30 Ml Oral.susp, 30 ML PO PRN DAILY PRN for HEARTBURN / GAS for 14 Days, #120 MISC Prov:SHANNAN WILDER MD 07/04/20 Acetaminophen (ACETAMINOPHEN) 325 Mg Tablet, 650 MG PO PRN Q4HRS PRN for TEMP OVER 100.4F OR MILD PAIN for 30 Days, #90 TAB Prov:SHANNAN WILDER MD 07/04/20 Albuterol Sulfate (Proair Hfa) 8.5 Gm Hfa.aer.ad, 2.5 MG NEB PRN Q4HRS PRN for SHORTNESS OF BREATH for 30 Days, #2 INHALER Prov:SHANNAN WILDER MD 07/04/20 Ondansetron Hcl (ZOFRAN) 4 Mg Tablet, 4 MG PO PRN TID PRN for NAUSEA, #9 nausea/vomiting Prov:SHIRLEY FAULKNER DO 01/03/20 Dicyclomine Hcl (DICYCLOMINE HCL) 10 Mg Capsule, 1 CAP PO TID PRN for PAIN for 5 Days, #15 CAP 11 Refills Prov:WYATT ZELAYA MD 05/09/19 Ondansetron Hcl (ZOFRAN) 4 Mg Tablet, 1 TAB PO PRN Q6-8HRS PRN for NAUSEA, #12 TAB Prov:WYATT ZELAYA MD 05/09/19 Reported Medications Quetiapine Fumarate (SEROQUEL) 100 Mg Tablet, 150 MG PO HS, TAB 12/31/16 Brimonidine Tartrate (ALPHAGAN P) 5 Ml Drops, 1 DROP EACHEYE BID, #15 ML 3 Refills 12/31/16 Hydrochlorothiazide (HYDROCHLOROTHIAZIDE TABLET) 50 Mg Tablet, 1 TAB PO DAILY, #30 TAB 5 Refills 12/31/16 Lamotrigine (LAMOTRIGINE) 150 Mg Tablet, 1 TAB PO BID, #60 TAB 1 Refill 12/31/16 Docusate Sodium (DOCUSATE SODIUM) 100 Mg Capsule, 100 MG PO, CAP 12/31/16 Fluticasone/Salmeterol (ADVAIR 500-50 DISKUS) 1 Each Disk.w.dev, 1 PUFF IH BID, #1 INHALER 5 Refills 12/31/16 Fluticasone Propionate (Flonase Allergy Relief) 9.9 Ml English.susp, 2 SPRAYS NS DAILY, BOTTLE 12/31/16 Gabapentin (GABAPENTIN ) 300 Mg Capsule, 300 MG PO TID, CAP 12/31/16 Loratadine (CLARITIN) 10 Mg Tablet, 1 TAB PO DAILY, #30 TAB 5 Refills 12/31/16 Sitagliptin Phosphate (JANUVIA) 50 Mg Tablet, 1 TAB PO DAILY, #30 TAB 5 Refills 12/31/16 Levothyroxine Sodium (SYNTHROID) 125 Mcg Tablet, 1 TAB PO DAILY, #30 TAB 5 Refills 12/31/16 Sertraline Hcl (ZOLOFT) 100 Mg Tablet, 1 TAB PO DAILY, #30 TAB 5 Refills 12/31/16 Multivitamin (MULTIVITAMINS) 1 Each Tablet, 1 TAB PO DAILY, #90 TAB 3 Refills 12/31/16 Tiotropium [place] (SPIRIVA) 18 Mcg Cap.w.dev, 2 INH IH DAILY, #1 INH 0 Refills 12/31/16 Omeprazole (OMEPRAZOLE) 40 Mg Capsule.dr, 1 CAP PO DAILY, #30 CAP 3 Refills 12/31/16 Amlodipine Besylate (AMLODIPINE BESYLATE) 10 Mg Tablet, 10 MG PO DAILY, TAB 12/31/16 Discontinued Scripts Cephalexin (KEFLEX) 500 Mg Capsule, 1 CAP PO BID for 5 Days, #10 CAP 0 Refills Prov:SHIRLEY FAULKNER DO 01/03/20 Phenazopyridine Hcl (PYRIDIUM) 100 Mg Tablet, 1 TAB PO TID for urinary discomfort for 2 Days, #6 TAB 0 Refills Prov:VIRAJ CRAVEN APRN 09/30/19 Cephalexin (KEFLEX) 500 Mg Capsule, 1 CAP PO BID for 7 Days, #14 CAP 0 Refills Prov:VIRAJ CRAVEN APRN 09/30/19 Cephalexin (KEFLEX) 500 Mg Capsule, 2 CAP PO Q12HR for 3 Days, #12 CAP Prov:WYATT ZELAYA MD 05/09/19 Ciprofloxacin Hcl (CIPRO) 250 Mg Tablet, 1 TAB PO BID for infection, #14 TAB Prov:JAYSHREE HUNT MD 12/19/18 SHANNAN WILDER MD Jul 04, 2020 12:15
[2020-07-04 13:13] LABS: ALBUM 3.1 g/dL (2.9-4.4); ALPHA 1 0.3 g/dL (0.0-0.4); ALPHA 2 0.7 g/dL (0.4-1.0); BETA 1.2 g/dL (0.7-1.3); GAMMA 1.2 g/dL (0.4-1.8); PROTEIN TOTAL 6.5 g/dL (6.0-8.5); SPEP AG RATIO 0.9 (0.7-1.7)
--- NOTE | 2020-07-04 13:48 | CARD ---
MR#: [id number] Date of Study: 07/04/2020 Ordering Physician: SHANNAN WILDER, Referring Physician: SHANNAN WILDER Tech: Nilsa Sosa [facility] APPROVED REPORT EXAM: Two-dimensional and M-mode echocardiogram with Doppler and color Doppler. Other Information Quality : Technically LimitedHR: 84bpm Rhythm : NSRTechnically limited study due to body habitus, position INDICATION Congestive Heart Failure Echo Enhancing Agent Indication: Endocardial border delineation Agent/Amount Used: Optison 3mL RISK FACTORS Hypertension Obesity Hyperlipidemia Diabetes 2D DIMENSIONS Left Atrium(2D)3.4 (1.6-4.0cm)IVSd1.5 (0.7-1.1cm) Aortic Root(2D)2.7 (2.0-3.7cm)LVDd3.6 (3.9-5.9cm) LVOT Diameter2.0 (1.8-2.4cm)PWd1.3 (0.7-1.1cm) LVDs2.2 (2.5-4.0cm)FS (%) 37.6 % SV37.2 mlLVEF(%)68.7 (>50%) Aortic Valve AoV Peak Arturo.225.2cm/sAoV VTI47.1cm AO Peak GR.20.3mmHgLVOT Peak Arturo.109.3cm/s AO Mean GR.10mmHgAVA (VMAX)1.49cm2 Mitral Valve MV E Dlznjvyh516.4cm/sMV DECEL [id number] MV A Ataymgzu12.5cm/sE/A Ratio1.3 Pulmonary Valve PV Peak Xaftemap743.5cm/s LEFT VENTRICLE The left ventricle is normal size. There is mild concentric left ventricular hypertrophy. The left ve ntricular systolic function is normal and the ejection fraction is within normal range. Estimated eje ction fraction 60-65%. There is normal LV segmental wall motion. Tissue Doppler imaging reveals moder ate left ventricular diastolic dysfunction. No left ventricle thrombus noted on this study. RIGHT VENTRICLE The right ventricle is normal size. There is normal right ventricular wall thickness. The right ventr icular systolic function is normal. ATRIA The left atrium size is normal. The right atrium size is normal. The interatrial septum is intact wit h no evidence for an atrial septal defect or patent foramen ovale as noted on 2-D or Doppler imaging. AORTIC VALVE Not well visualized. Doppler and Color Flow revealed no significant aortic regurgitation. There is no significant aortic valvular stenosis. MITRAL VALVE The mitral valve is normal in structure and function. There is no evidence of mitral valve prolapse. There is no mitral valve stenosis. Doppler and Color Flow revealed no mitral valve regurgitation note d. TRICUSPID VALVE Not well visualized. Doppler and Color Flow revealed no tricuspid valve regurgitation noted. There is no tricuspid valve stenosis. PULMONIC VALVE Doppler and Color Flow revealed no pulmonic valvular regurgitation. There is no pulmonic valvular zhou nosis. GREAT VESSELS The aortic root is normal in size. The ascending aorta is normal in size. Due to poor image quality, the IVC could not be assessed. PERICARDIAL EFFUSION There is no evidence of significant pericardial effusion. Critical Notification Critical Value: No <Conclusion> The left ventricular systolic function is normal and the ejection fraction is within normal range. E stimated ejection fraction 60-65%. There is normal LV segmental wall motion. Signed by : Ricardo Carbone, Electronically Approved : 07/04/2020 13:47:27
[2020-07-04 15:00] VITALS: BP 146/70
--- NOTE | 2020-07-04 15:06 | NUR ---
Wound/Ostomy Care Wound Type/Assessment: WC consult for an Abrasion to right inner thigh. Wound is healed. Treatment Recommendations/Plan: Continue to apply calazime cream and keep brief loose to prevent further breakdown Education provided: Pt educated on PU prevention and WC POC Offloading surface/device: none Recommended Referrals/Tests: NA Discharge Recommendations for dressings: NA Addendum: 07/04/20 at 1547 by KARSON MELTON RN WC will sign off at this time, please reconsult if new wounds develop
[2020-07-04 19:00] VITALS: BP 136/65
[2020-07-04] MEDS: QUEtiapine 100 MG TABLET. PO SCH (20:49)
[2020-07-04 23:00] VITALS: BP 122/65
[2020-07-05] MEDS: IPRATRPIUM/ALBUTEROL 0.5/2.5MG 3 ML NEBU. NEB SCH ×3 (00:39→11:05)
[2020-07-05 03:00] VITALS: BP 150/72
[2020-07-05] MEDS: HEPARIN for SUB-Q USE 5,000 UNIT/ML VIAL. SQ SCH ×2 (06:03→14:16)
[2020-07-05 07:00] VITALS: BP 140/69
[2020-07-05] MEDS: BUDESONIDE 0.5 MG/2 ML NEBU. NEB SCH (07:13)
[2020-07-05] MEDS: PANTOPRAZOLE 40 MG TABLET.DR. PO SCH (07:38)
[2020-07-05] MEDS: LEVOTHYROXINE 125 MCG TABLET PO SCH (08:52)
[2020-07-05] MEDS: GABAPENTIN 300 MG CAPSULE. PO SCH ×2 (08:52→14:12)
[2020-07-05] MEDS: lamoTRIgine 100 MG TABLET. PO SCH (08:52)
[2020-07-05] MEDS: hydroCHLOROthiazide 25 MG TABLET PO SCH (08:52)
[2020-07-05] MEDS: LACTOBACILLUS RHAMNOSUS GG 1 CAPSULE. PO SCH (08:52)
[2020-07-05] MEDS: SERTRALINE 50 MG TABLET. PO SCH (08:52)
[2020-07-05] MEDS: LINAGLIPTIN 5 MG TABLET PO SCH (08:53)
[2020-07-05] MEDS: FLUTICASONE 50MCG/NASAL SPRAY 16GM BOTTLE. NS SCH (08:53)
[2020-07-05] MEDS: CETIRIZINE HCL 10 MG TABLET. PO SCH (08:53)
[2020-07-05] MEDS: MULTIVITAMIN with MINERAL TABLET. PO SCH (08:53)
[2020-07-05] MEDS: DOCUSATE SODIUM 100 MG CAPSULE. PO SCH (08:53)
[2020-07-05] MEDS: BRIMONIDINE 0.2% OPHTH SOLUTION 5ML BOTTLE. OU SCH (08:53)
[2020-07-05] MEDS: amLODIPine BESYLATE 10 MG TABLET PO SCH (08:53)
--- NOTE | 2020-07-05 08:55 | PDOC ---
PROGRESS NOTES Date of Service: DATE: 07/05/20 TIME: 08:55 Chief Complaint Chief Complaint impression Cardiomegaly. SEVERE Morbid obesity Acute hypoxic resp failure SEVERE HYPERCAPNIC RESP FAILURE JYOTI with noncompliance with CPAP Microcytic anemia, SUSPECT FE deficiency hypertension hx Schizoaffective disorder Diabetes Hypomagnesemia syndrome CKD STAGE 3 GERD reactive airway disease Bacteremia present on admission 1 out of 4 bottles could be a contaminant Leukopenia Plan: ADMIT CONSULT PULMONARY consult cardiology, abnormal cxr o2 support trend troponin i cvc bed dvt prophylaxis, SQ HEPARIN Home meds IV MG 1 GM x 1 FE PANEL CPAP HS Guiac stools t4 GI CONSULT Should consider schroeder-endoscopy pending improvement. retic HEMATOLOGY CONSULT Patient does not need further antimicrobial therapy Follow-up blood culture results negative so far -23 d/c to snf BLOOD CULTURE Final GRAM POSITIVE COCCI IN CLUSTERS, SUGGESTIVE OF STAPH, IN 1 OF 4 BOTTLES, TWO SETS DRAWN. 28 MIN PT EXAM, CHART REVIEW, > 50% OF TIME SPENT WITH EXAM, CHART REVIEW, PT CARE COORDINATION d/c to snf BLOOD CULTURE Final GRAM POSITIVE COCCI IN CLUSTERS, SUGGESTIVE OF STAPH, IN 1 OF 4 BOTTLES, TWO SETS DRAWN. 38 MIN PT EXAM, CHART REVIEW, > 50% OF TIME SPENT WITH EXAM, CHART REVIEW, PT CARE COORDINATION History of Present Illness History of Present Illness seen in er with acute hypoxia, wheezing 59 year old female who was brought here by EMS from home due to trouble breathing. // history of sleep apnea, she somehow forgot to put her CPAP on last night. She woke up with trouble breathing, EMS were called. EMS report that prior arrival to the home patient was found to be breathing labored sleeping with oxygen saturation 90% on room air. had audible wheezing at the time, patient was given a DuoNeb treatment by EMS, patient feel much better, her oxygen saturation improved to 100%. Patient denies any cough or fever. 4-23 d/c to snf bed Patient seen and evaluated. Afebrile, currently breathing on 2 L nasal cannula. Chest x-ray reviewed and essentially clear. d/c planning 27 min 4-22 d/c to snf bed Patient seen and evaluated. Afebrile, currently breathing on 2 L nasal cannula. Chest x-ray reviewed and essentially clear. d/c planning 33 min Gallstone filled gallbladder. The gallbladder wall appears mildly thickened 07/02 small/moderate hiatal hernia as well as circumferential wall thickening of the distal esophagus. correlation for a history of reflux. Patient seen and evaluated. Afebrile, currently breathing on 2 L nasal cannula. Chest x-ray reviewed and essentially clear. Still complains of shortness of breath, worse with exertion. She is supposed to be wearing CPAP at night, and when asked why she is not wearing it she states that "they do not put it on me". 6-minute walk to assess for home oxygen requirement on d/c gi consulted Should consider schroeder-endoscopy pending improvement. repeat blood cult, ID CONSULT, IV DAPTOMYCIN START 4-19 chk procalcitonin BLOOD CULTURE Final GRAM POSITIVE COCCI IN CLUSTERS, SUGGESTIVE OF STAPH, IN 1 OF 4 BOTTLES, TWO SETS DRAWN. BLOOD CULTURE Final GRAM POSITIVE COCCI IN CLUSTERS, SUGGESTIVE OF STAPH, IN 1 OF 4 BOTTLES, TWO SETS DRAWN. 38 MIN PT EXAM, CHART REVIEW, > 50% OF TIME SPENT WITH EXAM, CHART REVIEW, PT CARE COORDINATION Gallstone filled gallbladder. The gallbladder wall appears mildly thickened 07/01/2020 small/moderate hiatal hernia as well as circumferential wall thickening of the distal esophagus. correlation for a history of reflux. Patient seen and evaluated. Afebrile, currently breathing on 2 L nasal cannula. Chest x-ray reviewed and essentially clear. Still complains of shortness of breath, worse with exertion. She is supposed to be wearing CPAP at night, and when asked why she is not wearing it she states that "they do not put it on me". 6-minute walk to assess for home oxygen requirement on d/c gi consulted Should consider schroeder-endoscopy pending improvement. repeat blood cult, ID CONSULT, IV DAPTOMYCIN START 4-19 BLOOD CULTURE Final GRAM POSITIVE COCCI IN CLUSTERS, SUGGESTIVE OF STAPH, IN 1 OF 4 BOTTLES, TWO SETS DRAWN. BLOOD CULTURE Final GRAM POSITIVE COCCI IN CLUSTERS, SUGGESTIVE OF STAPH, IN 1 OF 4 BOTTLES, TWO SETS DRAWN. 38 MIN PT EXAM, CHART REVIEW, > 50% OF TIME SPENT WITH EXAM, CHART REVIEW, PT CARE COORDINATION 06/30/2020 Patient seen and evaluated. Afebrile, currently breathing on 2 L nasal cannula. Chest x-ray reviewed and essentially clear. Still complains of shortness of breath, worse with exertion. She is supposed to be wearing CPAP at night, and when asked why she is not wearing it she states that "they do not put it on me". I will order a 6-minute walk to assess for home oxygen requirement and plan for discharge tomorrow. Vitals Vitals Vital Signs Date Time Temp Pulse Resp B/P (MAP) Pulse Ox O2 Delivery O2 Flow Rate FiO2 07/05/20 08:53 68 140/69 07/05/20 07:30 Room Air 07/05/20 07:15 92 07/05/20 07:00 96.5 26 3.0 96.5 Physical Exam Physical Exam General: Alert, Oriented X3, Cooperative, No acute distress Heart: Regular rate Lungs: Clear Abdomen: Normal bowel sounds, Soft, No tenderness, Other (VERY OBESE) Extremities: No cyanosis Skin: No breakdown General: Alert, Oriented X3, Cooperative, No acute distress, Other (Somnolent but comfortable) Heart: Regular rate, Normal S1, No murmurs Lungs: Clear Abdomen: Normal bowel sounds, Soft Extremities: No cyanosis, No edema Skin: No breakdown Labs LABS BLOOD CULTURE LC Final Final GRAM POSITIVE COCCI FINAL ID= [STAPHYLOCOCCUS EPIDERMIDIS] Growth of organism in only one of multiple sets; isolation does not necessarily indicate infection. Contact Microbiology Lab if further testing is clinically warranted. STAPHYLOCOCCUS EPIDERMIDIS Unless otherwise specified, Testing Performed by: [address] [id number] For Inquires, the Physician may contact the Microbiology department at [phone] Laboratory Tests Test 07/04/20 16:00 Iron Level 40 ug/dL (50-170) Total Iron Binding Capacity 311 ug/dL (250-450) Iron Saturation 13 % (15-34) Assessment and Plan Assessmemt and Plan Problems Medical Problems: (1) Acute dyspnea Status: Acute (2) Hypomagnesemia syndrome Status: Acute Comment Review of Relevant I have reviewed the following items joseluis (where applicable) has been applied. Labs Laboratory Tests Test 07/04/20 16:00 Iron Level 40 ug/dL (50-170) Total Iron Binding Capacity 311 ug/dL (250-450) Iron Saturation 13 % (15-34) Laboratory Tests Test 07/04/20 16:00 Iron Level 40 ug/dL (50-170) Total Iron Binding Capacity 311 ug/dL (250-450) Iron Saturation 13 % (15-34) Microbiology 07/01/20 Blood Culture - Preliminary, Resulted NO GROWTH AFTER 3 DAYS Medications Current Medications Magnesium Sulfate 50 ml @ 25 mls/hr 1X ONCE IV Last administered on 06/29/20at 07:40; Start 06/29/20 at 07:30; Stop 06/29/20 at 09:29; Status DC Ondansetron HCl (Zofran) 4 mg PRN Q8HRS PRN IV NAUSEA/VOMITING; Start 06/29/20 at 09:30; Stop 06/29/20 at 16:51; Status DC Albuterol/ Ipratropium (Duoneb) 3 ml PRN Q6HRS PRN NEB SHORTNESS OF AIR Last administered on 06/29/20at 12:45; Start 06/29/20 at 09:30; Stop 06/29/20 at 16:50; Status DC Amlodipine Besylate (Norvasc) 10 mg DAILY PO Last administered on 07/05/20at 08 :53; Start 06/30/20 at 09:00 Docusate Sodium (Colace) 100 mg BID PO Last administered on 07/05/20at 08:53; Start 06/29/20 at 21:00 Gabapentin (Neurontin) 300 mg TID PO Last administered on 07/05/20at 08:52; Start 06/29/20 at 14:00 Levothyroxine Sodium (Synthroid) 125 mcg DAILY PO Last administered on 07/05/20at 08:52; Start 06/30/20 at 09:00 Quetiapine Fumarate (SEROquel) 150 mg HS PO Last administered on 07/04/20at 20:49; Start 06/29/20 at 21:00 Brimonidine Tartrate (Alphagan) 1 drop BID OU Last administered on 07/05/20at 08:53; Start 06/29/20 at 21:00 Fluticasone Propionate (Flonase) 2 spray DAILY NS Last administered on 07/05/20 t 08:53; Start 06/30/20 at 09:00 Budesonide (Pulmicort) 0.5 mg RTBID NEB Last administered on 07/05/20 07:13; Start 06/29/20 at 20:00 Hydrochlorothiazide (Hydrodiuril) 50 mg DAILY PO Last administered on 07/05/20 08:52; Start 06/30/20 at 09:00 Lamotrigine (LaMICtal) 150 mg BID PO Last administered on 07/05/20 08:52; Start 06/29/20 at 21:00 Cetirizine HCl (ZyrTEC) 10 mg DAILY PO Last administered on 07/05/20 08:53; Start 06/30/20 at 09:00 Multivitamins (Thera M Plus) 1 tab DAILY PO Last administered on 07/05/20 08:53; Start 06/30/20 at 09:00 Pantoprazole Sodium (Protonix) 40 mg DAILYAC PO Last administered on 07/05/20 07:38; Start 06/30/20 at 07:30 Sertraline HCl (Zoloft) 100 mg DAILY PO Last administered on 07/05/20 08:52; Start 06/30/20 at 09:00 Linagliptin (Tradjenta) 5 mg DAILY PO Last administered on 07/05/20 08:53; Start 06/30/20 at 09:00 Albuterol/ Ipratropium (Duoneb) 3 ml RTQID NEB Last administered on 07/05/20 07:13; Start 06/29/20 at 20:00 Sodium Chloride (Normal Saline Flush) 3 ml QSHIFT PRN IV AFTER MEDS AND BLOOD DRAWS; Start 06/29/20 at 10:00 Ondansetron HCl (Zofran) 4 mg PRN Q4HRS PRN IV NAUSEA/VOMITING; Start 06/29/20 at 10:00 Acetaminophen (Tylenol) 650 mg PRN Q4HRS PRN PO TEMP OVER 100.4F OR MILD PAIN; Start 06/29/20 at 10:00 Acetaminophen (Tylenol Supp) 650 mg PRN Q4HRS PRN AR TEMP OVER 100.4F OR MILD PAIN; Start 06/29/20 at 10:00 Al Hydroxide/Mg Hydroxide (Mylanta Plus Xs) 30 ml PRN DAILY PRN PO HEARTBURN / GAS; Start 06/29/20 at 10:00 Sodium Monofluorophosphate (Fleet Adult) 133 ml PRN DAILY PRN AR CONSTIPATION; Start 06/29/20 at 10:00 Docusate Sodium (Colace) 100 mg PRN BID PRN PO HARD STOOLS; Start 06/29/20 at 10:00 Albuterol Sulfate (Ventolin Neb Soln) 2.5 mg PRN Q4HRS PRN NEB SHORTNESS OF BREATH; Start 06/29/20 at 10:00 Guaifenesin (Robitussin) 200 mg PRN Q4HRS PRN PO COUGH; Start 06/29/20 at 10:00 Heparin Sodium (Porcine) (Heparin Sodium) 5,000 unit Q8HRS SQ Last administered on 07/05/20at 06:03; Start 06/29/20 at 14:00 Magnesium Sulfate/ Dextrose 100 ml @ 100 mls/hr 1X ONCE IV ; Start 06/29/20 at 10:15; Stop 06/29/20 at 11:14; Status DC Hydralazine HCl (Apresoline Inj) 10 mg PRN Q4HRS PRN IVP ELEVATED BP, SEE COMMENTS; Start 06/29/20 at 11:00 Iron Sucrose 200 mg/Sodium Chloride 110 ml @ 55 mls/hr 1X ONCE IV Last administered on 06/30/20at 17:08; Start 06/30/20 at 14:00; Stop 06/30/20 at 15:59; Status DC Iohexol (Omnipaque 300 Mg/ml) 75 ml 1X ONCE IV Last administered on 06/30/20at 13:15; Start 06/30/20 at 13:15; Stop 06/30/20 at 13:29; Status DC Iohexol (Omnipaque 240 Mg/ml) 50 ml 1X ONCE PO Last administered on 06/30/20at 13:15; Start 06/30/20 at 13:15; Stop 06/30/20 at 13:29; Status DC Levofloxacin/ Dextrose 100 ml @ 100 mls/hr 1X ONCE IV Last administered on 07/01/20at 10:25; Start 07/01/20 at 09:00; Stop 07/01/20 at 09:59; Status DC Daptomycin 480 mg/ Sodium Chloride 50 ml @ 100 mls/hr ONCE IV ; Start 07/01/20 at 12:15; Stop 07/01/20 at 12:25; Status DC Daptomycin 480 mg/ Sodium Chloride 50 ml @ 100 mls/hr ONCE ONCE IV ; Start 07/01/20 at 12:30; Stop 07/01/20 at 12:59; Status Cancel Daptomycin 480 mg/ Sodium Chloride 50 ml @ 100 mls/hr ONCE ONCE IV Last administered on 07/01/20at 14:58; Start 07/01/20 at 14:00; Stop 07/01/20 at 14:29; Status DC Lactobacillus Rhamnosus (Culturelle) 1 cap BID PO Last administered on 07/05/20at 08:52; Start 07/01/20 at 21:00 Daptomycin 480 mg/ Sodium Chloride 50 ml @ 100 mls/hr 1X ONCE IV Last administered on 07/02/20at 11:59; Start 07/02/20 at 12:00; Stop 07/02/20 at 12:29; Status DC Perflutren Protein Type A Microsphe (Optison) 0.66 mg STK-MED ONCE IV ; Start 07/04/20 at 10:29; Stop 07/04/20 at 10:29; Status DC Perflutren Protein Type A Microsphe (Optison) 0.66 mg 1X ONCE IV Last administered on 07/04/20at 11:00; Start 07/04/20 at 11:00; Stop 07/04/20 at 11:01; Status DC Active Scripts Active Culturelle (Lactobacillus Rhamnosus Gg) 1 Each Cap.sprink 1 Cap PO BID 30 Days Mag-Al Plus Xs Suspension (Mag Hydrox/Al Hydrox/Simeth) 30 Ml Oral.susp 30 Ml PO PRN DAILY PRN 14 Days Acetaminophen 325 Mg Tablet 650 Mg PO PRN Q4HRS PRN 30 Days Proair Hfa (Albuterol Sulfate) 8.5 Gm Hfa.aer.ad 2.5 Mg NEB PRN Q4HRS PRN 30 Days Zofran (Ondansetron Hcl) 4 Mg Tablet 4 Mg PO PRN TID PRN nausea/vomiting Dicyclomine Hcl 10 Mg Capsule 1 Cap PO TID PRN 5 Days Zofran (Ondansetron Hcl) 4 Mg Tablet 1 Tab PO PRN Q6-8HRS PRN Reported Seroquel (Quetiapine Fumarate) 100 Mg Tablet 150 Mg PO HS Alphagan P (Brimonidine Tartrate) 5 Ml Drops 1 Drop EACHEYE BID Hydrochlorothiazide Tablet (Hydrochlorothiazide) 50 Mg Tablet 1 Tab PO DAILY Lamotrigine 150 Mg Tablet 1 Tab PO BID Docusate Sodium 100 Mg Capsule 100 Mg PO Advair 500-50 Diskus (Fluticasone/Salmeterol) 1 Each Disk.w.dev 1 Puff IH BID Flonase Allergy Relief (Fluticasone Propionate) 9.9 Ml [place].susp 2 Sprays NS DAILY Gabapentin (Gabapentin) 300 Mg Capsule 300 Mg PO TID Claritin (Loratadine) 10 Mg Tablet 1 Tab PO DAILY Januvia (Sitagliptin Phosphate) 50 Mg Tablet 1 Tab PO DAILY Synthroid (Levothyroxine Sodium) 125 Mcg Tablet 1 Tab PO DAILY Zoloft (Sertraline Hcl) 100 Mg Tablet 1 Tab PO DAILY Multivitamins (Multivitamin) 1 Each Tablet 1 Tab PO DAILY Spiriva (Tiotropium [place]) 18 Mcg Cap.w.dev 2 Inh IH DAILY Omeprazole 40 Mg Capsule.dr 1 Cap PO DAILY Amlodipine Besylate 10 Mg Tablet 10 Mg PO DAILY Vitals/I & O Vital Sign - Last 24 Hours 07/04/20 07/04/20 07/04/20 07/04/20 09:25 11:00 11:36 15:00 Temp 98.2 98.0 98.2 98.0 Pulse 73 78 76 Resp 18 18 B/P (MAP) 163/67 134/66 (88) 146/70 (95) Pulse Ox 100 100 96 O2 Delivery Nasal Cannula Room Air Nasal Cannula O2 Flow Rate 3.0 3.0 07/04/20 07/04/20 07/04/20 07/04/20 16:07 19:00 19:33 19:34 Temp 98.8 98.8 Pulse 87 Resp 17 B/P (MAP) 136/65 (88) Pulse Ox 97 100 100 100 O2 Delivery Room Air Nasal Cannula Room Air Room Air O2 Flow Rate 3.0 07/04/20 07/04/20 07/04/20 07/05/20 20:15 23:00 23:40 02:20 Temp 98.9 98.9 Pulse 74 Resp 15 B/P (MAP) 122/65 (84) Pulse Ox 98 100 100 O2 Delivery Nasal Cannula Nasal Cannula BiPAP/CPAP BiPAP/CPAP O2 Flow Rate 2.0 3.0 07/05/20 07/05/20 07/05/20 07/05/20 03:00 04:08 07:00 07:15 Temp 97.8 96.5 97.8 96.5 Pulse 72 68 Resp 16 26 B/P (MAP) 150/72 (98) 140/69 (92) Pulse Ox 100 100 94 92 O2 Delivery Nasal Cannula BiPAP/CPAP Nasal Cannula Room Air O2 Flow Rate 3.0 3.0 07/05/20 07/05/20 07:30 08:53 Pulse 68 B/P (MAP) 140/69 O2 Delivery Room Air Intake and Output 07/04/20 07/04/20 07/05/20 15:00 23:00 07:00 Intake Total 240 ml 0 ml Balance 240 ml 0 ml Justicifation of Admission Dx: Justifications for Admission: Justification of Admission Dx: N/A SHANNAN WILDER MD Jul 05, 2020 08:55
--- NOTE | 2020-07-05 10:03 | SNU/HH DC ---
DISCHARGE ORDERS DISCHARGE INFORMATION: DISCHARGE DATE: Jul 05, 2020 FINAL DIAGNOSIS Problems Medical Problems: (1) Acute dyspnea Status: Acute (2) Hypomagnesemia syndrome Status: Acute CONDITION ON DISCHARGE: Stable CODE STATUS: Code Status: Full POST DISCHARGE ORDERS: ACTIVITY ORDERS: Activity as tolerated DIET AFTER DISCHARGE: ADA CHECKS AFTER DISCHARGE: CHECKS AFTER DISCHARGE: Check blood press - daily FOLLOW-UP: PHYSICIAN FOLLOW-UP: pcp at [facility] today TREATMENT/EQUIPMENT ORDERS: ADAPTIVE EQUIPMENT NEEDED: Front wheeled walker RESPIRATORY EQUIPMENT NEEDED: Oxygen, Nebulizer, CPAP Physical Therapy For: Evalulation/Treatment Occupational Therapy For: Evaluation/Treatment Speech Language Pathology For: Evaluation/Treatment DISCHARGE MEDICATIONS: Home Meds Active Scripts Lactobacillus Rhamnosus Gg (CULTURELLE) 1 Each Cap.sprink, 1 CAP PO BID for supplement for 30 Days, #60 CAP Prov:SHANNAN WILDER MD 07/04/20 Mag Hydrox/Al Hydrox/Simeth (MAG-AL PLUS XS SUSPENSION) 30 Ml Oral.susp, 30 ML PO PRN DAILY PRN for HEARTBURN / GAS for 14 Days, #120 MISC Prov:SHANNAN WILDER MD 07/04/20 Acetaminophen (ACETAMINOPHEN) 325 Mg Tablet, 650 MG PO PRN Q4HRS PRN for TEMP OVER 100.4F OR MILD PAIN for 30 Days, #90 TAB Prov:SHANNAN WILDER MD 07/04/20 Albuterol Sulfate (Proair Hfa) 8.5 Gm Hfa.aer.ad, 2.5 MG NEB PRN Q4HRS PRN for SHORTNESS OF BREATH for 30 Days, #2 INHALER Prov:SHANNAN WILDER MD 07/04/20 Ondansetron Hcl (ZOFRAN) 4 Mg Tablet, 4 MG PO PRN TID PRN for NAUSEA, #9 nausea/vomiting Prov:SHIRLEY FAULKNER DO 01/03/20 Dicyclomine Hcl (DICYCLOMINE HCL) 10 Mg Capsule, 1 CAP PO TID PRN for PAIN for 5 Days, #15 CAP 11 Refills Prov:WYATT ZELAYA MD 05/09/19 Ondansetron Hcl (ZOFRAN) 4 Mg Tablet, 1 TAB PO PRN Q6-8HRS PRN for NAUSEA, #12 TAB Prov:WYATT ZELAYA MD 05/09/19 Reported Medications Quetiapine Fumarate (SEROQUEL) 100 Mg Tablet, 150 MG PO HS, TAB 12/31/16 Brimonidine Tartrate (ALPHAGAN P) 5 Ml Drops, 1 DROP EACHEYE BID, #15 ML 3 Refills 12/31/16 Hydrochlorothiazide (HYDROCHLOROTHIAZIDE TABLET) 50 Mg Tablet, 1 TAB PO DAILY, #30 TAB 5 Refills 12/31/16 Lamotrigine (LAMOTRIGINE) 150 Mg Tablet, 1 TAB PO BID, #60 TAB 1 Refill 12/31/16 Docusate Sodium (DOCUSATE SODIUM) 100 Mg Capsule, 100 MG PO, CAP 12/31/16 Fluticasone/Salmeterol (ADVAIR 500-50 DISKUS) 1 Each Disk.w.dev, 1 PUFF IH BID, #1 INHALER 5 Refills 12/31/16 Fluticasone Propionate (Flonase Allergy Relief) 9.9 Ml [place].susp, 2 SPRAYS NS DAILY, BOTTLE 12/31/16 Gabapentin (GABAPENTIN ) 300 Mg Capsule, 300 MG PO TID, CAP 12/31/16 Loratadine (CLARITIN) 10 Mg Tablet, 1 TAB PO DAILY, #30 TAB 5 Refills 12/31/16 Sitagliptin Phosphate (JANUVIA) 50 Mg Tablet, 1 TAB PO DAILY, #30 TAB 5 Refills 12/31/16 Levothyroxine Sodium (SYNTHROID) 125 Mcg Tablet, 1 TAB PO DAILY, #30 TAB 5 Refills 12/31/16 Sertraline Hcl (ZOLOFT) 100 Mg Tablet, 1 TAB PO DAILY, #30 TAB 5 Refills 12/31/16 Multivitamin (MULTIVITAMINS) 1 Each Tablet, 1 TAB PO DAILY, #90 TAB 3 Refills 12/31/16 Tiotropium [place] (SPIRIVA) 18 Mcg Cap.w.dev, 2 INH IH DAILY, #1 INH 0 Refills 12/31/16 Omeprazole (OMEPRAZOLE) 40 Mg Capsule.dr, 1 CAP PO DAILY, #30 CAP 3 Refills 12/31/16 Amlodipine Besylate (AMLODIPINE BESYLATE) 10 Mg Tablet, 10 MG PO DAILY, TAB 12/31/16 Discontinued Scripts Cephalexin (KEFLEX) 500 Mg Capsule, 1 CAP PO BID for 5 Days, #10 CAP 0 Refills Prov:SHIRLEY FAULKNER DO 01/03/20 Phenazopyridine Hcl (PYRIDIUM) 100 Mg Tablet, 1 TAB PO TID for urinary disco mfort for 2 Days, #6 TAB 0 Refills Prov:VIRAJ CRAVEN APRN 09/30/19 Cephalexin (KEFLEX) 500 Mg Capsule, 1 CAP PO BID for 7 Days, #14 CAP 0 Refills Prov:VIRAJ CRAVEN APRN 09/30/19 Cephalexin (KEFLEX) 500 Mg Capsule, 2 CAP PO Q12HR for 3 Days, #12 CAP Prov:WYATT ZELAYA MD 05/09/19 Ciprofloxacin Hcl (CIPRO) 250 Mg Tablet, 1 TAB PO BID for infection, #14 TAB Prov:JAYSHREE HUNT MD 12/19/18 SHANNAN WILDER MD Jul 05, 2020 10:03
[2020-07-05 11:00] VITALS: BP 135/53
--- NOTE | 2020-07-05 11:05 | PDOC ---
Infectious Disease Note Subjective: Subjective Patient feels better Shortness of breath and cough have improved Vital Signs: Vital Signs Vital Signs Date Time Temp Pulse Resp B/P (MAP) Pulse Ox O2 Delivery O2 Flow Rate FiO2 07/05/20 08:53 68 140/69 07/05/20 07:30 Room Air 07/05/20 07:15 92 07/05/20 07:00 96.5 26 3.0 96.5 Physical Exam: PHYSICAL EXAM General: Alert, Oriented X3, Cooperative, No acute distress Heart: Regular rate Lungs: Clear Abdomen: Normal bowel sounds, Soft, No tenderness, Other (VERY OBESE) Extremities: No cyanosis Skin: No breakdown Medications: Inpatient Meds: Medications reviewed. Labs: Lab Laboratory Tests Test 07/04/20 16:00 Iron Level 40 ug/dL (50-170) Total Iron Binding Capacity 311 ug/dL (250-450) Iron Saturation 13 % (15-34) Objective: Assessment: Acute hypoxic respiratory failure improved JYOTI on CPAP at home History of asthma Coagulase-negative staph bacteremia present on admission 1 out of 4 bottles likely contaminant Leukopenia Anemia Gallstones CR Morbid obesity Bipolar disorder Generalized weakness Plan: Plan of Care Patient does not need any further antimicrobial therapy Follow-up blood culture results negative so far Awaiting transfer to [facility] today Discussed with SISI AU MD Jul 05, 2020 11:05
--- NOTE | 2020-07-05 13:13 | PDOC ---
Date of Service: DATE: 07/05/20 TIME: 13:11 Subjective: Subjective: Feels good, asks where I'm from. Objective: Vital Signs: Vital Signs Date Time Temp Pulse Resp B/P (MAP) Pulse Ox O2 Delivery O2 Flow Rate FiO2 07/05/20 11:06 92 Room Air 07/05/20 11:00 97.2 72 20 135/53 (80) 3.0 97.2 Labs: Laboratory Tests Test 07/04/20 16:00 Iron Level 40 ug/dL Total Iron Binding Capacity 311 ug/dL Iron Saturation 13 % BLOOD CULTURE Final NO GROWTH AFTER 5 DAYS PE: GEN: NAD - lunch 100% consumed LUNGS: clear, NC HEART: RRR ABD: soft, large, non-tender NEURO/PSYCH: A & O 3 A/P: Resp failure - better DAYNE Hiatal hernia, thickening of distal esophagus on CT -- DC per primary on PPI and iron. Outpt scopes. Justicifation of Admission Dx: Justifications for Admission: Justification of Admission Dx: N/A LAXMI KAMINSKI Jul 05, 2020 13:13
--- NOTE | 2020-07-05 13:58 | NUR ---
NANETTE following. Discussed with RN, insurance auth pending for acute rehab. NANETTE spoke with pt's sister, they would prefer pt just go to [facility] to LTC. Alex advised they can take pt SNF to LTC today. RN notified. Awaiting transportation time. Alex already has discharge orders. NANETTE will continue to follow. Addendum: 07/05/20 at 1530 by MARIYA FITZPATRICK Alex arranged transportation for 1600. RN and family notified. Insurance did deny acute rehab.
--- NOTE | 2020-07-05 16:00 | NUR ---
Discharge Note: OMEGA ESQUIVEL Discharge instructions and discharge home medications reviewed with Other facility and a copy given. All questions have been answered and understanding verbalized. The following instructions and handouts were given: copy of chart, discharge instructions. Discontinued lines and drains: Peripheral IV discontinued intact. Patient discharged to [facility] with Transport Personnel via Wheelchair off unit
--- NOTE | 2020-07-05 16:19 | NUR ---
Report called to [facility]- ERVIN Haas took report on patient.
== END 2020-07-05 16:26 | DRG 189 ==
LOC: ER 05:39 → ED HOLD 10:27 → 6 SOUTH 18:24
PROVIDERS: ADMIT Family Medicine; ATTEND Family Medicine
PROC: 5A09357 Assistance with Respiratory Ventilation, Less than 24 Consecutive Hours, Continuous Positive Airway Pressure (ICD-10-PCS; principal; 2020-06-30)
PROC: 5A09357 Assistance with Respiratory Ventilation, Less than 24 Consecutive Hours, Continuous Positive Airway Pressure (ICD-10-PCS; 2020-07-01)
PROC: 5A09357 Assistance with Respiratory Ventilation, Less than 24 Consecutive Hours, Continuous Positive Airway Pressure (ICD-10-PCS; 2020-07-03)
PROC: 5A09357 Assistance with Respiratory Ventilation, Less than 24 Consecutive Hours, Continuous Positive Airway Pressure (ICD-10-PCS; 2020-07-04)
PROC: 5A09357 Assistance with Respiratory Ventilation, Less than 24 Consecutive Hours, Continuous Positive Airway Pressure (ICD-10-PCS; 2020-07-05)
DX: J96.01 Acute respiratory failure with hypoxia (principal); I50.31 Acute diastolic (congestive) heart failure; I13.0 Hypertensive heart and chronic kidney disease with heart failure and stage 1 through stage 4 chronic kidney disease, or unspecified chronic kidney disease; E66.2 Morbid (severe) obesity with alveolar hypoventilation; J45.901 Unspecified asthma with (acute) exacerbation; R78.81 Bacteremia; N17.9 Acute kidney failure, unspecified; J96.02 Acute respiratory failure with hypercapnia; Z91.19 Patient's noncompliance with other medical treatment and regimen; D50.9 Iron deficiency anemia, unspecified; N18.30 Chronic kidney disease, stage 3 unspecified; F25.9 Schizoaffective disorder, unspecified; E11.22 Type 2 diabetes mellitus with diabetic chronic kidney disease; E83.42 Hypomagnesemia; K21.9 Gastro-esophageal reflux disease without esophagitis; E03.9 Hypothyroidism, unspecified; K44.9 Diaphragmatic hernia without obstruction or gangrene; D72.819 Decreased white blood cell count, unspecified; K80.20 Calculus of gallbladder without cholecystitis without obstruction; F31.9 Bipolar disorder, unspecified; E78.5 Hyperlipidemia, unspecified; K76.0 Fatty (change of) liver, not elsewhere classified; M16.12 Unilateral primary osteoarthritis, left hip; Z82.49 Family history of ischemic heart disease and other diseases of the circulatory system; H40.9 Unspecified glaucoma; M19.90 Unspecified osteoarthritis, unspecified site; Z88.0 Allergy status to penicillin; Z91.041 Radiographic dye allergy status
CPT/HCPCS: 96365; 96366; 99285; C8929; 36415; 36600; 71045; 74177; 80053; 82550; 82607; 82668; 82728; 82805; 83010; 83520; 83540; 83550; 83605; 83615; 83735; 83880; 84145; 84165; 84439; 84484; 85025; 85027; 85045; 87040; 87205; 87804; 93005; 94640; 94660; 94760; J0878; J1644; J1756; J1956; J3475; Q9956; Q9966; Q9967; 97110-GP; 97530-GO; 97530-GP; 97535-GO; G0378; J7626

== ENCOUNTER 2020-08-09 05:20 | Inpatient (IN) | payer OTHER ==
[~2020-08-09] VITALS: Ht 127 cm; Wt 107.1 kg
[~2020-08-09 05:20] MED LIST changes: +ACET325T21 PO; +ALBU2.5V8 NEB; +LACT1CAP19 PO; +MAG30ORA2 PO; -OMEP40CA45 PO; +OMEP40CA7 PO
--- NOTE | 2020-08-09 06:24 | RAD ---
CT Head W/O Contrast: History: Reason: severe pain after fall / Spl. Instructions: / History: Comparison: none Axial images were obtained without contrast. There is mild diffuse atrophy. There is no mass effect, extraaxial fluid collections or hydrocephalu s. There is no gross bleed. Mild, patchy periventricular and subcortical white matter hypoattenuati on is seen. There is no focal loss of nieves-white matter distinction to suggest acute ischemia, i.e. stroke. There is a hematoma over the right orbit. Impression: No acute intracranial findings. End impression CT C-Spine without contrast: Clinical History: Reason: severe pain after fall / Spl. Instructions: / History: Technique: Axial helical images of the cervical spine were obtained without contrast, axial coronal and sagittal reconstruction was performed. Findings: There is no loss of vertebral body stature. There is no prevertebral soft tissue swelling. The vert ebral bodies are well aligned. The C1-C2 relationship is normal. The visualized osseous structures a ppear normal. Evaluation of the central canal is limited without contrast. There is multiple posterio r disc bulges resulting in flattening of the thecal sac. There does not appear to be gross flattening of the cervical cord. There is moderate narrowing of multiple neuroforamen. Impression: No acute findings. Clinical correlation suggested. PQRS Compliance Statement: One or more of the following individualized dose reduction techniques were utilized for this examinat ion: 1. Automated exposure control 2. Adjustment of the mA and/or kV according to patient size 3. Use of iterative reconstruction technique Electronically signed by: Titus Mann III, MD (08/09/2020 6:22 AM) [facility]
--- NOTE | 2020-08-09 06:27 | RAD ---
CT maxillofacial without contrast History: Severe pain after fall Axial helical images of the face were obtained without contrast. Axial and coronal reconstruction was performed. The nasal septum is mostly midline. The ostiomeatal complexes are narrow but patent. The paranasal si nuses are clear. The visualized osseous structures appear intact. The orbits appear normal. There is a hematoma over the right orbit. Impression: No acute bony abnormality. End impression PQRS Compliance Statement: One or more of the following individualized dose reduction techniques were utilized for this examinat ion: 1. Automated exposure control 2. Adjustment of the mA and/or kV according to patient size 3. Use of iterative reconstruction technique Electronically signed by: Titus Mann III, MD (08/09/2020 6:25 AM) [facility]
--- NOTE | 2020-08-09 06:34 | PHYS DOC ---
Past Medical History Past Medical History: Anemia, Asthma, Bipolar, CHF, Depression, Diabetes-Type II, GERD, High Cholesterol, Hypertension, Hypothyroid, Pneumonia, Seizure Additional Past Medical Histor: SCHIZOAFFECTIVE DISORDER, JYOTI, OA, GLAUCOMA, LEGALLY BLIND, CKD Past Surgical History: No Surgical History Additional Past Surgical Histo: CARPAL TUNNEL,RECTAL PROLAPSE REPAIR, Smoking Status: Never Smoker Alcohol Use: None Drug Use: None General Adult EDM: Chief Complaint: MECHANICAL FALL HPI: HPI: 59-year-old female past medical history of multiple comorbidities including legally blind (h/o glaucoma), presents to the ED from intermediate after she was found down (suspected down x3-4 hours), while on the floor next to her bed. Patient complains of right eye pain, right facial pain and right elbow pain after acidently falling out of bed. Denies any preceding symptoms. Med list reviewed by myself-is not on any AC. Per NH and ems report, pt is at her baseline mental function-has schizoaffective do but functions as "child like" behavior. Review of Systems: Review of Systems: Constitutional: Denies fever or chills. [] Eyes: Denies any new changes in vision or red eye HENT: Denies nasal congestion or sore throat. [] Respiratory: Denies cough or shortness of breath. [] Cardiovascular: Denies chest pain or edema. [] GI: Denies abdominal pain, nausea, vomiting, bloody stools or diarrhea. [] : Denies dysuria or hematuria Musculoskeletal: Denies back pain or joint pain. [] Integument: Denies rash or diaphoresis Neurologic: Denies headache, midline neck pain, focal weakness or sensory changes. [] Endocrine: Denies polyuria or polydipsia. [] Lymphatic: Denies swollen glands. [] Psychiatric: Denies depression or anxiety. [] Heart Score: C/O Chest Pain: No Risk Factors: Risk Factors: DM, Current or recent (<one month) smoker, HTN, HLP, family history of CAD, obesity. Risk Scores: Score 0 - 3: 2.5% MACE over next 6 weeks - Discharge Home Score 4 - 6: 20.3% MACE over next 6 weeks - Admit for Clinical Observation Score 7 - 10: 72.7% MACE over next 6 weeks - Early Invasive Strategies Allergies: Allergies: Allergies Coded Allergies Type Severity Reaction Last Updated Verified Penicillins Allergy Intermediate HIVES 05/15/19 Yes I S O L A T I O N *CONTACT* Allergy Unknown 05/15/19 Yes Physical Exam: PE: Constitutional: Well developed, well nourished, no acute distress, non-toxic appearance, asking for water/blanket/pain medicine HENT: no hematoma, Eyes: arcus senilus bilaterally, no hyphema, pupils myotic, 1 mm bilaterally, hazy cornea, EOMI, conjunctiva normal, no discharge, entire r upper eyelid edematous and bruised-no tarsal plate. Neck: Normal range of motion, supple, no middle neck pain Cardiovascular: S1/2 present, regular rhythm Lungs & Thorax: Speaking in full sentences, bilateral equal chest rise, no tachypnea or increased work of breathing Abdomen: soft, no tenderness, obese, no pain w/pelvic rocking Skin: Warm, dry, no erythema, no rash. [] Back: No midline tenderness, no CVA tenderness. [] Extremities: No tenderness, no cyanosis, no lower extremity edema Neurologic: GCS 15, alert and oriented X 3, normal motor function, normal sensory function, no focal deficits noted. [] Psychologic: Affect normal, judgement normal, mood normal on initial exam, later started crying and screaming in ed, unable to desescalate/has h/o schizophrenia, IV line on right hand does not appear infiltrated after bicarb - another line attempted by rn Current Patient Data: Vital Signs: Vital Signs Date Time Temp Pulse Resp B/P (MAP) Pulse Ox O2 Delivery O2 Flow Rate FiO2 08/09/20 05:35 98.0 97 18 150/118 (129) 100 Room Air 98.0 EKG: EKG: [] Radiology/Procedures: Radiology/Procedures: IMAGING REPORT Signed PATIENT: OMEGA ESQUIVEL DACCOUNT: [id number] : 1960 LOCATION: ER AGE: 59 SEX: F EXAM STATUS: REG ER ORD. PHYSICIAN: JOSE FRANCISCO BROWN MD REASON: severe pain after fall PROCEDURE: CT HEAD AND CERVICAL SPINE WO CT Head W/O Contrast: History: Reason: severe pain after fall / Spl. Instructions: / History: Comparison: none Axial images were obtained without contrast. There is mild diffuse atrophy. There is no mass effect, extraaxial fluid collections or hydrocephalus. There is no gross bleed. Mild, patchy periventricular and subcortical white matter hypoattenuation is seen. There is no focal loss of nieves-white matter distinction to suggest acute ischemia, i.e. stroke. There is a hematoma over the right orbit. Impression: No acute intracranial findings. End impression CT C-Spine without contrast: Clinical History: Reason: severe pain after fall / Spl. Instructions: / History: Technique: Axial helical images of the cervical spine were obtained without contrast, axial coronal and sagittal reconstruction was performed. Findings: There is no loss of vertebral body stature. There is no prevertebral soft tissue swelling. The vertebral bodies are well aligned. The C1-C2 relationship is normal. The visualized osseous structures appear normal. Evaluation of the central canal is limited without contrast. There is multiple posterior disc bulges resulting in flattening of the thecal sac. There does not appear to be gross flattening of the cervical cord. There is moderate narrowing of multiple neuroforamen. Impression: No acute findings. Clinical correlation suggested. PQRS Compliance Statement: One or more of the following individualized dose reduction techniques were utilized for this examination: 1. Automated exposure control 2. Adjustment of the mA and/or kV according to patient size 3. Use of iterative reconstruction technique Electronically signed by: Makayla Liz III, MD (08/09/2020 6:22 AM) [facility] DICTATED and SIGNED BY: MAKAYLA LIZ III, MD DATE: 08/09/20 [id number] IMAGING REPORT Signed PATIENT: OMEGA ESQUIVEL DACCOUNT: [id number] : 1960 LOCATION: ER AGE: 59 SEX: F EXAM STATUS: REG ER ORD. PHYSICIAN: JOSE FRANCISCO BROWN MD REASON: severe pain after fall PROCEDURE: CT MAXILLOFACIAL WO CONTRAST CT maxillofacial without contrast History: Severe pain after fall Axial helical images of the face were obtained without contrast. Axial and coronal reconstruction was performed. The nasal septum is mostly midline. The ostiomeatal complexes are narrow but patent. The paranasal sinuses are clear. The visualized osseous structures appear intact. The orbits appear normal. There is a hematoma over the right orbit. Impression: No acute bony abnormality. End impression PQRS Compliance Statement: One or more of the following individualized dose reduction techniques were utilized for this examination: 1. Automated exposure control 2. Adjustment of the mA and/or kV according to patient size 3. Use of iterative reconstruction technique Electronically signed by: Makayla Liz III, MD (08/09/2020 6:25 AM) [facility] DICTATED and SIGNED BY: MAKAYLA LIZ III, MD DATE: 08/09/20 [id number] IMAGING REPORT Signed PATIENT: OMEGA ESQUIVEL DACCOUNT: [id number] : 1960 LOCATION: ER AGE: 59 SEX: F EXAM STATUS: REG ER ORD. PHYSICIAN: JOSE FRANCISCO BROWN MD REASON: pain, fall PROCEDURE: ELBOW RIGHT 2V Three-view right elbow HISTORY: Pain status post fall AP lateral oblique views The visualized osseous structures appear normal. IMPRESSION: No acute findings. Electronically signed by: Makayla Liz III, MD (08/09/2020 6:32 AM) [facility] DICTATED and SIGNED BY: MAKAYLA LIZ III, MD DATE: 08/09/20 [id number] Course & Med Decision Making: Course & Med Decision Making Pertinent Labs and Imaging studies reviewed. (See chart for details) Concern for right periorbital ecchymosis and eyelid swelling with no visual impairment. CT imaging & x-rays with no acute traumatic pathology. Incidental finding of hyperkalemia and acute on chronic kidney disease-CT imaging ordered to evaluate for obstruction. U/A pending. Will admit for further medical management and place nephrology consultation. At time of admission patient was screaming, stating "I feel drugged up." Myself and staff, unable to verbally de- escalate. Highly considered IV infiltrate which is not c/w physical exam-a second IV is being attempted. Pt was patient stable at time of admission and agrees with this plan. I have spoken with the patient and/or caregivers. I have explained the patient's condition, diagnosis and treatment plan based on the information available to me at this time. I have answered the patient's and/or caregivers questions and answered any concerns. The patient and/or caregivers have as good an understanding of the patient's diagnosis, condition and treatment plan as can be expected at this point. The patient has been stabilized within the capability of the emergency department. The patient will be transported for further care and management or will be moved to an observation or inpatient service. I have communicated with the staff or medical practitioner taking over this patient's care. Critical Care: Authorized and Performed by: Allison Christensen DO Total critical care time: approximately 30 minutes Due to a high probability of clinically significant, life threatening deterioration, the patient required my highest level of preparedness to intervene emergently and I personally spent this critical care time directly and personally managing the patient. This critical care time included obtaining a history; examining the patient; pulse oximetry; ventilator management if necessary; ordering and review of studies; arranging urgent treatment with development of a management plan; evaluation of patient's response to treatment; frequent reassessment; discussion with patient/family; and, discussions with other providers. This critical care time was performed to assess and manage the high probability of imminent, life-threatening deterioration that could result in multi-organ failure. It was exclusive of separately billable procedures and treating other patients and teaching time. Please see MDM section and the rest of the note for further information on patient assessment and treatment. Dragon Disclaimer: Dragon Disclaimer: This electronic medical record was generated, in whole or in part, using a voice recognition dictation system. Departure Departure Impression: Primary Impression: Hyperkalemia Additional Impressions: Acute kidney injury superimposed on chronic kidney disease Traumatic periorbital ecchymosis of right eye Agitation requiring sedation protocol Disposition: ADMITTED INPATIENT Admitting Physician: BO (Dr. Kennedy) Condition: GUARDED Referrals: THOMAS AGUILERA MD (PCP) ALLISON CHRISTENSEN DO August 09, 2020 06:34
[2020-08-09] MEDS ORDERED: IV NORMAL SALINE 1000ML BAG 1,000 ML IV ONE (06:45)
[2020-08-09] MEDS ORDERED: HYDROmorphone 2 MG/ML VIAL IVP ONE (07:45)
[2020-08-09 08:06] LABS: BASO % 0 % (0-3); EOS % 0 % (0-3); HEMATOCRIT 30.1 % (36.0-47.0); HEMOGLOBIN 9.3 g/dL (12.0-15.5); LYMPH # 0.4 x10^3/uL (1.0-4.8); LYMPH % 8 % (24-48); MEAN CORPUSCULAR HEMOGLOBIN 26 pg (25-35); MEAN CORPUSCULAR HGB CONC 31 g/dL (31-37); MEAN CORPUSCULAR VOLUME 84 fL (79-100); MONO # 0.2 x10^3/uL (0.0-1.1); MONO % 4 % (0-9); NEUT # 4.8 x10^3/uL (1.8-7.7); NEUT % 87 % (31-73); PLATELET COUNT 149 x10^3/uL (140-400); RED BLOOD COUNT 3.61 x10^6/uL (3.50-5.40); RED CELL DISTRIBUTION WIDTH 21.6 % (11.5-14.5); WHITE BLOOD COUNT 5.5 x10^3/uL (4.0-11.0)
[2020-08-09 08:23] LABS: CALCIUM 9.9 mg/dL (8.5-10.1); GFR 31.1
[2020-08-09] MEDS ORDERED: INSULIN REGULAR 100 UNIT/ML 3ML VIAL. IV ONE (08:30)
[2020-08-09] MEDS ORDERED: DEXTROSE 50% 25 GM / 50ML DISP.SYRIN. IV ONE (08:30)
[2020-08-09] MEDS ORDERED: SODIUM BICARB ADULT 8.4% 50 MEQ/50 ML DISP.SYRIN. IV ONE (08:30)
[2020-08-09] MEDS ORDERED: CALCIUM GLUCONATE 1,000 MG/10 ML VIAL. IVP ONE (08:30)
[2020-08-09 08:31] LABS: POTASSIUM 6.7 mmol/L (3.5-5.1)
[2020-08-09] MEDS ORDERED: HALOPERIDOL LACTATE 5 MG/ML VIAL. ONE (08:51)
[2020-08-09] MEDS ORDERED: HALOPERIDOL LACTATE 5 MG/ML VIAL. IVP ONE ×2 (09:00→09:30)
[2020-08-09 09:08] LABS: % LYMPHS 7 % (24-48); % MONOS 6 % (0-10); % SEGS 87 % (35-66); ANISOCYTOSIS SLIGHT; OVALOCYTES OCC; PLT ESTIMATE ADEQUATE (ADEQUATE)
[2020-08-09] MEDS ORDERED: FUROSEMIDE 40 MG/4 ML VIAL. IVP ONE (09:15)
[2020-08-09 09:29] LABS: CALCIUM 10.1 mg/dL (8.5-10.1); CREATININE 2.1 mg/dL (0.6-1.0); GFR 29.4
[2020-08-09] MEDS ORDERED: SODIUM POLYSTYRENE SULFON/SORB 15 GM/60 ML ORAL.SUSP. PO ONE ×2 (09:30→16:15)
[2020-08-09 09:32] LABS: POTASSIUM 6.8 mmol/L (3.5-5.1)
--- NOTE | 2020-08-09 09:58 | PDOC1 ---
History and Physical Date of Admission Date of Admission DATE: 08/09/20 TIME: 09:37 Identification/Chief Complaint Chief Complaint Fall Source Source: Chart review History of Present Illness History of Present Illness Patient is a 59-year-old female with past medical history schizoaffective disorder, glaucoma, legally blind, intellectually delayed, who presents from her [facility] after fall. She was apparently found on the floor of her room next to her bed and was reportedly down for 3-4 hours until staff found her. At that time she reportedly indicated pain in her right eye, right wrist, and right elbow. Per her fpc, she was reportedly at her baseline mental function. CT imaging and x-rays obtained in the ER were negative for acute pathology. Labs in ED showed Na 148, K 6.7, CK 147, CBG 96, BUN 60, Cr 2.0. On review of her fpc records, she does have a history of urinary retention noted. She received insulin, D50, sodium bicarb, calcium gluconate, and normal saline bolus in ER. Due to some aggression while in ER, she received Haldol and was also verbally deescalated by staff. Will admit patient for further medical management. Past Medical History Cardiovascular: HTN, Hyperlipidemia Pulmonary: Asthma Heme/Onc: Anemia NOS Musculoskeletal: Osteoarthritis Renal/: Chronic renal insuff Past Surgical History Past Surgical History: No pertinent history Family History Family History: Hypertension Social History Smoke: No ALCOHOL: none Drugs: None Current Problem List Problem List Problems Medical Problems: (1) Acute kidney injury superimposed on chronic kidney disease Status: Acute (2) Agitation requiring sedation protocol Status: Acute (3) Hyperkalemia Status: Acute (4) Traumatic periorbital ecchymosis of right eye Status: Acute Current Medications Current Medications Current Medications Sodium Chloride 1,000 ml @ 1,000 mls/hr 1X ONCE IV Last administered on 08/09/20at 06:59; Start 08/09/20 at 06:45; Stop 08/09/20 at 07:44; Status DC Hydromorphone HCl (Dilaudid) 0.5 mg 1X ONCE IVP Last administered on 08/09/20at 07:58; Start 08/09/20 at 07:45; Stop 08/09/20 at 07:52; Status DC Calcium Gluconate (Calcium Gluconate) 1,000 mg 1X ONCE IVP Last administered on 08/09/20at 08:48; Start 08/09/20 at 08:30; Stop 08/09/20 at 08:32; Status DC Sodium Bicarbonate (Sodium Bicarb Adult 8.4% Syr) 50 meq 1X ONCE IV Last administered on 08/09/20at 08:49; Start 08/09/20 at 08:30; Stop 08/09/20 at 08:32; Status DC Dextrose (Dextrose 50%-Water Syringe) 25 gm 1X ONCE IV Last administered on 08/09/20at 08:51; Start 08/09/20 at 08:30; Stop 08/09/20 at 08:32; Status DC Insulin Human Regular (HumuLIN R VIAL) 5 unit 1X ONCE IV Last administered on 08/09/20at 08:50; Start 08/09/20 at 08:30; Stop 08/09/20 at 08:32; Status DC Haloperidol Lactate (Haldol Inj) 5 mg STK-MED ONCE .ROUTE ; Start 08/09/20 at 08:51; Stop 08/09/20 at 08:52; Status DC Haloperidol Lactate (Haldol Inj) 5 mg 1X ONCE IVP Last administered on 08/09/20at 08:50; Start 08/09/20 at 09:00; Stop 08/09/20 at 09:01; Status DC Sodium Polystyrene Sulfonate (Kayexalate) 15 gm 1X ONCE PO ; Start 08/09/20 at 09:30; Stop 08/09/20 at 09:31 Haloperidol Lactate (Haldol Inj) 5 mg 1X ONCE IVP Last administered on 08/09/20at 09:27; Start 08/09/20 at 09:30; Stop 08/09/20 at 09:31 Furosemide (Lasix) 40 mg 1X ONCE IVP ; Start 08/09/20 at 09:15; Stop 08/09/20 at 09:16; Status DC Active Scripts Active Culturelle (Lactobacillus Rhamnosus Gg) 1 Each Cap.sprink 1 Cap PO BID 30 Days Mag-Al Plus Xs Suspension (Mag Hydrox/Al Hydrox/Simeth) 30 Ml Oral.susp 30 Ml PO PRN DAILY PRN 14 Days Acetaminophen 325 Mg Tablet 650 Mg PO PRN Q4HRS PRN 30 Days Proair Hfa (Albuterol Sulfate) 8.5 Gm Hfa.aer.ad 2.5 Mg NEB PRN Q4HRS PRN 30 Days Zofran (Ondansetron Hcl) 4 Mg Tablet 4 Mg PO PRN TID PRN nausea/vomiting Dicyclomine Hcl 10 Mg Capsule 1 Cap PO TID PRN 5 Days Zofran (Ondansetron Hcl) 4 Mg Tablet 1 Tab PO PRN Q6-8HRS PRN Reported Seroquel (Quetiapine Fumarate) 100 Mg Tablet 150 Mg PO HS Alphagan P (Brimonidine Tartrate) 5 Ml Drops 1 Drop EACHEYE BID Hydrochlorothiazide Tablet (Hydrochlorothiazide) 50 Mg Tablet 1 Tab PO DAILY Lamotrigine 150 Mg Tablet 1 Tab PO BID Docusate Sodium 100 Mg Capsule 100 Mg PO Advair 500-50 Diskus (Fluticasone/Salmeterol) 1 Each Disk.w.dev 1 Puff IH BID Flonase Allergy Relief (Fluticasone Propionate) 9.9 Ml [place].susp 2 Sprays NS DAILY Gabapentin (Gabapentin) 300 Mg Capsule 300 Mg PO TID Claritin (Loratadine) 10 Mg Tablet 1 Tab PO DAILY Januvia (Sitagliptin Phosphate) 50 Mg Tablet 1 Tab PO DAILY Synthroid (Levothyroxine Sodium) 125 Mcg Tablet 1 Tab PO DAILY Zoloft (Sertraline Hcl) 100 Mg Tablet 1 Tab PO DAILY Multivitamins (Multivitamin) 1 Each Tablet 1 Tab PO DAILY Spiriva (Tiotropium [place]) 18 Mcg Cap.w.dev 2 Inh IH DAILY Omeprazole 40 Mg Capsule.dr 1 Cap PO DAILY Amlodipine Besylate 10 Mg Tablet 10 Mg PO DAILY Allergies Allergies: Coded Allergies: Penicillins (Verified Allergy, Intermediate, HIVES, 05/15/19) I S O L A T I O N *CONTACT* (Verified Allergy, Unknown, 05/15/19) ESBL ROS Review of System Reviewed with patient but unable to obtain due to clinical condition Physical Exam Physical Exam General: Alert, uncooperative, moderate distress HEENT: Right eye swollen. EOMI Lungs: Decreased breath sounds, Normal air movement Heart: RRR, no murmurs Cardiovascular: S1, S2 Abdomen: Normal bowel sounds, Soft, No tenderness Extremities: No clubbing, No cyanosis Skin: No rashes, No significant lesion Neuro: Normal tone, Sensation intact Psych/Mental Status: Agitated Vitals Vitals Vital Signs Date Time Temp Pulse Resp B/P (MAP) Pulse Ox O2 Delivery O2 Flow Rate FiO2 08/09/20 09:11 86 19 196/79 (118) 91 08/09/20 07:58 Room Air 08/09/20 05:35 98.0 98.0 Labs Labs Laboratory Tests Test 08/09/20 07:50 White Blood Count 5.5 x10^3/uL (4.0-11.0) Red Blood Count 3.61 x10^6/uL (3.50-5.40) Hemoglobin 9.3 g/dL (12.0-15.5) Hematocrit 30.1 % (36.0-47.0) Mean Corpuscular Volume 84 fL (79-100) Mean Corpuscular Hemoglobin 26 pg (25-35) Mean Corpuscular Hemoglobin Concent 31 g/dL (31-37) Red Cell Distribution Width 21.6 % (11.5-14.5) Platelet Count 149 x10^3/uL (140-400) Neutrophils (%) (Auto) 87 % (31-73) Lymphocytes (%) (Auto) 8 % (24-48) Monocytes (%) (Auto) 4 % (0-9) Eosinophils (%) (Auto) 0 % (0-3) Basophils (%) (Auto) 0 % (0-3) Neutrophils # (Auto) 4.8 x10^3/uL (1.8-7.7) Lymphocytes # (Auto) 0.4 x10^3/uL (1.0-4.8) Monocytes # (Auto) 0.2 x10^3/uL (0.0-1.1) Eosinophils # (Auto) 0.0 x10^3/uL (0.0-0.7) Basophils # (Auto) 0.0 x10^3/uL (0.0-0.2) Segmented Neutrophils % 87 % (35-66) Lymphocytes % 7 % (24-48) Monocytes % 6 % (0-10) Platelet Estimate Adequate (ADEQUATE) Anisocytosis Slight Ovalocytes Occ Sodium Level 148 mmol/L (136-145) Potassium Level 6.7 mmol/L (3.5-5.1) Chloride Level 112 mmol/L (98-107) Carbon Dioxide Level 27 mmol/L (21-32) Anion Gap 9 (6-14) Blood Urea Nitrogen 60 mg/dL (7-20) Creatinine 2.0 mg/dL (0.6-1.0) Estimated GFR (Cockcroft-Gault) 31.1 Glucose Level 96 mg/dL (70-99) Calcium Level 9.9 mg/dL (8.5-10.1) Creatine Kinase 147 U/L (26-192) Laboratory Tests Test 08/09/20 07:50 White Blood Count 5.5 x10^3/uL (4.0-11.0) Red Blood Count 3.61 x10^6/uL (3.50-5.40) Hemoglobin 9.3 g/dL (12.0-15.5) Hematocrit 30.1 % (36.0-47.0) Mean Corpuscular Volume 84 fL (79-100) Mean Corpuscular Hemoglobin 26 pg (25-35) Mean Corpuscular Hemoglobin Concent 31 g/dL (31-37) Red Cell Distribution Width 21.6 % (11.5-14.5) Platelet Count 149 x10^3/uL (140-400) Neutrophils (%) (Auto) 87 % (31-73) Lymphocytes (%) (Auto) 8 % (24-48) Monocytes (%) (Auto) 4 % (0-9) Eosinophils (%) (Auto) 0 % (0-3) Basophils (%) (Auto) 0 % (0-3) Neutrophils # (Auto) 4.8 x10^3/uL (1.8-7.7) Lymphocytes # (Auto) 0.4 x10^3/uL (1.0-4.8) Monocytes # (Auto) 0.2 x10^3/uL (0.0-1.1) Eosinophils # (Auto) 0.0 x10^3/uL (0.0-0.7) Basophils # (Auto) 0.0 x10^3/uL (0.0-0.2) Segmented Neutrophils % 87 % (35-66) Lymphocytes % 7 % (24-48) Monocytes % 6 % (0-10) Platelet Estimate Adequate (ADEQUATE) Anisocytosis Slight Ovalocytes Occ Sodium Level 148 mmol/L (136-145) Potassium Level 6.7 mmol/L (3.5-5.1) Chloride Level 112 mmol/L (98-107) Carbon Dioxide Level 27 mmol/L (21-32) Anion Gap 9 (6-14) Blood Urea Nitrogen 60 mg/dL (7-20) Creatinine 2.0 mg/dL (0.6-1.0) Estimated GFR (Cockcroft-Gault) 31.1 Glucose Level 96 mg/dL (70-99) Calcium Level 9.9 mg/dL (8.5-10.1) Creatine Kinase 147 U/L (26-192) Images Images CT HEAD AND CERVICAL SPINE WO CT Head W/O Contrast: History: Reason: severe pain after fall / Spl. Instructions: / History: Comparison: none Axial images were obtained without contrast. There is mild diffuse atrophy. There is no mass effect, extraaxial fluid collections or hydrocephalus. There is no gross bleed. Mild, patchy periventricular and subcortical white matter hypoattenuation is seen. There is no focal loss of nieves-white matter distinction to suggest acute ischemia, i.e. stroke. There is a hematoma over the right orbit. Impression: No acute intracranial findings. End impression CT C-Spine without contrast: Clinical History: Reason: severe pain after fall / Spl. Instructions: / History: Technique: Axial helical images of the cervical spine were obtained without contrast, axial coronal and sagittal reconstruction was performed. Findings: There is no loss of vertebral body stature. There is no prevertebral soft tissue swelling. The vertebral bodies are well aligned. The C1-C2 relationship is normal. The visualized osseous structures appear normal. Evaluation of the ce ntral canal is limited without contrast. There is multiple posterior disc bulges resulting in flattening of the thecal sac. There does not appear to be gross flattening of the cervical cord. There is moderate narrowing of multiple neuroforamen. Impression: No acute findings. Clinical correlation suggested. CT MAXILLOFACIAL WO CONTRAST CT maxillofacial without contrast History: Severe pain after fall Axial helical images of the face were obtained without contrast. Axial and coronal reconstruction was performed. The nasal septum is mostly midline. The ostiomeatal complexes are narrow but patent. The paranasal sinuses are clear. The visualized osseous structures appear intact. The orbits appear normal. There is a hematoma over the right orbit. Impression: No acute bony abnormality. ELBOW RIGHT 2V Three-view right elbow HISTORY: Pain status post fall AP lateral oblique views The visualized osseous structures appear normal. IMPRESSION: No acute findings. VTE Prophylaxis Ordered VTE Prophylaxis Devices: No VTE Pharmacological Prophylaxi: Yes Assessment/Plan Assessment/Plan Hyperkalemia Hypernatremia CR likely due to vasomotor nephropathy Normocytic anemia History of schizoaffective disorder History DM2 Plan: Provide Kayexalate and Lasix to further eliminate potassium Baseline kidney function from 06/30/2020 shows CR 1.2 with EGFR 56 (CKD 3a). Consultation placed to nephrology. Due to history of urinary retention will obtain bladder scan and obtain CT abdomen/pelvis to evaluate for any obstruction Provide IV fluids; maintain Ingram catheter to monitor clinical urine output Will hold lisinopril, and she will need to discharge home different antihypertensive medication Insulin, sodium bicarb, D50, calcium gluconate received in ED; EKG pending. Haldol, Ativan as needed Resume home medications FEN - Cardiac diet PPX - Lovenox FULL CODE Dispo - inpatient for above Justifications for Admission Other Justification acute hypoxic resp failure ODELL TAMEZ MD August 09, 2020 09:58
[2020-08-09 10:00] VITALS: BP 156/91
[2020-08-09] MEDS ORDERED: hydrALAZINE 20 MG/ML VIAL. IVP PRN (10:00)
[2020-08-09] MEDS ORDERED: MAG HYDROX/ALUMINUM HYD/SIMETH 30 ML ORAL.SUSP PO PRN ×2 (10:15)
[2020-08-09] MEDS ORDERED: ONDANSETRON PF 4 MG/2 ML VIAL. IVP PRN (10:15)
[2020-08-09] MEDS ORDERED: DICYCLOMINE HCL 10 MG CAPSULE PO PRN (10:15)
[2020-08-09] MEDS ORDERED: ACETAMINOPHEN 325 MG TABLET. PO PRN (10:15)
[2020-08-09] MEDS ORDERED: MAGNESIUM HYDROXIDE 2,400 MG/30 ML ORAL.SUSP. PO PRN (10:15)
[2020-08-09] MEDS ORDERED: CALCIUM CARBONATE 500 MG TAB.CHEW PO PRN (10:15)
[2020-08-09] MEDS ORDERED: HYDROcodone/APAP 5/325MG 1 TAB TABLET PO PRN (10:15)
[2020-08-09] MEDS: BUDESONIDE 0.5 MG/2 ML NEBU. NEB SCH ×2 (11:00→20:00)
[2020-08-09] MEDS: IV NORMAL SALINE 1000ML BAG 1,000 ML IV SCH ×2 (11:49→23:20)
[2020-08-09] MEDS: LEVOTHYROXINE 125 MCG TABLET PO SCH (11:50)
[2020-08-09] MEDS: SERTRALINE 50 MG TABLET. PO SCH (11:50)
[2020-08-09] MEDS: hydroCHLOROthiazide 25 MG TABLET PO SCH (11:50)
[2020-08-09] MEDS: LINAGLIPTIN 5 MG TABLET PO SCH (11:50)
[2020-08-09] MEDS: BRIMONIDINE 0.2% OPHTH SOLUTION 5ML BOTTLE. OU SCH ×2 (11:51→22:04)
[2020-08-09] MEDS: GABAPENTIN 300 MG CAPSULE. PO SCH ×3 (11:51→22:04)
[2020-08-09] MEDS: ENOXAPARIN 40 MG/0.4 ML SYRINGE. SQ SCH ×2 (11:52→22:04)
[2020-08-09] MEDS: ALBUTEROL SULFATE 2.5 MG/3 ML NEBU. NEB SCH ×3 (12:00→20:00)
[2020-08-09] MEDS: DOCUSATE SODIUM 100 MG CAPSULE. PO SCH (12:10)
--- NOTE | 2020-08-09 12:38 | PDOC2 ---
CONSULT Date of Consult Date of Consult DATE: 08/09/20 TIME: 12:18 Reason for Consult Reason for Consult: CR Source Source: Chart review History of Present Illness Reason for Visit: Patient is a 59-year-old AA female [place] resident with past medical history schizoaffective disorder, glaucoma, legally blind, intellectually delayed, who presents from her [facility] after fall. She was apparently found on the floor of her room next to her bed and was reportedly down for 3-4 hours until staff found her. At that time she reportedly indicated pain in her right eye, right wrist, and right elbow. Per her mcc, she was at her baseline mental function. History mostly Obtained from chart review and nursing. o Reported N/V/D.No urinary complaints . No F/C , CP or SOB . Pt is incontinent CT imaging and x-rays obtained in the ER were negative for acute pathology.She has a history of urinary retention . Past Medical History Cardiovascular: HTN, Hyperlipidemia Pulmonary: Asthma Heme/Onc: Anemia NOS Musculoskeletal: Osteoarthritis Renal/: Chronic renal insuff Past Surgical History Past Surgical History: No pertinent history Family History Family History: Hypertension Social History No ALCOHOL: none Drugs: None Current Problem List Problem List Problems Medical Problems: (1) Acute kidney injury superimposed on chronic kidney disease Status: Acute (2) Agitation requiring sedation protocol Status: Acute (3) Hyperkalemia Status: Acute (4) Traumatic periorbital ecchymosis of right eye Status: Acute Current Medications Current Medications Current Medications Sodium Chloride 1,000 ml @ 1,000 mls/hr 1X ONCE IV Last administered on 08/09/20at 06:59; Start 08/09/20 at 06:45; Stop 08/09/20 at 07:44; Status DC Hydromorphone HCl (Dilaudid) 0.5 mg 1X ONCE IVP Last administered on 08/09/20at 07:58; Start 08/09/20 at 07:45; Stop 08/09/20 at 07:52; Status DC Calcium Gluconate (Calcium Gluconate) 1,000 mg 1X ONCE IVP Last administered on 08/09/20at 08:48; Start 08/09/20 at 08:30; Stop 08/09/20 at 08:32; Status DC Sodium Bicarbonate (Sodium Bicarb Adult 8.4% Syr) 50 meq 1X ONCE IV Last admin istered on 08/09/20at 08:49; Start 08/09/20 at 08:30; Stop 08/09/20 at 08:32; Status DC Dextrose (Dextrose 50%-Water Syringe) 25 gm 1X ONCE IV Last administered on 08/09/20at 08:51; Start 08/09/20 at 08:30; Stop 08/09/20 at 08:32; Status DC Insulin Human Regular (HumuLIN R VIAL) 5 unit 1X ONCE IV Last administered on 08/09/20at 08:50; Start 08/09/20 at 08:30; Stop 08/09/20 at 08:32; Status DC Haloperidol Lactate (Haldol Inj) 5 mg STK-MED ONCE .ROUTE ; Start 08/09/20 at 08:51; Stop 08/09/20 at 08:52; Status DC Haloperidol Lactate (Haldol Inj) 5 mg 1X ONCE IVP Last administered on 08/09/20at 08:50; Start 08/09/20 at 09:00; Stop 08/09/20 at 09:01; Status DC Sodium Polystyrene Sulfonate (Kayexalate) 15 gm 1X ONCE PO ; Start 08/09/20 at 09:30; Stop 08/09/20 at 09:31; Status DC Haloperidol Lactate (Haldol Inj) 5 mg 1X ONCE IVP Last administered on 08/09/20at 09:27; Start 08/09/20 at 09:30; Stop 08/09/20 at 09:31; Status DC Furosemide (Lasix) 40 mg 1X ONCE IVP ; Start 08/09/20 at 09:15; Stop 08/09/20 at 09:16; Status DC Haloperidol Lactate (Haldol Inj) 5 mg PRN Q6HRS PRN IVP AGITATION; Start 08/09/20 at 09:45 Lorazepam (Ativan Inj) 2 mg PRN Q4HRS PRN IVP ANXIETY / AGITATION; Start 08/09/20 at 09:45 Hydralazine HCl (Apresoline Inj) 10 mg PRN Q4HRS PRN IVP ELEVATED BP, SEE COMMENTS; Start 08/09/20 at 10:00 Sodium Chloride 1,000 ml @ 75 mls/hr [id number] IV Last administered on 08/09/20at 11:49; Start 08/09/20 at 10:00 Amlodipine Besylate (Norvasc) 10 mg DAILY PO ; Start 08/10/20 at 09:00 Dicyclomine HCl (Bentyl) 10 mg PRN TID PRN PO PAIN; Start 08/09/20 at 10:15 Docusate Sodium (Colace) 100 mg DAILY PO Last administered on 08/09/20at 12:10; Start 08/09/20 at 10:30 Gabapentin (Neurontin) 300 mg TID PO Last administered on 08/09/20at 11:51; Start 08/09/20 at 10:30 Levothyroxine Sodium (Synthroid) 125 mcg DAILY06 PO Last administered on 08/09/20at 11:50; Start 08/09/20 at 10:30 Al Hydroxide/Mg Hydroxide (Mylanta Plus Xs) 30 ml PRN DAILY PRN PO HEARTBURN / GAS; Start 08/09/20 at 10:15 Quetiapine Fumarate (SEROquel) 150 mg HS PO ; Start 08/09/20 at 21:00 Brimonidine Tartrate (Alphagan) 1 drop BID OU Last administered on 08/09/20at 11:51; Start 08/09/20 at 11:00 Non-Formulary Medication (Fluticasone/ Salmeterol (Advair 500-50 Diskus)) 1 puff BID IH ; Start 08/09/20 at 21:00; Stop 08/09/20 at 10:29; Status DC Hydrochlorothiazide (Hydrodiuril) 50 mg DAILY PO Last administered on 08/09/20at 11:50; Start 08/09/20 at 11:00 Lamotrigine (LaMICtal) 150 mg BID PO ; Start 08/09/20 at 21:00 Sertraline HCl (Zoloft) 100 mg DAILY PO Last administered on 08/09/20at 11:50; Start 08/09/20 at 11:00 Linagliptin (Tradjenta) 5 mg DAILY PO Last administered on 08/09/20at 11:50; Start 08/09/20 at 11:00 Ondansetron HCl (Zofran) 4 mg PRN Q6HRS PRN IVP NAUSEA/VOMITING; Start 08/09/20 at 10:15 Al Hydroxide/Mg Hydroxide (Mylanta Plus Xs) 30 ml PRN Q3HRS PRN PO HEARTBURN / GAS; Start 08/09/20 at 10:15; Status Cancel Calcium Carbonate/ Glycine (Tums) 500 mg PRN Q3HRS PRN PO UPSET STOMACH; Start 08/09/20 at 10:15 Morphine Sulfate (Morphine Sulfate) 2 mg PRN Q1HR PRN IV PAIN; Start 08/09/20 at 10:15 Acetaminophen/ Hydrocodone Bitart (Lortab 5/325) 1 tab PRN Q4HRS PRN PO MILD PAIN 1-3; Start 08/09/20 at 10:15 Acetaminophen/ Hydrocodone Bitart (Lortab 5/325) 2 tab PRN Q4HRS PRN PO MODERATE PAIN, SEVERE PAIN; Start 08/09/20 at 10:15 Acetaminophen (Tylenol) 650 mg PRN Q6HRS PRN PO Headaches, Temp > 101.5F; Start 08/09/20 at 10:15 Magnesium Hydroxide (Milk Of Magnesia) 2,400 mg PRN Q12HR PRN PO CONSTIPATION; Start 08/09/20 at 10:15; Status Cancel Enoxaparin Sodium (Lovenox 40mg Syringe) 40 mg Q12H SQ Last administered on 08/09/20at 11:52; Start 08/09/20 at 10:30 Albuterol Sulfate (Ventolin Neb Soln) 2.5 mg RTQID NEB ; Start 08/09/20 at 12:00 Budesonide (Pulmicort) 0.5 mg RTBID NEB ; Start 08/09/20 at 11:00 Active Scripts Active Culturelle (Lactobacillus Rhamnosus Gg) 1 Each Cap.sprink 1 Cap PO BID 30 Days Mag-Al Plus Xs Suspension (Mag Hydrox/Al Hydrox/Simeth) 30 Ml Oral.susp 30 Ml PO PRN DAILY PRN 14 Days Acetaminophen 325 Mg Tablet 650 Mg PO PRN Q4HRS PRN 30 Days Proair Hfa (Albuterol Sulfate) 8.5 Gm Hfa.aer.ad 2.5 Mg NEB PRN Q4HRS PRN 30 Days Zofran (Ondansetron Hcl) 4 Mg Tablet 4 Mg PO PRN TID PRN nausea/vomiting Dicyclomine Hcl 10 Mg Capsule 1 Cap PO TID PRN 5 Days Zofran (Ondansetron Hcl) 4 Mg Tablet 1 Tab PO PRN Q6-8HRS PRN Reported Seroquel (Quetiapine Fumarate) 100 Mg Tablet 150 Mg PO HS Alphagan P (Brimonidine Tartrate) 5 Ml Drops 1 Drop EACHEYE BID Hydrochlorothiazide Tablet (Hydrochlorothiazide) 50 Mg Tablet 1 Tab PO DAILY Lamotrigine 150 Mg Tablet 1 Tab PO BID Docusate Sodium 100 Mg Capsule 100 Mg PO Advair 500-50 Diskus (Fluticasone/Salmeterol) 1 Each Disk.w.dev 1 Puff IH BID Flonase Allergy Relief (Fluticasone Propionate) 9.9 Ml [place].susp 2 Sprays NS DAILY Gabapentin (Gabapentin) 300 Mg Capsule 300 Mg PO TID Claritin (Loratadine) 10 Mg Tablet 1 Tab PO DAILY Januvia (Sitagliptin Phosphate) 50 Mg Tablet 1 Tab PO DAILY Synthroid (Levothyroxine Sodium) 125 Mcg Tablet 1 Tab PO DAILY Zoloft (Sertraline Hcl) 100 Mg Tablet 1 Tab PO DAILY Multivitamins (Multivitamin) 1 Each Tablet 1 Tab PO DAILY Spiriva (Tiotropium [place]) 18 Mcg Cap.w.dev 2 Inh IH DAILY Omeprazole 40 Mg Capsule.dr 1 Cap PO DAILY Amlodipine Besylate 10 Mg Tablet 10 Mg PO DAILY Allergies Allergies: Coded Allergies: Penicillins (Verified Allergy, Intermediate, HIVES, 05/15/19) I S O L A T I O N *CONTACT* (Verified Allergy, Unknown, 05/15/19) ESBL ROS Review of System As per HPi, rest of the ROS is negative Physical Exam Physical Exam General: NAD, sleeping , easily arousable , Morbid Obese HEENT: Right eye swollen. Legally blind Neck Thick, supple Lungs: Decreased breath sounds at bases 2/2 body habitus , Non labored t Heart: RRR, no murmurs Cardiovascular: S1, S2 Abdomen: Normal bowel sounds, Soft, Morbidly Obese Extremities: No clubbing, No cyanosis, No edema Skin: No rashes, No significant lesion Neuro: Grossly Normal, baseline intellectual delay Psych/Mental Status: Calm No CVA or SP tenderness, No Ingram Vital Signs Vital Signs Date Time Temp Pulse Resp B/P (MAP) Pulse Ox O2 Delivery O2 Flow Rate FiO2 08/09/20 10:00 98.6 93 18 156/91 (112) 94 Room Air 98.6 Assessment & Plan CR - on CKD Vasomotor / R/O Urinary retention ( has Hx in past ) , Patient is incontinent and Morbidly Obese- Bladder scan may not be accurate . Also Received IV contrast with CT scan on 06/30 with No fu labs Continue IVF , Check UA , supportive care, Strict I/O monitor , avoid Nephrotoxins CT scan in June 2020- Areas of renal cortical scarring bilaterally with kidney morphology unchanged from the prior. No hydronephrosis. Circumferential wall thickening of the urinary bladder. Hyperkalemia - r/o urinary retention . Agree with Kayexalate if no EKG changes Hypernatremia- Mild, continue IVF CKD Stage 3 Baseline Cr 1.3-1.7 based on [facility] records History of schizoaffective disorder History DM2 Anemia Hgb 7.7 in June ,improved , defer to primary Labs Labs Laboratory Tests Test 08/09/20 07:50 08/09/20 09:10 08/09/20 11:33 White Blood Count 5.5 x10^3/uL (4.0-11.0) Red Blood Count 3.61 x10^6/uL (3.50-5.40) Hemoglobin 9.3 g/dL (12.0-15.5) Hematocrit 30.1 % (36.0-47.0) Mean Corpuscular Volume 84 fL (79-100) Mean Corpuscular Hemoglobin 26 pg (25-35) Mean Corpuscular Hemoglobin Concent 31 g/dL (31-37) Red Cell Distribution Width 21.6 % (11.5-14.5) Platelet Count 149 x10^3/uL (140-400) Neutrophils (%) (Auto) 87 % (31-73) Lymphocytes (%) (Auto) 8 % (24-48) Monocytes (%) (Auto) 4 % (0-9) Eosinophils (%) (Auto) 0 % (0-3) Basophils (%) (Auto) 0 % (0-3) Neutrophils # (Auto) 4.8 x10^3/uL (1.8-7.7) Lymphocytes # (Auto) 0.4 x10^3/uL (1.0-4.8) Monocytes # (Auto) 0.2 x10^3/uL (0.0-1.1) Eosinophils # (Auto) 0.0 x10^3/uL (0.0-0.7) Basophils # (Auto) 0.0 x10^3/uL (0.0-0.2) Segmented Neutrophils % 87 % (35-66) Lymphocytes % 7 % (24-48) Monocytes % 6 % (0-10) Platelet Estimate Adequate (ADEQUATE) Anisocytosis Slight Ovalocytes Occ Sodium Level 148 mmol/L (136-145) 149 mmol/L (136-145) Potassium Level 6.7 mmol/L (3.5-5.1) 6.8 mmol/L (3.5-5.1) Chloride Level 112 mmol/L (98-107) 114 mmol/L (98-107) Carbon Dioxide Level 27 mmol/L (21-32) 30 mmol/L (21-32) Anion Gap 9 (6-14) 5 (6-14) Blood Urea Nitrogen 60 mg/dL (7-20) 57 mg/dL (7-20) Creatinine 2.0 mg/dL (0.6-1.0) 2.1 mg/dL (0.6-1.0) Estimated GFR (Cockcroft-Gault) 31.1 29.4 Glucose Level 96 mg/dL (70-99) 88 mg/dL (70-99) Calcium Level 9.9 mg/dL (8.5-10.1) 10.1 mg/dL (8.5-10.1) Creatine Kinase 147 U/L (26-192) Glucose (Fingerstick) 63 mg/dL (70-99) Laboratory Tests Test 08/09/20 07:50 08/09/20 09:10 08/09/20 11:33 White Blood Count 5.5 x10^3/uL (4.0-11.0) Red Blood Count 3.61 x10^6/uL (3.50-5.40) Hemoglobin 9.3 g/dL (12.0-15.5) Hematocrit 30.1 % (36.0-47.0) Mean Corpuscular Volume 84 fL (79-100) Mean Corpuscular Hemoglobin 26 pg (25-35) Mean Corpuscular Hemoglobin Concent 31 g/dL (31-37) Red Cell Distribution Width 21.6 % (11.5-14.5) Platelet Count 149 x10^3/uL (140-400) Neutrophils (%) (Auto) 87 % (31-73) Lymphocytes (%) (Auto) 8 % (24-48) Monocytes (%) (Auto) 4 % (0-9) Eosinophils (%) (Auto) 0 % (0-3) Basophils (%) (Auto) 0 % (0-3) Neutrophils # (Auto) 4.8 x10^3/uL (1.8-7.7) Lymphocytes # (Auto) 0.4 x10^3/uL (1.0-4.8) Monocytes # (Auto) 0.2 x10^3/uL (0.0-1.1) Eosinophils # (Auto) 0.0 x10^3/uL (0.0-0.7) Basophils # (Auto) 0.0 x10^3/uL (0.0-0.2) Segmented Neutrophils % 87 % (35-66) Lymphocytes % 7 % (24-48) Monocytes % 6 % (0-10) Platelet Estimate Adequate (ADEQUATE) Anisocytosis Slight Ovalocytes Occ Sodium Level 148 mmol/L (136-145) 149 mmol/L (136-145) Potassium Level 6.7 mmol/L (3.5-5.1) 6.8 mmol/L (3.5-5.1) Chloride Level 112 mmol/L (98-107) 114 mmol/L (98-107) Carbon Dioxide Level 27 mmol/L (21-32) 30 mmol/L (21-32) Anion Gap 9 (6-14) 5 (6-14) Blood Urea Nitrogen 60 mg/dL (7-20) 57 mg/dL (7-20) Creatinine 2.0 mg/dL (0.6-1.0) 2.1 mg/dL (0.6-1.0) Estimated GFR (Cockcroft-Gault) 31.1 29.4 Glucose Level 96 mg/dL (70-99) 88 mg/dL (70-99) Calcium Level 9.9 mg/dL (8.5-10.1) 10.1 mg/dL (8.5-10.1) Creatine Kinase 147 U/L (26-192) Glucose (Fingerstick) 63 mg/dL (70-99) Review All relevant outside records, renal labs, imaging studies, telemetry/EKG's were reviewed. Images Images : CT ABD PELV W/ORAL&IV CONTRAST Study: CT abdomen/pelvis with intravenous contrast Indication: Iron deficiency anemia. Comparison: 01/03/2020 Technique: Helical CT imaging performed of the abdomen and pelvis after the intravenous administration of 60 cc Omnipaque 300 contrast. 50 cc oral Omnipaque 240 administered as well. Sagittal and coronal reformats were obtained. One or more of the following individualized dose reduction techniques were utilized for this examination: 1. Automated exposure control 2. Adjustment of the mA and/or kV according to patient size 3. Use of iterative reconstruction technique. Findings: Limited exam on account of patient body habitus. Unchanged small/moderate hiatal hernia. There is again circumferential thickening of the distal esophageal wall. It is difficult to discern if reticulonodular densities at both lung bases are entirely on account of atelectasis or relayed in part to infiltrates. Presumed hepatic steatosis. Limited assessment for any focal parenchymal abnormality. Gallstone filled gallbladder. The gallbladder wall appears to be mildly thickened and there is faint haziness of the pericholecystic fat at the fundal region however similar findings were present previously. No apparent biliary ductal dilatation. No peripancreatic inflammation. Incomplete assessment of the parenchyma. No adrenal gland mass. Upper limits of normal size of the spleen measuring just over 13 cm craniocaudal. Areas of renal cortical scarring bilaterally with kidney morphology unchanged from the prior. No hydronephrosis. Circumferential wall thickening of the urinary bladder. Unchanged uterus. No adnexal mass. No localized colonic wall thickening or pericolonic inflammation. Mild degree of constipation. Normal appendix. Distended stomach with ingested material and gas. No gastric wall emphysema. No definitive mucosal mass. Nonobstructed small bowel. Scattered calcific atherosclerosis with particularly dense calcifications at the celiac origin but unchanged. Similar mild enlargement of inguinal lymph nodes. No free fluid or pneumoperitoneum. Scattered body wall edema. No complex body wall hernia. Probable injection-related changes at the ventral lower abdomen. End-stage arthrosis at the left hip. Moderate arthrosis at the right hip. Lumbar levocurvature. Fusion across the right aspect of the L4-L5 disc space. Transitio nal lumbosacral anatomy with partial lumbarization of S1. The most pronounced osseous neural foraminal stenosis is on the right at L4-L5. Poorly evaluated central canal by both technique and related to patient body habitus. No acute abnormality is apparent. Impression: 1. Limited study due to patient body habitus. 2. No abnormality seen to involve the small or large bowel to explain the patient's anemia. Redemonstration of a small/moderate hiatal hernia as well as circumferential wall thickening of the distal esophagus. Recommend correlation for a history of reflux. 3. Gallstone filled gallbladder. The gallbladder wall appears mildly thickened but a similar appearance was seen on the 01/03/2020 comparison. Recommend correlation for any right upper quadrant pain. 4. Circumferential wall thickening of the urinary bladder. This may be chronic but urinalysis could be performed to exclude cystitis. 5. Reticulonodular densities at the lower lungs indeterminant for atelectasis or potentially mild infectious or inflammatory infiltrates. 6. Hepatic steatosis. Mild enlargement of the spleen. 7. End-stage left hip arthrosis. Multilevel thoracolumbar spondylosis with the greatest degree of neural foraminal stenosis on the right at L4-L5. Presumed central canal stenosis at the lower lumbar spine but incompletely characterized. EDEN AU MD August 09, 2020 12:38
--- NOTE | 2020-08-09 12:41 | EKG ---
[facility] [address] [place] [address] Test Date: 2020-08-09 Test Time: 12:44:59 Pat Name: OMEGA ESQUIVEL Department: Room: 205 Gender: F Rehab Services Aide: HANNAH : 1960 Requested By: RADHA CHRISTENSEN Order Number: [id number] Reading MD: Measurements Intervals [place] Rate: 83 P: 46 TX: 166 QRS: 20 QRSD: 84 T: 48 QT: 374 QTc: 445 Interpretive Statements SINUS RHYTHM QRS(T) CONTOUR ABNORMALITY CONSIDER ANTEROSEPTAL MYOCARDIAL DAMAGE POSSIBLY ABNORMAL ECG RI6.01 Compared to ECG 06/29/2020 05:51:25 No significant changes
--- NOTE | 2020-08-09 14:49 | RAD ---
EXAM: Abdomen and pelvis CT without intravenous contrast. HISTORY: Acute on chronic renal insufficiency. TECHNIQUE: Computed tomographic images of the abdomen and pelvis were obtained without contrast. Mult iplanar reformatting was performed. *One or more of the following individualized dose reduction techniques were utilized for this examina tion: 1. Automated exposure control. 2. Adjustment of the mA and/or kV according to patient size. 3. Use of iterative reconstruction technique. COMPARISON: 06/30/2020. FINDINGS: Evaluation of the lower thorax is limited due to respiratory motion. There are persistent r eticulonodular opacities throughout both lungs. There is no consolidation or pleural effusion. There is distal esophageal mucosal thickening superimposed on a small hiatal hernia, similar compared to th e prior exam. No hepatic lesion is seen. There is cholelithiasis. The gallbladder lumen is hyperdense likely due to vicarious excretion of contrast. The pancreas, spleen and adrenal glands are unremarka ble. There is bilateral renal cortical lobulation due to scarring. There is no hydronephrosis. No convinci ng suspicious renal lesion is seen on this noncontrast exam. There is no appendicitis. There is no fatimah wel obstruction. There is moderate colonic stool. The bladder is unremarkable. The uterus and adnexal regions are unremarkable. The aorta is normal in caliber. There is no lymphadenopathy. 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 Th ere is lumbar scoliosis and multilevel degenerative change throughout the spine. There is grade 1 ant erolisthesis at the lower lumbar levels. There is degenerative change involving the wrists, not fully assessed on this exam. IMPRESSION: 1. Bilateral renal cortical scarring and atrophy. 2. Stable reticulonodular opacities within the bilateral lower lungs, difficult to characterize given respiratory motion during image acquisition. This may be infectious or inflammatory in etiology. 3. Cholelithiasis. 4. Distal esophageal mucosal thickening and small hiatal hernia. Correlate for esophagitis. 5. Chronic deformity of the left hip, described above. Electronically signed by: Ellie Dial MD (08/09/2020 2:47 PM) [id number]
[2020-08-09 15:00] VITALS: BP 170/92
[2020-08-09 16:09] LABS: BILIRUBIN,URINE NEGATIVE (NEG); CLARITY,URINE TURBID; COLOR,URINE YELLOW; NITRITE,URINE POSITIVE (NEG); PROTEIN,URINE 30 mg/dL (NEG-TRACE); UROBILINOGEN,URINE 0.2 mg/dL (0.2 mg/dL)
[2020-08-09] MEDS ORDERED: DEXTROSE 50% 25 GM / 50ML DISP.SYRIN. IV PRN (16:15)
[2020-08-09] MEDS: HALOPERIDOL LACTATE 5 MG/ML VIAL. IVP PRN (16:19)
[2020-08-09] MEDS: HYDROcodone/APAP 5/325MG 1 TAB TABLET PO PRN (16:19)
[2020-08-09 16:21] LABS: BACTERIA,URINE MANY /HPF (0-FEW); WBC,URINE TNTC /HPF (0-4)
[2020-08-09] MEDS: INSULIN LISPRO 300 UNITS/3 ML VIAL. SQ SCH (17:00)
[2020-08-09 19:05] VITALS: BP 98/51
--- NOTE | 2020-08-09 20:05 | NUR ---
pt is 59 y old female who arrived to unit at approx 1000 via gurney . assist x 3 to transfer to bed. Pt aware of situation at the time of admission to the unit and stated that she fell out of bed earlier at [facility]. Patient oriented to staff and policies and states understanding however pt legally blind and denies being able to see anything. right eye swollen almost shut from fall with tiny abrasion above eyebrow. pt bed rest however able to assist with turns. shelter monitor applied. consults to nephrology.
[2020-08-09] MEDS ORDERED: NON FORMULARY ITEM (Fluticasone/Salmeterol (Advair 500-50 Diskus) 1 PUFF) IH SCH (21:00)
[2020-08-09] MEDS: lamoTRIgine 100 MG TABLET. PO SCH (22:05)
[2020-08-09] MEDS: QUEtiapine 100 MG TABLET. PO SCH (22:05)
[2020-08-09] MEDS: cefTRIAXone IV Push 1 GM VIAL. IVP SCH (22:10)
[2020-08-09 23:05] VITALS: BP 139/67
[2020-08-10 03:30] VITALS: BP 114/52
[2020-08-10 07:00] VITALS: BP 161/96
[2020-08-10] MEDS: BUDESONIDE 0.5 MG/2 ML NEBU. NEB SCH ×2 (07:03→20:44)
[2020-08-10] MEDS: ALBUTEROL SULFATE 2.5 MG/3 ML NEBU. NEB SCH ×4 (07:03→20:44)
[2020-08-10] MEDS: INSULIN LISPRO 300 UNITS/3 ML VIAL. SQ SCH ×3 (08:00→17:00)
[2020-08-10 08:08] LABS: ALBUMIN 3.7 g/dL (3.4-5.0); ALBUMIN/GLOBULIN RATIO 0.8 (1.0-1.7); CALCIUM 9.6 mg/dL (8.5-10.1); CREATININE 1.8 mg/dL (0.6-1.0); GFR 35.1; TOTAL BILIRUBIN 0.3 mg/dL (0.2-1.0); TOTAL PROTEIN 8.4 g/dL (6.4-8.2)
[2020-08-10 08:13] LABS: POTASSIUM 6.1 mmol/L (3.5-5.1)
[2020-08-10] MEDS: DOCUSATE SODIUM 100 MG CAPSULE. PO SCH (08:21)
[2020-08-10] MEDS: lamoTRIgine 100 MG TABLET. PO SCH ×2 (08:21→21:01)
[2020-08-10] MEDS: LINAGLIPTIN 5 MG TABLET PO SCH (08:22)
[2020-08-10] MEDS: LEVOTHYROXINE 125 MCG TABLET PO SCH (08:22)
[2020-08-10] MEDS: hydroCHLOROthiazide 25 MG TABLET PO SCH (08:22)
[2020-08-10] MEDS: SERTRALINE 50 MG TABLET. PO SCH (08:22)
[2020-08-10] MEDS: GABAPENTIN 300 MG CAPSULE. PO SCH ×3 (08:29→21:01)
[2020-08-10] MEDS: amLODIPine BESYLATE 10 MG TABLET PO SCH (08:29)
[2020-08-10] MEDS: BRIMONIDINE 0.2% OPHTH SOLUTION 5ML BOTTLE. OU SCH ×2 (08:29→21:07)
[2020-08-10] MEDS: ENOXAPARIN 40 MG/0.4 ML SYRINGE. SQ SCH ×2 (08:51→21:01)
--- NOTE | 2020-08-10 09:08 | PDOC ---
[employer] PROGRESS NOTE Date of Service DOS: DATE: 08/10/20 TIME: 09:07 Chief Complaint Chief Complaint A/P: Hyperkalemia Hypernatremia CR likely due to vasomotor nephropathy Normocytic anemia History of schizoaffective disorder History DM2 Plan: Provide Kayexalate and Lasix to further eliminate potassium Baseline kidney function from 06/30/2020 shows CR 1.2 with EGFR 56 (CKD 3a). Consultation placed to nephrology. Due to history of urinary retention will obtain bladder scan and obtain CT abdomen/pelvis to evaluate for any obstruction Provide IV fluids; maintain Ingram catheter to monitor clinical urine output Will hold lisinopril, and she will need to discharge home different a ntihypertensive medication Insulin, sodium bicarb, D50, calcium gluconate received in ED; EKG pending. Haldol, Ativan as needed Resume home medications FEN - Cardiac diet PPX - Lovenox FULL CODE Dispo - inpatient for above History of Present Illness History of Present Illness Patient is a 59-year-old female with past medical history schizoaffective disorder, glaucoma, legally blind, intellectually delayed, who presents from her long-term after fall. She was apparently found on the floor of her room next to her bed and was reportedly down for 3-4 hours until staff found her. At that time she reportedly indicated pain in her right eye, right wrist, and right elbow. Per her long-term, she was reportedly at her baseline mental function. CT imaging and x-rays obtained in the ER were negative for acute pathology. Labs in ED showed Na 148, K 6.7, CK 147, CBG 96, BUN 60, Cr 2.0. On review of her long-term records, she does have a history of urinary retention noted. She received insulin, D50, sodium bicarb, calcium gluconate, and normal saline bolus in ER. Due to some aggression while in ER, she received Haldol and was also verbally deescalated by staff. Will admit patient for further medical management. Afebrile. NA 151, K6.1, BUN 44, CR 1.8 today. Screaming she wants to sleep. Vitals/I&O Vitals/I&O: Vital Signs Date Time Temp Pulse Resp B/P (MAP) Pulse Ox O2 Delivery O2 Flow Rate FiO2 08/10/20 08:29 89 114/52 5/29/21 07:05 Room Air 08/10/20 07:00 98.1 18 99 98.1 I & O 08/09/20 08/09/20 08/10/20 15:00 23:00 07:00 Intake Total 120 ml 350 ml 400 ml Output Total 600 ml 800 ml Balance 120 ml -250 ml -400 ml Physical Exam Lungs: Clear Labs Labs: Laboratory Tests Test 08/09/20 09:10 08/09/20 11:33 08/09/20 13:55 08/09/20 15:58 Sodium Level 149 mmol/L (136-145) Potassium Level 6.8 mmol/L (3.5-5.1) 6.3 mmol/L (3.5-5.1) Chloride Level 114 mmol/L (98-107) Carbon Dioxide Level 30 mmol/L (21-32) Anion Gap 5 (6-14) Blood Urea Nitrogen 57 mg/dL (7-20) Creatinine 2.1 mg/dL (0.6-1.0) Estimated GFR (Cockcroft-Gault) 29.4 Glucose Level 88 mg/dL (70-99) Calcium Level 10.1 mg/dL (8.5-10.1) Glucose (Fingerstick) 63 mg/dL (70-99) Urine Collection Type Unknown Urine Color Yellow Urine Clarity Turbid Urine pH 7.0 (<5.0-8.0) Urine Specific [place] 1.015 (1.000-1.030) Urine Protein 30 mg/dL (NEG-TRACE) Urine Glucose (UA) Negative mg/dL (NEG) Urine Ketones (Stick) Negative mg/dL (NEG) Urine Blood Moderate (NEG) Urine Nitrite Positive (NEG) Urine Bilirubin Negative (NEG) Urine Urobilinogen Dipstick 0.2 mg/dL (0.2 mg/dL) Urine Leukocyte Esterase Large (NEG) Urine RBC /HPF (0-2) Urine WBC Tntc /HPF (0-4) Urine Bacteria Many /HPF (0-FEW) Test 08/09/20 16:07 08/09/20 17:45 08/09/20 20:51 08/10/20 07:30 Glucose (Fingerstick) 92 mg/dL (70-99) 84 mg/dL (70-99) Potassium Level 6.2 mmol/L (3.5-5.1) 6.1 mmol/L (3.5-5.1) Sodium Level 151 mmol/L (136-145) Chloride Level 114 mmol/L (98-107) Carbon Dioxide Level 29 mmol/L (21-32) Anion Gap 8 (6-14) Blood Urea Nitrogen 44 mg/dL (7-20) Creatinine 1.8 mg/dL (0.6-1.0) Estimated GFR (Cockcroft-Gault) 35.1 BUN/Creatinine Ratio 24 (6-20) Glucose Level 79 mg/dL (70-99) Calcium Level 9.6 mg/dL (8.5-10.1) Total Bilirubin 0.3 mg/dL (0.2-1.0) Aspartate Amino Transf (AST/SGOT) 31 U/L (15-37) Alanine Aminotransferase (ALT/SGPT) 27 U/L (14-59) Alkaline Phosphatase 61 U/L (46-116) Total Protein 8.4 g/dL (6.4-8.2) Albumin 3.7 g/dL (3.4-5.0) Albumin/Globulin Ratio 0.8 (1.0-1.7) Test 08/10/20 07:38 Glucose (Fingerstick) 60 mg/dL (70-99) Assessment and Plan Assessmemt and Plan Problems Medical Problems: (1) Acute kidney injury superimposed on chronic kidney disease Status: Acute (2) Agitation requiring sedation protocol Status: Acute (3) Hyperkalemia Status: Acute (4) Traumatic periorbital ecchymosis of right eye Status: Acute Comment Review of Relevant I have reviewed the following items joseluis (where applicable) has been applied. Medications: Current Medications Medications (Trade) Dose Ordered Sig/Gamal Route PRN Reason Start Time Stop Time Status Last Admin Dose Admin Haloperidol Lactate (Haldol Inj) 5 mg 1X ONCE IVP 08/09/20 09:30 08/09/20 09:31 DC 08/09/20 09:27 Haloperidol Lactate (Haldol Inj) 5 mg PRN Q6HRS PRN IVP AGITATION 08/09/20 09:45 08/09/20 16:19 Lorazepam (Ativan Inj) 2 mg PRN Q4HRS PRN IVP ANXIETY / AGITATION 08/09/20 09:45 08/10/20 01:41 Sodium Chloride 1,000 ml @ 75 mls/hr [id number] IV 08/09/20 10:00 08/10/20 09:05 DC 08/09/20 11:49 Amlodipine Besylate (Norvasc) 10 mg DAILY PO 08/10/20 09:00 08/10/20 08:29 Docusate Sodium (Colace) 100 mg DAILY PO 08/09/20 10:30 08/10/20 08:21 Gabapentin (Neurontin) 300 mg TID PO 08/09/20 10:30 08/10/20 08:29 Levothyroxine Sodium (Synthroid) 125 mcg DAILY06 PO 08/09/20 10:30 08/10/20 08:22 Quetiapine Fumarate (SEROquel) 150 mg HS PO 08/09/20 21:00 08/09/20 22:05 Brimonidine Tartrate (Alphagan) 1 drop BID OU 08/09/20 11:00 08/10/20 08:29 Hydrochlorothiazide (Hydrodiuril) 50 mg DAILY PO 08/09/20 11:00 08/10/20 08:22 Lamotrigine (LaMICtal) 150 mg BID PO 08/09/20 21:00 08/10/20 08:21 Sertraline HCl (Zoloft) 100 mg DAILY PO 08/09/20 11:00 08/10/20 08:22 Linagliptin (Tradjenta) 5 mg DAILY PO 08/09/20 11:00 08/10/20 08:22 Acetaminophen/ Hydrocodone Bitart (Lortab 5/325) 1 tab PRN Q4HRS PRN PO MILD PAIN 1-3 08/09/20 10:15 08/09/20 16:19 Enoxaparin Sodium (Lovenox 40mg Syringe) 40 mg Q12H SQ 08/09/20 10:30 08/10/20 08:51 Albuterol Sulfate (Ventolin Neb Soln) 2.5 mg RTQID NEB 08/09/20 12:00 08/10/20 07:03 Budesonide (Pulmicort) 0.5 mg RTBID NEB 08/09/20 11:00 08/10/20 07:03 Sodium Polystyrene Sulfonate (Kayexalate) 15 gm 1X ONCE PO 08/09/20 16:15 08/09/20 16:16 DC 08/09/20 16:19 Ceftriaxone Sodium (Rocephin) 1 gm Q24H IVP 08/09/20 22:01 08/13/20 22:00 08/09/20 22:10 Justifications for Admission Other Justification Fall, hyperkalemia MIRELA FATIMA MD August 10, 2020 09:08
[2020-08-10] MEDS ORDERED: SODIUM BICARB ADULT 8.4% 50 MEQ/50 ML DISP.SYRIN. IV ONE (09:15)
[2020-08-10] MEDS ORDERED: SODIUM POLYSTYRENE SULFON/SORB 15 GM/60 ML ORAL.SUSP. PO ONE (09:15)
[2020-08-10 11:00] VITALS: BP 131/87
[2020-08-10] MEDS: HALOPERIDOL LACTATE 5 MG/ML VIAL. IVP PRN ×2 (11:06→21:31)
--- NOTE | 2020-08-10 11:23 | PDOC ---
DATE OF SERVICE DATE: 08/10/20 TIME: 11:18 SUBJECTIVE ROS stable OBJECTIVE Vital Signs Vital Signs Date Time Temp Pulse Resp B/P (MAP) Pulse Ox O2 Delivery O2 Flow Rate FiO2 08/10/20 08:29 89 114/52 08/10/20 07:05 Room Air 08/10/20 07:00 98.1 18 99 98.1 I & 0 Intake and Output 08/10/20 07:00 Intake Total 870 ml Output Total 1400 ml Balance -530 ml Intake Oral 270 ml IV Total 300 ml Blood Product IV Normal Saline Flush 300 ml Output Urine Total 1400 ml # Voids 1 # Bowel Movements 2 PHYSICAL EXAM Physical Exam General: NAD, sleeping , easily arousable , Morbid Obese HEENT: Right eye swollen. Legally blind Neck Thick, supple Lungs: Decreased breath sounds at bases 2/2 body habitus , Non labored t Heart: RRR, no murmurs Cardiovascular: S1, S2 Abdomen: Normal bowel sounds, Soft, Morbidly Obese Extremities: No clubbing, No cyanosis, No edema Skin: No rashes, No significant lesion Neuro: Grossly Normal, baseline intellectual delay Psych/Mental Status: Calm No CVA or SP tenderness, No Ingram DIAGNOSIS/ASSESSMENT Assessment & Plan CR - on CKD Vasomotor / Received IV contrast with CT scan on 06/30 ,No e/o urinary retention Renal function improving supportive care, Strict I/O monitor , avoid Nephrotoxins CT scan w contrast in June 2020, repeat done 08/09 Areas of renal cortical scarring bilaterally with kidney morphology unchanged from the prior. No hydronephrosis. Circumferential wall thickening of the urinary bladder. ? UTI - Ur Cx pending, defer to primary Hyperkalemia - r/o urinary retention . Agree with Kayexalate if no EKG changes Hypernatremia- change to Hypotonic IVF CKD Stage 3 Baseline Cr 1.3-1.7 based on [facility] records . CT scan with IV contrast in june 2020; Ct done 08/09- Bilateral renal cortical scarring and atrophy. Stable reticulonodular opacities within the bilateral lower lungs, difficult to characterize given respiratory motion during image acquisition. This may be infectious or inflammatory in etiology. Cholelithiasis. Distal esophageal mucosal thickening and small hiatal hernia. Correlate for esophagitis. History of schizoaffective disorder History DM2 Anemia Hgb 7.7 in June ,improved , defer to primary COMMENT/RELEVANT DATA Meds Current Medications Medications (Trade) Dose Ordered Sig/Gamal Start Time Stop Time Status Last Admin Dose Admin Acetaminophen (Tylenol) 650 mg PRN Q6HRS PRN 08/09/20 10:15 Acetaminophen/ Hydrocodone Bitart (Lortab 5/325) 2 tab PRN Q4HRS PRN 08/09/20 10:15 Al Hydroxide/Mg Hydroxide (Mylanta Plus Xs) 30 ml PRN Q3HRS PRN 08/09/20 10:15 Cancel Albuterol Sulfate (Ventolin Neb Soln) 2.5 mg RTQID 08/09/20 12:00 08/10/20 07:03 2.5 MG Amlodipine Besylate (Norvasc) 10 mg DAILY 08/10/20 09:00 08/10/20 08:29 10 MG Brimonidine Tartrate (Alphagan) 1 drop BID 08/09/20 11:00 08/10/20 08:29 1 DROP Budesonide (Pulmicort) 0.5 mg RTBID 08/09/20 11:00 08/10/20 07:03 0.5 MG Calcium Carbonate/ Glycine (Tums) 500 mg PRN Q3HRS PRN 08/09/20 10:15 Calcium Gluconate (Calcium Gluconate) 1,000 mg 1X ONCE 08/09/20 08:30 08/09/20 08:32 DC 08/09/20 08:48 1,000 MG Ceftriaxone Sodium (Rocephin) 1 gm Q24H 08/09/20 22:01 08/13/20 22:00 08/09/20 22:10 1 GM Dextrose (Dextrose 50%-Water Syringe) 12.5 gm PRN Q15MIN PRN 08/09/20 16:15 Dicyclomine HCl (Bentyl) 10 mg PRN TID PRN 08/09/20 10:15 Docusate Sodium (Colace) 100 mg DAILY 08/09/20 10:30 08/10/20 08:21 100 MG Enoxaparin Sodium (Lovenox 40mg Syringe) 40 mg Q12H 08/09/20 10:30 08/10/20 08:51 40 MG Furosemide (Lasix) 40 mg 1X ONCE 08/09/20 09:15 08/09/20 09:16 DC Gabapentin (Neurontin) 300 mg TID 08/09/20 10:30 08/10/20 08:29 300 MG Haloperidol Lactate (Haldol Inj) 5 mg PRN Q6HRS PRN 08/09/20 09:45 08/10/20 11:06 5 MG Hydralazine HCl (Apresoline Inj) 10 mg PRN Q4HRS PRN 08/09/20 10:00 Hydrochlorothiazide (Hydrodiuril) 50 mg DAILY 08/09/20 11:00 08/10/20 08:22 50 MG Hydromorphone HCl (Dilaudid) 0.5 mg 1X ONCE 08/09/20 07:45 08/09/20 07:52 DC 08/09/20 07:58 0.5 MG Insulin Human Lispro (HumaLOG) 0-5 UNITS TIDWMEALS 08/09/20 17:00 Insulin Human Regular (HumuLIN R VIAL) 5 unit 1X ONCE 08/09/20 08:30 08/09/20 08:32 DC 08/09/20 08:50 5 UNIT Lactobacillus Rhamnosus (Culturelle) 1 cap BID 08/10/20 21:00 Lamotrigine (LaMICtal) 150 mg BID 08/09/20 21:00 08/10/20 08:21 150 MG Levothyroxine Sodium (Synthroid) 125 mcg DAILY06 08/09/20 10:30 08/10/20 08:22 125 MCG Linagliptin (Tradjenta) 5 mg DAILY 08/09/20 11:00 08/10/20 08:22 5 MG Lorazepam (Ativan Inj) 2 mg PRN Q4HRS PRN 08/09/20 09:45 08/10/20 01:41 2 MG Magnesium Hydroxide (Milk Of Magnesia) 2,400 mg PRN Q12HR PRN 08/09/20 10:15 Cancel Morphine Sulfate (Morphine Sulfate) 2 mg PRN Q1HR PRN 08/09/20 10:15 Non-Formulary Medication (Fluticasone/ Salmeterol (Advair 500-50 Diskus)) 1 puff BID 08/09/20 21:00 08/09/20 10:29 DC Ondansetron HCl (Zofran) 4 mg PRN Q6HRS PRN 08/09/20 10:15 Quetiapine Fumarate (SEROquel) 150 mg HS 08/09/20 21:00 08/09/20 22:05 150 MG Sertraline HCl (Zoloft) 100 mg DAILY 08/09/20 11:00 08/10/20 08:22 100 MG Sodium Polystyrene Sulfonate (Kayexalate) 30 gm 1X ONCE 08/10/20 09:15 08/10/20 09:16 DC 08/10/20 10:16 30 GM Sodium Bicarbonate (Sodium Bicarb Adult 8.4% Syr) 50 meq 1X ONCE 08/10/20 09:15 08/10/20 09:16 DC 08/10/20 10:16 50 MEQ Sodium Chloride 1,000 ml @ 75 mls/hr [id number] 08/09/20 10:00 08/10/20 09:05 DC 08/09/20 11:49 75 MLS/HR Lab Laboratory Tests Test 08/09/20 11:33 08/09/20 13:55 08/09/20 15:58 08/09/20 16:07 Glucose (Fingerstick) 63 mg/dL (70-99) 92 mg/dL (70-99) Potassium Level 6.3 mmol/L (3.5-5.1) Urine Collection Type Unknown Urine Color Yellow Urine Clarity Turbid Urine pH 7.0 (<5.0-8.0) Urine Specific [place] 1.015 (1.000-1.030) Urine Protein 30 mg/dL (NEG-TRACE) Urine Glucose (UA) Negative mg/dL (NEG) Urine Ketones (Stick) Negative mg/dL (NEG) Urine Blood Moderate (NEG) Urine Nitrite Positive (NEG) Urine Bilirubin Negative (NEG) Urine Urobilinogen Dipstick 0.2 mg/dL (0.2 mg/dL) Urine Leukocyte Esterase Large (NEG) Urine RBC /HPF (0-2) Urine WBC Tntc /HPF (0-4) Urine Bacteria Many /HPF (0-FEW) Test 08/09/20 17:45 08/09/20 20:51 08/10/20 07:30 08/10/20 07:38 Potassium Level 6.2 mmol/L (3.5-5.1) 6.1 mmol/L (3.5-5.1) Glucose (Fingerstick) 84 mg/dL (70-99) 60 mg/dL (70-99) Sodium Level 151 mmol/L (136-145) Chloride Level 114 mmol/L (98-107) Carbon Dioxide Level 29 mmol/L (21-32) Anion Gap 8 (6-14) Blood Urea Nitrogen 44 mg/dL (7-20) Creatinine 1.8 mg/dL (0.6-1.0) Estimated GFR (Cockcroft-Gault) 35.1 BUN/Creatinine Ratio 24 (6-20) Glucose Level 79 mg/dL (70-99) Calcium Level 9.6 mg/dL (8.5-10.1) Total Bilirubin 0.3 mg/dL (0.2-1.0) Aspartate Amino Transf (AST/SGOT) 31 U/L (15-37) Alanine Aminotransferase (ALT/SGPT) 27 U/L (14-59) Alkaline Phosphatase 61 U/L (46-116) Total Protein 8.4 g/dL (6.4-8.2) Albumin 3.7 g/dL (3.4-5.0) Albumin/Globulin Ratio 0.8 (1.0-1.7) Results All relevant outside records, renal labs, imaging studies, telemetry/EKG's were reviewed. Other CT abdomen 1. Bilateral renal cortical scarring and atrophy. 2. Stable reticulonodular opacities within the bilateral lower lungs, difficult to characterize given respiratory motion during image acquisition. This may be infectious or inflammatory in etiology. 3. Cholelithiasis. 4. Distal esophageal mucosal thickening and small hiatal hernia. Correlate for esophagitis. 5. Chronic deformity of the left hip, described above. Justicifation of Admission Dx: Justifications for Admission: Justification of Admission Dx: N/A EDEN AU MD August 10, 2020 11:23
[2020-08-10] MEDS ORDERED: IV DEXTROSE 5% 500 ML IV ONE (11:45)
[2020-08-10 15:00] VITALS: BP 189/103
[2020-08-10 19:00] VITALS: BP 148/72
[2020-08-10] MEDS: LACTOBACILLUS RHAMNOSUS GG 1 CAPSULE. PO SCH (21:01)
[2020-08-10] MEDS: QUEtiapine 100 MG TABLET. PO SCH (21:01)
[2020-08-10] MEDS: cefTRIAXone IV Push 1 GM VIAL. IVP SCH (21:12)
[2020-08-10 23:00] VITALS: BP 152/74
[2020-08-11 03:15] VITALS: BP 159/75
--- NOTE | 2020-08-11 03:31 | NUR ---
patient has been restless, moving around- throwing arms and legs over bed rail, and constantly yelling "get me out of her" or just yelling loudly. multiple attempts to reorient pt, medications given for anxiety/agitation with little improvement. noticed abrasion with open areas on right elbow secondary to rubbing arm on side rail. picture take and placed in chart, foam placed, wound care consulted. bed in low locked position, bed alarm set, call light in reach. will continue to monitor.
[2020-08-11] MEDS: LEVOTHYROXINE 125 MCG TABLET PO SCH (05:50)
[2020-08-11 07:00] VITALS: BP 153/85
[2020-08-11 07:20] LABS: CALCIUM 9.6 mg/dL (8.5-10.1); CREATININE 1.8 mg/dL (0.6-1.0); GFR 35.1; POTASSIUM 5.1 mmol/L (3.5-5.1)
[2020-08-11] MEDS: ALBUTEROL SULFATE 2.5 MG/3 ML NEBU. NEB SCH ×4 (07:24→20:05)
[2020-08-11] MEDS: BUDESONIDE 0.5 MG/2 ML NEBU. NEB SCH ×2 (07:24→20:05)
[2020-08-11 07:35] LABS: BASO % 0 % (0-3); EOS # 0.1 x10^3/uL (0.0-0.7); EOS % 2 % (0-3); HEMATOCRIT 35.1 % (36.0-47.0); LYMPH # 0.4 x10^3/uL (1.0-4.8); LYMPH % 13 % (24-48); MEAN CORPUSCULAR HEMOGLOBIN 26 pg (25-35); MEAN CORPUSCULAR HGB CONC 29 g/dL (31-37); MEAN CORPUSCULAR VOLUME 90 fL (79-100); MONO # 0.2 x10^3/uL (0.0-1.1); MONO % 6 % (0-9); NEUT # 2.6 x10^3/uL (1.8-7.7); NEUT % 78 % (31-73); PLATELET COUNT 130 x10^3/uL (140-400); RED BLOOD COUNT 3.89 x10^6/uL (3.50-5.40); RED CELL DISTRIBUTION WIDTH 22.1 % (11.5-14.5); WHITE BLOOD COUNT 3.3 x10^3/uL (4.0-11.0)
[2020-08-11] MEDS: INSULIN LISPRO 300 UNITS/3 ML VIAL. SQ SCH ×3 (07:47→17:00)
[2020-08-11] MEDS: lamoTRIgine 100 MG TABLET. PO SCH ×2 (07:50→21:00)
[2020-08-11] MEDS: BRIMONIDINE 0.2% OPHTH SOLUTION 5ML BOTTLE. OU SCH ×2 (07:50→21:00)
[2020-08-11] MEDS: LINAGLIPTIN 5 MG TABLET PO SCH (07:51)
[2020-08-11] MEDS: GABAPENTIN 300 MG CAPSULE. PO SCH ×3 (07:51→21:00)
[2020-08-11] MEDS: amLODIPine BESYLATE 10 MG TABLET PO SCH (07:51)
[2020-08-11] MEDS: SERTRALINE 50 MG TABLET. PO SCH (07:51)
[2020-08-11] MEDS: ENOXAPARIN 40 MG/0.4 ML SYRINGE. SQ SCH ×2 (07:51→20:59)
[2020-08-11] MEDS: LACTOBACILLUS RHAMNOSUS GG 1 CAPSULE. PO SCH ×3 (07:52→21:00)
[2020-08-11] MEDS: DOCUSATE SODIUM 100 MG CAPSULE. PO SCH (07:52)
[2020-08-11] MEDS: HALOPERIDOL LACTATE 5 MG/ML VIAL. IVP PRN (07:52)
[2020-08-11] MEDS: MORPHINE SULFATE 2 MG/ML VIAL. IV PRN ×3 (08:37→17:39)
[2020-08-11] MEDS: IV DEXTROSE 5% 1,000 ML IV SCH ×3 (08:56→23:02)
--- NOTE | 2020-08-11 10:22 | PDOC ---
DATE OF SERVICE DATE: 08/11/20 TIME: 10:20 SUBJECTIVE ROS stable OBJECTIVE Vital Signs Vital Signs Date Time Temp Pulse Resp B/P (MAP) Pulse Ox O2 Delivery O2 Flow Rate FiO2 08/11/20 08:37 95 Room Air 08/11/20 07:51 96 159/75 08/11/20 07:00 98.4 18 98.4 I & 0 Intake and Output 08/11/20 07:00 Intake Total 1698 ml Output Total 1650 ml Balance 48 ml Intake Oral 1198 ml IV Total 500 ml Output Urine Total 1650 ml # Bowel Movements 4 PHYSICAL EXAM Physical Exam General: NAD, sleeping , easily arousable , Morbid Obese HEENT: Right eye swollen. Legally blind Neck Thick, supple Lungs: Decreased breath sounds at bases 2/2 body habitus , Non labored t Heart: RRR, no murmurs Cardiovascular: S1, S2 Abdomen: Normal bowel sounds, Soft, Morbidly Obese Extremities: No clubbing, No cyanosis, No edema Skin: No rashes, No significant lesion Neuro: Grossly Normal, baseline intellectual delay Psych/Mental Status: Calm No CVA or SP tenderness, No Ingram DIAGNOSIS/ASSESSMENT Assessment & Plan CR - on CKD Vasomotor / Received IV contrast with CT scan on 06/30 ,No e/o urinary retention . back to her baseline supportive care, Strict I/O monitor , avoid Nephrotoxins CT scan w contrast in June 2020, repeat done 08/09 Areas of renal cortical scarring bilaterally with kidney morphology unchanged from the prior. No hydronephrosis. Circumferential wall thickening of the urinary bladder. UTI - defer to primary Hyperkalemia - resolved, Kayexalate prn if no EKG changes Hypernatremia- Recommend IV D5W; Recd only 500 ml yesterday of D5W per nursing CKD Stage 3 Baseline Cr 1.3-1.7 based on [facility] records . CT scan with IV contrast in june 2020; Ct done 08/09- Bilateral renal cortical scarring and atrophy. Stable reticulonodular opacities within the bilateral lower lungs, difficult to characterize given respiratory motion during image acquisition. This may be infectious or inflammatory in etiology. Cholelithiasis. Distal esophageal mucosal thickening and small hiatal hernia. Correlate for esophagitis. History of schizoaffective disorder History DM2 Anemia Hgb 7.7 in June ,improved , defer to primary COMMENT/RELEVANT DATA Meds Current Medications Medications (Trade) Dose Ordered Sig/Gamal Start Time Stop Time Status Last Admin Dose Admin Acetaminophen (Tylenol) 650 mg PRN Q6HRS PRN 08/09/20 10:15 Acetaminophen/ Hydrocodone Bitart (Lortab 5325) 2 tab PRN Q4HRS PRN 08/09/20 10:15 Al Hydroxide/Mg Hydroxide (Mylanta Plus Xs) 30 ml PRN Q3HRS PRN 08/09/20 10:15 Cancel Albuterol Sulfate (Ventolin Neb Soln) 2.5 mg RTQID 08/09/20 12:00 08/11/20 07:24 2.5 MG Amlodipine Besylate (Norvasc) 10 mg DAILY 08/10/20 09:00 08/11/20 07:51 10 MG Brimonidine Tartrate (Alphagan) 1 drop BID 08/09/20 11:00 08/11/20 07:50 1 DROP Budesonide (Pulmicort) 0.5 mg RTBID 08/09/20 11:00 08/11/20 07:24 0.5 MG Calcium Carbonate/ Glycine (Tums) 500 mg PRN Q3HRS PRN 08/09/20 10:15 Calcium Gluconate (Calcium Gluconate) 1,000 mg 1X ONCE 08/09/20 08:30 08/09/20 08:32 DC 08/09/20 08:48 1,000 MG Ceftriaxone Sodium (Rocephin) 1 gm Q24H 08/09/20 22:01 08/13/20 22:00 08/10/20 21:12 1 GM Dextrose 1,000 ml @ 100 mls/hr Q10H 08/11/20 08:30 08/12/20 04:29 08/11/20 08:56 100 MLS/HR Dextrose (Dextrose 50%-Water Syringe) 12.5 gm PRN Q15MIN PRN 08/09/20 16:15 Dicyclomine HCl (Bentyl) 10 mg PRN TID PRN 08/09/20 10:15 08/11/20 07:50 10 MG Docusate Sodium (Colace) 100 mg DAILY 08/09/20 10:30 08/10/20 08:21 100 MG Enoxaparin Sodium (Lovenox 40mg Syringe) 40 mg Q12H 08/09/20 10:30 08/11/20 07:51 40 MG Furosemide (Lasix) 40 mg 1X ONCE 08/09/20 09:15 08/09/20 09:16 DC Gabapentin (Neurontin) 300 mg TID 08/09/20 10:30 08/11/20 07:51 300 MG Haloperidol Lactate (Haldol Inj) 5 mg PRN Q6HRS PRN 08/09/20 09:45 08/11/20 07:52 5 MG Hydralazine HCl (Apresoline Inj) 10 mg PRN Q4HRS PRN 08/09/20 10:00 Hydrochlorothiazide (Hydrodiuril) 50 mg DAILY 08/09/20 11:00 08/10/20 12:09 DC 08/10/20 08:22 50 MG Hydromorphone HCl (Dilaudid) 0.5 mg 1X ONCE 08/09/20 07:45 08/09/20 07:52 DC 08/09/20 07:58 0.5 MG Insulin Human Lispro (HumaLOG) 0-5 UNITS TIDWMEALS 08/09/20 17:00 08/10/20 17:00 2 UNITS Insulin Human Regular (HumuLIN R VIAL) 5 unit 1X ONCE 08/09/20 08:30 08/09/20 08:32 DC 08/09/20 08:50 5 UNIT Lactobacillus Rhamnosus (Culturelle) 1 cap BID 08/10/20 21:00 08/11/20 07:52 1 CAP Lamotrigine (LaMICtal) 150 mg BID 08/09/20 21:00 08/11/20 07:50 150 MG Levothyroxine Sodium (Synthroid) 125 mcg DAILY06 08/09/20 10:30 08/11/20 05:50 125 MCG Linagliptin (Tradjenta) 5 mg DAILY 08/09/20 11:00 08/11/20 07:51 5 MG Lorazepam (Ativan Inj) 2 mg PRN Q4HRS PRN 08/09/20 09:45 08/11/20 00:51 2 MG Magnesium Hydroxide (Milk Of Magnesia) 2,400 mg PRN Q12HR PRN 08/09/20 10:15 Cancel Morphine Sulfate (Morphine Sulfate) 2 mg PRN Q1HR PRN 08/09/20 10:15 08/11/20 08:37 2 MG Non-Formulary Medication (Fluticasone/ Salmeterol (Advair 500-50 Diskus)) 1 puff BID 08/09/20 21:00 08/09/20 10:29 DC Ondansetron HCl (Zofran) 4 mg PRN Q6HRS PRN 08/09/20 10:15 Quetiapine Fumarate (SEROquel) 150 mg HS 08/09/20 21:00 08/10/20 21:01 150 MG Sertraline HCl (Zoloft) 100 mg DAILY 08/09/20 11:00 08/11/20 07:51 100 MG Sodium Polystyrene Sulfonate (Kayexalate) 30 gm 1X ONCE 08/10/20 09:15 08/10/20 09:16 DC 08/10/20 10:16 30 GM Sodium Bicarbonate (Sodium Bicarb Adult 8.4% Syr) 50 meq 1X ONCE 08/10/20 09:15 08/10/20 09:16 DC 08/10/20 10:16 50 MEQ Sodium Chloride 1,000 ml @ 75 mls/hr [id number] 08/09/20 10:00 08/10/20 09:05 DC 08/09/20 11:49 75 MLS/HR Lab Laboratory Tests Test 08/10/20 12:01 08/10/20 17:29 08/10/20 20:54 08/10/20 21:30 Glucose (Fingerstick) 82 mg/dL (70-99) 195 mg/dL (70-99) 69 mg/dL (70-99) 119 mg/dL (70-99) Test 08/11/20 03:13 08/11/20 06:00 08/11/20 07:18 Glucose (Fingerstick) 107 mg/dL (70-99) 87 mg/dL (70-99) White Blood Count 3.3 x10^3/uL (4.0-11.0) Red Blood Count 3.89 x10^6/uL (3.50-5.40) Hemoglobin 10.0 g/dL (12.0-15.5) Hematocrit 35.1 % (36.0-47.0) Mean Corpuscular Volume 90 fL (79-100) Mean Corpuscular Hemoglobin 26 pg (25-35) Mean Corpuscular Hemoglobin Concent 29 g/dL (31-37) Red Cell Distribution Width 22.1 % (11.5-14.5) Platelet Count 130 x10^3/uL (140-400) Neutrophils (%) (Auto) 78 % (31-73) Lymphocytes (%) (Auto) 13 % (24-48) Monocytes (%) (Auto) 6 % (0-9) Eosinophils (%) (Auto) 2 % (0-3) Basophils (%) (Auto) 0 % (0-3) Neutrophils # (Auto) 2.6 x10^3/uL (1.8-7.7) Lymphocytes # (Auto) 0.4 x10^3/uL (1.0-4.8) Monocytes # (Auto) 0.2 x10^3/uL (0.0-1.1) Eosinophils # (Auto) 0.1 x10^3/uL (0.0-0.7) Basophils # (Auto) 0.0 x10^3/uL (0.0-0.2) Sodium Level 154 mmol/L (136-145) Potassium Level 5.1 mmol/L (3.5-5.1) Chloride Level 115 mmol/L (98-107) Carbon Dioxide Level 28 mmol/L (21-32) Anion Gap 11 (6-14) Blood Urea Nitrogen 36 mg/dL (7-20) Creatinine 1.8 mg/dL (0.6-1.0) Estimated GFR (Cockcroft-Gault) 35.1 Glucose Level 98 mg/dL (70-99) Calcium Level 9.6 mg/dL (8.5-10.1) Results All relevant outside records, renal labs, imaging studies, telemetry/EKG's were reviewed. Justicifation of Admission Dx: Justifications for Admission: Justification of Admission Dx: N/A EDEN AU MD August 11, 2020 10:22
--- NOTE | 2020-08-11 11:59 | PDOC ---
[facility] PROGRESS NOTE Date of Service DOS: DATE: 08/11/20 TIME: 11:58 Chief Complaint Chief Complaint A/P: Hyperkalemia Hypernatremia CR likely due to vasomotor nephropathy Normocytic anemia History of schizoaffective disorder History DM2 Plan: Provide Kayexalate and Lasix to further eliminate potassium Baseline kidney function from 06/30/2020 shows CR 1.2 with EGFR 56 (CKD 3a). Consultation placed to nephrology. Due to history of urinary retention will obtain bladder scan and obtain CT abdomen/pelvis to evaluate for any obstruction Provide IV fluids; maintain Ingram catheter to monitor clinical urine output Will hold lisinopril, and she will need to discharge home different a ntihypertensive medication Insulin, sodium bicarb, D50, calcium gluconate received in ED; EKG pending. Haldol, Ativan as needed Resume home medications FEN - Cardiac diet PPX - Lovenox FULL CODE Dispo - inpatient for above History of Present Illness History of Present Illness Ms Gutierrez is a 59-year-old female with past medical history schizoaffective disorder, glaucoma, legally blind, intellectually delayed, who presents from her intermediate after fall. She was apparently found on the floor of her room next to her bed and was reportedly down for 3-4 hours until staff found her. At that time she reportedly indicated pain in her right eye, right wrist, and right elbow. Per her intermediate, she was reportedly at her baseline mental function. CT imaging and x-rays obtained in the ER were negative for acute pathology. Labs in ED showed Na 148, K 6.7, CK 147, CBG 96, BUN 60, Cr 2.0. On review of her intermediate records, she does have a history of urinary retention noted. She received insulin, D50, sodium bicarb, calcium gluconate, and normal saline bolus in ER. Due to some aggression while in ER, she received Haldol and was also verbally deescalated by staff. Will admit patient for further medical management. 08/10: Afebrile. NA 151, K6.1, BUN 44, CR 1.8 today. Screaming she wants to sleep. Afebrile K5.1, CR 1.8, sodium 154. She is more comfortable today. No shortness of breath or agitation. Vitals/I&O Vitals/I&O: Vital Signs Date Time Temp Pulse Resp B/P (MAP) Pulse Ox O2 Delivery O2 Flow Rate FiO2 08/11/20 11:27 Room Air 08/11/20 11:00 90 08/11/20 08:37 95 08/11/20 07:51 159/75 08/11/20 07:00 98.4 18 98.4 I & O 08/10/20 08/10/20 08/11/20 15:00 23:00 07:00 Intake Total 618 ml 220 ml 860 ml Output Total 1050 ml 200 ml 400 ml Balance -432 ml 20 ml 460 ml Physical Exam Lungs: Clear Labs Labs: Laboratory Tests Test 08/10/20 12:01 08/10/20 17:29 08/10/20 20:54 08/10/20 21:30 Glucose (Fingerstick) 82 mg/dL (70-99) 195 mg/dL (70-99) 69 mg/dL (70-99) 119 mg/dL (70-99) Test 08/11/20 03:13 08/11/20 06:00 08/11/20 07:18 08/11/20 11:54 Glucose (Fingerstick) 107 mg/dL (70-99) 87 mg/dL (70-99) 64 mg/dL (70-99) White Blood Count 3.3 x10^3/uL (4.0-11.0) Red Blood Count 3.89 x10^6/uL (3.50-5.40) Hemoglobin 10.0 g/dL (12.0-15.5) Hematocrit 35.1 % (36.0-47.0) Mean Corpuscular Volume 90 fL (79-100) Mean Corpuscular Hemoglobin 26 pg (25-35) Mean Corpuscular Hemoglobin Concent 29 g/dL (31-37) Red Cell Distribution Width 22.1 % (11.5-14.5) Platelet Count 130 x10^3/uL (140-400) Neutrophils (%) (Auto) 78 % (31-73) Lymphocytes (%) (Auto) 13 % (24-48) Monocytes (%) (Auto) 6 % (0-9) Eosinophils (%) (Auto) 2 % (0-3) Basophils (%) (Auto) 0 % (0-3) Neutrophils # (Auto) 2.6 x10^3/uL (1.8-7.7) Lymphocytes # (Auto) 0.4 x10^3/uL (1.0-4.8) Monocytes # (Auto) 0.2 x10^3/uL (0.0-1.1) Eosinophils # (Auto) 0.1 x10^3/uL (0.0-0.7) Basophils # (Auto) 0.0 x10^3/uL (0.0-0.2) Sodium Level 154 mmol/L (136-145) Potassium Level 5.1 mmol/L (3.5-5.1) Chloride Level 115 mmol/L (98-107) Carbon Dioxide Level 28 mmol/L (21-32) Anion Gap 11 (6-14) Blood Urea Nitrogen 36 mg/dL (7-20) Creatinine 1.8 mg/dL (0.6-1.0) Estimated GFR (Cockcroft-Gault) 35.1 Glucose Level 98 mg/dL (70-99) Calcium Level 9.6 mg/dL (8.5-10.1) Assessment and Plan Assessmemt and Plan Problems Medical Problems: (1) Acute kidney injury superimposed on chronic kidney disease Status: Acute (2) Agitation requiring sedation protocol Status: Acute (3) Hyperkalemia Status: Acute (4) Traumatic periorbital ecchymosis of right eye Status: Acute Comment Review of Relevant I have reviewed the following items joseluis (where applicable) has been applied. Medications: Current Medications Medications (Trade) Dose Ordered Sig/Gamal Route PRN Reason Start Time Stop Time Status Last Admin Dose Admin Lactobacillus Rhamnosus (Culturelle) 1 cap BID PO 08/10/20 21:00 08/11/20 07:52 Dextrose 1,000 ml @ 100 mls/hr Q10H IV 08/11/20 08:30 08/12/20 04:29 08/11/20 08:56 Justifications for Admission Other Justification Fall, hyperkalemia MIRELA FATIMA MD August 11, 2020 11:59
[2020-08-11] MEDS: PANTOPRAZOLE 40 MG TABLET.DR. PO SCH (13:22)
[2020-08-11] MEDS: hydroCHLOROthiazide 25 MG TABLET PO SCH (13:22)
[2020-08-11 15:00] VITALS: BP 133/83
--- NOTE | 2020-08-11 17:49 | NUR ---
pts history obtained over 48 hours due to pt being a poor historian at times and family had to provide information as they could. pt extremely restless this shift and trying to throw her legs out of the bed multiple times. pt redirected multiple times. bed alarm on frequent reassessing required constantly. will continue to monitor
--- NOTE | 2020-08-11 17:52 | NUR ---
Spoke to patients sister Karishma in depth this shift and she does not want the pt to return to [place] due to rweports that the pt was on the floor for 3 to 4 hours before being helped and states pt was left on the floor and unattended to as the caregiver on shift had reportedly fallen asleep as stated by pts family after speaking to facility. Patient has case packer and sealer Nicole Wheeler who is involved with the pts care.
[2020-08-11 19:30] VITALS: BP 153/79
[2020-08-11] MEDS: QUEtiapine 100 MG TABLET. PO SCH (21:00)
[2020-08-11] MEDS: cefTRIAXone IV Push 1 GM VIAL. IVP SCH (22:17)
--- NOTE | 2020-08-11 22:28 | NUR ---
Pt has been very lethergic this evening, was only able to get pt to take half of her medications before dosing off. held gabapentin and culturelle. VS stable. call light in reach, bed alarm set, will continue to monitor.
[2020-08-11 23:05] VITALS: BP 130/71
[2020-08-12] VITALS (7 sets, daily range): BP systolic 110–174; BP diastolic 56–115
[2020-08-12] MEDS: LEVOTHYROXINE 125 MCG TABLET PO SCH (05:32)
[2020-08-12] MEDS: ALBUTEROL SULFATE 2.5 MG/3 ML NEBU. NEB SCH ×4 (07:34→19:53)
[2020-08-12] MEDS: BUDESONIDE 0.5 MG/2 ML NEBU. NEB SCH ×2 (07:34→19:53)
[2020-08-12] MEDS: INSULIN LISPRO 300 UNITS/3 ML VIAL. SQ SCH ×3 (08:00→17:00)
[2020-08-12] MEDS: ENOXAPARIN 40 MG/0.4 ML SYRINGE. SQ SCH ×2 (08:04→22:15)
[2020-08-12] MEDS: hydroCHLOROthiazide 25 MG TABLET PO SCH (08:06)
[2020-08-12] MEDS: lamoTRIgine 100 MG TABLET. PO SCH ×2 (08:06→20:25)
[2020-08-12] MEDS: SERTRALINE 50 MG TABLET. PO SCH (08:07)
[2020-08-12] MEDS: BRIMONIDINE 0.2% OPHTH SOLUTION 5ML BOTTLE. OU SCH ×2 (08:07→20:26)
[2020-08-12] MEDS: LACTOBACILLUS RHAMNOSUS GG 1 CAPSULE. PO SCH ×2 (08:08→20:25)
[2020-08-12] MEDS: DOCUSATE SODIUM 100 MG CAPSULE. PO SCH (08:08)
[2020-08-12] MEDS: PANTOPRAZOLE 40 MG TABLET.DR. PO SCH (08:08)
[2020-08-12] MEDS: amLODIPine BESYLATE 10 MG TABLET PO SCH (08:08)
[2020-08-12] MEDS: GABAPENTIN 300 MG CAPSULE. PO SCH ×3 (08:08→20:25)
[2020-08-12] MEDS: LINAGLIPTIN 5 MG TABLET PO SCH (08:08)
[2020-08-12 08:28] LABS: CALCIUM 9.5 mg/dL (8.5-10.1); CREATININE 1.7 mg/dL (0.6-1.0); GFR 37.5; POTASSIUM 5.1 mmol/L (3.5-5.1)
[2020-08-12] MEDS: HALOPERIDOL LACTATE 5 MG/ML VIAL. IVP PRN ×2 (08:53→15:49)
--- NOTE | 2020-08-12 09:10 | PDOC ---
PROGRESS NOTES Date of Service: DATE: 08/12/20 TIME: 09:10 Chief Complaint Chief Complaint impression Hyperkalemia Hypernatremia CR likely due to vasomotor nephropathy Normocytic anemia History of schizoaffective disorder History DM2 Distal esophageal mucosal thickening and small hiatal hernia. Correlate for esophagitis // Should consider schroeder-endoscopy pending improvement. hematoma over the right orbit. Plan: admit CVC BED Provide Kayexalate and Lasix to further eliminate potassium Baseline kidney function from 06/30/2020 shows CR 1.2 with EGFR 56 (CKD 3a). Consultation placed to nephrology. Due to history of urinary retention will obtain bladder scan and obtain CT abdomen/pelvis to evaluate for any obstruction Provide IV fluids; maintain Ingram catheter to monitor clinical urine output Will hold lisinopril, and she will need to discharge home different antihypertensive medication Insulin, sodium bicarb, D50, calcium gluconate received in ED; EKG pending. Haldol, Ativan as needed Resume home medications FEN - Cardiac diet PPX - Lovenox FULL CODE Dispo - inpatient for above D/W RN History of Present Illness History of Present Illness Ms Gutierrez is a 59-year-old female with past medical history schizoaffective disorder, glaucoma, legally blind, intellectually delayed, who presents from her [facility] after fall. She was apparently found on the floor of her room next to her bed and was reportedly down for 3-4 hours until staff found her. At that time she reportedly indicated pain in her right eye, right wrist, and right elbow. Per her [facility], she was reportedly at her baseline mental function. CT imaging and x-rays obtained in the ER were negative for acute pathology. Labs in ED showed Na 148, K 6.7, CK 147, CBG 96, BUN 60, Cr 2.0. On review of her [facility] records, she does have a history of urinary retention noted. She received insulin, D50, sodium bicarb, calcium gluconate, and normal saline bolus in ER. Due to some aggression while in ER, she received Haldol and was also verbally deescalated by staff. Will admit patient for further medical management. 08/10: Afebrile. NA 151, K6.1, BUN 44, CR 1.8 today. Screaming she wants to sleep. Afebrile K5.1, CR 1.8, sodium 154. She is more comfortable today. No shortness of breath or agitation. 5-31 D/W RN Hypernatremia CR likely due to vasomotor nephropathy Normocytic anemia History of schizoaffective disorder History DM2 Distal esophageal mucosal thickening and small hiatal hernia. Correlate for esophagitis // Should consider schroeder-endoscopy pending improvement. hematoma over the right orbit. BUN 26 CR 1.7 CPK PENDING Vitals Vitals Vital Signs Date Time Temp Pulse Resp B/P (MAP) Pulse Ox O2 Delivery O2 Flow Rate FiO2 08/12/20 08:08 81 174/103 08/12/20 07:37 98 Room Air 08/12/20 07:00 98.4 20 98.4 Physical Exam Physical Exam General: Alert, uncooperative, MILD distress HEENT: Right eye swollen. EOMI Lungs: Decreased breath sounds, Normal air movement Heart: RRR, no murmurs Cardiovascular: S1, S2 Abdomen: Normal bowel sounds, Soft, No tenderness Extremities: No clubbing, No cyanosis Skin: No rashes, No significant lesion Neuro: Normal tone, Sensation intact Psych/Mental Status: Agitated LESS General: Cooperative, mild distress Heart: Regular rate Lungs: Clear Abdomen: Soft, No tenderness Extremities: No cyanosis Labs LABS CT maxillofacial without contrast History: Severe pain after fall Axial helical images of the face were obtained without contrast. Axial and coronal reconstruction was performed. The nasal septum is mostly midline. The ostiomeatal complexes are narrow but patent. The paranasal sinuses are clear. The visualized osseous structures appear intact. The orbits appear normal. There is a hematoma over the right orbit. Impression: No acute bony abnormality. End impression PQRS Compliance Statement: One or more of the following individualized dose reduction techniques were utilized for this examination: 1. Automated exposure control 2. Adjustment of the mA and/or kV according to patient size 3. Use of iterative reconstruction technique Electronically signed by: Makayla Liz III, MD (08/09/2020 6:25 AM) [facility] DICTATED and SIGNED BY: MAKAYLA LIZ III, MD DATE: 08/09/20 [id number] PATIENT: OMEGA GUTIERREZ DACCOUNT: [id number] : 1960 LOCATION: [address] [place] [address] AGE: 59 SEX: F EXAM STATUS: ADM IN ORD. PHYSICIAN: RADHA CHRISTENSEN DO REASON: acute on ckd PROCEDURE: CT ABDOMEN PELVIS WO CONTRAST EXAM: Abdomen and pelvis CT without intravenous contrast. HISTORY: Acute on chronic renal insufficiency. TECHNIQUE: Computed tomographic images of the abdomen and pelvis were obtained without contrast. Multiplanar reformatting was performed. *One or more of the following individualized dose reduction techniques were utilized for this examination: 1. Automated exposure control. 2. Adjustment of the mA and/or kV according to patient size. 3. Use of iterative reconstruction technique. COMPARISON: 06/30/2020. FINDINGS: Evaluation of the lower thorax is limited due to respiratory motion. There are persistent reticulonodular opacities throughout both lungs. There is no consolidation or pleural effusion. There is distal esophageal mucosal thickening superimposed on a small hiatal hernia, similar compared to the prior exam. No hepatic lesion is seen. There is cholelithiasis. The gallbladder lumen is hyperdense likely due to vicarious excretion of contrast. The pancreas, spleen and adrenal glands are unremarkable. There is bilateral renal cortical lobulation due to scarring. There is no hydronephrosis. No convincing suspicious renal lesion is seen on this noncontrast exam. There is no appendicitis. There is no bowel obstruction. There is moderate colonic stool. The bladder is unremarkable. The uterus and adnexal regions are unremarkable. The aorta is normal in caliber. There is no lymphadenopathy. 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 There is lumbar scoliosis and multilevel degenerative change throughout the spine. There is grade 1 anterolisthesis at the lower lumbar levels. There is degenerative change involving the wrists, not fully assessed on this exam. IMPRESSION: 1. Bilateral renal cortical scarring and atrophy. 2. Stable reticulonodular opacities within the bilateral lower lungs, difficult to characterize given respiratory motion during image acquisition. This may be infectious or inflammatory in etiology. 3. Cholelithiasis. 4. Distal esophageal mucosal thickening and small hiatal hernia. Correlate for esophagitis. 5. Chronic deformity of the left hip, described above. Electronically signed by: Ellie Husain MD (08/09/2020 2:47 PM) [id number] DICTATED and SIGNED BY: ELLIE HUSAIN MD DATE: 08/09/20 [id number] Laboratory Tests Test 08/11/20 11:54 08/11/20 17:03 08/11/20 20:58 08/12/20 01:56 Glucose (Fingerstick) 64 mg/dL (70-99) 73 mg/dL (70-99) 98 mg/dL (70-99) 104 mg/dL (70-99) Test 08/12/20 06:55 08/12/20 08:00 Glucose (Fingerstick) 68 mg/dL (70-99) Sodium Level 147 mmol/L (136-145) Potassium Level 5.1 mmol/L (3.5-5.1) Chloride Level 109 mmol/L (98-107) Carbon Dioxide Level 30 mmol/L (21-32) Anion Gap 8 (6-14) Blood Urea Nitrogen 26 mg/dL (7-20) Creatinine 1.7 mg/dL (0.6-1.0) Estimated GFR (Cockcroft-Gault) 37.5 Glucose Level 93 mg/dL (70-99) Calcium Level 9.5 mg/dL (8.5-10.1) Assessment and Plan Assessmemt and Plan Problems Medical Problems: (1) Acute kidney injury superimposed on chronic kidney disease Status: Acute (2) Agitation requiring sedation protocol Status: Acute (3) Hyperkalemia Status: Acute (4) Traumatic periorbital ecchymosis of right eye Status: Acute Comment Review of Relevant I have reviewed the following items joseluis (where applicable) has been applied. Labs Laboratory Tests Test 08/10/20 12:01 08/10/20 17:29 08/10/20 20:54 08/10/20 21:30 Glucose (Fingerstick) 82 mg/dL (70-99) 195 mg/dL (70-99) 69 mg/dL (70-99) 119 mg/dL (70-99) Test 08/11/20 03:13 08/11/20 06:00 08/11/20 07:18 08/11/20 11:54 Glucose (Fingerstick) 107 mg/dL (70-99) 87 mg/dL (70-99) 64 mg/dL (70-99) White Blood Count 3.3 x10^3/uL (4.0-11.0) Red Blood Count 3.89 x10^6/uL (3.50-5.40) Hemoglobin 10.0 g/dL (12.0-15.5) Hematocrit 35.1 % (36.0-47.0) Mean Corpuscular Volume 90 fL (79-100) Mean Corpuscular Hemoglobin 26 pg (25-35) Mean Corpuscular Hemoglobin Concent 29 g/dL (31-37) Red Cell Distribution Width 22.1 % (11.5-14.5) Platelet Count 130 x10^3/uL (140-400) Neutrophils (%) (Auto) 78 % (31-73) Lymphocytes (%) (Auto) 13 % (24-48) Monocytes (%) (Auto) 6 % (0-9) Eosinophils (%) (Auto) 2 % (0-3) Basophils (%) (Auto) 0 % (0-3) Neutrophils # (Auto) 2.6 x10^3/uL (1.8-7.7) Lymphocytes # (Auto) 0.4 x10^3/uL (1.0-4.8) Monocytes # (Auto) 0.2 x10^3/uL (0.0-1.1) Eosinophils # (Auto) 0.1 x10^3/uL (0.0-0.7) Basophils # (Auto) 0.0 x10^3/uL (0.0-0.2) Sodium Level 154 mmol/L (136-145) Potassium Level 5.1 mmol/L (3.5-5.1) Chloride Level 115 mmol/L (98-107) Carbon Dioxide Level 28 mmol/L (21-32) Anion Gap 11 (6-14) Blood Urea Nitrogen 36 mg/dL (7-20) Creatinine 1.8 mg/dL (0.6-1.0) Estimated GFR (Cockcroft-Gault) 35.1 Glucose Level 98 mg/dL (70-99) Calcium Level 9.6 mg/dL (8.5-10.1) Test 08/11/20 17:03 08/11/20 20:58 08/12/20 01:56 08/12/20 06:55 Glucose (Fingerstick) 73 mg/dL (70-99) 98 mg/dL (70-99) 104 mg/dL (70-99) 68 mg/dL (70-99) Test 08/12/20 08:00 Sodium Level 147 mmol/L (136-145) Potassium Level 5.1 mmol/L (3.5-5.1) Chloride Level 109 mmol/L (98-107) Carbon Dioxide Level 30 mmol/L (21-32) Anion Gap 8 (6-14) Blood Urea Nitrogen 26 mg/dL (7-20) Creatinine 1.7 mg/dL (0.6-1.0) Estimated GFR (Cockcroft-Gault) 37.5 Glucose Level 93 mg/dL (70-99) Calcium Level 9.5 mg/dL (8.5-10.1) Laboratory Tests Test 08/11/20 11:54 08/11/20 17:03 08/11/20 20:58 08/12/20 01:56 Glucose (Fingerstick) 64 mg/dL (70-99) 73 mg/dL (70-99) 98 mg/dL (70-99) 104 mg/dL (70-99) Test 08/12/20 06:55 08/12/20 08:00 Glucose (Fingerstick) 68 mg/dL (70-99) Sodium Level 147 mmol/L (136-145) Potassium Level 5.1 mmol/L (3.5-5.1) Chloride Level 109 mmol/L (98-107) Carbon Dioxide Level 30 mmol/L (21-32) Anion Gap 8 (6-14) Blood Urea Nitrogen 26 mg/dL (7-20) Creatinine 1.7 mg/dL (0.6-1.0) Estimated GFR (Cockcroft-Gault) 37.5 Glucose Level 93 mg/dL (70-99) Calcium Level 9.5 mg/dL (8.5-10.1) Medications Current Medications Sodium Chloride 1,000 ml @ 1,000 mls/hr 1X ONCE IV Last administered on 08/09/20at 06:59; Start 08/09/20 at 06:45; Stop 08/09/20 at 07:44; Status DC Hydromorphone HCl (Dilaudid) 0.5 mg 1X ONCE IVP Last administered on 08/09/20at 07:58; Start 08/09/20 at 07:45; Stop 08/09/20 at 07:52; Status DC Calcium Gluconate (Calcium Gluconate) 1,000 mg 1X ONCE IVP Last administered on 08/09/20at 08:48; Start 08/09/20 at 08:30; Stop 08/09/20 at 08:32; Status DC Sodium Bicarbonate (Sodium Bicarb Adult 8.4% Syr) 50 meq 1X ONCE IV Last administered on 08/09/20at 08:49; Start 08/09/20 at 08:30; Stop 08/09/20 at 08:32; Status DC Dextrose (Dextrose 50%-Water Syringe) 25 gm 1X ONCE IV Last administered on 08/09/20at 08:51; Start 08/09/20 at 08:30; Stop 08/09/20 at 08:32; Status DC Insulin Human Regular (HumuLIN R VIAL) 5 unit 1X ONCE IV Last administered on 08/09/20at 08:50; Start 08/09/20 at 08:30; Stop 08/09/20 at 08:32; Status DC Haloperidol Lactate (Haldol Inj) 5 mg STK-MED ONCE .ROUTE ; Start 08/09/20 at 08:51; Stop 08/09/20 at 08:52; Status DC Haloperidol Lactate (Haldol Inj) 5 mg 1X ONCE IVP Last administered on 08/09/20at 08:50; Start 08/09/20 at 09:00; Stop 08/09/20 at 09:01; Status DC Sodium Polystyrene Sulfonate (Kayexalate) 15 gm 1X ONCE PO ; Start 08/09/20 at 09:30; Stop 08/09/20 at 09:31; Status DC Haloperidol Lactate (Haldol Inj) 5 mg 1X ONCE IVP Last administered on 08/09/20at 09:27; Start 08/09/20 at 09:30; Stop 08/09/20 at 09:31; Status DC Furosemide (Lasix) 40 mg 1X ONCE IVP ; Start 08/09/20 at 09:15; Stop 08/09/20 at 09:16; Status DC Haloperidol Lactate (Haldol Inj) 5 mg PRN Q6HRS PRN IVP AGITATION, 2ND CHOICE Last administered on 08/12/20at 08:53; Start 08/09/20 at 09:45 Lorazepam (Ativan Inj) 2 mg PRN Q4HRS PRN IVP ANXIETY / AGITATION Last administered on 08/11/20at 00:51; Start 08/09/20 at 09:45 Hydralazine HCl (Apresoline Inj) 10 mg PRN Q4HRS PRN IVP ELEVATED BP, SEE COMMENTS; Start 08/09/20 at 10:00 Sodium Chloride 1,000 ml @ 75 mls/hr [id number] IV Last administered on 08/09/20at 11:49; Start 08/09/20 at 10:00; Stop 08/10/20 at 09:05; Status DC Amlodipine Besylate (Norvasc) 10 mg DAILY PO Last administered on 08/12/20at 08:08; Start 08/10/20 at 09:00 Dicyclomine HCl (Bentyl) 10 mg PRN TID PRN PO ABD PAIN, CRAMPING Last administered on 08/11/20at 07:50; Start 08/09/20 at 10:15 Docusate Sodium (Colace) 100 mg DAILY PO Last administered on 08/12/20at 08:08; Start 08/09/20 at 10:30 Gabapentin (Neurontin) 300 mg TID PO Last administered on 08/12/20at 08:08; Start 08/09/20 at 10:30 Levothyroxine Sodium (Synthroid) 125 mcg DAILY06 PO Last administered on 08/12/20at 05:32; Start 08/09/20 at 10:30 Al Hydroxide/Mg Hydroxide (Mylanta Plus Xs) 30 ml PRN DAILY PRN PO HEARTBURN / GAS; Start 08/09/20 at 10:15 Quetiapine Fumarate (SEROquel) 150 mg HS PO Last administered on 08/11/20at 21:00; Start 08/09/20 at 21:00 Brimonidine Tartrate (Alphagan) 1 drop BID OU Last administered on 08/12/20at 08:07; Start 08/09/20 at 11:00 Non-Formulary Medication (Fluticasone/ Salmeterol (Advair 500-50 Diskus)) 1 puff BID IH ; Start 08/09/20 at 21:00; Stop 08/09/20 at 10:29; Status DC Hydrochlorothiazide (Hydrodiuril) 50 mg DAILY PO Last administered on 08/10/20at 08:22; Start 08/09/20 at 11:00; Stop 08/10/20 at 12:09; Status DC Lamotrigine (LaMICtal) 150 mg BID PO Last administered on 08/12/20at 08:06; Start 08/09/20 at 21:00 Sertraline HCl (Zoloft) 100 mg DAILY PO Last administered on 08/12/20at 08:07; Start 08/09/20 at 11:00 Linagliptin (Tradjenta) 5 mg DAILY PO Last administered on 08/12/20at 08:08; Start 08/09/20 at 11:00 Ondansetron HCl (Zofran) 4 mg PRN Q6HRS PRN IVP NAUSEA/VOMITING; Start 08/09/20 at 10:15 Al Hydroxide/Mg Hydroxide (Mylanta Plus Xs) 30 ml PRN Q3HRS PRN PO HEARTBURN / GAS; Start 08/09/20 at 10:15; Status Cancel Calcium Carbonate/ Glycine (Tums) 500 mg PRN Q3HRS PRN PO UPSET STOMACH; Start 08/09/20 at 10:15 Morphine Sulfate (Morphine Sulfate) 2 mg PRN Q1HR PRN IV PAIN Last administered on 08/11/20at 17:39; Start 08/09/20 at 10:15 Acetaminophen/ Hydrocodone Bitart (Lortab 5/325) 1 tab PRN Q4HRS PRN PO MILD PAIN 1-3 Last administered on 08/09/20at 16:19; Start 08/09/20 at 10:15 Acetaminophen/ Hydrocodone Bitart (Lortab 5/325) 2 tab PRN Q4HRS PRN PO MODERATE PAIN, SEVERE PAIN; Start 08/09/20 at 10:15 Acetaminophen (Tylenol) 650 mg PRN Q6HRS PRN PO Headaches, Temp > 101.5F; Start 08/09/20 at 10:15 Magnesium Hydroxide (Milk Of Magnesia) 2,400 mg PRN Q12HR PRN PO CONSTIPATION; Start 08/09/20 at 10:15; Status Cancel Enoxaparin Sodium (Lovenox 40mg Syringe) 40 mg Q12H SQ Last administered on 08/12/20at 08:04; Start 08/09/20 at 10:30 Albuterol Sulfate (Ventolin Neb Soln) 2.5 mg RTQID NEB Last administered on 08/12/20at 07:34; Start 08/09/20 at 12:00 Budesonide (Pulmicort) 0.5 mg RTBID NEB Last administered on 08/12/20at 07:34; Start 08/09/20 at 11:00 Insulin Human Lispro (HumaLOG) 0-5 UNITS TIDWMEALS SQ Last administered on 08/10/20at 17:00; Start 08/09/20 at 17:00 Dextrose (Dextrose 50%-Water Syringe) 12.5 gm PRN Q15MIN PRN IV SEE COMMENTS; Start 08/09/20 at 16:15 Sodium Polystyrene Sulfonate (Kayexalate) 15 gm 1X ONCE PO Last administered on 08/09/20at 16:19; Start 08/09/20 at 16:15; Stop 08/09/20 at 16:16; Status DC Ceftriaxone Sodium (Rocephin) 1 gm Q24H IVP Last administered on 08/11/20at 22:17; Start 08/09/20 at 22:01; Stop 08/13/20 at 22:00 Sodium Bicarbonate (Sodium Bicarb Adult 8.4% Syr) 50 meq 1X ONCE IV Last administered on 08/10/20at 10:16; Start 08/10/20 at 09:15; Stop 08/10/20 at 09:16; Status DC Sodium Polystyrene Sulfonate (Kayexalate) 30 gm 1X ONCE PO Last administered on 08/10/20at 10:16; Start 08/10/20 at 09:15; Stop 08/10/20 at 09:16; Status DC Lactobacillus Rhamnosus (Culturelle) 1 cap BID PO Last administered on at 07:52; Start 08/10/20 at 21:00; Stop 08/11/20 at 11:59; Status DC Dextrose 500 ml @ 75 mls/hr 1X ONCE IV Last administered on 08/10/20at 12:19; Start 08/10/20 at 11:45; Stop 08/10/20 at 18:24; Status DC Dextrose 1,000 ml @ 100 mls/hr Q10H IV Last administered on 5/30/21at 23:02; Start 08/11/20 at 08:30 Lactobacillus Rhamnosus (Culturelle) 1 cap BID PO Last administered on 08/12/20at 08:08; Start 08/11/20 at 21:00 Pantoprazole Sodium (Protonix) 40 mg DAILYAC PO Last administered on 08/12/20at 08:08; Start 08/11/20 at 12:30 Hydrochlorothiazide (Hydrodiuril) 50 mg DAILY PO Last administered on 08/12/20at 08:06; Start 08/11/20 at 12:00 Active Scripts Active Culturelle (Lactobacillus Rhamnosus Gg) 1 Each Cap.sprink 1 Cap PO BID 30 Days Mag-Al Plus Xs Suspension (Mag Hydrox/Al Hydrox/Simeth) 30 Ml Oral.susp 30 Ml PO PRN DAILY PRN 14 Days Acetaminophen 325 Mg Tablet 650 Mg PO PRN Q4HRS PRN 30 Days Proair Hfa (Albuterol Sulfate) 8.5 Gm Hfa.aer.ad 2.5 Mg NEB PRN Q4HRS PRN 30 Days Zofran (Ondansetron Hcl) 4 Mg Tablet 4 Mg PO PRN TID PRN nausea/vomiting Dicyclomine Hcl 10 Mg Capsule 1 Cap PO TID PRN 5 Days Zofran (Ondansetron Hcl) 4 Mg Tablet 1 Tab PO PRN Q6-8HRS PRN Reported Seroquel (Quetiapine Fumarate) 100 Mg Tablet 150 Mg PO HS Alphagan P (Brimonidine Tartrate) 5 Ml Drops 1 Drop EACHEYE BID Hydrochlorothiazide Tablet (Hydrochlorothiazide) 50 Mg Tablet 1 Tab PO DAILY Lamotrigine 150 Mg Tablet 1 Tab PO BID Docusate Sodium 100 Mg Capsule 100 Mg PO Advair 500-50 Diskus (Fluticasone/Salmeterol) 1 Each Disk.w.dev 1 Puff IH BID Flonase Allergy Relief (Fluticasone Propionate) 9.9 Ml Lewis.susp 2 Sprays NS DAILY Gabapentin (Gabapentin) 300 Mg Capsule 300 Mg PO TID Claritin (Loratadine) 10 Mg Tablet 1 Tab PO DAILY Januvia (Sitagliptin Phosphate) 50 Mg Tablet 1 Tab PO DAILY Synthroid (Levothyroxine Sodium) 125 Mcg Tablet 1 Tab PO DAILY Zoloft (Sertraline Hcl) 100 Mg Tablet 1 Tab PO DAILY Multivitamins (Multivitamin) 1 Each Tablet 1 Tab PO DAILY Spiriva (Tiotropium [place]) 18 Mcg Cap.w.dev 2 Inh IH DAILY Omeprazole 40 Mg Capsule.dr 1 Cap PO DAILY Amlodipine Besylate 10 Mg Tablet 10 Mg PO DAILY Vitals/I & O Vital Sign - Last 24 Hours 08/11/20 08/11/20 08/11/20 08/11/20 11:00 11:27 12:41 13:11 Pulse 90 Resp 17 Pulse Ox 95 95 O2 Delivery Room Air Room Air Room Air 08/11/20 08/11/20 08/11/20 08/11/20 15:00 15:40 17:39 18:09 Temp 97.7 97.7 Pulse 90 Resp 18 B/P (MAP) 133/83 (100) Pulse Ox 91 100 100 100 O2 Delivery Room Air Room Air Room Air Room Air 08/11/20 08/11/20 08/11/20 08/11/20 19:30 19:46 20:06 20:07 Temp 97.5 97.5 Pulse 88 Resp 22 B/P (MAP) 153/79 (103) Pulse Ox 99 100 100 O2 Delivery Room Air Room Air Room Air Room Air 08/11/20 08/12/20 08/12/20 08/12/20 23:05 03:15 07:00 07:37 Temp 97.5 97.6 98.4 97.5 97.6 98.4 Pulse 87 79 81 Resp 20 20 20 B/P (MAP) 130/71 (90) 158/56 (90) 174/103 (126) Pulse Ox 92 93 99 98 O2 Delivery Room Air Room Air Room Air Room Air 08/12/20 08:08 Pulse 81 B/P (MAP) 174/103 Intake and Output 08/11/20 08/11/20 08/12/20 15:00 23:00 07:00 Intake Total 118 ml 240 ml 1000 ml Output Total 375 ml 650 ml 650 ml Balance -257 ml -410 ml 350 ml Justicifation of Admission Dx: Justifications for Admission: Justification of Admission Dx: N/A SHANNAN WILDER MD August 12, 2020 09:10
--- NOTE | 2020-08-12 12:10 | PDOC ---
DATE OF SERVICE DATE: 08/12/20 TIME: 12:06 SUBJECTIVE ROS stable OBJECTIVE Vital Signs Vital Signs Date Time Temp Pulse Resp B/P (MAP) Pulse Ox O2 Delivery O2 Flow Rate FiO2 08/12/20 11:32 98 Room Air 08/12/20 10:59 98.5 81 18 142/65 (90) 98.5 I & 0 Intake and Output 08/12/20 07:00 Intake Total 1358 ml Output Total 1675 ml Balance -317 ml Intake Oral 358 ml IV Total 1000 ml Output Urine Total 1675 ml PHYSICAL EXAM Physical Exam General: NAD, sleeping , easily arousable , Morbid Obese HEENT: Right eye swollen. Legally blind Neck Thick, supple Lungs: Decreased breath sounds at bases 2/2 body habitus , Non labored t Heart: RRR, no murmurs Cardiovascular: S1, S2 Abdomen: Normal bowel sounds, Soft, Morbidly Obese Extremities: No clubbing, No cyanosis, No edema Skin: No rashes, No significant lesion Neuro: Grossly Normal, baseline intellectual delay Psych/Mental Status: Calm No CVA or SP tenderness, No Ingram DIAGNOSIS/ASSESSMENT Assessment & Plan CR - on CKD Vasomotor / Received IV contrast with CT scan on 06/30 ,No e/o urinary retention . back to her baseline supportive care, Strict I/O monitor , avoid Nephrotoxins CT scan w contrast in June 2020, repeat done 08/09 Areas of renal cortical scarring bilaterally with kidney morphology unchanged from the prior. No hydronephrosis. Circumferential wall thickening of the urinary bladder. UTI - defer to primary Hyperkalemia - resolved, Kayexalate prn if no EKG changes Hypernatremia- , Improved , continue IV D5W; Re-eval in am, CKD Stage 3 Baseline Cr 1.3-1.7 based on [facility] records . CT scan with IV contrast in june 2020; Ct done 08/09- Bilateral renal cortical scarring and atrophy. Stable reticulonodular opacities within the bilateral lower lungs, difficult to characterize given respiratory motion during image acquisition. This may be infectious or inflammatory in etiology. Cholelithiasis. Distal esophageal mucosal thickening and small hiatal hernia. Correlate for esophagitis. History of schizoaffective disorder History DM2 Anemia Hgb 7.7 in June ,improved , defer to primary COMMENT/RELEVANT DATA Meds Current Medications Medications (Trade) Dose Ordered Sig/Gamal Start Time Stop Time Status Last Admin Dose Admin Acetaminophen (Tylenol) 650 mg PRN Q6HRS PRN 08/09/20 10:15 Acetaminophen/ Hydrocodone Bitart (Lortab 325) 2 tab PRN Q4HRS PRN 08/09/20 10:15 Al Hydroxide/Mg Hydroxide (Mylanta Plus Xs) 30 ml PRN Q3HRS PRN 08/09/20 10:15 Cancel Albuterol Sulfate (Ventolin Neb Soln) 2.5 mg RTQID 08/09/20 12:00 08/12/20 11:31 2.5 MG Amlodipine Besylate (Norvasc) 10 mg DAILY 08/10/20 09:00 08/12/20 08:08 10 MG Brimonidine Tartrate (Alphagan) 1 drop BID 08/09/20 11:00 08/12/20 08:07 1 DROP Budesonide (Pulmicort) 0.5 mg RTBID 08/09/20 11:00 08/12/20 07:34 0.5 MG Calcium Carbonate/ Glycine (Tums) 500 mg PRN Q3HRS PRN 08/09/20 10:15 Calcium Gluconate (Calcium Gluconate) 1,000 mg 1X ONCE 08/09/20 08:30 08/09/20 08:32 DC 08/09/20 08:48 1,000 MG Ceftriaxone Sodium (Rocephin) 1 gm Q24H 08/09/20 22:01 08/13/20 22:00 08/11/20 22:17 1 GM Dextrose 1,000 ml @ 100 mls/hr Q10H 08/11/20 08:30 08/11/20 23:02 100 MLS/HR Dextrose (Dextrose 50%-Water Syringe) 12.5 gm PRN Q15MIN PRN 08/09/20 16:15 Dicyclomine HCl (Bentyl) 10 mg PRN TID PRN 08/09/20 10:15 08/11/20 07:50 10 MG Docusate Sodium (Colace) 100 mg DAILY 08/09/20 10:30 08/12/20 08:08 100 MG Enoxaparin Sodium (Lovenox 40mg Syringe) 40 mg Q12H 08/09/20 10:30 08/12/20 08:04 40 MG Furosemide (Lasix) 40 mg 1X ONCE 08/09/20 09:15 08/09/20 09:16 DC Gabapentin (Neurontin) 300 mg TID 08/09/20 10:30 08/12/20 08:08 300 MG Haloperidol Lactate (Haldol Inj) 5 mg PRN Q6HRS PRN 08/09/20 09:45 08/12/20 08:53 5 MG Hydralazine HCl (Apresoline Inj) 10 mg PRN Q4HRS PRN 08/09/20 10:00 Hydrochlorothiazide (Hydrodiuril) 50 mg DAILY 08/11/20 12:00 08/12/20 08:06 50 MG Hydromorphone HCl (Dilaudid) 0.5 mg 1X ONCE 08/09/20 07:45 08/09/20 07:52 DC 08/09/20 07:58 0.5 MG Insulin Human Lispro (HumaLOG) 0-5 UNITS TIDWMEALS 08/09/20 17:00 08/10/20 17:00 2 UNITS Insulin Human Regular (HumuLIN R VIAL) 5 unit 1X ONCE 08/09/20 08:30 08/09/20 08:32 DC 08/09/20 08:50 5 UNIT Lactobacillus Rhamnosus (Culturelle) 1 cap BID 08/11/20 21:00 08/12/20 08:08 1 CAP Lamotrigine (LaMICtal) 150 mg BID 08/09/20 21:00 08/12/20 08:06 150 MG Levothyroxine Sodium (Synthroid) 125 mcg DAILY06 08/09/20 10:30 08/12/20 05:32 125 MCG Linagliptin (Tradjenta) 5 mg DAILY 08/09/20 11:00 08/12/20 08:08 5 MG Lorazepam (Ativan Inj) 2 mg PRN Q4HRS PRN 08/09/20 09:45 08/11/20 00:51 2 MG Magnesium Hydroxide (Milk Of Magnesia) 2,400 mg PRN Q12HR PRN 08/09/20 10:15 Cancel Morphine Sulfate (Morphine Sulfate) 2 mg PRN Q1HR PRN 08/09/20 10:15 08/11/20 17:39 2 MG Non-Formulary Medication (Fluticasone/ Salmeterol (Advair 500-50 Diskus)) 1 puff BID 08/09/20 21:00 08/09/20 10:29 DC Ondansetron HCl (Zofran) 4 mg PRN Q6HRS PRN 08/09/20 10:15 Pantoprazole Sodium (Protonix) 40 mg DAILYAC 08/11/20 12:30 08/12/20 08:08 40 MG Quetiapine Fumarate (SEROquel) 150 mg HS 08/09/20 21:00 08/11/20 21:00 150 MG Sertraline HCl (Zoloft) 100 mg DAILY 08/09/20 11:00 08/12/20 08:07 100 MG Sodium Polystyrene Sulfonate (Kayexalate) 30 gm 1X ONCE 08/10/20 09:15 08/10/20 09:16 DC 08/10/20 10:16 30 GM Sodium Bicarbonate (Sodium Bicarb Adult 8.4% Syr) 50 meq 1X ONCE 08/10/20 09:15 08/10/20 09:16 DC 08/10/20 10:16 50 MEQ Sodium Chloride 1,000 ml @ 75 mls/hr [id number] 08/09/20 10:00 08/10/20 09:05 DC 08/09/20 11:49 75 MLS/HR Lab Laboratory Tests Test 08/11/20 17:03 08/11/20 20:58 08/12/20 01:56 08/12/20 06:55 Glucose (Fingerstick) 73 mg/dL (70-99) 98 mg/dL (70-99) 104 mg/dL (70-99) 68 mg/dL (70-99) Test 08/12/20 08:00 08/12/20 11:08 Sodium Level 147 mmol/L (136-145) Potassium Level 5.1 mmol/L (3.5-5.1) Chloride Level 109 mmol/L (98-107) Carbon Dioxide Level 30 mmol/L (21-32) Anion Gap 8 (6-14) Blood Urea Nitrogen 26 mg/dL (7-20) Creatinine 1.7 mg/dL (0.6-1.0) Estimated GFR (Cockcroft-Gault) 37.5 Glucose Level 93 mg/dL (70-99) Calcium Level 9.5 mg/dL (8.5-10.1) Glucose (Fingerstick) 100 mg/dL (70-99) Results All relevant outside records, renal labs, imaging studies, telemetry/EKG's were reviewed. Justicifation of Admission Dx: Justifications for Admission: Justification of Admission Dx: N/A EDEN AU MD August 12, 2020 12:10
[2020-08-12] MEDS ORDERED: MORPHINE SULFATE 2 MG/ML VIAL. IV ONE (13:00)
[2020-08-12] MEDS: IV DEXTROSE 5% 1,000 ML IV SCH (13:18)
[2020-08-12] MEDS: QUEtiapine 100 MG TABLET. PO SCH (20:25)
[2020-08-12] MEDS: cefTRIAXone IV Push 1 GM VIAL. IVP SCH (22:14)
[2020-08-13 02:45] VITALS: BP 107/60
[2020-08-13] MEDS: LEVOTHYROXINE 125 MCG TABLET PO SCH (05:08)
[2020-08-13 07:00] VITALS: BP 197/95
[2020-08-13] MEDS: BUDESONIDE 0.5 MG/2 ML NEBU. NEB SCH ×2 (07:50→20:42)
[2020-08-13] MEDS: ALBUTEROL SULFATE 2.5 MG/3 ML NEBU. NEB SCH ×4 (07:50→20:42)
[2020-08-13] MEDS: INSULIN LISPRO 300 UNITS/3 ML VIAL. SQ SCH ×3 (08:00→17:00)
[2020-08-13] MEDS: lamoTRIgine 100 MG TABLET. PO SCH ×2 (08:22→20:49)
[2020-08-13] MEDS: LINAGLIPTIN 5 MG TABLET PO SCH (08:22)
[2020-08-13] MEDS: DOCUSATE SODIUM 100 MG CAPSULE. PO SCH (08:22)
[2020-08-13] MEDS: GABAPENTIN 300 MG CAPSULE. PO SCH ×3 (08:22→20:49)
[2020-08-13] MEDS: amLODIPine BESYLATE 10 MG TABLET PO SCH (08:23)
[2020-08-13] MEDS: LACTOBACILLUS RHAMNOSUS GG 1 CAPSULE. PO SCH ×2 (08:23→20:49)
[2020-08-13] MEDS: PANTOPRAZOLE 40 MG TABLET.DR. PO SCH (08:23)
[2020-08-13] MEDS: SERTRALINE 50 MG TABLET. PO SCH (08:23)
[2020-08-13] MEDS: hydroCHLOROthiazide 25 MG TABLET PO SCH (08:23)
[2020-08-13] MEDS: BRIMONIDINE 0.2% OPHTH SOLUTION 5ML BOTTLE. OU SCH ×2 (08:24→20:50)
--- NOTE | 2020-08-13 09:31 | PDOC ---
DATE OF SERVICE DATE: 08/13/20 TIME: 09:31 SUBJECTIVE ROS stable OBJECTIVE Vital Signs Vital Signs Date Time Temp Pulse Resp B/P (MAP) Pulse Ox O2 Delivery O2 Flow Rate FiO2 08/13/20 08:33 Room Air 08/13/20 08:23 82 197/95 08/13/20 07:50 96 08/13/20 07:00 97.4 18 97.4 I & 0 Intake and Output 08/13/20 07:00 Intake Total 720 ml Output Total 1350 ml Balance -630 ml Intake Oral 720 ml Output Urine Total 1350 ml PHYSICAL EXAM Physical Exam General: NAD, sleeping , easily arousable , Morbid Obese HEENT: Right eye swollen. Legally blind Neck Thick, supple Lungs: Decreased breath sounds at bases 2/2 body habitus , Non labored t Heart: RRR, no murmurs Cardiovascular: S1, S2 Abdomen: Normal bowel sounds, Soft, Morbidly Obese Extremities: No clubbing, No cyanosis, No edema Skin: No rashes, No significant lesion Neuro: Grossly Normal, baseline intellectual delay Psych/Mental Status: Calm No CVA or SP tenderness, No Ingram DIAGNOSIS/ASSESSMENT Assessment & Plan CR - on CKD Vasomotor / Received IV contrast with CT scan on 06/30 ,No e/o urinary retention . back to her baseline supportive care, Strict I/O monitor , avoid Nephrotoxins CT scan w contrast in June 2020, repeat done 08/09 Areas of renal cortical scarring bilaterally with kidney morphology unchanged from the prior. No hydronephrosis. Circumferential wall thickening of the urinary bladder. UTI - defer to primary Hyperkalemia - resolved, Kayexalate prn if no EKG changes Hypernatremia- , Improved , continue IV D5W; Re-eval in am, CKD Stage 3 Baseline Cr 1.3-1.7 based on [facility] records . CT scan with IV contrast in june 2020; Ct done 08/09- Bilateral renal cortical scarring and atrophy. Stable reticulonodular opacities within the bilateral lower lungs, difficult to characterize given respiratory motion during image acquisition. This may be infectious or inflammatory in etiology. Cholelithiasis. Distal esophageal mucosal thickening and small hiatal hernia. Correlate for eso phagitis. History of schizoaffective disorder History DM2 Anemia Hgb 7.7 in June ,improved , defer to primary COMMENT/RELEVANT DATA Meds Current Medications Medications (Trade) Dose Ordered Sig/Gamal Start Time Stop Time Status Last Admin Dose Admin Acetaminophen (Tylenol) 650 mg PRN Q6HRS PRN 08/09/20 10:15 Acetaminophen/ Hydrocodone Bitart (Lortab 5325) 2 tab PRN Q4HRS PRN 08/09/20 10:15 Al Hydroxide/Mg Hydroxide (Mylanta Plus Xs) 30 ml PRN Q3HRS PRN 08/09/20 10:15 Cancel Albuterol Sulfate (Ventolin Neb Soln) 2.5 mg RTQID 08/09/20 12:00 08/13/20 07:50 2.5 MG Amlodipine Besylate (Norvasc) 10 mg DAILY 08/10/20 09:00 08/13/20 08:23 10 MG Brimonidine Tartrate (Alphagan) 1 drop BID 08/09/20 11:00 08/13/20 08:24 1 DROP Budesonide (Pulmicort) 0.5 mg RTBID 08/09/20 11:00 08/13/20 07:50 0.5 MG Calcium Carbonate/ Glycine (Tums) 500 mg PRN Q3HRS PRN 08/09/20 10:15 Calcium Gluconate (Calcium Gluconate) 1,000 mg 1X ONCE 08/09/20 08:30 08/09/20 08:32 DC 08/09/20 08:48 1,000 MG Ceftriaxone Sodium (Rocephin) 1 gm Q24H 08/09/20 22:01 08/13/20 22:00 08/12/20 22:14 1 GM Dextrose 1,000 ml @ 100 mls/hr Q10H 08/11/20 08:30 08/13/20 00:00 100 MLS/HR Dextrose (Dextrose 50%-Water Syringe) 12.5 gm PRN Q15MIN PRN 08/09/20 16:15 Dicyclomine HCl (Bentyl) 10 mg PRN TID PRN 08/09/20 10:15 08/11/20 07:50 10 MG Docusate Sodium (Colace) 100 mg DAILY 08/09/20 10:30 08/13/20 08:22 100 MG Enoxaparin Sodium (Lovenox 40mg Syringe) 40 mg Q12H 08/09/20 10:30 08/12/20 22:15 40 MG Furosemide (Lasix) 40 mg 1X ONCE 08/09/20 09:15 08/09/20 09:16 DC Gabapentin (Neurontin) 300 mg TID 08/09/20 10:30 08/13/20 08:22 300 MG Haloperidol Lactate (Haldol Inj) 5 mg PRN Q6HRS PRN 08/09/20 09:45 08/12/20 15:49 5 MG Hydralazine HCl (Apresoline Inj) 10 mg PRN Q4HRS PRN 08/09/20 10:00 Hydrochlorothiazide (Hydrodiuril) 50 mg DAILY 08/11/20 12:00 08/13/20 08:23 50 MG Hydromorphone HCl (Dilaudid) 0.5 mg 1X ONCE 08/09/20 07:45 08/09/20 07:52 DC 08/09/20 07:58 0.5 MG Insulin Human Lispro (HumaLOG) 0-5 UNITS TIDWMEALS 08/09/20 17:00 08/10/20 17:00 2 UNITS Insulin Human Regular (HumuLIN R VIAL) 5 unit 1X ONCE 08/09/20 08:30 08/09/20 08:32 DC 08/09/20 08:50 5 UNIT Lactobacillus Rhamnosus (Culturelle) 1 cap BID 08/11/20 21:00 08/13/20 08:23 1 CAP Lamotrigine (LaMICtal) 150 mg BID 08/09/20 21:00 08/13/20 08:22 150 MG Levothyroxine Sodium (Synthroid) 125 mcg DAILY06 08/09/20 10:30 08/13/20 05:08 125 MCG Linagliptin (Tradjenta) 5 mg DAILY 08/09/20 11:00 08/13/20 08:22 5 MG Lorazepam (Ativan Inj) 2 mg PRN Q4HRS PRN 08/09/20 09:45 08/13/20 08:24 2 MG Magnesium Hydroxide (Milk Of Magnesia) 2,400 mg PRN Q12HR PRN 08/09/20 10:15 Cancel Morphine Sulfate (Morphine Sulfate) 2 mg 1X ONCE 08/12/20 13:00 08/12/20 13:01 DC 08/12/20 13:16 2 MG Non-Formulary Medication (Fluticasone/ Salmeterol (Advair 500-50 Diskus)) 1 puff BID 08/09/20 21:00 08/09/20 10:29 DC Ondansetron HCl (Zofran) 4 mg PRN Q6HRS PRN 08/09/20 10:15 08/12/20 20:21 4 MG Pantoprazole Sodium (Protonix) 40 mg DAILYAC 08/11/20 12:30 08/13/20 08:23 40 MG Quetiapine Fumarate (SEROquel) 150 mg HS 08/09/20 21:00 08/12/20 20:25 150 MG Sertraline HCl (Zoloft) 100 mg DAILY 08/09/20 11:00 08/13/20 08:23 100 MG Sodium Polystyrene Sulfonate (Kayexalate) 30 gm 1X ONCE 08/10/20 09:15 08/10/20 09:16 DC 08/10/20 10:16 30 GM Sodium Bicarbonate (Sodium Bicarb Adult 8.4% Syr) 50 meq 1X ONCE 08/10/20 09:15 08/10/20 09:16 DC 08/10/20 10:16 50 MEQ Sodium Chloride 1,000 ml @ 75 mls/hr [id number] 08/09/20 10:00 08/10/20 09:05 DC 08/09/20 11:49 75 MLS/HR Lab Laboratory Tests Test 08/12/20 11:08 08/12/20 16:02 08/12/20 20:37 08/13/20 08:10 Glucose (Fingerstick) 100 mg/dL (70-99) 101 mg/dL (70-99) 105 mg/dL (70-99) 102 mg/dL (70-99) Results All relevant outside records, renal labs, imaging studies, telemetry/EKG's were reviewed. Justicifation of Admission Dx: Justifications for Admission: Justification of Admission Dx: N/A EDEN AU MD Aug 13, 2020 09:31
--- NOTE | 2020-08-13 10:42 | PDOC ---
PROGRESS NOTES Date of Service: DATE: 08/13/20 TIME: 10:42 Chief Complaint Chief Complaint impression Hyperkalemia Hypernatremia CR likely due to vasomotor nephropathy Normocytic anemia History of schizoaffective disorder History DM2 Distal esophageal mucosal thickening and small hiatal hernia. Correlate for esophagitis // Should consider schroeder-endoscopy pending improvement. hematoma over the right orbit. Plan: admit CVC BED Provide Kayexalate and Lasix to further eliminate potassium Baseline kidney function from 06/30/2020 shows CR 1.2 with EGFR 56 (CKD 3a). Consultation placed to nephrology. Due to history of urinary retention will obtain bladder scan and obtain CT abdomen/pelvis to evaluate for any obstruction Provide IV fluids; maintain Ingram catheter to monitor clinical urine output Will hold lisinopril, and she will need to discharge home different antihypertensive medication Insulin, sodium bicarb, D50, calcium gluconate received in ED; EKG pending. Haldol, Ativan as needed Resume home medications FEN - Cardiac diet PPX - Lovenox FULL CODE Dispo - inpatient for above D/W RN History of Present Illness History of Present Illness Ms Gutierrez is a 59-year-old female with past medical history schizoaffective disorder, glaucoma, legally blind, intellectually delayed, who presents from her detention after fall. She was apparently found on the floor of her room next to her bed and was reportedly down for 3-4 hours until staff found her. At that time she reportedly indicated pain in her right eye, right wrist, and right elbow. Per her detention, she was reportedly at her baseline mental function. CT imaging and x-rays obtained in the ER were negative for acute pathology. Labs in ED showed Na 148, K 6.7, CK 147, CBG 96, BUN 60, Cr 2.0. On review of her detention records, she does have a history of urinary retention noted. She received insulin, D50, sodium bicarb, calcium gluconate, and normal saline bolus in ER. Due to some aggression while in ER, she received Haldol and was also verbally deescalated by staff. Will admit patient for further medical management. 08/10: Afebrile. NA 151, K6.1, BUN 44, CR 1.8 today. Screaming she wants to sleep. Afebrile K5.1, CR 1.8, sodium 154. She is more comfortable today. No shortness of breath or agitation. 5-31 D/W RN Hypernatremia CR likely due to vasomotor nephropathy Normocytic anemia History of schizoaffective disorder History DM2 Distal esophageal mucosal thickening and small hiatal hernia. Correlate for esophagitis // Should consider schroeder-endoscopy pending improvement. hematoma over the right orbit. BUN 26 CR 1.7 CPK PENDING 08/13 D/W RN Hypernatremia CR likely due to vasomotor nephropathy Normocytic anemia History of schizoaffective disorder History DM2 Distal esophageal mucosal thickening and small hiatal hernia. Correlate for esophagitis // Should consider schroeder-endoscopy pending improvement. hematoma over the right orbit. BUN 26 CR 1.7 CPK PENDING Kayexalate and Lasix to further eliminate potassium Baseline kidney function from 06/30/2020 shows CR 1.2 with EGFR 56 (CKD 3a). Consultation placed to nephrology. Due to history of urinary retention will obtain bladder scan and obtain CT abdomen/pelvis to evaluate for any obstruction Provide IV fluids; maintain Ingram catheter to monitor clinical urine output Will hold lisinopril, and she will need to discharge home different antihypertensive medication Insulin, sodium bicarb, D50, calcium gluconate received in ED; EKG pending. Haldol, Ativan as needed Resume home medications FEN - Cardiac diet PPX - Lovenox FULL CODE Dispo - inpatient for above cxr today D/W RN Vitals Vitals Vital Signs Date Time Temp Pulse Resp B/P (MAP) Pulse Ox O2 Delivery O2 Flow Rate FiO2 08/13/20 08:33 Room Air 08/13/20 08:23 82 197/95 08/13/20 07:50 96 08/13/20 07:00 97.4 18 97.4 Physical Exam Physical Exam General: Alert, uncooperative, MILD distress HEENT: Right eye swollen. EOMI Lungs: Decreased breath sounds, Normal air movement Heart: RRR, no murmurs Cardiovascular: S1, S2 Abdomen: Normal bowel sounds, Soft, No tenderness Extremities: No clubbing, No cyanosis Skin: No rashes, No significant lesion Neuro: Normal tone, Sensation intact Psych/Mental Status: Agitated LESS General: Cooperative, mild distress Heart: Regular rate Lungs: Clear, Wheezing Abdomen: Soft, No tenderness Extremities: No cyanosis Labs LABS Laboratory Tests Test 08/12/20 11:08 08/12/20 16:02 08/12/20 20:37 08/13/20 08:10 Glucose (Fingerstick) 100 mg/dL (70-99) 101 mg/dL (70-99) 105 mg/dL (70-99) 102 mg/dL (70-99) Assessment and Plan Assessmemt and Plan Problems Medical Problems: (1) Acute kidney injury superimposed on chronic kidney disease Status: Acute (2) Agitation requiring sedation protocol Status: Acute (3) Hyperkalemia Status: Acute (4) Traumatic periorbital ecchymosis of right eye Status: Acute Comment Review of Relevant I have reviewed the following items joseluis (where applicable) has been applied. Labs Laboratory Tests Test 08/11/20 11:54 08/11/20 17:03 08/11/20 20:58 08/12/20 01:56 Glucose (Fingerstick) 64 mg/dL (70-99) 73 mg/dL (70-99) 98 mg/dL (70-99) 104 mg/dL (70-99) Test 08/12/20 06:55 08/12/20 08:00 08/12/20 11:08 08/12/20 16:02 Glucose (Fingerstick) 68 mg/dL (70-99) 100 mg/dL (70-99) 101 mg/dL (70-99) Sodium Level 147 mmol/L (136-145) Potassium Level 5.1 mmol/L (3.5-5.1) Chloride Level 109 mmol/L (98-107) Carbon Dioxide Level 30 mmol/L (21-32) Anion Gap 8 (6-14) Blood Urea Nitrogen 26 mg/dL (7-20) Creatinine 1.7 mg/dL (0.6-1.0) Estimated GFR (Cockcroft-Gault) 37.5 Glucose Level 93 mg/dL (70-99) Calcium Level 9.5 mg/dL (8.5-10.1) Creatine Kinase 253 U/L (26-192) Test 08/12/20 20:37 08/13/20 08:10 Glucose (Fingerstick) 105 mg/dL (70-99) 102 mg/dL (70-99) Laboratory Tests Test 08/12/20 11:08 08/12/20 16:02 08/12/20 20:37 08/13/20 08:10 Glucose (Fingerstick) 100 mg/dL (70-99) 101 mg/dL (70-99) 105 mg/dL (70-99) 102 mg/dL (70-99) Medications Current Medications Sodium Chloride 1,000 ml @ 1,000 mls/hr 1X ONCE IV Last administered on 08/09/20at 06:59; Start 08/09/20 at 06:45; Stop 08/09/20 at 07:44; Status DC Hydromorphone HCl (Dilaudid) 0.5 mg 1X ONCE IVP Last administered on 08/09/20at 07:58; Start 08/09/20 at 07:45; Stop 08/09/20 at 07:52; Status DC Calcium Gluconate (Calcium Gluconate) 1,000 mg 1X ONCE IVP Last administered on 08/09/20at 08:48; Start 08/09/20 at 08:30; Stop 08/09/20 at 08:32; Status DC Sodium Bicarbonate (Sodium Bicarb Adult 8.4% Syr) 50 meq 1X ONCE IV Last administered on 08/09/20at 08:49; Start 08/09/20 at 08:30; Stop 08/09/20 at 08:32; Status DC Dextrose (Dextrose 50%-Water Syringe) 25 gm 1X ONCE IV Last administered on 08/09/20at 08:51; Start 08/09/20 at 08:30; Stop 08/09/20 at 08:32; Status DC Insulin Human Regular (HumuLIN R VIAL) 5 unit 1X ONCE IV Last administered on 08/09/20at 08:50; Start 08/09/20 at 08:30; Stop 08/09/20 at 08:32; Status DC Haloperidol Lactate (Haldol Inj) 5 mg STK-MED ONCE .ROUTE ; Start 08/09/20 at 08:51; Stop 08/09/20 at 08:52; Status DC Haloperidol Lactate (Haldol Inj) 5 mg 1X ONCE IVP Last administered on 08/09/20at 08:50; Start 08/09/20 at 09:00; Stop 08/09/20 at 09:01; Status DC Sodium Polystyrene Sulfonate (Kayexalate) 15 gm 1X ONCE PO ; Start 08/09/20 at 09:30; Stop 08/09/20 at 09:31; Status DC Haloperidol Lactate (Haldol Inj) 5 mg 1X ONCE IVP Last administered on 08/09/20at 09:27; Start 08/09/20 at 09:30; Stop 08/09/20 at 09:31; Status DC Furosemide (Lasix) 40 mg 1X ONCE IVP ; Start 08/09/20 at 09:15; Stop 08/09/20 at 09:16; Status DC Haloperidol Lactate (Haldol Inj) 5 mg PRN Q6HRS PRN IVP AGITATION, 2ND CHOICE Last administered on 08/12/20at 15:49; Start 08/09/20 at 09:45 Lorazepam (Ativan Inj) 2 mg PRN Q4HRS PRN IVP ANXIETY / AGITATION Last administered on 08/13/20at 08:24; Start 08/09/20 at 09:45 Hydralazine HCl (Apresoline Inj) 10 mg PRN Q4HRS PRN IVP ELEVATED BP, SEE COMMENTS; Start 08/09/20 at 10:00 Sodium Chloride 1,000 ml @ 75 mls/hr [id number] IV Last administered on 08/09/20at 11:49; Start 08/09/20 at 10:00; Stop 08/10/20 at 09:05; Status DC Amlodipine Besylate (Norvasc) 10 mg DAILY PO Last administered on 08/13/20at 08:23; Start 08/10/20 at 09:00 Dicyclomine HCl (Bentyl) 10 mg PRN TID PRN PO ABD PAIN, CRAMPING Last administered on 08/11/20at 07:50; Start 08/09/20 at 10:15 Docusate Sodium (Colace) 100 mg DAILY PO Last administered on 08/13/20at 08:22; Start 08/09/20 at 10:30 Gabapentin (Neurontin) 300 mg TID PO Last administered on 08/13/20at 08:22; Start 08/09/20 at 10:30 Levothyroxine Sodium (Synthroid) 125 mcg DAILY06 PO Last administered on 08/13/20at 05:08; Start 08/09/20 at 10:30 Al Hydroxide/Mg Hydroxide (Mylanta Plus Xs) 30 ml PRN DAILY PRN PO HEARTBURN / GAS; Start 08/09/20 at 10:15 Quetiapine Fumarate (SEROquel) 150 mg HS PO Last administered on 08/12/20at 20:25; Start 08/09/20 at 21:00 Brimonidine Tartrate (Alphagan) 1 drop BID OU Last administered on 08/13/20at 08:24; Start 08/09/20 at 11:00 Non-Formulary Medication (Fluticasone/ Salmeterol (Advair 500-50 Diskus)) 1 puff BID IH ; Start 08/09/20 at 21:00; Stop 08/09/20 at 10:29; Status DC Hydrochlorothiazide (Hydrodiuril) 50 mg DAILY PO Last administered on 08/10/20at 08:22; Start 08/09/20 at 11:00; Stop 08/10/20 at 12:09; Status DC Lamotrigine (LaMICtal) 150 mg BID PO Last administered on 08/13/20at 08:22; Start 08/09/20 at 21:00 Sertraline HCl (Zoloft) 100 mg DAILY PO Last administered on 08/13/20at 08:23; Start 08/09/20 at 11:00 Linagliptin (Tradjenta) 5 mg DAILY PO Last administered on 08/13/20at 08:22; Start 08/09/20 at 11:00 Ondansetron HCl (Zofran) 4 mg PRN Q6HRS PRN IVP NAUSEA/VOMITING Last administered on 08/12/20at 20:21; Start 08/09/20 at 10:15 Al Hydroxide/Mg Hydroxide (Mylanta Plus Xs) 30 ml PRN Q3HRS PRN PO HEARTBURN / GAS; Start 08/09/20 at 10:15; Status Cancel Calcium Carbonate/ Glycine (Tums) 500 mg PRN Q3HRS PRN PO UPSET STOMACH; Start 08/09/20 at 10:15 Morphine Sulfate (Morphine Sulfate) 2 mg PRN Q1HR PRN IV PAIN Last administered on 08/11/20at 17:39; Start 08/09/20 at 10:15 Acetaminophen/ Hydrocodone Bitart (Lortab 5/325) 1 tab PRN Q4HRS PRN PO MILD PAIN 1-3 Last administered on 08/09/20at 16:19; Start 08/09/20 at 10:15 Acetaminophen/ Hydrocodone Bitart (Lortab 5/325) 2 tab PRN Q4HRS PRN PO MODERATE PAIN, SEVERE PAIN; Start 08/09/20 at 10:15 Acetaminophen (Tylenol) 650 mg PRN Q6HRS PRN PO Headaches, Temp > 101.5F; Start 08/09/20 at 10:15 Magnesium Hydroxide (Milk Of Magnesia) 2,400 mg PRN Q12HR PRN PO CONSTIPATION; Start 08/09/20 at 10:15; Status Cancel Enoxaparin Sodium (Lovenox 40mg Syringe) 40 mg Q12H SQ Last administered on 07/15 04/04at 22:15; Start 08/09/20 at 10:30 Albuterol Sulfate (Ventolin Neb Soln) 2.5 mg RTQID NEB Last administered on 08/13/20at 07:50; Start 08/09/20 at 12:00 Budesonide (Pulmicort) 0.5 mg RTBID NEB Last administered on 08/13/20at 07:50; Start 08/09/20 at 11:00 Insulin Human Lispro (HumaLOG) 0-5 UNITS TIDWMEALS SQ Last administered on 08/10/20at 17:00; Start 08/09/20 at 17:00 Dextrose (Dextrose 50%-Water Syringe) 12.5 gm PRN Q15MIN PRN IV SEE COMMENTS; Start 08/09/20 at 16:15 Sodium Polystyrene Sulfonate (Kayexalate) 15 gm 1X ONCE PO Last administered on 08/09/20at 16:19; Start 08/09/20 at 16:15; Stop 08/09/20 at 16:16; Status DC Ceftriaxone Sodium (Rocephin) 1 gm Q24H IVP Last administered on 08/12/20at 22:14; Start 08/09/20 at 22:01; Stop 08/13/20 at 22:00 Sodium Bicarbonate (Sodium Bicarb Adult 8.4% Syr) 50 meq 1X ONCE IV Last administered on 08/10/20at 10:16; Start 08/10/20 at 09:15; Stop 08/10/20 at 09:16; Status DC Sodium Polystyrene Sulfonate (Kayexalate) 30 gm 1X ONCE PO Last administered on 08/10/20at 10:16; Start 08/10/20 at 09:15; Stop 08/10/20 at 09:16; Status DC Lactobacillus Rhamnosus (Culturelle) 1 cap BID PO Last administered on 08/11/20at 07:52; Start 08/10/20 at 21:00; Stop 08/11/20 at 11:59; Status DC Dextrose 500 ml @ 75 mls/hr 1X ONCE IV Last administered on 08/10/20at 12:19; Start 08/10/20 at 11:45; Stop 08/10/20 at 18:24; Status DC Dextrose 1,000 ml @ 100 mls/hr Q10H IV Last administered on 08/13/20at 00:00; Start 08/11/20 at 08:30 Lactobacillus Rhamnosus (Culturelle) 1 cap BID PO Last administered on 08/13/20at 08:23; Start 08/11/20 at 21:00 Pantoprazole Sodium (Protonix) 40 mg DAILYAC PO Last administered on 08/13/20at 08:23; Start 08/11/20 at 12:30 Hydrochlorothiazide (Hydrodiuril) 50 mg DAILY PO Last administered on 08/13/20at 08:23; Start 08/11/20 at 12:00 Morphine Sulfate (Morphine Sulfate) 2 mg 1X ONCE IV Last administered on 08/12/20at 13:16; Start 08/12/20 at 13:00; Stop 08/12/20 at 13:01; Status DC Active Scripts Active Culturelle (Lactobacillus Rhamnosus Gg) 1 Each Cap.sprink 1 Cap PO BID 30 Days Mag-Al Plus Xs Suspension (Mag Hydrox/Al Hydrox/Simeth) 30 Ml Oral.susp 30 Ml PO PRN DAILY PRN 14 Days Acetaminophen 325 Mg Tablet 650 Mg PO PRN Q4HRS PRN 30 Days Proair Hfa (Albuterol Sulfate) 8.5 Gm Hfa.aer.ad 2.5 Mg NEB PRN Q4HRS PRN 30 Days Zofran (Ondansetron Hcl) 4 Mg Tablet 4 Mg PO PRN TID PRN nausea/vomiting Dicyclomine Hcl 10 Mg Capsule 1 Cap PO TID PRN 5 Days Zofran (Ondansetron Hcl) 4 Mg Tablet 1 Tab PO PRN Q6-8HRS PRN Reported Seroquel (Quetiapine Fumarate) 100 Mg Tablet 150 Mg PO HS Alphagan P (Brimonidine Tartrate) 5 Ml Drops 1 Drop EACHEYE BID Hydrochlorothiazide Tablet (Hydrochlorothiazide) 50 Mg Tablet 1 Tab PO DAILY Lamotrigine 150 Mg Tablet 1 Tab PO BID Docusate Sodium 100 Mg Capsule 100 Mg PO Advair 500-50 Diskus (Fluticasone/Salmeterol) 1 Each Disk.w.dev 1 Puff IH BID Flonase Allergy Relief (Fluticasone Propionate) 9.9 Ml [place].susp 2 Sprays NS DAILY Gabapentin (Gabapentin) 300 Mg Capsule 300 Mg PO TID Claritin (Loratadine) 10 Mg Tablet 1 Tab PO DAILY Januvia (Sitagliptin Phosphate) 50 Mg Tablet 1 Tab PO DAILY Synthroid (Levothyroxine Sodium) 125 Mcg Tablet 1 Tab PO DAILY Zoloft (Sertraline Hcl) 100 Mg Tablet 1 Tab PO DAILY Multivitamins (Multivitamin) 1 Each Tablet 1 Tab PO DAILY Spiriva (Tiotropium [place]) 18 Mcg Cap.w.dev 2 Inh IH DAILY Omeprazole 40 Mg Capsule.dr 1 Cap PO DAILY Amlodipine Besylate 10 Mg Tablet 10 Mg PO DAILY Vitals/I & O Vital Sign - Last 24 Hours 08/12/20 08/12/20 08/12/20 08/12/20 10:59 11:32 13:16 13:46 Temp 98.5 98.5 Pulse 81 Resp 18 B/P (MAP) 142/65 (90) Pulse Ox 94 98 98 98 O2 Delivery Room Air Room Air Room Air Room Air 08/12/20 08/12/20 08/12/20 08/12/20 14:55 15:09 19:20 19:54 Temp 98.6 98.6 98.6 98.6 Pulse 80 91 Resp 20 20 B/P (MAP) 135/81 (99) 148/115 (126) Pulse Ox 98 98 97 98 O2 Delivery Room Air Room Air Room Air Room Air 08/12/20 08/12/20 08/13/20 08/13/20 20:11 22:40 02:45 07:00 Temp 97.4 97.5 97.4 97.4 97.5 97.4 Pulse 98 86 82 Resp 22 20 18 B/P (MAP) 110/62 (78) 107/60 (76) 197/95 (129) Pulse Ox 95 96 93 O2 Delivery Room Air Room Air Room Air Room Air 08/13/20 08/13/20 08/13/20 07:50 08:23 08:33 Pulse 82 B/P (MAP) 197/95 Pulse Ox 96 O2 Delivery Room Air Room Air Intake and Output 08/12/20 08/12/20 08/13/20 15:00 23:00 07:00 Intake Total 240 ml 480 ml 0 ml Output Total 450 ml 900 ml Balance 240 ml 30 ml -900 ml Justicifation of Admission Dx: Justifications for Admission: Justification of Admission Dx: N/A SHANNAN WILDER MD Aug 13, 2020 10:42
[2020-08-13] MEDS: IV DEXTROSE 5% 1,000 ML IV SCH ×2 (10:43)
[2020-08-13 11:00] VITALS: BP_SYST 147; BP_SYST 153; BP_DIAS 79; BP_DIAS 83
--- NOTE | 2020-08-13 11:06 | NUR ---
SS following for discharge planning. SS reviewed pt chart and discussed with pt RN. Pt is LTC resident from [facility], ; fax [phone]. Pt is currently on room air and IV Rocephin. Pt's family contacting RN and SS stating that they do not want to go back to [facility] and want to go to another placement. SS received phone contact from pt's daughter, Anamaria, , stating that she wants pt placed at another facility close to the hospital. Pt's daughter declining any facility outside the [facility] area. Pt has [facility] [employer] [facility] Medicaid. Options provided. Pt's daughter requesting referral to [facility], ; fax [phone]. SS phoned and faxed referral as requested. [facility] reporting that they will accept pt back and are contacting pt's family to discuss. SS phoned and faxed clinical updates to [facility]. SS will continue to follow for discharge planning. Addendum: 08/13/20 at 1436 by CLYDE WOODARD SS SS received notification from [facility], ; fax [phone], declining pt for placement.
[2020-08-13] MEDS: ENOXAPARIN 40 MG/0.4 ML SYRINGE. SQ SCH ×2 (11:24→20:49)
[2020-08-13 12:12] LABS: BASO % 0 % (0-3); EOS # 0.1 x10^3/uL (0.0-0.7); EOS % 3 % (0-3); HEMATOCRIT 29.8 % (36.0-47.0); HEMOGLOBIN 9.3 g/dL (12.0-15.5); LYMPH # 0.3 x10^3/uL (1.0-4.8); LYMPH % 13 % (24-48); MEAN CORPUSCULAR HEMOGLOBIN 26 pg (25-35); MEAN CORPUSCULAR HGB CONC 31 g/dL (31-37); MEAN CORPUSCULAR VOLUME 84 fL (79-100); MONO # 0.1 x10^3/uL (0.0-1.1); MONO % 6 % (0-9); NEUT % 79 % (31-73); PLATELET COUNT 124 x10^3/uL (140-400); RED BLOOD COUNT 3.55 x10^6/uL (3.50-5.40); RED CELL DISTRIBUTION WIDTH 20.9 % (11.5-14.5); WHITE BLOOD COUNT 2.5 x10^3/uL (4.0-11.0)
[2020-08-13 12:36] LABS: ALBUMIN 3.4 g/dL (3.4-5.0); ALBUMIN/GLOBULIN RATIO 0.8 (1.0-1.7); CALCIUM 9.2 mg/dL (8.5-10.1); CREATININE 1.6 mg/dL (0.6-1.0); GFR 40.2; POTASSIUM 4.7 mmol/L (3.5-5.1); TOTAL BILIRUBIN 0.2 mg/dL (0.2-1.0); TOTAL PROTEIN 7.6 g/dL (6.4-8.2)
[2020-08-13] MEDS: HALOPERIDOL LACTATE 5 MG/ML VIAL. IVP PRN (14:10)
[2020-08-13 15:00] VITALS: BP 158/77
--- NOTE | 2020-08-13 15:47 | RAD ---
XR CHEST 1V History: Reason: wheezing / Spl. Instructions: / History: Comparison: June 29, 2020 Findings: Low lung volumes bilateral reticular interstitial opacities. Enlarged cardiac size, unchanged. No pne umothorax. 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 Impression: 1. Low lung volumes with bilateral reticular interstitial opacities, similar compared to prior. Electronically signed by: Hansel Gaitan DO (08/13/2020 3:45 PM) [facility]
--- NOTE | 2020-08-13 16:54 | NUR ---
Wound/Ostomy Care Wound Type/Assessment: Patient seen per wound care consult. See wound assessment. Patient has abrasions from a recent fall at the facility in which she resides to the chin and to the right elbow. Wounds cleansed and assessed. Treatment Recommendations/Plan: Recommendations for contact layer and foam dressing change on Wednesday and Wednesday to the right elbow and to leave the chin open to air. Dressing applied. Education provided: Unable to educate due to mental disability. Offloading surface/device: N/A Recommended Referrals/Tests: N/A Discharge Recommendations for dressings: Dressing instructions left in room. No other wounds noted. Bed lowered and bed alarm in place. Spoke with RN regarding POC. Wound care will follow up on 08/21/20.
[2020-08-13 19:05] VITALS: BP 194/91
[2020-08-13] MEDS: MORPHINE SULFATE 2 MG/ML VIAL. IV PRN (19:20)
[2020-08-13] MEDS: QUEtiapine 100 MG TABLET. PO SCH (20:49)
[2020-08-13 23:59] VITALS: BP 123/69
[2020-08-14] MEDS: IV DEXTROSE 5% 1,000 ML IV SCH (00:24)
[2020-08-14 02:50] VITALS: BP 169/71
[2020-08-14] MEDS: PANTOPRAZOLE 40 MG TABLET.DR. PO SCH (05:56)
[2020-08-14] MEDS: LEVOTHYROXINE 125 MCG TABLET PO SCH (05:56)
[2020-08-14 07:00] VITALS: BP 179/85
[2020-08-14] MEDS: ALBUTEROL SULFATE 2.5 MG/3 ML NEBU. NEB SCH ×3 (07:21→15:39)
[2020-08-14] MEDS: BUDESONIDE 0.5 MG/2 ML NEBU. NEB SCH (07:21)
[2020-08-14] MEDS: INSULIN LISPRO 300 UNITS/3 ML VIAL. SQ SCH ×2 (08:00→12:00)
[2020-08-14] MEDS: hydroCHLOROthiazide 25 MG TABLET PO SCH (09:34)
[2020-08-14] MEDS: BRIMONIDINE 0.2% OPHTH SOLUTION 5ML BOTTLE. OU SCH (09:34)
[2020-08-14] MEDS: LINAGLIPTIN 5 MG TABLET PO SCH (09:35)
[2020-08-14] MEDS: GABAPENTIN 300 MG CAPSULE. PO SCH ×2 (09:35→14:22)
[2020-08-14] MEDS: ENOXAPARIN 40 MG/0.4 ML SYRINGE. SQ SCH (09:35)
[2020-08-14] MEDS: LACTOBACILLUS RHAMNOSUS GG 1 CAPSULE. PO SCH (09:37)
[2020-08-14] MEDS: lamoTRIgine 100 MG TABLET. PO SCH (09:37)
[2020-08-14] MEDS: SERTRALINE 50 MG TABLET. PO SCH (09:37)
[2020-08-14] MEDS: DOCUSATE SODIUM 100 MG CAPSULE. PO SCH (09:37)
[2020-08-14] MEDS: amLODIPine BESYLATE 10 MG TABLET PO SCH (09:37)
--- NOTE | 2020-08-14 10:01 | PDOC ---
PROGRESS NOTES Date of Service: DATE: 08/14/20 TIME: 10:00 Chief Complaint Chief Complaint impression Hyperkalemia Hypernatremia CR likely due to vasomotor nephropathy Normocytic anemia History of schizoaffective disorder History DM2 Distal esophageal mucosal thickening and small hiatal hernia. Correlate for esophagitis // Should consider schroeder-endoscopy pending improvement. hematoma over the right orbit. Plan: admit CVC BED Provide Kayexalate and Lasix to further eliminate potassium Baseline kidney function from 06/30/2020 shows CR 1.2 with EGFR 56 (CKD 3a). Consultation placed to nephrology. Due to history of urinary retention will obtain bladder scan and obtain CT abdomen/pelvis to evaluate for any obstruction Provide IV fluids; maintain Ingram catheter to monitor clinical urine output Will hold lisinopril, and she will need to discharge home different antihypertensive medication Insulin, sodium bicarb, D50, calcium gluconate received in ED; EKG pending. Haldol, Ativan as needed Resume home medications FEN - Cardiac diet PPX - Lovenox FULL CODE Dispo - inpatient for above D/W RN History of Present Illness History of Present Illness Ms Gutierrez is a 59-year-old female with past medical history schizoaffective disorder, glaucoma, legally blind, intellectually delayed, who presents from her residential after fall. She was apparently found on the floor of her room next to her bed and was reportedly down for 3-4 hours until staff found her. At that time she reportedly indicated pain in her right eye, right wrist, and right elbow. Per her residential, she was reportedly at her baseline mental function. CT imaging and x-rays obtained in the ER were negative for acute pathology. Labs in ED showed Na 148, K 6.7, CK 147, CBG 96, BUN 60, Cr 2.0. On review of her residential records, she does have a history of urinary retention noted. She received insulin, D50, sodium bicarb, calcium gluconate, and normal saline bolus in ER. Due to some aggression while in ER, she received Haldol and was also verbally deescalated by staff. Will admit patient for further medical management. 08/10: Afebrile. NA 151, K6.1, BUN 44, CR 1.8 today. Screaming she wants to sleep. Afebrile K5.1, CR 1.8, sodium 154. She is more comfortable today. No shortness of breath or agitation. 5-31 D/W RN Hypernatremia CR likely due to vasomotor nephropathy Normocytic anemia History of schizoaffective disorder History DM2 Distal esophageal mucosal thickening and small hiatal hernia. Correlate for esophagitis // Should consider schroeder-endoscopy pending improvement. hematoma over the right orbit. BUN 26 CR 1.7 CPK PENDING 08/13 D/W RN Hypernatremia CR likely due to vasomotor nephropathy Normocytic anemia History of schizoaffective disorder History DM2 Distal esophageal mucosal thickening and small hiatal hernia. Correlate for esophagitis // Should consider schroeder-endoscopy pending improvement. hematoma over the right orbit. BUN 26 CR 1.7 CPK PENDING Kayexalate and Lasix to further eliminate potassium Baseline kidney function from 06/30/2020 shows CR 1.2 with EGFR 56 (CKD 3a). Consultation placed to nephrology. Due to history of urinary retention will obtain bladder scan and obtain CT abdomen/pelvis to evaluate for any obstruction Provide IV fluids; maintain Ingram catheter to monitor clinical urine output Will hold lisinopril, and she will need to discharge home different antihypertensive medication Insulin, sodium bicarb, D50, calcium gluconate received in ED; EKG pending. Haldol, Ativan as needed Resume home medications FEN - Cardiac diet PPX - Lovenox FULL CODE Dispo - inpatient for above cxr today D/W RN 08/14 CHEST CTA NAD D/W RN Hypernatremia CR likely due to vasomotor nephropathy Normocytic anemia History of schizoaffective disorder History DM2 Distal esophageal mucosal thickening and small hiatal hernia. Correlate for esophagitis // Should consider schroeder-endoscopy pending improvement. hematoma over the right orbit. BUN 26 CR 1.7 Kayexalate and Lasix to further eliminate potassium Baseline kidney function from 06/30/2020 shows CR 1.2 with EGFR 56 (CKD 3a). Consultation placed to nephrology. Due to history of urinary retention will obtain bladder scan and obtain CT a bdomen/pelvis to evaluate for any obstruction Provide IV fluids; maintain Ingram catheter to monitor clinical urine output Will hold lisinopril, and she will need to discharge home different antihypertensive medication Insulin, sodium bicarb, D50, calcium gluconate received in ED; EKG pending. Haldol, Ativan as needed Resume home medications FEN - Cardiac diet PPX - Lovenox FULL CODE Dispo - inpatient for above cxr OK 08-13 D/C PLANNING 33 MIN D/W RN Vitals Vitals Vital Signs Date Time Temp Pulse Resp B/P (MAP) Pulse Ox O2 Delivery O2 Flow Rate FiO2 08/14/20 09:37 91 179/85 08/14/20 07:21 98 Room Air 08/14/20 07:00 97.9 18 97.9 Physical Exam Physical Exam General: Alert, uncooperative, NO distress HEENT: Right eye swollen. EOMI Lungs: Decreased breath sounds, Normal air movement Heart: RRR, no murmurs Cardiovascular: S1, S2 Abdomen: Normal bowel sounds, Soft, No tenderness Extremities: No clubbing, No cyanosis Skin: No rashes, No significant lesion Neuro: Normal tone, Sensation intact Psych/Mental Status: Agitated LESS General: Alert, Cooperative, No acute distress Heart: Regular rate, Normal S1, Normal S2 Lungs: Clear, Wheezing Abdomen: Soft, No tenderness Extremities: No cyanosis Labs LABS XR CHEST 1V History: Reason: wheezing / Spl. Instructions: / History: Comparison: June 29, 2020 Findings: Low lung volumes bilateral reticular interstitial opacities. Enlarged cardiac size, unchanged. No pneumothorax. 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 Impression: 1. Low lung volumes with bilateral reticular interstitial opacities, similar compared to prior. Electronically signed by: Hansel Gaitan DO (08/13/2020 3:45 PM) [facility] DICTATED and SIGNED BY: HANSEL GAITAN DO DATE: 08/13/20 [id number] Laboratory Tests Test 08/13/20 11:45 08/13/20 11:51 08/13/20 17:40 08/13/20 20:52 White Blood Count 2.5 x10^3/uL (4.0-11.0) Red Blood Count 3.55 x10^6/uL (3.50-5.40) Hemoglobin 9.3 g/dL (12.0-15.5) Hematocrit 29.8 % (36.0-47.0) Mean Corpuscular Volume 84 fL (79-100) Mean Corpuscular Hemoglobin 26 pg (25-35) Mean Corpuscular Hemoglobin Concent 31 g/dL (31-37) Red Cell Distribution Width 20.9 % (11.5-14.5) Platelet Count 124 x10^3/uL (140-400) Neutrophils (%) (Auto) 79 % (31-73) Lymphocytes (%) (Auto) 13 % (24-48) Monocytes (%) (Auto) 6 % (0-9) Eosinophils (%) (Auto) 3 % (0-3) Basophils (%) (Auto) 0 % (0-3) Neutrophils # (Auto) 2.0 x10^3/uL (1.8-7.7) Lymphocytes # (Auto) 0.3 x10^3/uL (1.0-4.8) Monocytes # (Auto) 0.1 x10^3/uL (0.0-1.1) Eosinophils # (Auto) 0.1 x10^3/uL (0.0-0.7) Basophils # (Auto) 0.0 x10^3/uL (0.0-0.2) Sodium Level 140 mmol/L (136-145) Potassium Level 4.7 mmol/L (3.5-5.1) Chloride Level 103 mmol/L (98-107) Carbon Dioxide Level 30 mmol/L (21-32) Anion Gap 7 (6-14) Blood Urea Nitrogen 18 mg/dL (7-20) Creatinine 1.6 mg/dL (0.6-1.0) Estimated GFR (Cockcroft-Gault) 40.2 BUN/Creatinine Ratio 11 (6-20) Glucose Level 94 mg/dL (70-99) Calcium Level 9.2 mg/dL (8.5-10.1) Total Bilirubin 0.2 mg/dL (0.2-1.0) Aspartate Amino Transf (AST/SGOT) 82 U/L (15-37) Alanine Aminotransferase (ALT/SGPT) 132 U/L (14-59) Alkaline Phosphatase 117 U/L (46-116) Total Protein 7.6 g/dL (6.4-8.2) Albumin 3.4 g/dL (3.4-5.0) Albumin/Globulin Ratio 0.8 (1.0-1.7) Glucose (Fingerstick) 86 mg/dL (70-99) 115 mg/dL (70-99) 123 mg/dL (70-99) Test 08/14/20 08:15 Glucose (Fingerstick) 93 mg/dL (70-99) Assessment and Plan Assessmemt and Plan Problems Medical Problems: (1) Acute kidney injury superimposed on chronic kidney disease Status: Acute (2) Agitation requiring sedation protocol Status: Acute (3) Hyperkalemia Status: Acute (4) Traumatic periorbital ecchymosis of right eye Status: Acute Comment Review of Relevant I have reviewed the following items joseluis (where applicable) has been applied. Labs Laboratory Tests Test 08/12/20 11:08 08/12/20 16:02 08/12/20 20:37 08/13/20 08:10 Glucose (Fingerstick) 100 mg/dL (70-99) 101 mg/dL (70-99) 105 mg/dL (70-99) 102 mg/dL (70-99) Test 08/13/20 11:45 08/13/20 11:51 08/13/20 17:40 08/13/20 20:52 White Blood Count 2.5 x10^3/uL (4.0-11.0) Red Blood Count 3.55 x10^6/uL (3.50-5.40) Hemoglobin 9.3 g/dL (12.0-15.5) Hematocrit 29.8 % (36.0-47.0) Mean Corpuscular Volume 84 fL (79-100) Mean Corpuscular Hemoglobin 26 pg (25-35) Mean Corpuscular Hemoglobin Concent 31 g/dL (31-37) Red Cell Distribution Width 20.9 % (11.5-14.5) Platelet Count 124 x10^3/uL (140-400) Neutrophils (%) (Auto) 79 % (31-73) Lymphocytes (%) (Auto) 13 % (24-48) Monocytes (%) (Auto) 6 % (0-9) Eosinophils (%) (Auto) 3 % (0-3) Basophils (%) (Auto) 0 % (0-3) Neutrophils # (Auto) 2.0 x10^3/uL (1.8-7.7) Lymphocytes # (Auto) 0.3 x10^3/uL (1.0-4.8) Monocytes # (Auto) 0.1 x10^3/uL (0.0-1.1) Eosinophils # (Auto) 0.1 x10^3/uL (0.0-0.7) Basophils # (Auto) 0.0 x10^3/uL (0.0-0.2) Sodium Level 140 mmol/L (136-145) Potassium Level 4.7 mmol/L (3.5-5.1) Chloride Level 103 mmol/L (98-107) Carbon Dioxide Level 30 mmol/L (21-32) Anion Gap 7 (6-14) Blood Urea Nitrogen 18 mg/dL (7-20) Creatinine 1.6 mg/dL (0.6-1.0) Estimated GFR (Cockcroft-Gault) 40.2 BUN/Creatinine Ratio 11 (6-20) Glucose Level 94 mg/dL (70-99) Calcium Level 9.2 mg/dL (8.5-10.1) Total Bilirubin 0.2 mg/dL (0.2-1.0) Aspartate Amino Transf (AST/SGOT) 82 U/L (15-37) Alanine Aminotransferase (ALT/SGPT) 132 U/L (14-59) Alkaline Phosphatase 117 U/L (46-116) Total Protein 7.6 g/dL (6.4-8.2) Albumin 3.4 g/dL (3.4-5.0) Albumin/Globulin Ratio 0.8 (1.0-1.7) Glucose (Fingerstick) 86 mg/dL (70-99) 115 mg/dL (70-99) 123 mg/dL (70-99) Test 08/14/20 08:15 Glucose (Fingerstick) 93 mg/dL (70-99) Laboratory Tests Test 08/13/20 11:45 08/13/20 11:51 08/13/20 17:40 08/13/20 20:52 White Blood Count 2.5 x10^3/uL (4.0-11.0) Red Blood Count 3.55 x10^6/uL (3.50-5.40) Hemoglobin 9.3 g/dL (12.0-15.5) Hematocrit 29.8 % (36.0-47.0) Mean Corpuscular Volume 84 fL (79-100) Mean Corpuscular Hemoglobin 26 pg (25-35) Mean Corpuscular Hemoglobin Concent 31 g/dL (31-37) Red Cell Distribution Width 20.9 % (11.5-14.5) Platelet Count 124 x10^3/uL (140-400) Neutrophils (%) (Auto) 79 % (31-73) Lymphocytes (%) (Auto) 13 % (24-48) Monocytes (%) (Auto) 6 % (0-9) Eosinophils (%) (Auto) 3 % (0-3) Basophils (%) (Auto) 0 % (0-3) Neutrophils # (Auto) 2.0 x10^3/uL (1.8-7.7) Lymphocytes # (Auto) 0.3 x10^3/uL (1.0-4.8) Monocytes # (Auto) 0.1 x10^3/uL (0.0-1.1) Eosinophils # (Auto) 0.1 x10^3/uL (0.0-0.7) Basophils # (Auto) 0.0 x10^3/uL (0.0-0.2) Sodium Level 140 mmol/L (136-145) Potassium Level 4.7 mmol/L (3.5-5.1) Chloride Level 103 mmol/L (98-107) Carbon Dioxide Level 30 mmol/L (21-32) Anion Gap 7 (6-14) Blood Urea Nitrogen 18 mg/dL (7-20) Creatinine 1.6 mg/dL (0.6-1.0) Estimated GFR (Cockcroft-Gault) 40.2 BUN/Creatinine Ratio 11 (6-20) Glucose Level 94 mg/dL (70-99) Calcium Level 9.2 mg/dL (8.5-10.1) Total Bilirubin 0.2 mg/dL (0.2-1.0) Aspartate Amino Transf (AST/SGOT) 82 U/L (15-37) Alanine Aminotransferase (ALT/SGPT) 132 U/L (14-59) Alkaline Phosphatase 117 U/L (46-116) Total Protein 7.6 g/dL (6.4-8.2) Albumin 3.4 g/dL (3.4-5.0) Albumin/Globulin Ratio 0.8 (1.0-1.7) Glucose (Fingerstick) 86 mg/dL (70-99) 115 mg/dL (70-99) 123 mg/dL (70-99) Test 08/14/20 08:15 Glucose (Fingerstick) 93 mg/dL (70-99) Medications Current Medications Sodium Chloride 1,000 ml @ 1,000 mls/hr 1X ONCE IV Last administered on 08/09/20at 06:59; Start 08/09/20 at 06:45; Stop 08/09/20 at 07:44; Status DC Hydromorphone HCl (Dilaudid) 0.5 mg 1X ONCE IVP Last administered on 08/09/20at 07:58; Start 08/09/20 at 07:45; Stop 08/09/20 at 07:52; Status DC Calcium Gluconate (Calcium Gluconate) 1,000 mg 1X ONCE IVP Last administered on 08/09/20at 08:48; Start 08/09/20 at 08:30; Stop 08/09/20 at 08:32; Status DC Sodium Bicarbonate (Sodium Bicarb Adult 8.4% Syr) 50 meq 1X ONCE IV Last administered on 08/09/20at 08:49; Start 08/09/20 at 08:30; Stop 08/09/20 at 08:32; Status DC Dextrose (Dextrose 50%-Water Syringe) 25 gm 1X ONCE IV Last administered on 08/09/20at 08:51; Start 08/09/20 at 08:30; Stop 08/09/20 at 08:32; Status DC Insulin Human Regular (HumuLIN R VIAL) 5 unit 1X ONCE IV Last administered on 08/09/20at 08:50; Start 08/09/20 at 08:30; Stop 08/09/20 at 08:32; Status DC Haloperidol Lactate (Haldol Inj) 5 mg STK-MED ONCE .ROUTE ; Start 08/09/20 at 08:51; Stop 08/09/20 at 08:52; Status DC Haloperidol Lactate (Haldol Inj) 5 mg 1X ONCE IVP Last administered on 08/09/20at 08:50; Start 08/09/20 at 09:00; Stop 08/09/20 at 09:01; Status DC Sodium Polystyrene Sulfonate (Kayexalate) 15 gm 1X ONCE PO ; Start 08/09/20 at 09:30; Stop 08/09/20 at 09:31; Status DC Haloperidol Lactate (Haldol Inj) 5 mg 1X ONCE IVP Last administered on 08/09/20at 09:27; Start 08/09/20 at 09:30; Stop 08/09/20 at 09:31; Status DC Furosemide (Lasix) 40 mg 1X ONCE IVP ; Start 08/09/20 at 09:15; Stop 08/09/20 at 09:16; Status DC Haloperidol Lactate (Haldol Inj) 5 mg PRN Q6HRS PRN IVP AGITATION, 2ND CHOICE Last administered on 08/13/20at 14:10; Start 08/09/20 at 09:45 Lorazepam (Ativan Inj) 2 mg PRN Q4HRS PRN IVP ANXIETY / AGITATION Last administered on 08/14/20at 09:39; Start 08/09/20 at 09:45 Hydralazine HCl (Apresoline Inj) 10 mg PRN Q4HRS PRN IVP ELEVATED BP, SEE COMMENTS; Start 08/09/20 at 10:00 Sodium Chloride 1,000 ml @ 75 mls/hr [id number] IV Last administered on 08/09/20at 11:49; Start 08/09/20 at 10:00; Stop 08/10/20 at 09:05; Status DC Amlodipine Besylate (Norvasc) 10 mg DAILY PO Last administered on 08/14/20at 09:37; Start 08/10/20 at 09:00 Dicyclomine HCl (Bentyl) 10 mg PRN TID PRN PO ABD PAIN, CRAMPING Last administered on 08/11/20at 07:50; Start 08/09/20 at 10:15 Docusate Sodium (Colace) 100 mg DAILY PO Last administered on 08/14/20at 09:37; Start 08/09/20 at 10:30 Gabapentin (Neurontin) 300 mg TID PO Last administered on 08/14/20at 09:35; Start 08/09/20 at 10:30 Levothyroxine Sodium (Synthroid) 125 mcg DAILY06 PO Last administered on 08/14/20at 05:56; Start 08/09/20 at 10:30 Al Hydroxide/Mg Hydroxide (Mylanta Plus Xs) 30 ml PRN DAILY PRN PO HEARTBURN / GAS; Start 08/09/20 at 10:15 Quetiapine Fumarate (SEROquel) 150 mg HS PO Last administered on 08/13/20 20:49; Start 08/09/20 at 21:00 Brimonidine Tartrate (Alphagan) 1 drop BID OU Last administered on 08/14/20 09:34; Start 08/09/20 at 11:00 Non-Formulary Medication (Fluticasone/ Salmeterol (Advair 500-50 Diskus)) 1 puff BID IH ; Start 08/09/20 at 21:00; Stop 08/09/20 at 10:29; Status DC Hydrochlorothiazide (Hydrodiuril) 50 mg DAILY PO Last administered on 08/10/20at 08:22; Start 08/09/20 at 11:00; Stop 08/10/20 at 12:09; Status DC Lamotrigine (LaMICtal) 150 mg BID PO Last administered on 08/14/20 09:37; Start 08/09/20 at 21:00 Sertraline HCl (Zoloft) 100 mg DAILY PO Last administered on 08/14/20at 09:37; Start 08/09/20 at 11:00 Linagliptin (Tradjenta) 5 mg DAILY PO Last administered on 08/14/20 09:35; Start 08/09/20 at 11:00 Ondansetron HCl (Zofran) 4 mg PRN Q6HRS PRN IVP NAUSEA/VOMITING Last administered on 08/12/20 20:21; Start 08/09/20 at 10:15 Al Hydroxide/Mg Hydroxide (Mylanta Plus Xs) 30 ml PRN Q3HRS PRN PO HEARTBURN / GAS; Start 08/09/20 at 10:15; Status Cancel Calcium Carbonate/ Glycine (Tums) 500 mg PRN Q3HRS PRN PO UPSET STOMACH; Start 08/09/20 at 10:15 Morphine Sulfate (Morphine Sulfate) 2 mg PRN Q1HR PRN IV PAIN Last administered on 08/13/20at 19:20; Start 08/09/20 at 10:15 Acetaminophen/ Hydrocodone Bitart (Lortab 5/325) 1 tab PRN Q4HRS PRN PO MILD PAIN 1-3 Last administered on 5/28/21at 16:19; Start 08/09/20 at 10:15 Acetaminophen/ Hydrocodone Bitart (Lortab 5/325) 2 tab PRN Q4HRS PRN PO MODE RATE PAIN, SEVERE PAIN; Start 08/09/20 at 10:15 Acetaminophen (Tylenol) 650 mg PRN Q6HRS PRN PO Headaches, Temp > 101.5F; Star t 08/09/20 at 10:15 Magnesium Hydroxide (Milk Of Magnesia) 2,400 mg PRN Q12HR PRN PO CONSTIPATION; Start 08/09/20 at 10:15; Status Cancel Enoxaparin Sodium (Lovenox 40mg Syringe) 40 mg Q12H SQ Last administered on 08/14/20at 09:35; Start 08/09/20 at 10:30 Albuterol Sulfate (Ventolin Neb Soln) 2.5 mg RTQID NEB Last administered on 08/14/20at 07:21; Start 08/09/20 at 12:00 Budesonide (Pulmicort) 0.5 mg RTBID NEB Last administered on 08/14/20at 07:21; Start 08/09/20 at 11:00 Insulin Human Lispro (HumaLOG) 0-5 UNITS TIDWMEALS SQ Last administered on 08/10/20at 17:00; Start 08/09/20 at 17:00 Dextrose (Dextrose 50%-Water Syringe) 12.5 gm PRN Q15MIN PRN IV SEE COMMENTS; Start 08/09/20 at 16:15 Sodium Polystyrene Sulfonate (Kayexalate) 15 gm 1X ONCE PO Last administered on 08/09/20at 16:19; Start 08/09/20 at 16:15; Stop 08/09/20 at 16:16; Status DC Ceftriaxone Sodium (Rocephin) 1 gm Q24H IVP Last administered on 08/12/20at 22:14; Start 08/09/20 at 22:01; Stop 08/13/20 at 22:00; Status DC Sodium Bicarbonate (Sodium Bicarb Adult 8.4% Syr) 50 meq 1X ONCE IV Last administered on 08/10/20at 10:16; Start 08/10/20 at 09:15; Stop 08/10/20 at 09:16; Status DC Sodium Polystyrene Sulfonate (Kayexalate) 30 gm 1X ONCE PO Last administered on 08/10/20at 10:16; Start 08/10/20 at 09:15; Stop 08/10/20 at 09:16; Status DC Lactobacillus Rhamnosus (Culturelle) 1 cap BID PO Last administered on 08/11/20at 07:52; Start 08/10/20 at 21:00; Stop 08/11/20 at 11:59; Status DC Dextrose 500 ml @ 75 mls/hr 1X ONCE IV Last administered on 08/10/20at 12:19; Start 08/10/20 at 11:45; Stop 08/10/20 at 18:24; Status DC Dextrose 1,000 ml @ 65 mls/hr [id number] IV Last administered on 08/14/20at 00:24; Start 08/11/20 at 08:30 Lactobacillus Rhamnosus (Culturelle) 1 cap BID PO Last administered on 08/14/20at 09:37; Start 08/11/20 at 21:00 Pantoprazole Sodium (Protonix) 40 mg DAILYAC PO Last administered on 08/14/20at 05:56; Start 08/11/20 at 12:30 Hydrochlorothiazide (Hydrodiuril) 50 mg DAILY PO Last administered on 08/14/20at 09:34; Start 08/11/20 at 12:00 Morphine Sulfate (Morphine Sulfate) 2 mg 1X ONCE IV Last administered on 08/12/20at 13:16; Start 08/12/20 at 13:00; Stop 08/12/20 at 13:01; Status DC Active Scripts Active Culturelle (Lactobacillus Rhamnosus Gg) 1 Each Cap.sprink 1 Cap PO BID 30 Days Mag-Al Plus Xs Suspension (Mag Hydrox/Al Hydrox/Simeth) 30 Ml Oral.susp 30 Ml PO PRN DAILY PRN 14 Days Acetaminophen 325 Mg Tablet 650 Mg PO PRN Q4HRS PRN 30 Days Proair Hfa (Albuterol Sulfate) 8.5 Gm Hfa.aer.ad 2.5 Mg NEB PRN Q4HRS PRN 30 Days Zofran (Ondansetron Hcl) 4 Mg Tablet 4 Mg PO PRN TID PRN nausea/vomiting Dicyclomine Hcl 10 Mg Capsule 1 Cap PO TID PRN 5 Days Zofran (Ondansetron Hcl) 4 Mg Tablet 1 Tab PO PRN Q6-8HRS PRN Reported Seroquel (Quetiapine Fumarate) 100 Mg Tablet 150 Mg PO HS Alphagan P (Brimonidine Tartrate) 5 Ml Drops 1 Drop EACHEYE BID Hydrochlorothiazide Tablet (Hydrochlorothiazide) 50 Mg Tablet 1 Tab PO DAILY Lamotrigine 150 Mg Tablet 1 Tab PO BID Docusate Sodium 100 Mg Capsule 100 Mg PO Advair 500-50 Diskus (Fluticasone/Salmeterol) 1 Each Disk.w.dev 1 Puff IH BID Flonase Allergy Relief (Fluticasone Propionate) 9.9 Ml [place].susp 2 Sprays NS DAILY Gabapentin (Gabapentin) 300 Mg Capsule 300 Mg PO TID Claritin (Loratadine) 10 Mg Tablet 1 Tab PO DAILY Januvia (Sitagliptin Phosphate) 50 Mg Tablet 1 Tab PO DAILY Synthroid (Levothyroxine Sodium) 125 Mcg Tablet 1 Tab PO DAILY Zoloft (Sertraline Hcl) 100 Mg Tablet 1 Tab PO DAILY Multivitamins (Multivitamin) 1 Each Tablet 1 Tab PO DAILY Spiriva (Tiotropium [place]) 18 Mcg Cap.w.dev 2 Inh IH DAILY Omeprazole 40 Mg Capsule.dr 1 Cap PO DAILY Amlodipine Besylate 10 Mg Tablet 10 Mg PO DAILY Vitals/I & O Vital Sign - Last 24 Hours 08/13/20 08/13/20 08/13/20 08/13/20 11:00 11:41 15:00 19:05 Temp 97.9 97.4 98.1 97.9 97.4 98.1 Pulse 89 90 103 Resp 16 16 20 B/P (MAP) 147/79 (101) 158/77 (104) 194/91 (125) Pulse Ox 93 93 91 94 O2 Delivery Room Air Room Air Room Air Room Air 08/13/20 08/13/20 08/13/20 08/13/20 19:20 19:41 19:50 20:41 Resp 16 16 Pulse Ox 94 93 93 O2 Delivery Room Air Room Air Room Air Room Air 08/13/20 08/14/20 08/14/20 08/14/20 23:59 02:50 07:00 07:21 Temp 98.4 98.1 97.9 98.4 98.1 97.9 Pulse 84 101 91 Resp 18 20 18 B/P (MAP) 123/69 (87) 169/71 (103) 179/85 (116) Pulse Ox 94 95 95 98 O2 Delivery Room Air Room Air Room Air Room Air 08/14/20 09:37 Pulse 91 B/P (MAP) 179/85 Intake and Output 08/13/20 08/13/20 08/14/20 15:00 23:00 07:00 Intake Total 218 ml 1000 ml Output Total 325 ml 900 ml 1050 ml Balance -107 ml -900 ml -50 ml Justicifation of Admission Dx: Justifications for Admission: Justification of Admission Dx: N/A SHANNAN WILDER MD Aug 14, 2020 10:01
[2020-08-14 10:15] LABS: BASO % 0 % (0-3); EOS # 0.1 x10^3/uL (0.0-0.7); EOS % 2 % (0-3); HEMATOCRIT 29.2 % (36.0-47.0); HEMOGLOBIN 9.4 g/dL (12.0-15.5); LYMPH # 0.3 x10^3/uL (1.0-4.8); LYMPH % 9 % (24-48); MEAN CORPUSCULAR HEMOGLOBIN 26 pg (25-35); MEAN CORPUSCULAR HGB CONC 32 g/dL (31-37); MEAN CORPUSCULAR VOLUME 82 fL (79-100); MONO # 0.1 x10^3/uL (0.0-1.1); MONO % 5 % (0-9); NEUT # 2.4 x10^3/uL (1.8-7.7); NEUT % 84 % (31-73); PLATELET COUNT 127 x10^3/uL (140-400); RED BLOOD COUNT 3.55 x10^6/uL (3.50-5.40); RED CELL DISTRIBUTION WIDTH 21.2 % (11.5-14.5); WHITE BLOOD COUNT 2.9 x10^3/uL (4.0-11.0)
--- NOTE | 2020-08-14 10:33 | NUR ---
SS following up with discharge planning. SS reviewed pt chart and discussed with pt RN. Pt is currently on room air. SS was informed that pt has case management manager, Nicole, , and medical coordinator, Trudy, , through [facility] that coordinate placement and community resources. SS spoke with both Trudy and Nicole this morning and provided update. SS informed Trudy and Nicole that pt's sister, Karishma, , has been calling hospital and stating that she does not want pt to return to her LTC placement at [place], ; fax [phone]. SS notified Trudy and Nicole [facility] Nicole and Trudy both reported that pt's sister is not pt's DPOA or Guardian and services are coordinated through [facility]. Trudy and Nicole reported that pt needs to return to [facility] and they will assist with services from there. Pt's RN and physician notified. SS will continue to follow for discharge planning.
[2020-08-14 10:36] LABS: ALBUMIN 3.5 g/dL (3.4-5.0); CALCIUM 9.6 mg/dL (8.5-10.1); CREATININE 1.5 mg/dL (0.6-1.0); GFR 43.3; PHOSPHORUS 4.4 mg/dL (2.6-4.7); POTASSIUM 4.4 mmol/L (3.5-5.1)
[2020-08-14 11:00] VITALS: BP 190/76
--- NOTE | 2020-08-14 11:51 | PDOC ---
DATE OF SERVICE DATE: 08/14/20 TIME: 11:50 SUBJECTIVE ROS stable OBJECTIVE Vital Signs Vital Signs Date Time Temp Pulse Resp B/P (MAP) Pulse Ox O2 Delivery O2 Flow Rate FiO2 08/14/20 11:31 95 Room Air 08/14/20 11:00 98.4 98 18 190/76 (114) 98.4 I & 0 Intake and Output 08/14/20 07:00 Intake Total 1218 ml Output Total 2275 ml Balance -1057 ml Intake Oral 218 ml IV Total 1000 ml Output Urine Total 2275 ml PHYSICAL EXAM Physical Exam General: NAD, sleeping , easily arousable , Morbid Obese HEENT: Right eye swollen. Legally blind Neck Thick, supple Lungs: Decreased breath sounds at bases 2/2 body habitus , Non labored t Heart: RRR, no murmurs Cardiovascular: S1, S2 Abdomen: Normal bowel sounds, Soft, Morbidly Obese Extremities: No clubbing, No cyanosis, No edema Skin: No rashes, No significant lesion Neuro: Grossly Normal, baseline intellectual delay Psych/Mental Status: Calm No CVA or SP tenderness, No Ingram DIAGNOSIS/ASSESSMENT Assessment & Plan CR - on CKD Vasomotor / Received IV contrast with CT scan on 06/30 ,No e/o urinary retention . Renal function to her baseline supportive care, Strict I/O monitor , avoid Nephrotoxins CT scan w contrast in June 2020, repeat done 08/09 Areas of renal cortical scarring bilaterally with kidney morphology unchanged from the prior. No hydronephrosis. Circumferential wall thickening of the urinary bladder. UTI - defer to primary Hyperkalemia - resolved, Kayexalate prn if no EKG changes Hypernatremia- , Improved , continue IV D5W; Re-eval in am, CKD Stage 3 Baseline Cr 1.3-1.[address] [facility] records . CT scan with IV contrast in june 2020; Ct done 08/09- Bilateral renal cortical scarring and atrophy. Stable reticulonodular opacities within the bilateral lower lungs, difficult to characterize given respiratory motion during image acquisition. This may be infectious or inflammatory in etiology. Cholelithiasis. Distal esophageal mucosal thickening and small hiatal hernia. Correlate for esophagitis. History of schizoaffective disorder History DM2 Anemia Hgb 7.7 in June ,improved , defer to primary COMMENT/RELEVANT DATA Meds Current Medications Medications (Trade) Dose Ordered Sig/Gamal Start Time Stop Time Status Last Admin Dose Admin Acetaminophen (Tylenol) 650 mg PRN Q6HRS PRN 08/09/20 10:15 Acetaminophen/ Hydrocodone Bitart (Lortab 5325) 2 tab PRN Q4HRS PRN 08/09/20 10:15 Al Hydroxide/Mg Hydroxide (Mylanta Plus Xs) 30 ml PRN Q3HRS PRN 08/09/20 10:15 Cancel Albuterol Sulfate (Ventolin Neb Soln) 2.5 mg RTQID 08/09/20 12:00 08/14/20 11:30 2.5 MG Amlodipine Besylate (Norvasc) 10 mg DAILY 08/10/20 09:00 08/14/20 09:37 10 MG Brimonidine Tartrate (Alphagan) 1 drop BID 08/09/20 11:00 08/14/20 09:34 1 DROP Budesonide (Pulmicort) 0.5 mg RTBID 08/09/20 11:00 08/14/20 07:21 0.5 MG Calcium Carbonate/ Glycine (Tums) 500 mg PRN Q3HRS PRN 08/09/20 10:15 Calcium Gluconate (Calcium Gluconate) 1,000 mg 1X ONCE 08/09/20 08:30 08/09/20 08:32 DC 08/09/20 08:48 1,000 MG Ceftriaxone Sodium (Rocephin) 1 gm Q24H 08/09/20 22:01 08/13/20 22:00 DC 08/12/20 22:14 1 GM Dextrose 1,000 ml @ 65 mls/hr [id number] 08/11/20 08:30 08/14/20 00:24 65 MLS/HR Dextrose (Dextrose 50%-Water Syringe) 12.5 gm PRN Q15MIN PRN 08/09/20 16:15 Dicyclomine HCl (Bentyl) 10 mg PRN TID PRN 08/09/20 10:15 08/11/20 07:50 10 MG Docusate Sodium (Colace) 100 mg DAILY 08/09/20 10:30 08/14/20 09:37 100 MG Enoxaparin Sodium (Lovenox 40mg Syringe) 40 mg Q12H 08/09/20 10:30 08/14/20 09:35 40 MG Furosemide (Lasix) 40 mg 1X ONCE 08/09/20 09:15 08/09/20 09:16 DC Gabapentin (Neurontin) 300 mg TID 08/09/20 10:30 08/14/20 09:35 300 MG Haloperidol Lactate (Haldol Inj) 5 mg PRN Q6HRS PRN 08/09/20 09:45 08/13/20 14:10 5 MG Hydralazine HCl (Apresoline Inj) 10 mg PRN Q4HRS PRN 08/09/20 10:00 Hydrochlorothiazide (Hydrodiuril) 50 mg DAILY 08/11/20 12:00 08/14/20 09:34 50 MG Hydromorphone HCl (Dilaudid) 0.5 mg 1X ONCE 08/09/20 07:45 08/09/20 07:52 DC 08/09/20 07:58 0.5 MG Insulin Human Lispro (HumaLOG) 0-5 UNITS TIDWMEALS 08/09/20 17:00 08/10/20 17:00 2 UNITS Insulin Human Regular (HumuLIN R VIAL) 5 unit 1X ONCE 08/09/20 08:30 08/09/20 08:32 DC 08/09/20 08:50 5 UNIT Lactobacillus Rhamnosus (Culturelle) 1 cap BID 08/11/20 21:00 08/14/20 09:37 1 CAP Lamotrigine (LaMICtal) 150 mg BID 08/09/20 21:00 08/14/20 09:37 150 MG Levothyroxine Sodium (Synthroid) 125 mcg DAILY06 08/09/20 10:30 08/14/20 05:56 125 MCG Linagliptin (Tradjenta) 5 mg DAILY 08/09/20 11:00 08/14/20 09:35 5 MG Lorazepam (Ativan Inj) 2 mg PRN Q4HRS PRN 08/09/20 09:45 08/14/20 09:39 2 MG Magnesium Hydroxide (Milk Of Magnesia) 2,400 mg PRN Q12HR PRN 08/09/20 10:15 Cancel Morphine Sulfate (Morphine Sulfate) 2 mg 1X ONCE 08/12/20 13:00 08/12/20 13:01 DC 08/12/20 13:16 2 MG Non-Formulary Medication (Fluticasone/ Salmeterol (Advair 500-50 Diskus)) 1 puff BID 08/09/20 21:00 08/09/20 10:29 DC Ondansetron HCl (Zofran) 4 mg PRN Q6HRS PRN 08/09/20 10:15 08/12/20 20:21 4 MG Pantoprazole Sodium (Protonix) 40 mg DAILYAC 08/11/20 12:30 08/14/20 05:56 40 MG Quetiapine Fumarate (SEROquel) 150 mg HS 08/09/20 21:00 08/13/20 20:49 150 MG Sertraline HCl (Zoloft) 100 mg DAILY 08/09/20 11:00 08/14/20 09:37 100 MG Sodium Polystyrene Sulfonate (Kayexalate) 30 gm 1X ONCE 08/10/20 09:15 08/10/20 09:16 DC 08/10/20 10:16 30 GM Sodium Bicarbonate (Sodium Bicarb Adult 8.4% Syr) 50 meq 1X ONCE 08/10/20 09:15 08/10/20 09:16 DC 08/10/20 10:16 50 MEQ Sodium Chloride 1,000 ml @ 75 mls/hr [id number] 08/09/20 10:00 08/10/20 09:05 DC 08/09/20 11:49 75 MLS/HR Lab Laboratory Tests Test 08/13/20 11:51 08/13/20 17:40 08/13/20 20:52 08/14/20 08:15 Glucose (Fingerstick) 86 mg/dL (70-99) 115 mg/dL (70-99) 123 mg/dL (70-99) 93 mg/dL (70-99) Test 08/14/20 09:40 White Blood Count 2.9 x10^3/uL (4.0-11.0) Red Blood Count 3.55 x10^6/uL (3.50-5.40) Hemoglobin 9.4 g/dL (12.0-15.5) Hematocrit 29.2 % (36.0-47.0) Mean Corpuscular Volume 82 fL (79-100) Mean Corpuscular Hemoglobin 26 pg (25-35) Mean Corpuscular Hemoglobin Concent 32 g/dL (31-37) Red Cell Distribution Width 21.2 % (11.5-14.5) Platelet Count 127 x10^3/uL (140-400) Neutrophils (%) (Auto) 84 % (31-73) Lymphocytes (%) (Auto) 9 % (24-48) Monocytes (%) (Auto) 5 % (0-9) Eosinophils (%) (Auto) 2 % (0-3) Basophils (%) (Auto) 0 % (0-3) Neutrophils # (Auto) 2.4 x10^3/uL (1.8-7.7) Lymphocytes # (Auto) 0.3 x10^3/uL (1.0-4.8) Monocytes # (Auto) 0.1 x10^3/uL (0.0-1.1) Eosinophils # (Auto) 0.1 x10^3/uL (0.0-0.7) Basophils # (Auto) 0.0 x10^3/uL (0.0-0.2) Sodium Level 140 mmol/L (136-145) Potassium Level 4.4 mmol/L (3.5-5.1) Chloride Level 103 mmol/L (98-107) Carbon Dioxide Level 28 mmol/L (21-32) Anion Gap 9 (6-14) Blood Urea Nitrogen 18 mg/dL (7-20) Creatinine 1.5 mg/dL (0.6-1.0) Estimated GFR (Cockcroft-Gault) 43.3 Glucose Level 120 mg/dL (70-99) Calcium Level 9.6 mg/dL (8.5-10.1) Phosphorus Level 4.4 mg/dL (2.6-4.7) Albumin 3.5 g/dL (3.4-5.0) Results All relevant outside records, renal labs, imaging studies, telemetry/EKG's were reviewed. Justicifation of Admission Dx: Justifications for Admission: Justification of Admission Dx: N/A EDEN AU MD Aug 14, 2020 11:51
--- NOTE | 2020-08-14 13:31 | PDOC3 ---
Discharge Summary Date of Admission: August 09, 2020 Date of Discharge: Aug 14, 2020 Follow-Up: 1-2 days Admitting Diagnosis comment: HOSPITAL COURSE HPI History of Present Illness History of Present Illness Ms Gutierrez is a 59-year-old female with past medical history schizoaffective disorder, glaucoma, legally blind, intellectually delayed, who presents from her halfway after fall. She was apparently found on the floor of her room next to her bed and was reportedly down for 3-4 hours until staff found her. At that time she reportedly indicated pain in her right eye, right wrist, and right elbow. Per her halfway, she was reportedly at her baseline mental function. CT imaging and x-rays obtained in the ER were negative for acute pathology. Labs in ED showed Na 148, K 6.7, CK 147, CBG 96, BUN 60, Cr 2.0. On review of her halfway records, she does have a history of urinary retention noted. She received insulin, D50, sodium bicarb, calcium gluconate, and normal saline bolus in ER. Due to some aggression while in ER, she received Haldol and was also verbally deescalated by staff. Will admit patient for further medical management. D/C CONDITION GOOD PROGNOSIS good with compliance consults, nephrology, GI, PROCEDURES CT ABDOMENT, HEAD, MAXILLOFACIAL DISCHARGE DX Chief Complaint impression Hyperkalemia Hypernatremia CR likely due to vasomotor nephropathy Normocytic anemia History of schizoaffective disorder History DM2 Distal esophageal mucosal thickening and small hiatal hernia. Correlate for esophagitis // Should consider schroeder-endoscopy pending improvement. hematoma over the right orbit. Plan: admit CVC BED Provide Kayexalate and Lasix to further eliminate potassium Baseline kidney function from 06/30/2020 shows CR 1.2 with EGFR 56 (CKD 3a). Consultation placed to nephrology. Due to history of urinary retention will obtain bladder scan and obtain CT abdomen/pelvis to evaluate for any obstruction Provide IV fluids; maintain Ingram catheter to monitor clinical urine output Will hold lisinopril, and she will need to discharge home different antihypertensive medication Insulin, sodium bicarb, D50, calcium gluconate received in ED; EKG pending. Haldol, Ativan as needed Resume home medications FEN - Cardiac diet PPX - Lovenox FULL CODE Dispo - inpatient for above D/W RN History of Present Illness History of Present Illness Ms Gutierrez is a 59-year-old female with past medical history schizoaffective disorder, glaucoma, legally blind, intellectually delayed, who presents from her halfway after fall. She was apparently found on the floor of her room next to her bed and was reportedly down for 3-4 hours until staff found her. At that time she reportedly indicated pain in her right eye, right wrist, and right elbow. Per her halfway, she was reportedly at her baseline mental function. CT imaging and x-rays obtained in the ER were negative for acute pathology. Labs in ED showed Na 148, K 6.7, CK 147, CBG 96, BUN 60, Cr 2.0. On review of her halfway records, she does have a history of urinary retention noted. She received insulin, D50, sodium bicarb, calcium gluconate, and normal saline bolus in ER. Due to some aggression while in ER, she received Haldol and was also verbally deescalated by staff. Will admit patient for further medical management. 08/10: Afebrile. NA 151, K6.1, BUN 44, CR 1.8 today. Screaming she wants to sleep. Afebrile K5.1, CR 1.8, sodium 154. She is more comfortable today. No shortness of breath or agitation. 08-12 D/W RN Hypernatremia CR likely due to vasomotor nephropathy Normocytic anemia History of schizoaffective disorder History DM2 Distal esophageal mucosal thickening and small hiatal hernia. Correlate for esophagitis // Should consider schroeder-endoscopy pending improvement. hematoma over the right orbit. BUN 26 CR 1.7 CPK PENDING 08/13 D/W RN Hypernatremia CR likely due to vasomotor nephropathy Normocytic anemia History of schizoaffective disorder History DM2 Distal esophageal mucosal thickening and small hiatal hernia. Correlate for esophagitis // Should consider schroeder-endoscopy pending improvement. hematoma over the right orbit. BUN 26 CR 1.7 CPK PENDING Kayexalate and Lasix to further eliminate potassium Baseline kidney function from 06/30/2020 shows CR 1.2 with EGFR 56 (CKD 3a). Consultation placed to nephrology. Due to history of urinary retention will obtain bladder scan and obtain CT abdomen/pelvis to evaluate for any obstruction Provide IV fluids; maintain Ingram catheter to monitor clinical urine output Will hold lisinopril, and she will need to discharge home different an tihypertensive medication Insulin, sodium bicarb, D50, calcium gluconate received in ED; EKG pending. Haldol, Ativan as needed Resume home medications FEN - Cardiac diet PPX - Lovenox FULL CODE Dispo - inpatient for above cxr today D/W RN 08/14 CHEST CTA NAD D/W RN Hypernatremia CR likely due to vasomotor nephropathy Normocytic anemia History of schizoaffective disorder History DM2 Distal esophageal mucosal thickening and small hiatal hernia. Correlate for esophagitis // Should consider schroeder-endoscopy pending improvement. hematoma over the right orbit. BUN 26 CR 1.7 Kayexalate and Lasix to further eliminate potassium Baseline kidney function from 06/30/2020 shows CR 1.2 with EGFR 56 (CKD 3a). Consultation placed to nephrology. Due to history of urinary retention will obtain bladder scan and obtain CT abdomen/pelvis to evaluate for any obstruction Provide IV fluids; maintain Ingram catheter to monitor clinical urine output Will hold lisinopril, and she will need to discharge home different antihypertensive medication Insulin, sodium bicarb, D50, calcium gluconate received in ED; EKG pending. Haldol, Ativan as needed Resume home medications FEN - Cardiac diet PPX - Lovenox FULL CODE Dispo - inpatient for above cxr [place] 08-13 D/C TO [facility] D/C PLANNING 33 MIN D/W RN Vitals Vitals Vital Signs Date Time Temp Pulse Resp B/P (MAP) Pulse Ox O2 Delivery O2 Flow Rate FiO2 08/14/20 09:37 91 179/85 08/14/20 07:21 98 Room Air 08/14/20 07:00 97.9 18 97.9 Physical Exam Physical Exam General: Alert, uncooperative, NO distress HEENT: Right eye swollen. EOMI Lungs: Decreased breath sounds, Normal air movement Heart: RRR, no murmurs Cardiovascular: S1, S2 Abdomen: Normal bowel sounds, Soft, No tenderness Extremities: No clubbing, No cyanosis Skin: No rashes, No significant lesion Neuro: Normal tone, Sensation intact Psych/Mental Status: Agitated LESS General: Alert, Cooperative, No acute distress Heart: Regular rate, Normal S1, Normal S2 Lungs: Clear, Wheezing Abdomen: Soft, No tenderness Extremities: No cyanosis FINAL DIAGNOSIS Problems Medical Problems: (1) Acute kidney injury superimposed on chronic kidney disease Status: Acute (2) Agitation requiring sedation protocol Status: Acute (3) Hyperkalemia Status: Acute (4) Traumatic periorbital ecchymosis of right eye Status: Acute Brief Hospital Course Ms. Gutierrez is a 59 old [sex] who presented with [CR, HYPERKALEMIA ] CONDITION AT DISCHARGE: Improved Discharge Medications Current Medications Sodium Chloride 1,000 ml @ 1,000 mls/hr 1X ONCE IV Last administered on 08/09/20at 06:59; Start 08/09/20 at 06:45; Stop 08/09/20 at 07:44; Status DC Hydromorphone HCl (Dilaudid) 0.5 mg 1X ONCE IVP Last administered on 08/09/20at 07:58; Start 08/09/20 at 07:45; Stop 08/09/20 at 07:52; Status DC Calcium Gluconate (Calcium Gluconate) 1,000 mg 1X ONCE IVP Last administered on 08/09/20at 08:48; Start 08/09/20 at 08:30; Stop 08/09/20 at 08:32; Status DC Sodium Bicarbonate (Sodium Bicarb Adult 8.4% Syr) 50 meq 1X ONCE IV Last administered on 08/09/20at 08:49; Start 08/09/20 at 08:30; Stop 08/09/20 at 08:32; Status DC Dextrose (Dextrose 50%-Water Syringe) 25 gm 1X ONCE IV Last administered on 08/09/20at 08:51; Start 08/09/20 at 08:30; Stop 08/09/20 at 08:32; Status DC Insulin Human Regular (HumuLIN R VIAL) 5 unit 1X ONCE IV Last administered on 08/09/20at 08:50; Start 08/09/20 at 08:30; Stop 08/09/20 at 08:32; Status DC Haloperidol Lactate (Haldol Inj) 5 mg STK-MED ONCE .ROUTE ; Start 08/09/20 at 08:51; Stop 08/09/20 at 08:52; Status DC Haloperidol Lactate (Haldol Inj) 5 mg 1X ONCE IVP Last administered on at 08:50; Start 08/09/20 at 09:00; Stop 08/09/20 at 09:01; Status DC Sodium Polystyrene Sulfonate (Kayexalate) 15 gm 1X ONCE PO ; Start 08/09/20 at 09:30; Stop 08/09/20 at 09:31; Status DC Haloperidol Lactate (Haldol Inj) 5 mg 1X ONCE IVP Last administered on 08/09/20at 09:27; Start 08/09/20 at 09:30; Stop 08/09/20 at 09:31; Status DC Furosemide (Lasix) 40 mg 1X ONCE IVP ; Start 08/09/20 at 09:15; Stop 08/09/20 at 09:16; Status DC Haloperidol Lactate (Haldol Inj) 5 mg PRN Q6HRS PRN IVP AGITATION, 2ND CHOICE Last administered on 08/13/20at 14:10; Start 08/09/20 at 09:45 Lorazepam (Ativan Inj) 2 mg PRN Q4HRS PRN IVP ANXIETY / AGITATION Last administered on 08/14/20at 09:39; Start 08/09/20 at 09:45 Hydralazine HCl (Apresoline Inj) 10 mg PRN Q4HRS PRN IVP ELEVATED BP, SEE COMMENTS; Start 08/09/20 at 10:00 Sodium Chloride 1,000 ml @ 75 mls/hr [id number] IV Last administered on 08/09/20at 11:49; Start 08/09/20 at 10:00; Stop 08/10/20 at 09:05; Status DC Amlodipine Besylate (Norvasc) 10 mg DAILY PO Last administered on 08/14/20at 09:37; Start 08/10/20 at 09:00 Dicyclomine HCl (Bentyl) 10 mg PRN TID PRN PO ABD PAIN, CRAMPING Last ad ministered on 08/11/20at 07:50; Start 08/09/20 at 10:15 Docusate Sodium (Colace) 100 mg DAILY PO Last administered on 08/14/20at 09:37; Start 08/09/20 at 10:30 Gabapentin (Neurontin) 300 mg TID PO Last administered on 08/14/20at 09:35; Start 08/09/20 at 10:30 Levothyroxine Sodium (Synthroid) 125 mcg DAILY06 PO Last administered on 08/14/20at 05:56; Start 08/09/20 at 10:30 Al Hydroxide/Mg Hydroxide (Mylanta Plus Xs) 30 ml PRN DAILY PRN PO HEARTBURN / GAS; Start 08/09/20 at 10:15 Quetiapine Fumarate (SEROquel) 150 mg HS PO Last administered on 08/13/20at 20:49; Start 08/09/20 at 21:00 Brimonidine Tartrate (Alphagan) 1 drop BID OU Last administered on 08/14/20at 09:34; Start 08/09/20 at 11:00 Non-Formulary Medication (Fluticasone/ Salmeterol (Advair 500-50 Diskus)) 1 puff BID IH ; Start 08/09/20 at 21:00; Stop 08/09/20 at 10:29; Status DC Hydrochlorothiazide (Hydrodiuril) 50 mg DAILY PO Last administered on 08/10/20at 08:22; Start 08/09/20 at 11:00; Stop 08/10/20 at 12:09; Status DC Lamotrigine (LaMICtal) 150 mg BID PO Last administered on 08/14/20at 09:37; Start 08/09/20 at 21:00 Sertraline HCl (Zoloft) 100 mg DAILY PO Last administered on 08/14/20at 09:37; Start 08/09/20 at 11:00 Linagliptin (Tradjenta) 5 mg DAILY PO Last administered on 08/14/20at 09:35; Start 08/09/20 at 11:00 Ondansetron HCl (Zofran) 4 mg PRN Q6HRS PRN IVP NAUSEA/VOMITING Last administered on 08/12/20at 20:21; Start 08/09/20 at 10:15 Al Hydroxide/Mg Hydroxide (Mylanta Plus Xs) 30 ml PRN Q3HRS PRN PO HEARTBURN / GAS; Start 08/09/20 at 10:15; Status Cancel Calcium Carbonate/ Glycine (Tums) 500 mg PRN Q3HRS PRN PO UPSET STOMACH; Start 08/09/20 at 10:15 Morphine Sulfate (Morphine Sulfate) 2 mg PRN Q1HR PRN IV PAIN Last administered on 08/13/20at 19:20; Start 08/09/20 at 10:15 Acetaminophen/ Hydrocodone Bitart (Lortab 5/325) 1 tab PRN Q4HRS PRN PO MILD PAIN 1-3 Last administered on 08/09/20at 16:19; Start 08/09/20 at 10:15 Acetaminophen/ Hydrocodone Bitart (Lortab 5/325) 2 tab PRN Q4HRS PRN PO MODERATE PAIN, SEVERE PAIN; Start 08/09/20 at 10:15 Acetaminophen (Tylenol) 650 mg PRN Q6HRS PRN PO Headaches, Temp > 101.5F; Start 08/09/20 at 10:15 Magnesium Hydroxide (Milk Of Magnesia) 2,400 mg PRN Q12HR PRN PO CONSTIPATION; Start 08/09/20 at 10:15; Status Cancel Enoxaparin Sodium (Lovenox 40mg Syringe) 40 mg Q12H SQ Last administered on 08/14/20at 09:35; Start 08/09/20 at 10:30 Albuterol Sulfate (Ventolin Neb Soln) 2.5 mg RTQID NEB Last administered on 08/14/20at 11:30; Start 08/09/20 at 12:00 Budesonide (Pulmicort) 0.5 mg RTBID NEB Last administered on 08/14/20at 07:21; Start 08/09/20 at 11:00 Insulin Human Lispro (HumaLOG) 0-5 UNITS TIDWMEALS SQ Last administered on 08/10/20at 17:00; Start 08/09/20 at 17:00 Dextrose (Dextrose 50%-Water Syringe) 12.5 gm PRN Q15MIN PRN IV SEE COMMENTS; Start 08/09/20 at 16:15 Sodium Polystyrene Sulfonate (Kayexalate) 15 gm 1X ONCE PO Last administered on 08/09/20at 16:19; Start 08/09/20 at 16:15; Stop 08/09/20 at 16:16; Status DC Ceftriaxone Sodium (Rocephin) 1 gm Q24H IVP Last administered on 08/12/20at 22:14; Start 08/09/20 at 22:01; Stop 08/13/20 at 22:00; Status DC Sodium Bicarbonate (Sodium Bicarb Adult 8.4% Syr) 50 meq 1X ONCE IV Last administered on 08/10/20at 10:16; Start 08/10/20 at 09:15; Stop 08/10/20 at 09:16; Status DC Sodium Polystyrene Sulfonate (Kayexalate) 30 gm 1X ONCE PO Last administered on 08/10/20at 10:16; Start 08/10/20 at 09:15; Stop 08/10/20 at 09:16; Status DC Lactobacillus Rhamnosus (Culturelle) 1 cap BID PO Last administered on 08/11/20at 07:52; Start 08/10/20 at 21:00; Stop 08/11/20 at 11:59; Status DC Dextrose 500 ml @ 75 mls/hr 1X ONCE IV Last administered on 08/10/20at 12:19; Start 08/10/20 at 11:45; Stop 08/10/20 at 18:24; Status DC Dextrose 1,000 ml @ 65 mls/hr [id number] IV Last administered on 08/14/20at 00:24; Start 08/11/20 at 08:30 Lactobacillus Rhamnosus (Culturelle) 1 cap BID PO Last administered on 08/14/20at 09:37; Start 08/11/20 at 21:00 Pantoprazole Sodium (Protonix) 40 mg DAILYAC PO Last administered on 08/14/20at 05:56; Start 08/11/20 at 12:30 Hydrochlorothiazide (Hydrodiuril) 50 mg DAILY PO Last administered on 08/14/20at 09:34; Start 08/11/20 at 12:00 Morphine Sulfate (Morphine Sulfate) 2 mg 1X ONCE IV Last administered on 08/12/20at 13:16; Start 08/12/20 at 13:00; Stop 08/12/20 at 13:01; Status DC Active Scripts Active Culturelle (Lactobacillus Rhamnosus Gg) 1 Each Cap.sprink 1 Cap PO BID 30 Days Mag-Al Plus Xs Suspension (Mag Hydrox/Al Hydrox/Simeth) 30 Ml Oral.susp 30 Ml PO PRN DAILY PRN 14 Days Acetaminophen 325 Mg Tablet 650 Mg PO PRN Q4HRS PRN 30 Days Proair Hfa (Albuterol Sulfate) 8.5 Gm Hfa.aer.ad 2.5 Mg NEB PRN Q4HRS PRN 30 Days Zofran (Ondansetron Hcl) 4 Mg Tablet 4 Mg PO PRN TID PRN nausea/vomiting Dicyclomine Hcl 10 Mg Capsule 1 Cap PO TID PRN 5 Days Zofran (Ondansetron Hcl) 4 Mg Tablet 1 Tab PO PRN Q6-8HRS PRN Reported Seroquel (Quetiapine Fumarate) 100 Mg Tablet 150 Mg PO HS Alphagan P (Brimonidine Tartrate) 5 Ml Drops 1 Drop EACHEYE BID Hydrochlorothiazide Tablet (Hydrochlorothiazide) 50 Mg Tablet 1 Tab PO DAILY Lamotrigine 150 Mg Tablet 1 Tab PO BID Docusate Sodium 100 Mg Capsule 100 Mg PO Advair 500-50 Diskus (Fluticasone/Salmeterol) 1 Each Disk.w.dev 1 Puff IH BID Flonase Allergy Relief (Fluticasone Propionate) 9.9 Ml [place].susp 2 Sprays NS DAILY Gabapentin (Gabapentin) 300 Mg Capsule 300 Mg PO TID Claritin (Loratadine) 10 Mg Tablet 1 Tab PO DAILY Januvia (Sitagliptin Phosphate) 50 Mg Tablet 1 Tab PO DAILY Synthroid (Levothyroxine Sodium) 125 Mcg Tablet 1 Tab PO DAILY Zoloft (Sertraline Hcl) 100 Mg Tablet 1 Tab PO DAILY Multivitamins (Multivitamin) 1 Each Tablet 1 Tab PO DAILY Spiriva (Tiotropium Mobile) 18 Mcg Cap.w.dev 2 Inh IH DAILY Omeprazole 40 Mg Capsule.dr 1 Cap PO DAILY Amlodipine Besylate 10 Mg Tablet 10 Mg PO DAILY Vital Signs Vital Signs Date Time Temp Pulse Resp B/P (MAP) Pulse Ox O2 Delivery O2 Flow Rate FiO2 08/14/20 11:31 95 Room Air 08/14/20 11:00 98.4 98 18 190/76 (114) 98.4 Labs Laboratory Tests Test 08/12/20 16:02 08/12/20 20:37 08/13/20 08:10 08/13/20 11:45 Glucose (Fingerstick) 101 mg/dL (70-99) 105 mg/dL (70-99) 102 mg/dL (70-99) White Blood Count 2.5 x10^3/uL (4.0-11.0) Red Blood Count 3.55 x10^6/uL (3.50-5.40) Hemoglobin 9.3 g/dL (12.0-15.5) Hematocrit 29.8 % (36.0-47.0) Mean Corpuscular Volume 84 fL (79-100) Mean Corpuscular Hemoglobin 26 pg (25-35) Mean Corpuscular Hemoglobin Concent 31 g/dL (31-37) Red Cell Distribution Width 20.9 % (11.5-14.5) Platelet Count 124 x10^3/uL (140-400) Neutrophils (%) (Auto) 79 % (31-73) Lymphocytes (%) (Auto) 13 % (24-48) Monocytes (%) (Auto) 6 % (0-9) Eosinophils (%) (Auto) 3 % (0-3) Basophils (%) (Auto) 0 % (0-3) Neutrophils # (Auto) 2.0 x10^3/uL (1.8-7.7) Lymphocytes # (Auto) 0.3 x10^3/uL (1.0-4.8) Monocytes # (Auto) 0.1 x10^3/uL (0.0-1.1) Eosinophils # (Auto) 0.1 x10^3/uL (0.0-0.7) Basophils # (Auto) 0.0 x10^3/uL (0.0-0.2) Sodium Level 140 mmol/L (136-145) Potassium Level 4.7 mmol/L (3.5-5.1) Chloride Level 103 mmol/L (98-107) Carbon Dioxide Level 30 mmol/L (21-32) Anion Gap 7 (6-14) Blood Urea Nitrogen 18 mg/dL (7-20) Creatinine 1.6 mg/dL (0.6-1.0) Estimated GFR (Cockcroft-Gault) 40.2 BUN/Creatinine Ratio 11 (6-20) Glucose Level 94 mg/dL (70-99) Calcium Level 9.2 mg/dL (8.5-10.1) Total Bilirubin 0.2 mg/dL (0.2-1.0) Aspartate Amino Transf (AST/SGOT) 82 U/L (15-37) Alanine Aminotransferase (ALT/SGPT) 132 U/L (14-59) Alkaline Phosphatase 117 U/L (46-116) Total Protein 7.6 g/dL (6.4-8.2) Albumin 3.4 g/dL (3.4-5.0) Albumin/Globulin Ratio 0.8 (1.0-1.7) Test 08/13/20 11:51 08/13/20 17:40 08/13/20 20:52 08/14/20 08:15 Glucose (Fingerstick) 86 mg/dL (70-99) 115 mg/dL (70-99) 123 mg/dL (70-99) 93 mg/dL (70-99) Test 08/14/20 09:40 08/14/20 12:17 White Blood Count 2.9 x10^3/uL (4.0-11.0) Red Blood Count 3.55 x10^6/uL (3.50-5.40) Hemoglobin 9.4 g/dL (12.0-15.5) Hematocrit 29.2 % (36.0-47.0) Mean Corpuscular Volume 82 fL (79-100) Mean Corpuscular Hemoglobin 26 pg (25-35) Mean Corpuscular Hemoglobin Concent 32 g/dL (31-37) Red Cell Distribution Width 21.2 % (11.5-14.5) Platelet Count 127 x10^3/uL (140-400) Neutrophils (%) (Auto) 84 % (31-73) Lymphocytes (%) (Auto) 9 % (24-48) Monocytes (%) (Auto) 5 % (0-9) Eosinophils (%) (Auto) 2 % (0-3) Basophils (%) (Auto) 0 % (0-3) Neutrophils # (Auto) 2.4 x10^3/uL (1.8-7.7) Lymphocytes # (Auto) 0.3 x10^3/uL (1.0-4.8) Monocytes # (Auto) 0.1 x10^3/uL (0.0-1.1) Eosinophils # (Auto) 0.1 x10^3/uL (0.0-0.7) Basophils # (Auto) 0.0 x10^3/uL (0.0-0.2) Sodium Level 140 mmol/L (136-145) Potassium Level 4.4 mmol/L (3.5-5.1) Chloride Level 103 mmol/L (98-107) Carbon Dioxide Level 28 mmol/L (21-32) Anion Gap 9 (6-14) Blood Urea Nitrogen 18 mg/dL (7-20) Creatinine 1.5 mg/dL (0.6-1.0) Estimated GFR (Cockcroft-Gault) 43.3 Glucose Level 120 mg/dL (70-99) Calcium Level 9.6 mg/dL (8.5-10.1) Phosphorus Level 4.4 mg/dL (2.6-4.7) Albumin 3.5 g/dL (3.4-5.0) Glucose (Fingerstick) 115 mg/dL (70-99) Laboratory Tests Test 08/13/20 17:40 08/13/20 20:52 08/14/20 08:15 08/14/20 09:40 Glucose (Fingerstick) 115 mg/dL (70-99) 123 mg/dL (70-99) 93 mg/dL (70-99) White Blood Count 2.9 x10^3/uL (4.0-11.0) Red Blood Count 3.55 x10^6/uL (3.50-5.40) Hemoglobin 9.4 g/dL (12.0-15.5) Hematocrit 29.2 % (36.0-47.0) Mean Corpuscular Volume 82 fL (79-100) Mean Corpuscular Hemoglobin 26 pg (25-35) Mean Corpuscular Hemoglobin Concent 32 g/dL (31-37) Red Cell Distribution Width 21.2 % (11.5-14.5) Platelet Count 127 x10^3/uL (140-400) Neutrophils (%) (Auto) 84 % (31-73) Lymphocytes (%) (Auto) 9 % (24-48) Monocytes (%) (Auto) 5 % (0-9) Eosinophils (%) (Auto) 2 % (0-3) Basophils (%) (Auto) 0 % (0-3) Neutrophils # (Auto) 2.4 x10^3/uL (1.8-7.7) Lymphocytes # (Auto) 0.3 x10^3/uL (1.0-4.8) Monocytes # (Auto) 0.1 x10^3/uL (0.0-1.1) Eosinophils # (Auto) 0.1 x10^3/uL (0.0-0.7) Basophils # (Auto) 0.0 x10^3/uL (0.0-0.2) Sodium Level 140 mmol/L (136-145) Potassium Level 4.4 mmol/L (3.5-5.1) Chloride Level 103 mmol/L (98-107) Carbon Dioxide Level 28 mmol/L (21-32) Anion Gap 9 (6-14) Blood Urea Nitrogen 18 mg/dL (7-20) Creatinine 1.5 mg/dL (0.6-1.0) Estimated GFR (Cockcroft-Gault) 43.3 Glucose Level 120 mg/dL (70-99) Calcium Level 9.6 mg/dL (8.5-10.1) Phosphorus Level 4.4 mg/dL (2.6-4.7) Albumin 3.5 g/dL (3.4-5.0) Test 08/14/20 12:17 Glucose (Fingerstick) 115 mg/dL (70-99) Allergies Allergies Coded Allergies Type Severity Reaction Last Updated Verified Penicillins Allergy Intermediate HIVES 05/15/19 Yes Disposition/Orders: Other (D/C TO [facility]) Justicifation of Admission Dx: Justifications for Admission: Justification of Admission Dx: N/A SHANNAN WILDER MD Aug 14, 2020 13:31
[2020-08-14] MEDS ORDERED: INSU100V35 SQ (13:36)
--- NOTE | 2020-08-14 13:38 | SNU/HH DC ---
DISCHARGE ORDERS DISCHARGE INFORMATION: DISCHARGE DATE: Aug 14, 2020 FINAL DIAGNOSIS Problems Medical Problems: (1) Acute kidney injury superimposed on chronic kidney disease Status: Acute (2) Agitation requiring sedation protocol Status: Acute (3) Hyperkalemia Status: Acute (4) Traumatic periorbital ecchymosis of right eye Status: Acute CONDITION ON DISCHARGE: Stable CODE STATUS: Code Status: Full RETIREMENT: SNF STAY <30 DAYS: No HOSPICE: HOSPICE: No HOSPICE EVAL & TREAT: No LTAC: ADMIT TO LTAC: No POST DISCHARGE ORDERS: ACTIVITY ORDERS: Activity as tolerated DIET AFTER DISCHARGE: ADA CHECKS AFTER DISCHARGE: CHECKS AFTER DISCHARGE: Check blood press - daily FOLLOW-UP: PHYSICIAN FOLLOW-UP: PCP AT ME TODAY ADDITIONAL FOLLOW-UP: NEPHROLOGY 2 WEEKS TREATMENT/EQUIPMENT ORDERS: ADAPTIVE EQUIPMENT NEEDED: Front wheeled walker RESPIRATORY EQUIPMENT NEEDED: Oxygen, Nebulizer, CPAP Physical Therapy For: Evalulation/Treatment Occupational Therapy For: Evaluation/Treatment Speech Language Pathology For: Evaluation/Treatment DISCHARGE MEDICATIONS: Home Meds Active Scripts Insulin Lispro (Admelog) 100 Unit/1 Ml Vial, 0 UNITS SQ TIDWMEALS for PER PROTOCOL for 30 Days, #2 EACH Prov:SHANNAN WILDER MD 08/14/20 Lactobacillus Rhamnosus Gg (CULTURELLE) 1 Each Cap.sprink, 1 CAP PO BID for supplement for 30 Days, #60 CAP Prov:SHANNAN WILDER MD 07/04/20 Mag Hydrox/Al Hydrox/Simeth (MAG-AL PLUS XS SUSPENSION) 30 Ml Oral.susp, 30 ML PO PRN DAILY PRN for HEARTBURN / GAS for 14 Days, #120 MISC Prov:SHANNAN WILDER MD 07/04/20 Acetaminophen (ACETAMINOPHEN) 325 Mg Tablet, 650 MG PO PRN Q4HRS PRN for TEMP OVER 100.4F OR MILD PAIN for 30 Days, #90 TAB Prov:SHANNAN WILDER MD 07/04/20 Albuterol Sulfate (Proair Hfa) 8.5 Gm Hfa.aer.ad, 2.5 MG NEB PRN Q4HRS PRN for SHORTNESS OF BREATH for 30 Days, #2 INHALER Prov:SHANNAN WILDER MD 07/04/20 Ondansetron Hcl (ZOFRAN) 4 Mg Tablet, 4 MG PO PRN TID PRN for NAUSEA, #9 nausea/vomiting Prov:SHIRLEY FAULKNER DO 01/03/20 Dicyclomine Hcl (DICYCLOMINE HCL) 10 Mg Capsule, 1 CAP PO TID PRN for PAIN for 5 Days, #15 CAP 11 Refills Prov:WYATT ZELAYA MD 05/09/19 Reported Medications Quetiapine Fumarate (SEROQUEL) 100 Mg Tablet, 150 MG PO HS, TAB 12/31/16 Brimonidine Tartrate (ALPHAGAN P) 5 Ml Drops, 1 DROP EACHEYE BID, #15 ML 3 Refills 12/31/16 Hydrochlorothiazide (HYDROCHLOROTHIAZIDE TABLET) 50 Mg Tablet, 1 TAB PO DAILY, #30 TAB 5 Refills 12/31/16 Lamotrigine (LAMOTRIGINE) 150 Mg Tablet, 1 TAB PO BID, #60 TAB 1 Refill 12/31/16 Docusate Sodium (DOCUSATE SODIUM) 100 Mg Capsule, 100 MG PO, CAP 12/31/16 Fluticasone/Salmeterol (ADVAIR 500-50 DISKUS) 1 Each Disk.w.dev, 1 PUFF IH BID, #1 INHALER 5 Refills 12/31/16 Fluticasone Propionate (Flonase Allergy Relief) 9.9 Ml [place].susp, 2 SPRAYS NS DAILY, BOTTLE 12/31/16 Gabapentin (GABAPENTIN ) 300 Mg Capsule, 300 MG PO TID, CAP 12/31/16 Loratadine (CLARITIN) 10 Mg Tablet, 1 TAB PO DAILY, #30 TAB 5 Refills 12/31/16 Sitagliptin Phosphate (JANUVIA) 50 Mg Tablet, 1 TAB PO DAILY, #30 TAB 5 Refills 12/31/16 Levothyroxine Sodium (SYNTHROID) 125 Mcg Tablet, 1 TAB PO DAILY, #30 TAB 5 Refills 12/31/16 Sertraline Hcl (ZOLOFT) 100 Mg Tablet, 1 TAB PO DAILY, #30 TAB 5 Refills 12/31/16 Multivitamin (MULTIVITAMINS) 1 Each Tablet, 1 TAB PO DAILY, #90 TAB 3 Refills 12/31/16 Tiotropium Clarissa (SPIRIVA) 18 Mcg Cap.w.dev, 2 INH IH DAILY, #1 INH 0 Refills 12/31/16 Omeprazole (OMEPRAZOLE) 40 Mg Capsule.dr, 1 CAP PO DAILY, #30 CAP 3 Refills 12/31/16 Amlodipine Besylate (AMLODIPINE BESYLATE) 10 Mg Tablet, 10 MG PO DAILY, TAB 12/31/16 Discontinued Scripts Ondansetron Hcl (ZOFRAN) 4 Mg Tablet, 1 TAB PO PRN Q6-8HRS PRN for NAUSEA, #12 TAB Prov:WYATT ZELAYA MD 05/09/19 SHANNAN WILDER MD Aug 14, 2020 13:38
--- NOTE | 2020-08-14 14:12 | NUR ---
SS following up with discharge planning. Discharge orders received for return to [place], ; fax [phone]. SS phoned and faxed discharge orders to [place]. Pt will discharge today and return to [place] between 1600 and 1630 via stretcher transportation provided by [place]. Pt, pt's RN, and pt's case worker and medical coordinator notified.
[2020-08-14] MEDS: HYDROcodone/APAP 5/325MG 1 TAB TABLET PO PRN (14:22)
[2020-08-14 15:00] VITALS: BP 168/91
--- NOTE | 2020-08-14 16:53 | NUR ---
Patient transferred back to [facility] at 1640 via transport personnel. report given to ERVIN Raymundo. all belongings taken with patient
[2020-08-17] MEDS ORDERED: LEVO250T7 PO (12:12)
== END 2020-08-14 16:40 | DRG 640 ==
LOC: ER 05:20 → 2 NORTH 08:32
PROVIDERS: ADMIT Family Medicine; ATTEND Family Medicine
DX: E87.5 Hyperkalemia (principal); N17.0 Acute kidney failure with tubular necrosis; I13.0 Hypertensive heart and chronic kidney disease with heart failure and stage 1 through stage 4 chronic kidney disease, or unspecified chronic kidney disease; Z68.44 Body mass index [BMI] 60.0-69.9, adult; N13.6 Pyonephrosis; E87.0 Hyperosmolality and hypernatremia; F25.9 Schizoaffective disorder, unspecified; E11.22 Type 2 diabetes mellitus with diabetic chronic kidney disease; J45.909 Unspecified asthma, uncomplicated; F31.9 Bipolar disorder, unspecified; I50.9 Heart failure, unspecified; G47.33 Obstructive sleep apnea (adult) (pediatric); K21.9 Gastro-esophageal reflux disease without esophagitis; M19.90 Unspecified osteoarthritis, unspecified site; E03.9 Hypothyroidism, unspecified; E78.00 Pure hypercholesterolemia, unspecified; H54.8 Legal blindness, as defined in USA; E78.5 Hyperlipidemia, unspecified; E66.01 Morbid (severe) obesity due to excess calories; N18.31 Chronic kidney disease, stage 3a; W18.39XA Other fall on same level, initial encounter; S00.11XA Contusion of right eyelid and periocular area, initial encounter; K44.9 Diaphragmatic hernia without obstruction or gangrene; D64.9 Anemia, unspecified; Z88.0 Allergy status to penicillin; Z82.49 Family history of ischemic heart disease and other diseases of the circulatory system; Y93.89 Activity, other specified; Y92.89 Other specified places as the place of occurrence of the external cause; Y99.8 Other external cause status
CPT/HCPCS: 36415; 70450; 70486; 71045; 72125; 73070; 74176; 80048; 80053; 80069; 81001; 82550; 82962; 84132; 85007; 85025; 93005; 94640; 94760; 96361; 96374; 96375; J0610; J0696; J1170; J1630; J1650; J1815; J2060; J2270; J2405; J3490; J7030; J7060; 92526-GN; 92610-GN; 99291-25; G0378; J7613; J7626

== ENCOUNTER 2020-08-31 02:09 | Emergency (ER) | payer OTHER ==
[~2020-08-31] VITALS: Ht 165.1 cm; Wt 81.8 kg
[~2020-08-31 02:09] MED LIST changes: +INSU100V35 SQ; +LEVO250T7 PO
[2020-08-31] MEDS ORDERED: DEXAMETHASONE 4 MG TABLET PO ONE (03:15)
--- NOTE | 2020-08-31 03:52 | PHYS DOC ---
Past Medical History Past Medical History: Anemia, Asthma, Bipolar, CHF, Depression, Diabetes-Type II, GERD, High Cholesterol, Hypertension, Hypothyroid, Pneumonia, Seizure Additional Past Medical Histor: SCHIZOAFFECTIVE DISORDER, JYOTI, OA, GLAUCOMA, LEGALLY BLIND, CKD Past Surgical History: No Surgical History Additional Past Surgical Histo: CARPAL TUNNEL,RECTAL PROLAPSE REPAIR, Smoking Status: Unknown if ever smoked Alcohol Use: None Drug Use: None General Adult EDM: Chief Complaint: SORE THROAT HPI: HPI: Patient is a 59 year old presents with a chief complaint of sore throat. Patient states sore throat started approximately 1 hour prior to arrival. Patient states she has pain with swallowing and she feels short of breath. Patient denies any associated cough or sputum production. Patient is handling oral secretions. On exam there is no pharyngeal edema or swelling. There is no stridor patient's lungs are clear bilateral. Strep was performed it was negative. Patient was given Decadron 10 mg p.o. Review of Systems: Review of Systems: Constitutional: Denies fever or chills. [] Eyes: Denies change in visual acuity. [] HENT: Denies nasal congestion Positive sore throat. [] Respiratory: Denies cough or shortness of breath. [] Cardiovascular: Denies chest pain or edema. [] GI: Denies abdominal pain, nausea, vomiting, bloody stools or diarrhea. [] : Denies dysuria. [] Musculoskeletal: Denies back pain or joint pain. [] Integument: Denies rash. [] Neurologic: Denies headache, focal weakness or sensory changes. [] Endocrine: Denies polyuria or polydipsia. [] Lymphatic: Denies swollen glands. [] Psychiatric: Denies depression or anxiety. [] Heart Score: C/O Chest Pain: N/A Risk Factors: Risk Factors: DM, Current or recent (<one month) smoker, HTN, HLP, family history of CAD, obesity. Risk Scores: Score 0 - 3: 2.5% MACE over next 6 weeks - Discharge Home Score 4 - 6: 20.3% MACE over next 6 weeks - Admit for Clinical Observation Score 7 - 10: 72.7% MACE over next 6 weeks - Early Invasive Strategies Current Medications: Current Medications Medications (Trade) Dose Ordered Sig/Gamal Start Time Stop Time Status Last Admin Dose Admin Dexamethasone (Decadron) 10 mg 1X ONCE 08/31/20 03:15 08/31/20 03:16 DC 08/31/20 03:12 10 MG Allergies: Allergies: Allergies Coded Allergies Type Severity Reaction Last Updated Verified Penicillins Allergy Intermediate HIVES 05/15/19 Yes Physical Exam: PE: Constitutional: Well developed, well nourished, no acute distress, non-toxic appearance. [] HENT: Normocephalic, atraumatic, bilateral external ears normal, oropharynx moist, no oral exudates, nose normal. [] Eyes: PERRLA, EOMI, conjunctiva normal, no discharge. [] Neck: Normal range of motion, no tenderness, supple, no stridor. [] Cardiovascular:Heart rate regular rhythm, no murmur [] Lungs & Thorax: Bilateral breath sounds clear to auscultation [] Abdomen: Bowel sounds normal, soft, no tenderness, no masses, no pulsatile masses. [] Skin: Warm, dry, no erythema, no rash. [] Back: No tenderness, no CVA tenderness. [] Extremities: No tenderness, no cyanosis, no clubbing, ROM intact, no edema. [] Neurologic: Alert and oriented X 3, normal motor function, normal sensory function, no focal deficits noted. [] Psychologic: Affect normal, judgement normal, mood normal. [] Current Patient Data: Vital Signs: Vital Signs Date Time Temp Pulse Resp B/P (MAP) Pulse Ox O2 Delivery O2 Flow Rate FiO2 08/31/20 02:09 97.9 72 20 165/72 (103) 100 Nasal Cannula 3.0 97.9 EKG: EKG: [] Radiology/Procedures: Radiology/Procedures: [] Course & Med Decision Making: Course & Med Decision Making Pertinent Labs and Imaging studies reviewed. (See chart for details) [] Dragon Disclaimer: [facility] Disclaimer: This electronic medical record was generated, in whole or in part, using a voice recognition dictation system. Departure Departure Impression: Primary Impression: Pharyngitis Disposition: HOME / SELF CARE / HOMELESS Condition: STABLE Referrals: THOMAS AGUILERA MD (PCP) Patient Instructions: Sore Throat LAURA WHEELER DO Aug 31, 2020 03:52
[2020-08-31 04:02] VITALS: BP 132/70
== END 2020-08-31 04:30 | disposition home or self-care (01) ==
LOC: ER 02:09
DX: J02.9 Acute pharyngitis, unspecified (principal); F31.9 Bipolar disorder, unspecified; E78.00 Pure hypercholesterolemia, unspecified; K21.9 Gastro-esophageal reflux disease without esophagitis; J45.909 Unspecified asthma, uncomplicated; I11.0 Hypertensive heart disease with heart failure; I50.9 Heart failure, unspecified; E03.9 Hypothyroidism, unspecified; F25.9 Schizoaffective disorder, unspecified; I13.0 Hypertensive heart and chronic kidney disease with heart failure and stage 1 through stage 4 chronic kidney disease, or unspecified chronic kidney disease; E11.22 Type 2 diabetes mellitus with diabetic chronic kidney disease; N18.9 Chronic kidney disease, unspecified; Z88.0 Allergy status to penicillin
CPT/HCPCS: 87070; 87880; 99285-25